=== PATIENT | female | born 1975 | race American Indian/Alaskan Native ===

== ENCOUNTER 2020-01-09 18:21 | Inpatient (IN) | payer OTHER ==
[2020-01-09] MEDS ORDERED: NITROGLYCERIN DRIP 50 MG/250 ML BOTTLE ONE (18:25)
[2020-01-09] MEDS ORDERED: FUROSEMIDE 40 MG/4 ML INJ ONE (18:30)
[2020-01-09] MEDS ORDERED: FUROSEMIDE 100 MG/10 ML INJ IV ONE (18:36)
[2020-01-09] MEDS ORDERED: SODIUM CHLORIDE 0.9% 500 ML 500 ML IV ONE (18:39)
[2020-01-09 18:47] LABS: ABG Base Excess 4.9 mmol/L (-2.0-3.0); ABG HCO3 34.3 mmol/L (20.0-26.0); ABG Methemoglobin 0.6 % (0.0-1.5); ABG Oxygen Saturation 98.9 % (95.0-99.0); ABG PCO2 79.6 mm Hg; ABG PH 7.252 pH Units (7.350-7.450); ABG PO2 172.4 mm Hg (80.0-90.0); VEN PH 7.252 (7.320-7.420)
[2020-01-09] MEDS ORDERED: cefTRIAXone/NS 2 GM/100 ML 2 GM/100 ML BAG IV ONE (18:52)
[2020-01-09] MEDS ORDERED: NITROGLYCERIN DRIP 50 MG/250 ML BOTTLE IV SCH (19:00)
--- NOTE | 2020-01-09 19:01 | XRay Report ---
CHEST 1 VIEW 01/09/2020 5:54 PM INDICATION / CLINICAL INFORMATION: shortness of breath. COMPARISON: None available. FINDINGS: SUPPORT DEVICES: None. HEART / MEDIASTINUM: Heart is moderately enlarged with prominence of the pulmonary arteries. LUNGS / PLEURA: No definite acute airspace or interstitial disease. No significant effusion. No pneum othorax. ADDITIONAL FINDINGS: No significant additional findings. IMPRESSION: 1. Cardiomegaly but no definite acute pulmonary or pleural findings. Signer Name: Vandana Moore MD Signed: 01/09/2020 6:56 PM Workstation Name: [id number]
[2020-01-09 19:25] LABS: Mean Corpuscular HGB Conc 29 % (30-34); Mean Corpuscular Volume 76 fl (79-97); Platelet Count 223 K/mm3 (140-440); Red Blood Count 5.18 M/mm3 (3.65-5.03)
[2020-01-09 19:27] LABS: Hematocrit 39.3 % (30.3-42.9); Hemoglobin 11.4 gm/dl (10.1-14.3)
[2020-01-09 19:34] LABS: INR 1.05 (0.87-1.13)
[2020-01-09 19:42] LABS: Alanine Aminotransferase 19 units/L (7-56); Albumin 4.3 g/dL (3.9-5); Blood Urea Nitrogen 10 mg/dL (7-17); Calcium 9.2 mg/dL (8.4-10.2); Hemolysis Index 8
[2020-01-09 19:53] LABS: BUN/Creatinine Ratio 17
[2020-01-09 20:15] LABS: Anisocytosis 1+; Basophils % (Manual) 0 % (0.0-1.8); Eosinophils % (Manual) 0 % (0.0-4.3); Hypochromasia 1+; Schistocytes Few; Total Cells Counted 100
[2020-01-09] MEDS ORDERED: ETOMIDATE 20 MG/10 ML INJ IV ONE (20:29)
[2020-01-09] MEDS ORDERED: SUCCINYLCHOLINE CHLORIDE 200 MG/10 ML INJ MDV ONE (20:29)
[2020-01-09] MEDS ORDERED: NORepinephrine/NS 4 MG-250 ML 4 MG/250 ML BAG IV ONE (20:52)
--- NOTE | 2020-01-09 21:48 | Emergency Department Report ---
ED General Adult HPI - General Chief complaint: Dyspnea/Respdistress Stated complaint: UNRESPONSIVE Time Seen by Provider: 01/09/20 18:50 Source: EMS Mode of arrival: Stretcher Limitations: Altered Mental Status - History of Present Illness Initial comments: The patient presents to the emergency department via EMS in respiratory distress. Per EMS they received a phone call for difficulty in breathing. Patient has a history of CHF. On exam the patient had rales throughout with 2+ pitting edema. Patient was immediately placed on BiPAP and nitro drip was initiated. Patient was given IV Lasix period. Due to the patient's medical condition they were not able to add to the history. -: Sudden Consistency: constant Improves with: none Worsens with: none Treatments Prior to Arrival: none - Related Data Allergies Allergy/AdvReac Type Severity Reaction Status Date / Time Unable to Assess Allergy Unverified 01/09/20 18:33 ED Review of Systems ROS: Stated complaint: UNRESPONSIVE Other details as noted in HPI Comment: Unobtainable due to pts medical conditions ED Past Medical Hx - Past Medical History Previous Medical History?: Yes Hx Hypertension: Yes Hx Congestive Heart Failure: Yes - Surgical History Additional Surgical History: unobtainable - Social History Smoking Status: Never Smoker Substance Use Type: None ED Physical Exam - General Limitations: Altered Mental Status General appearance: obtunded - Head Head exam: Present: atraumatic, normocephalic - Eye Eye exam: Present: normal appearance - ENT ENT exam: Present: mucous membranes moist - Neck Neck exam: Present: normal inspection - Respiratory Respiratory exam: Present: rales - Cardiovascular Cardiovascular Exam: Present: normal rhythm, tachycardia. Absent: systolic murmur, diastolic murmur, rubs, gallop - GI/Abdominal GI/Abdominal exam: Present: soft, normal bowel sounds. Absent: tenderness - Extremities Exam Extremities exam: Present: normal inspection, other (2+ pitting edema) - Back Exam Back exam: Present: normal inspection - Neurological Exam Neurological exam: Present: other (Not able to assess due to the patient's co ndition) - Psychiatric Psychiatric exam: Present: normal affect, normal mood - Skin Skin exam: Present: warm, dry, intact, normal color. Absent: rash ED Course Vital Signs 01/09/20 01/09/20 01/09/20 18:28 19:00 19:10 Temperature 97.6 F Pulse Rate 80 90 50 L Respiratory 21 18 22 Rate Blood Pressure 245/153 250/185 104/53 Blood Pressure 218/122 [Left] O2 Sat by Pulse 99 90 96 Oximetry 01/09/20 01/09/20 01/09/20 19:20 19:30 19:45 Temperature Pulse Rate 76 76 52 L Respiratory 17 15 4 L Rate Blood Pressure Blood Pressure 177/88 145/83 117/59 [Left] O2 Sat by Pulse 100 99 96 Oximetry 01/09/20 01/09/20 01/09/20 20:00 20:15 20:20 Temperature Pulse Rate 76 50 L 50 L Respiratory 15 1 L 0 L Rate Blood Pressure Blood Pressure 104/53 94/46 92/45 [Left] O2 Sat by Pulse 93 93 92 Oximetry 01/09/20 01/09/20 01/09/20 20:25 20:30 20:35 Temperature Pulse Rate 50 L 48 L 94 H Respiratory 11 L 4 L 15 Rate Blood Pressure Blood Pressure 92/42 87/42 76/57 [Left] O2 Sat by Pulse 95 97 86 Oximetry 01/09/20 01/09/20 01/09/20 20:40 20:45 20:50 Temperature Pulse Rate 100 H 84 81 Respiratory 19 71 H 18 Rate Blood Pressure Blood Pressure 83/58 78/40 [Left] O2 Sat by Pulse 85 99 100 Oximetry 01/09/20 01/09/20 01/09/20 21:00 21:05 21:10 Temperature Pulse Rate 81 80 84 Respiratory 14 19 18 Rate Blood Pressure Blood Pressure 82/42 101/55 100/60 [Left] O2 Sat by Pulse 100 98 98 Oximetry 01/09/20 01/09/20 01/09/20 21:15 21:20 21:21 Temperature Pulse Rate 86 93 H 94 H Respiratory 20 19 20 Rate Blood Pressure Blood Pressure 105/65 106/61 109/64 [Left] O2 Sat by Pulse 98 99 98 Oximetry 01/09/20 01/09/20 01/09/20 21:24 21:26 21:28 Temperature Pulse Rate 96 H 96 H 96 H Respiratory 20 20 19 Rate Blood Pressure Blood Pressure 107/63 107/64 108/63 [Left] O2 Sat by Pulse 98 99 98 Oximetry 01/09/20 01/09/20 01/09/20 21:30 21:32 21:38 Temperature Pulse Rate 95 H 93 H 87 Respiratory 20 18 Rate Blood Pressure 85/51 Blood Pressure 105/63 110/62 [Left] O2 Sat by Pulse 98 98 98 Oximetry 01/09/20 01/09/20 01/09/20 21:40 22:33 22:45 Temperature Pulse Rate 88 76 75 Respiratory 18 20 20 Rate Blood Pressure 114/70 112/65 Blood Pressure 113/79 [Left] O2 Sat by Pulse 97 94 94 Oximetry - Central Line Placement Right IJ Consent Obtained: emergent situation Time Out Performed: Yes Patient Placed on Monitor/Pulse Ox: Yes MD Prep: mask, gown, gloves Local Anesthesia Used: Lidocaine 1% Amount of Anesthesia Used (mls): 5 Ultrasound Used for Placement: Yes Central Line Lumen Inserted: triple Bloods Obtained for Lab: No Central Line Position: good blood return Dressing Applied: Tegaderm Post Procedure X-Ray: tip of catheter in good p Patient Tolerated Procedure: well Complications: none - Intubation Time Out Performed: Yes Sedative: Etomidate Paralytic: Rocuronium Laryngoscope: fiberoptic video scope Size: 3 ET Tube Size: 7 Tube Secured Depth (cm): 22 Tube Secured Location: teeth Tube Placement Confirmation: visualized tube passing t Patient Tolerated Procedure: well Intubation Complications: none ED Medical Decision Making - Lab Data Result diagrams: 01/09/20 19:03 01/09/20 19:03 Lab Results 01/09/20 01/09/20 01/09/20 Range/Units 18:37 18:47 19:03 WBC 14.0 H (4.5-11.0) K/mm3 RBC 5.18 H (3.65-5.03) M/mm3 Hgb 11.4 (10.1-14.3) gm/dl Hct 39.3 (30.3-42.9) % MCV 76 L (79-97) fl MCH 22 L (28-32) pg MCHC 29 L (30-34) % RDW 22.0 H (13.2-15.2) % Plt Count 223 (140-440) K/mm3 Add Manual Diff Complete Total Counted 100 Seg Neuts % (Manual) 76.0 H (40.0-70.0) % Band Neutrophils % 0 % Lymphocytes % (Manual) 21.0 (13.4-35.0) % Reactive Lymphs % (Man) 0 % Monocytes % (Manual) 3.0 (0.0-7.3) % Eosinophils % (Manual) 0 (0.0-4.3) % Basophils % (Manual) 0 (0.0-1.8) % Metamyelocytes % 0 % Myelocytes % 0 % Promyelocytes % 0 % Blast Cells % 0 % Nucleated RBC % Not Reportable Seg Neutrophils # Man 10.6 H (1.8-7.7) K/mm3 Band Neutrophils # 0.0 K/mm3 Lymphocytes # (Manual) 2.9 (1.2-5.4) K/mm3 Abs React Lymphs (Man) 0.0 K/mm3 Monocytes # (Manual) 0.4 (0.0-0.8) K/mm3 Eosinophils # (Manual) 0.0 (0.0-0.4) K/mm3 Basophils # (Manual) 0.0 (0.0-0.1) K/mm3 Metamyelocytes # 0.0 K/mm3 Myelocytes # 0.0 K/mm3 Promyelocytes # 0.0 K/mm3 Blast Cells # 0.0 K/mm3 WBC Morphology Not Reportable Hypersegmented Neuts Not Reportable Hyposegmented Neuts Not Reportable Hypogranular Neuts Not Reportable Smudge Cells Not Reportable Toxic Granulation Not Reportable Toxic Vacuolation Not Reportable Dohle Bodies Not Reportable Pelger-Huet Anomaly Not Reportable Dominique Rods Not Reportable Platelet Estimate Not Reportable Clumped Platelets Not Reportable Plt Clumps, EDTA Not Reportable Large Platelets Not Reportable Giant Platelets Not Reportable Platelet Satelliting Not Reportable Plt Morphology Comment Not Reportable RBC Morphology Not Reportable Dimorphic RBCs Not Reportable Polychromasia Not Reportable Hypochromasia 1+ Poikilocytosis Not Reportable Anisocytosis 1+ Microcytosis Not Reportable Macrocytosis Not Reportable Spherocytes Not Reportable Pappenheimer Bodies Not Reportable Sickle Cells Not Reportable Target Cells Not Reportable Tear Drop Cells Not Reportable Ovalocytes Not Reportable Helmet Cells Not Reportable Feliz-Flat[place] Bodies Not Reportable [place] Rings Not Reportable Sanford Cells Not Reportable Bite Cells Not Reportable Crenated Cell Not Reportable Elliptocytes Not Reportable Acanthocytes (Spur) Not Reportable Rouleaux Not Reportable Hemoglobin C Crystals Not Reportable Schistocytes Few Malaria parasites Not Reportable Beka Bodies Not Reportable Hem Pathologist Commnt No PT (12.2-14.9) Sec. INR (0.87-1.13) ABG pH 7.252 L (7.350-7.450) pH Units ABG pCO2 79.6 mm Hg ABG pO2 172.4 H (80.0-90.0) mm Hg ABG HCO3 34.3 H (20.0-26.0) mmol/L ABG O2 Saturation 98.9 (95.0-99.0) % ABG O2 Content 16.3 (0.0-44) ABG Base Excess 4.9 H (-2.0-3.0) mmol/L ABG Hemoglobin 11.8 L (12.0-16.0) gm/dl ABG Carboxyhemoglobin 2.2 (0.0-5.0) % ABG Methemoglobin 0.6 (0.0-1.5) % VBG pH 7.252 L (7.320-7.420) Oxyhemoglobin 96.1 (95.0-99.0) % FiO2 60 % Sodium (137-145) mmol/L Potassium (3.6-5.0) mmol/L Chloride (98-107) mmol/L Carbon Dioxide (22-30) mmol/L Anion Gap mmol/L BUN (7-17) mg/dL Creatinine (0.6-1.2) mg/dL Estimated GFR ml/min BUN/Creatinine Ratio % Glucose (65-100) mg/dL POC Glucose 177 H (70-105) Lactic Acid (0.7-2.0) mmol/L Calcium (8.4-10.2) mg/dL Total Bilirubin (0.1-1.2) mg/dL AST (5-40) units/L ALT (7-56) units/L Alkaline Phosphatase (35-129) units/L Troponin T (0.00-0.029) ng/mL NT-Pro-B Natriuret Pep (0-450) pg/mL Total Protein (6.3-8.2) g/dL Albumin (3.9-5) g/dL Albumin/Globulin Ratio % HCG, Qual (Negative) 01/09/20 01/09/20 01/09/20 Range/Units 19:03 19:03 19:03 WBC (4.5-11.0) K/mm3 RBC (3.65-5.03) M/mm3 Hgb (10.1-14.3) gm/dl Hct (30.3-42.9) % MCV (79-97) fl MCH (28-32) pg MCHC (30-34) % RDW (13.2-15.2) % Plt Count (140-440) K/mm3 Add Manual Diff Total Counted Seg Neuts % (Manual) (40.0-70.0) % Band Neutrophils % % Lymphocytes % (Manual) (13.4-35.0) % Reactive Lymphs % (Man) % Monocytes % (Manual) (0.0-7.3) % Eosinophils % (Manual) (0.0-4.3) % Basophils % (Manual) (0.0-1.8) % Metamyelocytes % % Myelocytes % % Promyelocytes % % Blast Cells % % Nucleated RBC % Seg Neutrophils # Man (1.8-7.7) K/mm3 Band Neutrophils # K/mm3 Lymphocytes # (Manual) (1.2-5.4) K/mm3 Abs React Lymphs (Man) K/mm3 Monocytes # (Manual) (0.0-0.8) K/mm3 Eosinophils # (Manual) (0.0-0.4) K/mm3 Basophils # (Manual) (0.0-0.1) K/mm3 Metamyelocytes # K/mm3 Myelocytes # K/mm3 Promyelocytes # K/mm3 Blast Cells # K/mm3 WBC Morphology Hypersegmented Neuts Hyposegmented Neuts Hypogranular Neuts Smudge Cells Toxic Granulation Toxic Vacuolation Dohle Bodies Pelger-Huet Anomaly Dominique Rods Platelet Estimate Clumped Platelets Plt Clumps, EDTA Large Platelets Giant Platelets Platelet Satelliting Plt Morphology Comment RBC Morphology Dimorphic RBCs Polychromasia Hypochromasia Poikilocytosis Anisocytosis Microcytosis Macrocytosis Spherocytes Pappenheimer Bodies Sickle Cells Target Cells Tear Drop Cells Ovalocytes Helmet Cells Feliz-Fl[place] Bodies [place] Rings Sanford Cells Bite Cells Crenated Cell Elliptocytes Acanthocytes (Spur) Rouleaux Hemoglobin C Crystals Schistocytes Malaria parasites Beka Bodies Hem Pathologist Commnt PT 13.9 (12.2-14.9) Sec. INR 1.05 (0.87-1.13) ABG pH (7.350-7.450) pH Units ABG pCO2 mm Hg ABG pO2 (80.0-90.0) mm Hg ABG HCO3 (20.0-26.0) mmol/L ABG O2 Saturation (95.0-99.0) % ABG O2 Content (0.0-44) ABG Base Excess (-2.0-3.0) mmol/L ABG Hemoglobin (12.0-16.0) gm/dl ABG Carboxyhemoglobin (0.0-5.0) % ABG Methemoglobin (0.0-1.5) % VBG pH (7.320-7.420) Oxyhemoglobin (95.0-99.0) % FiO2 % Sodium 141 (137-145) mmol/L Potassium 3.1 L (3.6-5.0) mmol/L Chloride 95.2 L (98-107) mmol/L Carbon Dioxide 28 (22-30) mmol/L Anion Gap 21 mmol/L BUN 10 (7-17) mg/dL Creatinine 0.6 (0.6-1.2) mg/dL Estimated GFR > 60 ml/min BUN/Creatinine Ratio 17 % Glucose 197 H (65-100) mg/dL POC Glucose (70-105) Lactic Acid 1.90 (0.7-2.0) mmol/L Calcium 9.2 (8.4-10.2) mg/dL Total Bilirubin 0.80 (0.1-1.2) mg/dL AST 24 (5-40) units/L ALT 19 (7-56) units/L Alkaline Phosphatase 105 (35-129) units/L Troponin T (0.00-0.029) ng/mL NT-Pro-B Natriuret Pep (0-450) pg/mL Total Protein 8.3 H (6.3-8.2) g/dL Albumin 4.3 (3.9-5) g/dL Albumin/Globulin Ratio 1.1 % HCG, Qual (Negative) 01/09/20 01/09/20 01/09/20 Range/Units 19:03 19:03 19:03 WBC (4.5-11.0) K/mm3 RBC (3.65-5.03) M/mm3 Hgb (10.1-14.3) gm/dl Hct (30.3-42.9) % MCV (79-97) fl MCH (28-32) pg MCHC (30-34) % RDW (13.2-15.2) % Plt Count (140-440) K/mm3 Add Manual Diff Total Counted Seg Neuts % (Manual) (40.0-70.0) % Band Neutrophils % % Lymphocytes % (Manual) (13.4-35.0) % Reactive Lymphs % (Man) % Monocytes % (Manual) (0.0-7.3) % Eosinophils % (Manual) (0.0-4.3) % Basophils % (Manual) (0.0-1.8) % Metamyelocytes % % Myelocytes % % Promyelocytes % % Blast Cells % % Nucleated RBC % Seg Neutrophils # Man (1.8-7.7) K/mm3 Band Neutrophils # K/mm3 Lymphocytes # (Manual) (1.2-5.4) K/mm3 Abs React Lymphs (Man) K/mm3 Monocytes # (Manual) (0.0-0.8) K/mm3 Eosinophils # (Manual) (0.0-0.4) K/mm3 Basophils # (Manual) (0.0-0.1) K/mm3 Metamyelocytes # K/mm3 Myelocytes # K/mm3 Promyelocytes # K/mm3 Blast Cells # K/mm3 WBC Morphology Hypersegmented Neuts Hyposegmented Neuts Hypogranular Neuts Smudge Cells Toxic Granulation Toxic Vacuolation Dohle Bodies Pelger-Huet Anomaly Dominique Rods Platelet Estimate Clumped Platelets Plt Clumps, EDTA Large Platelets Giant Platelets Platelet Satelliting Plt Morphology Comment RBC Morphology Dimorphic RBCs Polychromasia Hypochromasia Poikilocytosis Anisocytosis Microcytosis Macrocytosis Spherocytes Pappenheimer Bodies Sickle Cells Target Cells Tear Drop Cells Ovalocytes Helmet Cells Feliz-Fl[place] Bodies [place] Rings Gregory Cells Bite Cells Crenated Cell Elliptocytes Acanthocytes (Spur) Rouleaux Hemoglobin C Crystals Schistocytes Malaria parasites Beka Bodies Hem Pathologist Commnt PT (12.2-14.9) Sec. INR (0.87-1.13) ABG pH (7.350-7.450) pH Units ABG pCO2 mm Hg ABG pO2 (80.0-90.0) mm Hg ABG HCO3 (20.0-26.0) mmol/L ABG O2 Saturation (95.0-99.0) % ABG O2 Content (0.0-44) ABG Base Excess (-2.0-3.0) mmol/L ABG Hemoglobin (12.0-16.0) gm/dl ABG Carboxyhemoglobin (0.0-5.0) % ABG Methemoglobin (0.0-1.5) % VBG pH (7.320-7.420) Oxyhemoglobin (95.0-99.0) % FiO2 % Sodium (137-145) mmol/L Potassium (3.6-5.0) mmol/L Chloride (98-107) mmol/L Carbon Dioxide (22-30) mmol/L Anion Gap mmol/L BUN (7-17) mg/dL Creatinine (0.6-1.2) mg/dL Estimated GFR ml/min BUN/Creatinine Ratio % Glucose (65-100) mg/dL POC Glucose (70-105) Lactic Acid (0.7-2.0) mmol/L Calcium (8.4-10.2) mg/dL Total Bilirubin (0.1-1.2) mg/dL AST (5-40) units/L ALT (7-56) units/L Alkaline Phosphatase (35-129) units/L Troponin T < 0.010 (0.00-0.029) ng/mL NT-Pro-B Natriuret Pep 1345 H (0-450) pg/mL Total Protein (6.3-8.2) g/dL Albumin (3.9-5) g/dL Albumin/Globulin Ratio % HCG, Qual Negative (Negative) 01/09/20 Range/Units 21:55 WBC (4.5-11.0) K/mm3 RBC (3.65-5.03) M/mm3 Hgb (10.1-14.3) gm/dl Hct (30.3-42.9) % MCV (79-97) fl MCH (28-32) pg MCHC (30-34) % RDW (13.2-15.2) % Plt Count (140-440) K/mm3 Add Manual Diff Total Counted Seg Neuts % (Manual) (40.0-70.0) % Band Neutrophils % % Lymphocytes % (Manual) (13.4-35.0) % Reactive Lymphs % (Man) % Monocytes % (Manual) (0.0-7.3) % Eosinophils % (Manual) (0.0-4.3) % Basophils % (Manual) (0.0-1.8) % Metamyelocytes % % Myelocytes % % Promyelocytes % % Blast Cells % % Nucleated RBC % Seg Neutrophils # Man (1.8-7.7) K/mm3 Band Neutrophils # K/mm3 Lymphocytes # (Manual) (1.2-5.4) K/mm3 Abs React Lymphs (Man) K/mm3 Monocytes # (Manual) (0.0-0.8) K/mm3 Eosinophils # (Manual) (0.0-0.4) K/mm3 Basophils # (Manual) (0.0-0.1) K/mm3 Metamyelocytes # K/mm3 Myelocytes # K/mm3 Promyelocytes # K/mm3 Blast Cells # K/mm3 WBC Morphology Hypersegmented Neuts Hyposegmented Neuts Hypogranular Neuts Smudge Cells Toxic Granulation Toxic Vacuolation Dohle Bodies Pelger-Huet Anomaly Dominique Rods Platelet Estimate Clumped Platelets Plt Clumps, EDTA Large Platelets Giant Platelets Platelet Satelliting Plt Morphology Comment RBC Morphology Dimorphic RBCs Polychromasia Hypochromasia Poikilocytosis Anisocytosis Microcytosis Macrocytosis Spherocytes Pappenheimer Bodies Sickle Cells Target Cells Tear Drop Cells Ovalocytes Helmet Cells Feliz-Fl[place] Bodies [place] Rings Sanford Cells Bite Cells Crenated Cell Elliptocytes Acanthocytes (Spur) Rouleaux Hemoglobin C Crystals Schistocytes Malaria parasites Beka Bodies Hem Pathologist Commnt PT (12.2-14.9) Sec. INR (0.87-1.13) ABG pH 7.310 L (7.350-7.450) pH Units ABG pCO2 63.3 mm Hg ABG pO2 61.8 L (80.0-90.0) mm Hg ABG HCO3 31.2 H (20.0-26.0) mmol/L ABG O2 Saturation 90.3 L (95.0-99.0) % ABG O2 Content 12.4 (0.0-44) ABG Base Excess 3.8 H (-2.0-3.0) mmol/L ABG Hemoglobin 10.0 L (12.0-16.0) gm/dl ABG Carboxyhemoglobin 2.1 (0.0-5.0) % ABG Methemoglobin 0.6 (0.0-1.5) % VBG pH (7.320-7.420) Oxyhemoglobin 87.8 L (95.0-99.0) % FiO2 60 % Sodium (137-145) mmol/L Potassium (3.6-5.0) mmol/L Chloride (98-107) mmol/L Carbon Dioxide (22-30) mmol/L Anion Gap mmol/L BUN (7-17) mg/dL Creatinine (0.6-1.2) mg/dL Estimated GFR ml/min BUN/Creatinine Ratio % Glucose (65-100) mg/dL POC Glucose (70-105) Lactic Acid (0.7-2.0) mmol/L Calcium (8.4-10.2) mg/dL Total Bilirubin (0.1-1.2) mg/dL AST (5-40) units/L ALT (7-56) units/L Alkaline Phosphatase (35-129) units/L Troponin T (0.00-0.029) ng/mL NT-Pro-B Natriuret Pep (0-450) pg/mL Total Protein (6.3-8.2) g/dL Albumin (3.9-5) g/dL Albumin/Globulin Ratio % HCG, Qual (Negative) - EKG Data -: EKG Interpreted by Pa EKG shows normal: sinus rhythm Rate: normal - Radiology Data Radiology results: report reviewed - Medical Decision Making On initial arrival the patient was placed on BiPAP and nitro drip was initiated for her blood pressure was 250/170 as well as for the procedure and congestive heart failure exacerbation Patient was not tolerating BiPAP well and O2 sat stayed in the low 80s thus they were placed on a AVAP with good results for O2 sats being 97% or higher. Called to the room placement however after the patient was initially stabilized due to her O2 sats dropping to the 80s BP dropped to 90/40. At this time the patient was intubated and central line was placed. There is a central line was tried at the subclavian right thigh was difficult to obtain due to body habitus. Minutes CVO was attempted at the right femoral vein without success. With ultrasound. Eventually a right IJ was placed. Critical Care Time: Yes Critical care time in (mins) excluding proc time.: 90 Critical care attestation.: If time is entered above; I have spent that time in minutes in the direct care of this critically ill patient, excluding procedure time. ED Disposition Clinical Impression: Respiratory failure, Pulmonary edema Disposition: DC-01 TO HOME OR SELFCARE Is pt being admited?: Yes Does the pt Need Aspirin: No Condition: Critical Instructions: Pulmonary Edema (ED)
[2020-01-09 22:09] LABS: ABG Base Excess 3.8 mmol/L (-2.0-3.0); ABG HCO3 31.2 mmol/L (20.0-26.0); ABG Methemoglobin 0.6 % (0.0-1.5); ABG Oxygen Saturation 90.3 % (95.0-99.0); ABG PCO2 63.3 mm Hg; ABG PH 7.31 pH Units (7.350-7.450); ABG PO2 61.8 mm Hg (80.0-90.0)
--- NOTE | 2020-01-09 22:32 | XRay Report ---
CHEST 1 VIEW INDICATION / CLINICAL INFORMATION: MAIN. Status post intubation and central line. COMPARISON: 01/09/2020 FINDINGS: SUPPORT DEVICES: Interval placement of ET tube with its tip at the level of the clavicles. Interval p lacement of right sided central venous catheter with its tip at the superior atrial caval junction. HEART / MEDIASTINUM: Stable. LUNGS / PLEURA: Mild bibasilar atelectasis. No pneumothorax. ADDITIONAL FINDINGS: No significant additional findings. IMPRESSION: 1. Interval placement of ET tube with its tip in appropriate position. 2. Interval placement of right IJ catheter with its tip in appropriate position. Signer Name: Heraclio Elam MD Signed: 01/09/2020 10:27 PM Workstation Name: [id number]
[2020-01-10] MEDS ORDERED: cefTRIAXone/NS 2 GM/100 ML 2 GM/100 ML BAG IV ONE (00:16)
[2020-01-10 03:49] LABS: ABG HCO3 28.7 mmol/L (20.0-26.0); ABG Methemoglobin 0.4 % (0.0-1.5); ABG Oxygen Saturation 95.1 % (95.0-99.0); ABG PCO2 43.3 mm Hg; ABG PH 7.439 pH Units (7.350-7.450); ABG PO2 63.8 mm Hg (80.0-90.0)
[2020-01-10] MEDS: POTASSIUM CHLORIDE 20 MEQ 20 MEQ/100 ML BAG IV SCH ×2 (05:21→06:08)
[2020-01-10 05:32] LABS: Bacteria,Urine 2+ /HPF (Negative); Bilirubin,Urine NEG (Negative); Blood,Urine MOD (Negative); Color,Urine Yellow (Yellow); Mucus,Urine FEW /HPF; Urobilinogen,Urine < 2.0 mg/dL (<2.0)
[2020-01-10 05:34] LABS: Protein,Urine >500 mg/dL (Negative)
--- NOTE | 2020-01-10 07:29 | History and Physical Report ---
History of Present Illness Date of examination: 01/09/20 Date of admission: 01/09/20 23:08 Chief complaint: Severe shortness of breath for 1 day History of present illness: 44-year-old female with history of congestive heart failure and hypertension presents with severe difficulty in breathing. Patient was placed on BiPAP and nitro drip. Patient continues to be very short of breath and was intubated. No chest pain. No fever. No exposure to coronavirus. PND attacks present. Noncompliant with medications. Decreased responsiveness. - Past Medical History Previous Medical History?: Yes Hx Hypertension: Yes Hx Congestive Heart Failure: Yes - Surgical History Additional Surgical History: unobtainable - Social History Smoking Status: Never Smoker Substance Use Type: None Review of Systems ROS: Stated complaint: UNRESPONSIVE Other details as noted in HPI Severe shortness of breath. Comment: Unobtainable due to pts medical conditions E Medications and Allergies Allergies Allergy/AdvReac Type Severity Reaction Status Date / Time Unable to Assess Allergy Unverified 01/09/20 18:33 Home Medications Medication Instructions Recorded Confirmed Last Taken Type Unobtainable 01/10/20 01/10/20 Unknown History Active Meds: Active Medications Nitroglycerin/Dextrose (Tridil Drip 50mg/250ml) 50 mg in 250 mls @ 1.5 mls/hr IV TITR KANIKA; Protocol Last Titration: 01/09/20 20:15 Dose: 0 mcg/min, 0 mls/hr Documented by: Norepinephrine (Levophed Drip 4 Mg/Ns 250 Ml) 4 mg in 250 mls @ 7.5 mls/hr IV TITR KANIKA; Protocol Exam - Constitutional Vitals: Temp Pulse Resp BP Pulse Ox 97.6 F 63 20 101/56 92 01/09/20 19:00 01/10/20 05:10 01/10/20 03:45 01/10/20 03:45 01/10/20 03:45 General appearance: Present: severe distress, well-nourished - EENT Eyes: Present: PERRL ENT: hearing intact, clear oral mucosa - Neck Neck: Present: supple, normal ROM - Respiratory Respiratory effort: normal Respiratory: bilateral: CTA - Cardiovascular Heart rate: 110 Rhythm: regular Heart Sounds: Present: S1 & S2. Absent: rub, click - Extremities Extremities: no ischemia, pulses symmetrical, No edema Peripheral Pulses: within normal limits - Abdominal General gastrointestinal: Present: soft, non-tender, non-distended, normal bowel sounds Female genitourinary: Present: normal - Integumentary Integumentary: Present: clear, warm, dry - Musculoskeletal Musculoskeletal: generalized weakness - Psychiatric Psychiatric: other (Patient intubated.) - Neurologic Neurologic: other (Patient intubated.) HEART Score - HEART Score History: Moderately suspicious Age: < 45 Risk factors: 1-2 risk factors Troponin: Troponin T 0.013 ng/mL (0.00-0.029) 01/09/20 22:19 - Critical Actions Critical Actions: 4-6 pts:12-16.6% risk of adverse cardiac event. Should be admitted Results - Labs CBC & Chem 7: 01/09/20 19:03 01/09/20 19:03 Labs: Laboratory Last Values WBC 14.0 K/mm3 (4.5-11.0) H 01/09/20 19:03 RBC 5.18 M/mm3 (3.65-5.03) H 01/09/20 19:03 Hgb 11.4 gm/dl (10.1-14.3) 01/09/20 19: Hct 39.3 % (30.3-42.9) 01/09/20 19: MCV 76 fl (79-97) L 01/09/20 19:03 MCH 22 pg (28-32) L 01/09/20 19:03 MCHC 29 % (30-34) L 01/09/20 19:03 RDW 22.0 % (13.2-15.2) H 01/09/20 19:03 Plt Count 223 K/mm3 (140-440) 01/09/20 19:03 Add Manual Diff Complete 01/09/20 19: Total Counted 100 01/09/20 19:03 Seg Neuts % (Manual) 76.0 % (40.0-70.0) H 01/09/20 19:03 Band Neutrophils % 0 % 01/09/20 19:03 Lymphocytes % (Manual) 21.0 % (13.4-35.0) 01/09/20 19:03 Reactive Lymphs % (Man) 0 % 01/09/20 19:03 Monocytes % (Manual) 3.0 % (0.0-7.3) 01/09/20 19:03 Eosinophils % (Manual) 0 % (0.0-4.3) 01/09/20 19:03 Basophils % (Manual) 0 % (0.0-1.8) 01/09/20 19:03 Metamyelocytes % 0 % 01/09/20 19:03 Myelocytes % 0 % 01/09/20 19:03 Promyelocytes % 0 % 01/09/20 19:03 Blast Cells % 0 % 01/09/20 19:03 Nucleated RBC % Not Reportable 01/09/20 19:03 Seg Neutrophils # Man 10.6 K/mm3 (1.8-7.7) H 01/09/20 19:03 Band Neutrophils # 0.0 K/mm3 01/09/20 19:03 Lymphocytes # (Manual) 2.9 K/mm3 (1.2-5.4) 01/09/20 19:03 Abs React Lymphs (Man) 0.0 K/mm3 01/09/20 19:03 Monocytes # (Manual) 0.4 K/mm3 (0.0-0.8) 01/09/20 19:03 Eosinophils # (Manual) 0.0 K/mm3 (0.0-0.4) 01/09/20 19:03 Basophils # (Manual) 0.0 K/mm3 (0.0-0.1) 01/09/20 19:03 Metamyelocytes # 0.0 K/mm3 01/09/20 19:03 Myelocytes # 0.0 K/mm3 01/09/20 19:03 Promyelocytes # 0.0 K/mm3 01/09/20 19:03 Blast Cells # 0.0 K/mm3 01/09/20 19:03 WBC Morphology Not Reportable 01/09/20 19:03 Hypersegmented Neuts Not Reportable 01/09/20 19:03 Hyposegmented Neuts Not Reportable 01/09/20 19:03 Hypogranular Neuts Not Reportable 01/09/20 19:03 Smudge Cells Not Reportable 01/09/20 19:03 Toxic Granulation Not Reportable 01/09/20 19:03 Toxic Vacuolation Not Reportable 01/09/20 19:03 Dohle Bodies Not Reportable 01/09/20 19:03 Pelger-Huet Anomaly Not Reportable 01/09/20 19:03 Dominique Rods Not Reportable 01/09/20 19:03 Platelet Estimate Not Reportable 01/09/20 19:03 Clumped Platelets Not Reportable 01/09/20 19:03 Plt Clumps, EDTA Not Reportable 01/09/20 19:03 Large Platelets Not Reportable 01/09/20 19:03 Giant Platelets Not Reportable 01/09/20 19:03 Platelet Satelliting Not Reportable 01/09/20 19:03 Plt Morphology Comment Not Reportable 01/09/20 19:03 RBC Morphology Not Reportable 01/09/20 19:03 Dimorphic RBCs Not Reportable 01/09/20 19:03 Polychromasia Not Reportable 01/09/20 19:03 Hypochromasia 1+ 01/09/20 19:03 Poikilocytosis Not Reportable 01/09/20 19:03 Anisocytosis 1+ 01/09/20 19:03 Microcytosis Not Reportable 01/09/20 19:03 Macrocytosis Not Reportable 01/09/20 19:03 Spherocytes Not Reportable 01/09/20 19:03 Pappenheimer Bodies Not Reportable 01/09/20 19:03 Sickle Cells Not Reportable 01/09/20 19:03 Target Cells Not Reportable 01/09/20 19:03 Tear Drop Cells Not Reportable 01/09/20 19:03 Ovalocytes Not Reportable 01/09/20 19:03 Helmet Cells Not Reportable 01/09/20 19:03 [place] Bodies Not Reportable 01/09/20 19:03 [place] Rings Not Reportable 01/09/20 19:03 [place] Cells Not Reportable 01/09/20 19:03 Bite Cells Not Reportable 01/09/20 19:03 Crenated Cell Not Reportable 01/09/20 19:03 Elliptocytes Not Reportable 01/09/20 19:03 Acanthocytes (Spur) Not Reportable 01/09/20 19:03 Rouleaux Not Reportable 01/09/20 19:03 Hemoglobin C Crystals Not Reportable 01/09/20 19:03 Schistocytes Few 01/09/20 19:03 Malaria parasites Not Reportable 01/09/20 19:03 [place] Bodies Not Reportable 01/09/20 19:03 Hem Pathologist Commnt No 01/09/20 19:03 PT 13.9 Sec. (12.2-14.9) 01/09/20 19:03 INR 1.05 (0.87-1.13) 01/09/20 19:03 ABG pH 7.439 pH Units (7.350-7.450) 01/10/20 03:35 ABG pCO2 43.3 mm Hg 01/10/20 03:35 ABG pO2 63.8 mm Hg (80.0-90.0) L 01/10/20 03:35 ABG HCO3 28.7 mmol/L (20.0-26.0) H 01/10/20 03:35 ABG O2 Saturation 95.1 % (95.0-99.0) 01/10/20 03:35 ABG O2 Content 14.3 (0.0-44) 01/10/20 03:35 ABG Base Excess 4.0 mmol/L (-2.0-3.0) H 01/10/20 03:35 ABG Hemoglobin 10.9 gm/dl (12.0-16.0) L 01/10/20 03:35 ABG Carboxyhemoglobin 1.9 % (0.0-5.0) 01/10/20 03:35 ABG Methemoglobin 0.4 % (0.0-1.5) 01/10/20 03:35 VBG pH 7.252 (7.320-7.420) L 01/09/20 18:37 Oxyhemoglobin 92.8 % (95.0-99.0) L 01/10/20 03:35 FiO2 60 % 01/10/20 03:35 Sodium 141 mmol/L (137-145) 01/09/20 19:03 Potassium 3.1 mmol/L (3.6-5.0) L 01/09/20 19:03 Chloride 95.2 mmol/L (98-107) L 01/09/20 19:03 Carbon Dioxide 28 mmol/L (22-30) 01/09/20 19:03 Anion Gap 21 mmol/L 01/09/20 19:03 BUN 10 mg/dL (7-17) 01/09/20 19:03 Creatinine 0.6 mg/dL (0.6-1.2) 01/09/20 19:03 Estimated GFR > 60 ml/min 01/09/20 19:03 BUN/Creatinine Ratio 17 % 01/09/20 19:03 Glucose 197 mg/dL (65-100) H 01/09/20 19:03 POC Glucose 177 (70-105) H 01/09/20 18:47 Lactic Acid 1.20 mmol/L (0.7-2.0) 01/09/20 22:19 Calcium 9.2 mg/dL (8.4-10.2) 01/09/20 19:03 Total Bilirubin 0.80 mg/dL (0.1-1.2) 01/09/20 19:03 AST 24 units/L (5-40) 01/09/20 19:03 ALT 19 units/L (7-56) 01/09/20 19:03 Alkaline Phosphatase 105 units/L (35-129) 01/09/20 19:03 Troponin T 0.013 ng/mL (0.00-0.029) 01/09/20 22:19 NT-Pro-B Natriuret Pep 1345 pg/mL (0-450) H 01/09/20 19:03 Total Protein 8.3 g/dL (6.3-8.2) H 01/09/20 19:03 Albumin 4.3 g/dL (3.9-5) 01/09/20 19:03 Albumin/Globulin Ratio 1.1 % 01/09/20 19:03 HCG, Qual Negative (Negative) 01/09/20 19:03 Urine Color Yellow (Yellow) 01/10/20 04:12 Urine Turbidity Cloudy (Clear) 01/10/20 04:12 Urine pH 7.0 (5.0-7.0) 01/10/20 04:12 Ur Specific [place] 1.007 (1.003-1.030) 01/10/20 04:12 Urine Protein >500 mg/dL (Negative) 01/10/20 04:12 Urine Glucose (UA) 50 mg/dL (Negative) 01/10/20 04:12 Urine Ketones Neg mg/dL (Negative) 01/10/20 04:12 Urine Blood Mod (Negative) 01/10/20 04:12 Urine Nitrite Neg (Negative) 01/10/20 04:12 Urine Bilirubin Neg (Negative) 01/10/20 04:12 Urine Urobilinogen < 2.0 mg/dL (<2.0) 01/10/20 04:12 Ur Leukocyte Esterase Neg (Negative) 01/10/20 04:12 Urine WBC (Auto) 50.0 /HPF (0.0-6.0) H 01/10/20 04:12 Urine RBC (Auto) 17.0 /HPF (0.0-6.0) 01/10/20 04:12 U Epithel Cells (Auto) 1.0 /HPF (0-13.0) 01/10/20 04:12 Urine Bacteria (Auto) 2+ /HPF (Negative) 01/10/20 04:12 Urine Mucus Few /HPF 01/10/20 04:12 Urine Yeast (Budding) 3+ /HPF 01/10/20 04:12 Short CBC 01/09/20 Range/Units 19:03 WBC 14.0 H (4.5-11.0) K/mm3 Hgb 11.4 (10.1-14.3) gm/dl Hct 39.3 (30.3-42.9) % Plt Count 223 (140-440) K/mm3 BMP 01/09/20 19:03 Sodium 141 Potassium 3.1 L Chloride 95.2 L Carbon Dioxide 28 BUN 10 Creatinine 0.6 Glucose 197 H Calcium 9.2 Cardiac Enzymes 01/09/20 01/09/20 Range/Units 19:03 22:19 Troponin T < 0.010 0.013 (0.00-0.029) ng/mL Liver Function 01/09/20 Range/Units 19:03 Total Bilirubin 0.80 (0.1-1.2) mg/dL AST 24 (5-40) units/L ALT 19 (7-56) units/L Alkaline Phosphatase 105 (35-129) units/L Albumin 4.3 (3.9-5) g/dL Urine 01/10/20 Range/Units 04:12 Urine Color Yellow (Yellow) Urine pH 7.0 (5.0-7.0) Ur Specific [place] 1.007 (1.003-1.030) Urine Protein >500 (Negative) mg/dL Urine Glucose (UA) 50 (Negative) mg/dL Microbiology: Microbiology 01/09/20 19:03 Peripheral/Venous Blood Culture - Preliminary Culture in Progress 01/09/20 19:03 Peripheral/Venous Blood Culture - Preliminary Culture in Progress - Imaging and Cardiology EKG: report reviewed (Sinus tachycardia) Chest x-ray: report reviewed Imaging and Cardiology: With radial arteryOkay chest x-ray Cardiomegaly but no definite acute pulmonary or pleural findings Gomez/IV: Voiding Method Indwelling Catheter IV Catheter Type [Right Triple Lumen Cath Internal Jugular] IV Catheter Type [Right Hand] INT / Saline Lock Assessment and Plan Assessment and plan: Critical care statement The high probability OF a clinically significant sudden or life-threatening deterioration of the cardiorespiratory system and endocrine system required my full and direct attention, intervention and postoperative management. The aggregate critical care time was 40 minutes. The time is in addition to time spent performing reported procedures but includes the followin: Data review and interpretation 2: Patient assessment and monitoring of vital signs 3: Documentation 4:: Medication orders and management Advance Directives: Yes (Full code) VTE prophylaxis?: Chemical Plan of care discussed with patient/family: Yes - Patient Problems (1) Acute respiratory failure with hypoxia Current Visit: Yes Status: Acute Plan to address problem: Secondary to pulmonary edema IV Lasix for now Potassium supplements Echocardiogram for ejection fraction Intake and output strictly Daily weights strictly (2) Acute pulmonary edema Current Visit: Yes Status: Acute Plan to address problem: IV Lasix for now and nitro drip. Hence admission to ICU (3) Acute exacerbation of congestive heart failure Current Visit: Yes Status: Acute Qualifiers: Heart failure type: combined systolic and diastolic Qualified Code(s): I50.43 - Acute on chronic combined systolic (congestive) and diastolic (congestive) heart failure Plan to address problem: Echocardiogram for ejection fraction IV Lasix Daily weights Daily intake and output (4) Hypertension Current Visit: Yes Status: Chronic Qualifiers: Hypertension type: essential hypertension Qualified Code(s): I10 - Essential (primary) hypertension Plan to address problem: Continue antihypertensives (5) Hypokalemia Current Visit: Yes Status: Acute Plan to address problem: Supplemented (6) DVT prophylaxis Current Visit: Yes Status: Acute Plan to address problem: On heparin and GI prophylaxis
[2020-01-10] MEDS ORDERED: SODIUM BICARBONATE 325 MG TAB FEEDTUBE PRN (08:00)
[2020-01-10] MEDS ORDERED: MORPHINE 2 MG/1 ML INJ IV PRN (08:00)
[2020-01-10] MEDS ORDERED: LIPASE 10,500/PROTEASE 25,000/AMYLASE 43,750 (UNITS) DR CAP FEEDTUBE PRN (08:00)
[2020-01-10] MEDS ORDERED: SIMPLE SYRUP 15 ML FEEDTUBE PRN ×2 (08:00)
[2020-01-10] MEDS ORDERED: METOCLOPRAMIDE 10 MG/2 ML INJ IV PRN (08:00)
[2020-01-10] MEDS ORDERED: ONDANSETRON 4 MG/2 ML INJ IV PRN (08:00)
[2020-01-10] MEDS ORDERED: FUROSEMIDE 40 MG/4 ML INJ IV SCH (08:30)
--- NOTE | 2020-01-10 08:42 | Progress Note ---
Assessment and Plan Assessment and plan: --Acute hypoxic respiratory failure; requiring intubation and mechanical ventilation Supportive care, wean as tolerated and extubate Pulmonary critical consulted --Metabolic encephalopathy; present on admission Multifactorial, hypoxia, hypotension Possible sepsis, Treat the underlying cause --Hypotension/shock; DC Tridil drip Consider vasopressors levophed Supportive care --Acute kidney injury; secondary to vasomotor nephropathy Closely monitor renal function, avoid nephrotoxins Nephrology evaluation and renal ultrasound if no improvement --Acute versus acute on chronic congestive heart failure; Unknown ejection fraction, IV diuretics, input output monitoring Follow echocardiogram for LV function ejection fraction, cardiology consulted Fluid restriction and low-sodium diet --Moderate malnutrition/hypoalbuminemia Supportive care, nutrition consult if needed --P UI/high suspicion for COVID-19; Droplet and contact isolation, Follow clarke PCR test Inflammatory markers, ID consulted by admitter --Morbid obesity; BMI 55.1 Patient needs weight reduction when medically stable --Possible obstructive sleep apnea; Patient is intubated, may need outpatient sleep study --Possible obesity hypoventilation syndrome; Ventilatory support, CPAP and BiPAP at night once extubated --DVT prophylaxis;Lovenox --Full CODE STATUS We will closely monitor the patient and adjust management as needed. Plan of care reviewed with the patient's nurse. The high probability of a clinically significant, sudden or life threatening deterioration of the [Respiratory, ID, CVs] system(s) required my full and direct attention, intervention and personal management. The aggregate critical care time was [35] minutes. This time is in addition to time spent performing reported procedures but includes the following: [x] Data Review and interpretation [x] Patient assessment and monitoring of vital signs [x] Documentation [x] Medication orders and management History Interval history: I have seen and examined the patient at the bedside this morning in ICU Patient's chart and medications reviewed Patient is intubated on ventilatory support Vital signs noted Hospitalist Physical - Constitutional Vitals: Temp Pulse Resp BP Pulse Ox 97.6 F 65 20 94/59 98 01/09/20 19:00 01/10/20 07:35 01/10/20 03:45 01/10/20 07:35 01/10/20 07:35 General appearance: Present: severe distress, well-nourished, obese (Morbidly obese), other (Intubated on vent) - EENT Eyes: Present: PERRL. Absent: scleral icterus - Neck Neck: Present: supple, normal ROM - Respiratory Respiratory effort: normal Respiratory: bilateral: diminished, rhonchi, negative: rales, wheezing - Cardiovascular Rhythm: regular Heart Sounds: Present: S1 & S2 - Extremities Extremities: no ischemia Extremity abnormal: edema - Abdominal General gastrointestinal: soft, non-tender, non-distended, normal bowel sounds - Integumentary Integumentary: Present: clear, warm - Psychiatric Psychiatric: other (Patient intubated on ventilatory support) - Neurologic Neurologic: other (Intubated on vent) HEART Score - HEART Score Age: < 45 Risk factors: 1-2 risk factors Troponin: Troponin T 0.013 ng/mL (0.00-0.029) 01/09/20 22:19 - Critical Actions Critical Actions: 4-6 pts:12-16.6% risk of adverse cardiac event. Should be admitted Results - Labs CBC & Chem 7: 01/10/20 10:40 01/10/20 10:40 Labs: Laboratory Last Values WBC 14.0 K/mm3 (4.5-11.0) H 01/09/20 19:03 RBC 5.18 M/mm3 (3.65-5.03) H 01/09/20 19:03 Hgb 11.4 gm/dl (10.1-14.3) 01/09/20 19:03 Hct 39.3 % (30.3-42.9) 01/09/20 19:03 MCV 76 fl (79-97) L 01/09/20 19:03 MCH 22 pg (28-32) L 01/09/20 19:03 MCHC 29 % (30-34) L 01/09/20 19:03 RDW 22.0 % (13.2-15.2) H 01/09/20 19:03 Plt Count 223 K/mm3 (140-440) 01/09/20 19:03 Add Manual Diff Complete 01/09/20 19:03 Total Counted 100 01/09/20 19:03 Seg Neuts % (Manual) 76.0 % (40.0-70.0) H 01/09/20 19:03 Band Neutrophils % 0 % 01/09/20 19:03 Lymphocytes % (Manual) 21.0 % (13.4-35.0) 01/09/20 19:03 Reactive Lymphs % (Man) 0 % 01/09/20 19:03 Monocytes % (Manual) 3.0 % (0.0-7.3) 01/09/20 19:03 Eosinophils % (Manual) 0 % (0.0-4.3) 01/09/20 19:03 Basophils % (Manual) 0 % (0.0-1.8) 01/09/20 19:03 Metamyelocytes % 0 % 01/09/20 19:03 Myelocytes % 0 % 01/09/20 19:03 Promyelocytes % 0 % 01/09/20 19:03 Blast Cells % 0 % 01/09/20 19:03 Nucleated RBC % Not Reportable 01/09/20 19:03 Seg Neutrophils # Man 10.6 K/mm3 (1.8-7.7) H 01/09/20 19:03 Band Neutrophils # 0.0 K/mm3 01/09/20 19:03 Lymphocytes # (Manual) 2.9 K/mm3 (1.2-5.4) 01/09/20 19:03 Abs React Lymphs (Man) 0.0 K/mm3 01/09/20 19:03 Monocytes # (Manual) 0.4 K/mm3 (0.0-0.8) 01/09/20 19:03 Eosinophils # (Manual) 0.0 K/mm3 (0.0-0.4) 01/09/20 19:03 Basophils # (Manual) 0.0 K/mm3 (0.0-0.1) 01/09/20 19:03 Metamyelocytes # 0.0 K/mm3 01/09/20 19:03 Myelocytes # 0.0 K/mm3 01/09/20 19:03 Promyelocytes # 0.0 K/mm3 01/09/20 19:03 Blast Cells # 0.0 K/mm3 01/09/20 19:03 WBC Morphology Not Reportable 01/09/20 19:03 Hypersegmented Neuts Not Reportable 01/09/20 19:03 Hyposegmented Neuts Not Reportable 01/09/20 19:03 Hypogranular Neuts Not Reportable 01/09/20 19:03 Smudge Cells Not Reportable 01/09/20 19:03 Toxic Granulation Not Reportable 01/09/20 19:03 Toxic Vacuolation Not Reportable 01/09/20 19:03 Dohle Bodies Not Reportable 01/09/20 19:03 Pelger-Huet Anomaly Not Reportable 01/09/20 19:03 Dominique Rods Not Reportable 01/09/20 19:03 Platelet Estimate Not Reportable 01/09/20 19:03 Clumped Platelets Not Reportable 01/09/20 19:03 Plt Clumps, EDTA Not Reportable 01/09/20 19:03 Large Platelets Not Reportable 01/09/20 19:03 Giant Platelets Not Reportable 01/09/20 19:03 Platelet Satelliting Not Reportable 01/09/20 19:03 Plt Morphology Comment Not Reportable 01/09/20 19:03 RBC Morphology Not Reportable 01/09/20 19:03 Dimorphic RBCs Not Reportable 01/09/20 19:03 Polychromasia Not Reportable 01/09/20 19:03 Hypochromasia 1+ 01/09/20 19:03 Poikilocytosis Not Reportable 01/09/20 19:03 Anisocytosis 1+ 01/09/20 19:03 Microcytosis Not Reportable 01/09/20 19:03 Macrocytosis Not Reportable 01/09/20 19:03 Spherocytes Not Reportable 01/09/20 19:03 Pappenheimer Bodies Not Reportable 01/09/20 19:03 Sickle Cells Not Reportable 01/09/20 19:03 Target Cells Not Reportable 01/09/20 19:03 Tear Drop Cells Not Reportable 01/09/20 19:03 Ovalocytes Not Reportable 01/09/20 19:03 Helmet Cells Not Reportable 01/09/20 19:03 [place] Bodies Not Reportable 01/09/20 19:03 [place] Rings Not Reportable 01/09/20 19:03 [place] Cells Not Reportable 01/09/20 19:03 Bite Cells Not Reportable 01/09/20 19:03 Crenated Cell Not Reportable 01/09/20 19:03 Elliptocytes Not Reportable 01/09/20 19:03 Acanthocytes (Spur) Not Reportable 01/09/20 19:03 Rouleaux Not Reportable 01/09/20 19:03 Hemoglobin C Crystals Not Reportable 01/09/20 19:03 Schistocytes Few 01/09/20 19:03 Malaria parasites Not Reportable 01/09/20 19:03 [place] Bodies Not Reportable 01/09/20 19:03 Hem Pathologist Commnt No 01/09/20 19:03 PT 13.9 Sec. (12.2-14.9) 01/09/20 19:03 INR 1.05 (0.87-1.13) 01/09/20 19:03 ABG pH 7.439 pH Units (7.350-7.450) 01/10/20 03:35 ABG pCO2 43.3 mm Hg 01/10/20 03:35 ABG pO2 63.8 mm Hg (80.0-90.0) L 01/10/20 03:35 ABG HCO3 28.7 mmol/L (20.0-26.0) H 01/10/20 03:35 ABG O2 Saturation 95.1 % (95.0-99.0) 01/10/20 03:35 ABG O2 Content 14.3 (0.0-44) 01/10/20 03:35 ABG Base Excess 4.0 mmol/L (-2.0-3.0) H 01/10/20 03:35 ABG Hemoglobin 10.9 gm/dl (12.0-16.0) L 01/10/20 03:35 ABG Carboxyhemoglobin 1.9 % (0.0-5.0) 01/10/20 03:35 ABG Methemoglobin 0.4 % (0.0-1.5) 01/10/20 03:35 VBG pH 7.252 (7.320-7.420) L 01/09/20 18:37 Oxyhemoglobin 92.8 % (95.0-99.0) L 01/10/20 03:35 FiO2 60 % 01/10/20 03:35 Sodium 141 mmol/L (137-145) 01/09/20 19:03 Potassium 3.1 mmol/L (3.6-5.0) L 01/09/20 19:03 Chloride 95.2 mmol/L (98-107) L 01/09/20 19:03 Carbon Dioxide 28 mmol/L (22-30) 01/09/20 19:03 Anion Gap 21 mmol/L 01/09/20 19:03 BUN 10 mg/dL (7-17) 01/09/20 19:03 Creatinine 0.6 mg/dL (0.6-1.2) 01/09/20 19:03 Estimated GFR > 60 ml/min 01/09/20 19:03 BUN/Creatinine Ratio 17 % 01/09/20 19:03 Glucose 197 mg/dL (65-100) H 01/09/20 19:03 POC Glucose 177 (70-105) H 01/09/20 18:47 Hemoglobin A1c 5.9 % (4-6) 01/10/20 07:36 Lactic Acid 1.20 mmol/L (0.7-2.0) 01/09/20 22:19 Calcium 9.2 mg/dL (8.4-10.2) 01/09/20 19:03 Total Bilirubin 0.80 mg/dL (0.1-1.2) 01/09/20 19:03 AST 24 units/L (5-40) 01/09/20 19:03 ALT 19 units/L (7-56) 01/09/20 19:03 Alkaline Phosphatase 105 units/L (35-129) 01/09/20 19:03 Troponin T 0.013 ng/mL (0.00-0.029) 01/09/20 22:19 NT-Pro-B Natriuret Pep 1345 pg/mL (0-450) H 01/09/20 19:03 Total Protein 8.3 g/dL (6.3-8.2) H 01/09/20 19:03 Albumin 4.3 g/dL (3.9-5) 01/09/20 19:03 Albumin/Globulin Ratio 1.1 % 01/09/20 19:03 HCG, Qual Negative (Negative) 01/09/20 19:03 Urine Color Yellow (Yellow) 01/10/20 04:12 Urine Turbidity Cloudy (Clear) 01/10/20 04:12 Urine pH 7.0 (5.0-7.0) 01/10/20 04:12 Ur Specific [place] 1.007 (1.003-1.030) 01/10/20 04:12 Urine Protein >500 mg/dL (Negative) 01/10/20 04:12 Urine Glucose (UA) 50 mg/dL (Negative) 01/10/20 04:12 Urine Ketones Neg mg/dL (Negative) 01/10/20 04:12 Urine Blood Mod (Negative) 01/10/20 04:12 Urine Nitrite Neg (Negative) 01/10/20 04:12 Urine Bilirubin Neg (Negative) 01/10/20 04:12 Urine Urobilinogen < 2.0 mg/dL (<2.0) 01/10/20 04:12 Ur Leukocyte Esterase Neg (Negative) 01/10/20 04:12 Urine WBC (Auto) 50.0 /HPF (0.0-6.0) H 01/10/20 04:12 Urine RBC (Auto) 17.0 /HPF (0.0-6.0) 01/10/20 04:12 U Epithel Cells (Auto) 1.0 /HPF (0-13.0) 01/10/20 04:12 Urine Bacteria (Auto) 2+ /HPF (Negative) 01/10/20 04:12 Urine Mucus Few /HPF 01/10/20 04:12 Urine Yeast (Budding) 3+ /HPF 01/10/20 04:12 Microbiology: Microbiology 01/09/20 19:03 Peripheral/Venous Blood Culture - Preliminary Culture in Progress 01/09/20 19:03 Peripheral/Venous Blood Culture - Preliminary Culture in Progress Gomez/IV: Voiding Method Indwelling Catheter IV Catheter Type [Right Triple Lumen Cath Internal Jugular] IV Catheter Type [Right Hand] INT / Saline Lock Active Medications - Current Medications Current Medications: Generic Name Dose Route Start Last Admin Trade Name Freq PRN Reason Stop Dose Admin Acetaminophen 650 mg 01/10/20 08:00 Tylenol PO Q4H PRN Pain MILD(1-3)/Fever >100.5/CHRISTINA Lipase/Protease/Amylase 1 each 01/10/20 08:[address] 10,500 Unit FEEDTUBE PRN PRN For Clogged Feeding Tube Famotidine 20 mg 01/10/20 10:00 Pepcid IV BID KANIKA Furosemide 40 mg 01/10/20 08:30 01/10/20 08:11 Lasix IV 40 mg 0600,1800 KANIKA Administration Nitroglycerin/Dextrose 50 mg in 250 mls @ 1.5 mls/hr 01/09/20 19:00 01/09/20 20:15 Tridil Drip 50mg/250ml IV 0 mcg/min TITR KANIKA 0 mls/hr Titration Protocol 5 MCG/MIN Norepinephrine 4 mg in 250 mls @ 7.5 mls/hr 01/09/20 22:00 Levophed Drip 4 Mg/Ns 250 Ml IV TITR KANIKA Protocol 2 MCG/MIN Metoclopramide HCl 10 mg 01/10/20 08:00 Reglan IV Q6H PRN Nausea And Vomiting Morphine Sulfate 2 mg 01/10/20 08:00 Morphine IV Q4H PRN Pain, Moderate (4-6) Ondansetron HCl 4 mg 01/10/20 08:00 Zofran IV Q8H PRN Nausea And Vomiting Potassium Chloride 20 meq 01/10/20 10:00 K-Dur PO 01/10/20 10:01 BID ONE Simple Syrup 15 ml 01/10/20 08:00 Simple Syrup FEEDTUBE PRN PRN Hypoglycemia Simple Syrup 30 ml 01/10/20 08:00 Simple Syrup FEEDTUBE PRN PRN Hypoglycemia Sodium Bicarbonate 325 mg 01/10/20 08:00 Sodium Bicarbonate FEEDTUBE PRN PRN For Clogged Feeding Tube Sodium Chloride 10 ml 01/10/20 10:00 Sodium Chloride Flush Syringe 10 Ml IV BID KANIKA Sodium Chloride 10 ml 01/10/20 08:00 Sodium Chloride Flush Syringe 10 Ml IV PRN PRN LINE FLUSH
[2020-01-10] MEDS ORDERED: POTASSIUM CHLORIDE ER 20 MEQ TAB PO ONE (10:00)
[2020-01-10] MEDS: FAMOTIDINE 20 MG/2 ML INJ IV SCH ×2 (10:44→22:24)
[2020-01-10 11:17] LABS: Basophils % (Auto) 0.4 % (0.0-1.8); Eosinophils % (Auto) 0.4 % (0.0-4.3); Lymphocytes # (Auto) 0.5 K/mm3 (1.2-5.4); Mean Corpuscular HGB Conc 29 % (30-34); Mean Corpuscular Volume 76 fl (79-97); Monocytes # (Auto) 0.5 K/mm3 (0.0-0.8); Monocytes % (Auto) 5.9 % (0.0-7.3); Platelet Count 153 K/mm3 (140-440); Red Blood Count 4.59 M/mm3 (3.65-5.03)
[2020-01-10 11:18] LABS: Hematocrit 35.1 % (30.3-42.9); Hemoglobin 10.2 gm/dl (10.1-14.3); Red Cell Distribution Width 21.4 % (13.2-15.2)
[2020-01-10 11:42] LABS: Albumin 3.2 g/dL (3.9-5); Calcium 8.8 mg/dL (8.4-10.2)
--- NOTE | 2020-01-10 11:44 | Consultation ---
History of Present Illness Consult date: 01/10/20 Requesting physician: GUALBERTO ROCA Reason for consult: hypoxemia History of present illness: 44 y/o morbidly obese female, presented to the ED with difficulty in breathing. Was placed on bipap therapy and also was found to be hypertensive so started on nitro drip. Difficult to tell from documentation, but patient became hypoxic again and hypotensive for reasons I am not sure and was intubated. Central line was eventually placed in the IJ after failed attempts at subclavian and groin lines. Patient is currently unresponsive and hypothermic. She has acute lung injury and is currently not sedated. I am unable to obtain any history from the patient. Per nursing there is a mother and a cousin who called but we are unable to give information to the cousin. Remainder is negative. Past History Past Medical History: other (unable to obtain) Medications and Allergies Allergies Allergy/AdvReac Type Severity Reaction Status Date / Time Unable to Assess Allergy Unverified 01/09/20 18:33 Home Medications Medication Instructions Recorded Confirmed Last Taken Type Unobtainable 01/10/20 01/10/20 Unknown History Active Meds: Active Medications Acetaminophen (Tylenol) 650 mg PO Q4H PRN PRN Reason: Pain MILD(1-3)/Fever >100.5/CHRISTINA Lipase/Protease/Amylase (Pancreaze Dr 10,500 Unit) 1 each FEEDTUBE PRN PRN PRN Reason: For Clogged Feeding Tube Famotidine (Pepcid) 20 mg IV BID [facility] Last Admin: 01/10/20 10:44 Dose: 20 mg Documented by: Furosemide (Lasix) 40 mg IV 0600,1800 [facility] Last Admin: 01/10/20 08:11 Dose: 40 mg Documented by: Nitroglycerin/Dextrose (Tridil Drip 50mg/250ml) 50 mg in 250 mls @ 1.5 mls/hr IV TITR [facility]; Protocol Last Titration: 01/09/20 20:15 Dose: 0 mcg/min, 0 mls/hr Documented by: Norepinephrine (Levophed Drip 4 Mg/Ns 250 Ml) 4 mg in 250 mls @ 7.5 mls/hr IV TITR KANIKA; Protocol Ceftriaxone Sodium (Rocephin/Ns 2 Gm/100 Ml) 2 gm in 100 mls @ 200 mls/hr IV Q24HR [facility]; Protocol Metoclopramide HCl (Reglan) 10 mg IV Q6H PRN PRN Reason: Nausea And Vomiting Morphine Sulfate (Morphine) 2 mg IV Q4H PRN PRN Reason: Pain, Moderate (4-6) Ondansetron HCl (Zofran) 4 mg IV Q8H PRN PRN Reason: Nausea And Vomiting Simple Syrup (Simple Syrup) 15 ml FEEDTUBE PRN PRN PRN Reason: Hypoglycemia Simple Syrup (Simple Syrup) 30 ml FEEDTUBE PRN PRN PRN Reason: Hypoglycemia Sodium Bicarbonate (Sodium Bicarbonate) 325 mg FEEDTUBE PRN PRN PRN Reason: For Clogged Feeding Tube Sodium Chloride (Sodium Chloride Flush Syringe 10 Ml) 10 ml IV BID [facility] Last Admin: 01/10/20 10:45 Dose: 10 ml Documented by: Sodium Chloride (Sodium Chloride Flush Syringe 10 Ml) 10 ml IV PRN PRN PRN Reason: LINE FLUSH Review of Systems ROS unobtainable: due to endotracheal tube, due to mental status Physical Examination Vital signs: Vital Signs Pulse Resp BP Pulse Ox 80 21 245/153 99 01/09/20 18:28 01/09/20 18:28 01/09/20 18:28 01/09/20 18:28 Results - Laboratory Findings CBC and BMP: 01/10/20 10:40 01/11/20 09:53 ABG ABG pH 7.439 pH Units (7.350-7.450) 01/10/20 03:35 ABG pCO2 43.3 mm Hg 01/10/20 03:35 ABG pO2 63.8 mm Hg (80.0-90.0) L 01/10/20 03:35 ABG O2 Saturation 95.1 % (95.0-99.0) 01/10/20 03:35 PT/INR, D-dimer PT 13.9 Sec. (12.2-14.9) 01/09/20 19:03 INR 1.05 (0.87-1.13) 01/09/20 19:03 Abnormal lab findings: Abnormal Labs 01/09/20 01/09/20 01/09/20 18:37 18:47 19:03 WBC 14.0 H RBC 5.18 H MCV 76 L MCH 22 L MCHC 29 L RDW 22.0 H Lymph % (Auto) Lymph # (Auto) Seg Neutrophils % Seg Neuts % (Manual) 76.0 H Seg Neutrophils # Man 10.6 H ABG pH 7.252 L ABG pO2 172.4 H ABG HCO3 34.3 H ABG O2 Saturation ABG Base Excess 4.9 H ABG Hemoglobin 11.8 L VBG pH 7.252 L Oxyhemoglobin Potassium Chloride Glucose POC Glucose 177 H NT-Pro-B Natriuret Pep Total Protein Urine WBC (Auto) 01/09/20 01/09/20 01/09/20 19:03 19:03 21:55 WBC RBC MCV MCH MCHC RDW Lymph % (Auto) Lymph # (Auto) Seg Neutrophils % Seg Neuts % (Manual) Seg Neutrophils # Man ABG pH 7.310 L ABG pO2 61.8 L ABG HCO3 31.2 H ABG O2 Saturation 90.3 L ABG Base Excess 3.8 H ABG Hemoglobin 10.0 L VBG pH Oxyhemoglobin 87.8 L Potassium 3.1 L Chloride 95.2 L Glucose 197 H POC Glucose NT-Pro-B Natriuret Pep 1345 H Total Protein 8.3 H Urine WBC (Auto) 01/10/20 01/10/20 01/10/20 03:35 04:12 10:40 WBC RBC MCV 76 L MCH 22 L MCHC 29 L RDW 21.4 H Lymph % (Auto) 6.0 L Lymph # (Auto) 0.5 L Seg Neutrophils % 87.3 H Seg Neuts % (Manual) Seg Neutrophils # Man ABG pH ABG pO2 63.8 L ABG HCO3 28.7 H ABG O2 Saturation ABG Base Excess 4.0 H ABG Hemoglobin 10.9 L VBG pH Oxyhemoglobin 92.8 L Potassium Chloride Glucose POC Glucose NT-Pro-B Natriuret Pep Total Protein Urine WBC (Auto) 50.0 H - Diagnostic Findings Chest x-ray: image reviewed Assessment and Plan 44 y/o female with acute respiratory failure, hypothermia and encephalopathic. 1. Pulm-intubated, not sedated. PaO2 in the 60's on 60%. Peep of 8. GIven mental state, not ready to be extubated today. FiO2 requirements are too high as well. Continue supportive care. no evidence to explain degree of hypoxemia seen on CXR 2. CV-was hypertensive on arrival and then hypotensive. Documented as 245/153 then 3 hours later 80/50's. About that time was when intubation happened and central line was placed. Patient had been on nitro drip but then was started on levo when BP dropped. She has since been weaned of levo. ONce COVID test come back, hopefully negative, will obtain echocardiogram. Hold of bolus fluids for now. Will review EKG 3. Neuro-completely unresponsive. From what I can tell patient was alert on arrival. Could be secondary to acute drop in bp vs hypothermia. Once more stable and rewarmed, if mental state has not improved, will need CT 4. Guarded prognosis, very guarded. CCT 31
--- NOTE | 2020-01-10 11:55 | XRay Report ---
ABDOMEN 1 VIEW 01/10/2020 11:37 AM INDICATION / CLINICAL INFORMATION: NGT placement confirmation. COMPARISON: None available. FINDINGS: TUBES / LINES: Esophagogastric tube is present in the distal stomach. BOWEL GAS PATTERN: No significant abnormality. FREE AIR / EXTRALUMINAL GAS: None. ADDITIONAL FINDINGS: No significant additional findings. IMPRESSION: 1. Esophagogastric tube in expected position. Signer Name: Vandana Moore MD Signed: 01/10/2020 11:50 AM Workstation Name: [id number]
--- NOTE | 2020-01-10 12:01 | Consultation ---
History of Present Illness Consult date: 01/10/20 Requesting physician: RAEANN MENDENHALL Consult reason: congestive heart failure History of present illness: The pt is a 44-year-old female with a past medical history of HF, prior CMP with normalized EF in 2019, HTN, chronic respiratory failure requiring home O2 (per [facility]' discharge summary from 09/2018). She has been seen by [facility] in the past. She is COVID-19 positive and intubated and thus HPI is obta ined per the chart. Pt presented with c/o severe difficulty in breathing. Patient was initially placed on BiPAP and was subsequently intubated. Admission BP 245/153, pt was placed on nitro gtt although this has been discontinued and she is now hypotensive. tte done 2012 showed LVEF 20%, JONNA 6.2 cm, mild RVD, DD2. tte done 07/2018 at [facility] showed EF 55-60%, grade 1 diastolic dysfunction, no significant valvular abnormalities. Past History Past Medical History: other (as per [facility]) Medications and Allergies Allergies Allergy/AdvReac Type Severity Reaction Status Date / Time Unable to Assess Allergy Unverified 01/09/20 18:33 Home Medications Medication Instructions Recorded Confirmed Last Taken Type Unobtainable 01/10/20 01/10/20 Unknown History Active Meds: Active Medications Acetaminophen (Tylenol) 650 mg PO Q4H PRN PRN Reason: Pain MILD(1-3)/Fever >100.5/CHRISTINA Lipase/Protease/Amylase (Pancreaze Dr 10,500 Unit) 1 each FEEDTUBE PRN PRN PRN Reason: For Clogged Feeding Tube Famotidine (Pepcid) 20 mg IV BID [facility] Last Admin: 01/10/20 10:44 Dose: 20 mg Documented by: Furosemide (Lasix) 40 mg IV 0600,1800 [facility] Last Admin: 01/10/20 08:11 Dose: 40 mg Documented by: Nitroglycerin/Dextrose (Tridil Drip 50mg/250ml) 50 mg in 250 mls @ 1.5 mls/hr IV TITR [facility]; Protocol Last Titration: 01/09/20 20:15 Dose: 0 mcg/min, 0 mls/hr Documented by: Norepinephrine (Levophed Drip 4 Mg/Ns 250 Ml) 4 mg in 250 mls @ 7.5 mls/hr IV TITR [facility]A; Protocol Ceftriaxone Sodium (Rocephin/Ns 2 Gm/100 Ml) 2 gm in 100 mls @ 200 mls/hr IV Q24HR@2200 [facility]; Protocol Metoclopramide HCl (Reglan) 10 mg IV Q6H PRN PRN Reason: Nausea And Vomiting Morphine Sulfate (Morphine) 2 mg IV Q4H PRN PRN Reason: Pain, Moderate (4-6) Ondansetron HCl (Zofran) 4 mg IV Q8H PRN PRN Reason: Nausea And Vomiting Simple Syrup (Simple Syrup) 15 ml FEEDTUBE PRN PRN PRN Reason: Hypoglycemia Simple Syrup (Simple Syrup) 30 ml FEEDTUBE PRN PRN PRN Reason: Hypoglycemia Sodium Bicarbonate (Sodium Bicarbonate) 325 mg FEEDTUBE PRN PRN PRN Reason: For Clogged Feeding Tube Sodium Chloride (Sodium Chloride Flush Syringe 10 Ml) 10 ml IV BID [facility] Last Admin: 01/10/20 10:45 Dose: 10 ml Documented by: Sodium Chloride (Sodium Chloride Flush Syringe 10 Ml) 10 ml IV PRN PRN PRN Reason: LINE FLUSH Physical Examination Vital Signs Pulse Resp BP Pulse Ox 80 21 245/153 99 01/09/20 18:28 01/09/20 18:28 01/09/20 18:28 01/09/20 18:28 Narrative exam: agree with physical examination per critical care team Results 01/10/20 10:40 01/10/20 10:40 Cardiac Enzymes 01/09/20 01/10/20 Range/Units 19:03 10:40 AST 24 18 (5-40) units/L Coagulation 01/09/20 Range/Units 19:03 PT 13.9 (12.2-14.9) Sec. INR 1.05 (0.87-1.13) CBC 01/09/20 01/10/20 Range/Units 19:03 10:40 WBC 14.0 H 8.3 (4.5-11.0) K/mm3 RBC 5.18 H 4.59 (3.65-5.03) M/mm3 Hgb 11.4 10.2 (10.1-14.3) gm/dl Hct 39.3 35.1 (30.3-42.9) % Plt Count 223 153 (140-440) K/mm3 Lymph # (Auto) 0.5 L (1.2-5.4) K/mm3 [place] # (Auto) 0.5 (0.0-0.8) K/mm3 Eos # (Auto) 0.0 (0.0-0.4) K/mm3 Baso # (Auto) 0.0 (0.0-0.1) K/mm3 Comprehensive Metabolic Panel 01/09/20 01/10/20 Range/Units 19:03 10:40 Sodium 141 146 H (137-145) mmol/L Potassium 3.1 L 3.9 D (3.6-5.0) mmol/L Chloride 95.2 L 102.3 (98-107) mmol/L Carbon Dioxide 28 27 (22-30) mmol/L BUN 10 16 (7-17) mg/dL Creatinine 0.6 1.6 H D (0.6-1.2) mg/dL Glucose 197 H 83 (65-100) mg/dL Calcium 9.2 8.8 (8.4-10.2) mg/dL AST 24 18 (5-40) units/L ALT 19 13 (7-56) units/L Alkaline Phosphatase 105 66 (35-129) units/L Total Protein 8.3 H 5.9 L D (6.3-8.2) g/dL Albumin 4.3 3.2 L (3.9-5) g/dL - Imaging and Cardiology Echo: report reviewed ( 07/2018 at [facility] showed EF 55-60%, grade 1 diastolic dysfunction, no significant valvular abnormalities. tte done 2012 showed LVEF 20%, JONNA 6.2 cm, mild RVD, DD2. ) EKG: report reviewed, image reviewed EKG interpretations - Telemetry EKG Rhythm: Sinus Rhythm - EKG Sinus rhythms and dysrhythmias: sinus rhythm AV and intraventricular conduction: left bundle branch block (incomplete) Assessment and Plan Agree with present cardiac management, including IV diuretics. Per H&P - pt with COVID-19 positive test and Acute Pneumonia. COVID-19 testing appears to still be pending at this facility. Plan to obtain echo pending COVID testing. Cont supportive measures. Will follow. The patient has been seen in conjunction with Dr. Koganti who agrees with the assessment and plan of care. - Patient Problems (1) Acute and chronic respiratory failure Current Visit: Yes Status: Acute (2) COVID-19 virus infection Current Visit: Yes Status: Suspected (3) Pneumonia Current Visit: Yes Status: Acute (4) Acute heart failure Current Visit: Yes Status: Acute (5) Sepsis Current Visit: Yes Status: Suspected (6) Hypotension Current Visit: Yes Status: Acute (7) MELIDA (acute kidney injury) Current Visit: Yes Status: Acute (8) AMS (altered mental status) Current Visit: Yes Status: Acute
[2020-01-10] MEDS ORDERED: SODIUM CHLORIDE 0.9% 1000 ML 1,000 ML IV ONE ×2 (12:35→13:29)
[2020-01-10] MEDS: NORepinephrine/NS 4 MG-250 ML 4 MG/250 ML BAG IV SCH (13:12)
[2020-01-10] MEDS ORDERED: MAGNESIUM SULFATE 3 GM in SODIUM CHLORIDE 0.9% 100 ML IV ONE (18:34)
[2020-01-10] MEDS: cefTRIAXone/NS 2 GM/100 ML 2 GM/100 ML BAG IV SCH (22:24)
[2020-01-11 05:06] LABS: ABG Base Excess 2.3 mmol/L (-2.0-3.0); ABG Methemoglobin 0.6 % (0.0-1.5); ABG Oxygen Saturation 76.5 % (95.0-99.0); ABG PCO2 55.7 mm Hg; ABG PH 7.334 pH Units (7.350-7.450); ABG PO2 45.9 mm Hg (80.0-90.0)
[2020-01-11] MEDS: NORepinephrine/NS 4 MG-250 ML 4 MG/250 ML BAG IV SCH ×3 (07:00→22:56)
[2020-01-11] MEDS ORDERED: SODIUM CHLORIDE 0.9% 500 ML 500 ML IV ONE ×2 (07:40→13:25)
--- NOTE | 2020-01-11 07:48 | Progress Note ---
Assessment and Plan Assessment and plan: --Hypotension/shock; Patient remains hypotensive on levophed, gentle hydration --Oliguria; secondary to hypotension Gentle hydration input output monitoring Monitor renal function --Acute kidney injury; secondary to vasomotor nephropathy Closely monitor renal function, avoid nephrotoxins Nephrology evaluation and renal ultrasound if no improvement --Perry PCR negative, may DC isolation --Hypomagnesemia; magnesium 1.4, replenish Patient received IV mag sulfate , pending labs --Acute hypoxic respiratory failure; requiring intubation and mechanical ventilation Supportive care, wean as tolerated and extubate Pulmonary critical consulted --Metabolic encephalopathy; present on admission Multifactorial, hypoxia, hypotension Possible sepsis, Treat the underlying cause Check CT head without contrast when patient is more stable --Acute versus acute on chronic congestive heart failure; Unknown ejection fraction, IV diuretics, input output monitoring Follow echocardiogram for LV function ejection fraction, cardiology evaluation and recommendation noted and appreciated Fluid restriction and low-sodium diet Echo 2012 LVEF 20%, Echo 07/2018 at [facility] EF 55-60%, grade 1 diastolic dysfunction, Echo pending report --Moderate malnutrition/hypoalbuminemia Supportive care, nutrition consult if needed --PUI/high suspicion for COVID-19; Perry PCR negative DC droplet and contact isolation, --Morbid obesity; BMI 55.1 Patient needs weight reduction when medically stable --Possible obstructive sleep apnea; Patient is intubated, may need outpatient sleep study --Possible obesity hypoventilation syndrome; Ventilatory support, CPAP and BiPAP at night once extubated --DVT prophylaxis;Lovenox --Full CODE STATUS We will closely monitor the patient and adjust management as needed. Plan of care reviewed with the patient's nurse. The high probability of a clinically significant, sudden or life threatening deterioration of the [Respiratory, ID, CVs] system(s) required my full and direct attention, intervention and personal management. The aggregate critical care time was [32] minutes. This time is in addition to time spent performing reported procedures but includes the follow ing: [x] Data Review and interpretation [x] Patient assessment and monitoring of vital signs [x] Documentation [x] Medication orders and management 01/10; patient remains hypotensive on Levophed, added IV fluids, follow echocardiogram for LV function History Interval history: I have seen and examined the patient this morning at bedside in ICU Patient's chart and medications reviewed Patient remains intubated on ventilatory support Unresponsive Vital signs noted Hypotensive on Levophed Hospitalist Physical - Constitutional Vitals: Temp Pulse Resp BP Pulse Ox 99.2 F 96 H 20 97/55 91 01/11/20 03:26 01/11/20 07:39 01/11/20 06:41 01/11/20 07:39 01/11/20 07:39 General appearance: Present: mild distress, well-nourished, obese (Morbidly obese), other (Intubated on vent) - EENT Eyes: Present: PERRL, EOM intact - Neck Neck: Present: supple, other (ET tube and Dobbhoff in place) - Respiratory Respiratory effort: normal Respiratory: bilateral: diminished, negative: rales, rhonchi, wheezing - Cardiovascular Rhythm: regular Heart Sounds: Present: S1 & S2 - Extremities Extremities: no ischemia, No edema - Abdominal General gastrointestinal: soft, non-tender, non-distended, normal bowel sounds - Integumentary Integumentary: Present: clear, warm - Psychiatric Psychiatric: other (Intubated on vent) - Neurologic Neurologic: other (Intubated on vent) HEART Score - HEART Score Age: < 45 Risk factors: 1-2 risk factors Troponin: Troponin T 0.013 ng/mL (0.00-0.029) 01/09/20 22:19 - Critical Actions Critical Actions: 4-6 pts:12-16.6% risk of adverse cardiac event. Should be admitted Results - Labs CBC & Chem 7: 01/10/20 10:40 01/11/20 09:53 Labs: Laboratory Last Values WBC 8.3 K/mm3 (4.5-11.0) 01/10/20 10:40 RBC 4.59 M/mm3 (3.65-5.03) 01/10/20 10:40 Hgb 10.2 gm/dl (10.1-14.3) 01/10/20 10:40 Hct 35.1 % (30.3-42.9) 01/10/20 10:40 MCV 76 fl (79-97) L 01/10/20 10:40 MCH 22 pg (28-32) L 01/10/20 10:40 MCHC 29 % (30-34) L 01/10/20 10:40 RDW 21.4 % (13.2-15.2) H 01/10/20 10:40 Plt Count 153 K/mm3 (140-440) 01/10/20 10:40 Lymph % (Auto) 6.0 % (13.4-35.0) L 01/10/20 10:40 [place] % (Auto) 5.9 % (0.0-7.3) 01/10/20 10:40 Eos % (Auto) 0.4 % (0.0-4.3) 01/10/20 10:40 Baso % (Auto) 0.4 % (0.0-1.8) 01/10/20 10:40 Lymph # (Auto) 0.5 K/mm3 (1.2-5.4) L 01/10/20 10:40 [place] # (Auto) 0.5 K/mm3 (0.0-0.8) 01/10/20 10:40 Eos # (Auto) 0.0 K/mm3 (0.0-0.4) 01/10/20 10:40 Baso # (Auto) 0.0 K/mm3 (0.0-0.1) 01/10/20 10:40 Add Manual Diff Complete 01/09/20 19:03 Total Counted 100 01/09/20 19:03 Seg Neutrophils % 87.3 % (40.0-70.0) H 01/10/20 10:40 Seg Neuts % (Manual) 76.0 % (40.0-70.0) H 01/09/20 19:03 Band Neutrophils % 0 % 01/09/20 19:03 Lymphocytes % (Manual) 21.0 % (13.4-35.0) 01/09/20 19:03 Reactive Lymphs % (Man) 0 % 01/09/20 19:03 Monocytes % (Manual) 3.0 % (0.0-7.3) 01/09/20 19:03 Eosinophils % (Manual) 0 % (0.0-4.3) 01/09/20 19:03 Basophils % (Manual) 0 % (0.0-1.8) 01/09/20 19:03 Metamyelocytes % 0 % 01/09/20 19:03 Myelocytes % 0 % 01/09/20 19:03 Promyelocytes % 0 % 01/09/20 19:03 Blast Cells % 0 % 01/09/20 19:03 Nucleated RBC % Not Reportable 01/09/20 19:03 Seg Neutrophils # 7.3 K/mm3 (1.8-7.7) 01/10/20 10:40 Seg Neutrophils # Man 10.6 K/mm3 (1.8-7.7) H 01/09/20 19:03 Band Neutrophils # 0.0 K/mm3 01/09/20 19:03 Lymphocytes # (Manual) 2.9 K/mm3 (1.2-5.4) 01/09/20 19:03 Abs React Lymphs (Man) 0.0 K/mm3 01/09/20 19:03 Monocytes # (Manual) 0.4 K/mm3 (0.0-0.8) 01/09/20 19:03 Eosinophils # (Manual) 0.0 K/mm3 (0.0-0.4) 01/09/20 19:03 Basophils # (Manual) 0.0 K/mm3 (0.0-0.1) 01/09/20 19:03 Metamyelocytes # 0.0 K/mm3 01/09/20 19:03 Myelocytes # 0.0 K/mm3 01/09/20 19:03 Promyelocytes # 0.0 K/mm3 01/09/20 19:03 Blast Cells # 0.0 K/mm3 01/09/20 19:03 WBC Morphology Not Reportable 01/09/20 19:03 Hypersegmented Neuts Not Reportable 01/09/20 19:03 Hyposegmented Neuts Not Reportable 01/09/20 19:03 Hypogranular Neuts Not Reportable 01/09/20 19:03 Smudge Cells Not Reportable 01/09/20 19:03 Toxic Granulation Not Reportable 01/09/20 19:03 Toxic Vacuolation Not Reportable 01/09/20 19:03 Dohle Bodies Not Reportable 01/09/20 19:03 Pelger-Huet Anomaly Not Reportable 01/09/20 19:03 Dominique Rods Not Reportable 01/09/20 19:03 Platelet Estimate Not Reportable 01/09/20 19:03 Clumped Platelets Not Reportable 01/09/20 19:03 Plt Clumps, EDTA Not Reportable 01/09/20 19:03 Large Platelets Not Reportable 01/09/20 19:03 Giant Platelets Not Reportable 01/09/20 19:03 Platelet Satelliting Not Reportable 01/09/20 19:03 Plt Morphology Comment Not Reportable 01/09/20 19:03 RBC Morphology Not Reportable 01/09/20 19:03 Dimorphic RBCs Not Reportable 01/09/20 19:03 Polychromasia Not Reportable 01/09/20 19:03 Hypochromasia 1+ 01/09/20 19:03 Poikilocytosis Not Reportable 01/09/20 19:03 Anisocytosis 1+ 01/09/20 19:03 Microcytosis Not Reportable 01/09/20 19:03 Macrocytosis Not Reportable 01/09/20 19:03 Spherocytes Not Reportable 01/09/20 19:03 Pappenheimer Bodies Not Reportable 01/09/20 19:03 Sickle Cells Not Reportable 01/09/20 19:03 Target Cells Not Reportable 01/09/20 19:03 Tear Drop Cells Not Reportable 01/09/20 19:03 Ovalocytes Not Reportable 01/09/20 19:03 Helmet Cells Not Reportable 01/09/20 19:03 Feliz-[place] Bodies Not Reportable 01/09/20 19:03 Wever Rings Not Reportable 01/09/20 19:03 Circle Cells Not Reportable 01/09/20 19:03 Bite Cells Not Reportable 01/09/20 19:03 Crenated Cell Not Reportable 01/09/20 19:03 Elliptocytes Not Reportable 01/09/20 19:03 Acanthocytes (Spur) Not Reportable 01/09/20 19:03 Rouleaux Not Reportable 01/09/20 19:03 Hemoglobin C Crystals Not Reportable 01/09/20 19:03 Schistocytes Few 01/09/20 19:03 Malaria parasites Not Reportable 01/09/20 19:03 Beka Bodies Not Reportable 01/09/20 19:03 Hem Pathologist Commnt No 01/09/20 19:03 PT 13.9 Sec. (12.2-14.9) 01/09/20 19:03 INR 1.05 (0.87-1.13) 01/09/20 19:03 ABG pH 7.334 pH Units (7.350-7.450) L 01/11/20 03:34 ABG pCO2 55.7 mm Hg 01/11/20 03:34 ABG pO2 45.9 mm Hg (80.0-90.0) L 01/11/20 03:34 ABG HCO3 29.0 mmol/L (20.0-26.0) H 01/11/20 03:34 ABG O2 Saturation 76.5 % (95.0-99.0) L 01/11/20 03:34 ABG O2 Content 10.3 (0.0-44) 01/11/20 03:34 ABG Base Excess 2.3 mmol/L (-2.0-3.0) 01/11/20 03:34 ABG Hemoglobin 9.8 gm/dl (12.0-16.0) L 01/11/20 03:34 ABG Carboxyhemoglobin 1.7 % (0.0-5.0) 01/11/20 03:34 ABG Methemoglobin 0.6 % (0.0-1.5) 01/11/20 03:34 VBG pH 7.252 (7.320-7.420) L 01/09/20 18:37 Oxyhemoglobin 74.7 % (95.0-99.0) L 01/11/20 03:34 FiO2 80 % 01/11/20 03:34 Sodium 146 mmol/L (137-145) H 01/10/20 10:40 Potassium 3.9 mmol/L (3.6-5.0) D 01/10/20 10:40 Chloride 102.3 mmol/L (98-107) 01/10/20 10:40 Carbon Dioxide 27 mmol/L (22-30) 01/10/20 10:40 Anion Gap 21 mmol/L 01/10/20 10:40 BUN 16 mg/dL (7-17) 01/10/20 10:40 Creatinine 1.6 mg/dL (0.6-1.2) H D 01/10/20 10:40 Estimated GFR 43 ml/min 01/10/20 10:40 BUN/Creatinine Ratio 10 % 01/10/20 10:40 Glucose 83 mg/dL (65-100) 01/10/20 10:40 POC Glucose 80 (70-105) 01/10/20 17:22 Hemoglobin A1c 5.9 % (4-6) 01/10/20 07:36 Lactic Acid 1.20 mmol/L (0.7-2.0) 01/09/20 22:19 Calcium 8.8 mg/dL (8.4-10.2) 01/10/20 10:40 Phosphorus 2.40 mg/dL (2.5-4.5) L 01/10/20 10:40 Magnesium 1.50 mg/dL (1.7-2.3) L 01/10/20 10:40 Total Bilirubin 0.80 mg/dL (0.1-1.2) 01/10/20 10:40 AST 18 units/L (5-40) 01/10/20 10:40 ALT 13 units/L (7-56) 01/10/20 10:40 Alkaline Phosphatase 66 units/L (35-129) 01/10/20 10:40 Troponin T 0.013 ng/mL (0.00-0.029) 01/09/20 22:19 NT-Pro-B Natriuret Pep 1345 pg/mL (0-450) H 01/09/20 19:03 Total Protein 5.9 g/dL (6.3-8.2) L D 01/10/20 10:40 Albumin 3.2 g/dL (3.9-5) L 01/10/20 10:40 Albumin/Globulin Ratio 1.2 % 01/10/20 10:40 HCG, Qual Negative (Negative) 01/09/20 19:03 Urine Color Yellow (Yellow) 01/10/20 04:12 Urine Turbidity Cloudy (Clear) 01/10/20 04:12 Urine pH 7.0 (5.0-7.0) 01/10/20 04:12 Ur Specific [place] 1.007 (1.003-1.030) 01/10/20 04:12 Urine Protein >500 mg/dL (Negative) 01/10/20 04:12 Urine Glucose (UA) 50 mg/dL (Negative) 01/10/20 04:12 Urine Ketones Neg mg/dL (Negative) 01/10/20 04:12 Urine Blood Mod (Negative) 01/10/20 04:12 Urine Nitrite Neg (Negative) 01/10/20 04:12 Urine Bilirubin Neg (Negative) 01/10/20 04:12 Urine Urobilinogen < 2.0 mg/dL (<2.0) 01/10/20 04:12 Ur Leukocyte Esterase Neg (Negative) 01/10/20 04:12 Urine WBC (Auto) 50.0 /HPF (0.0-6.0) H 01/10/20 04:12 Urine RBC (Auto) 17.0 /HPF (0.0-6.0) 01/10/20 04:12 U Epithel Cells (Auto) 1.0 /HPF (0-13.0) 01/10/20 04:12 Urine Bacteria (Auto) 2+ /HPF (Negative) 01/10/20 04:12 Urine Mucus Few /HPF 01/10/20 04:12 Urine Yeast (Budding) 3+ /HPF 01/10/20 04:12 Coronavirus (PCR) Negative (Negative) 01/10/20 10:27 Microbiology: Microbiology 01/09/20 19:03 Peripheral/Venous Blood Culture - Preliminary NO GROWTH AFTER 24 HOURS 01/09/20 19:03 Peripheral/Venous Blood Culture - Preliminary NO GROWTH AFTER 24 HOURS 01/10/20 00:14 Tracheal Aspirate Sputum Culture - Preliminary Gomez/IV: Voiding Method Indwelling Catheter IV Catheter Type [Left Forearm Peripheral IV ] IV Catheter Type [Right Triple Lumen Cath Internal Jugular] IV Catheter Type [Right Hand] INT / Saline Lock Active Medications - Current Medications Current Medications: Generic Name Dose Route Start Last Admin Trade Name Freq PRN Reason Stop Dose Admin Acetaminophen 650 mg 01/10/20 08:00 Tylenol PO Q4H PRN Pain MILD(1-3)/Fever >100.5/CHRISTINA Lipase/Protease/Amylase 1 each 01/10/20 08:[address] 10,500 Unit FEEDTUBE PRN PRN For Clogged Feeding Tube Famotidine 20 mg 01/10/20 10:00 01/10/20 22:24 Pepcid IV 20 mg BID KANIKA Administration Nitroglycerin/Dextrose 50 mg in 250 mls @ 1.5 mls/hr 01/09/20 19:00 01/09/20 20:15 Tridil Drip 50mg/250ml IV 0 mcg/min TITR KANIKA 0 mls/hr Titration Protocol 5 MCG/MIN Norepinephrine 4 mg in 250 mls @ 7.5 mls/hr 01/09/20 22:00 01/11/20 05:09 Levophed Drip 4 Mg/Ns 250 Ml IV 6 mcg/min TITR KANIKA 22.5 mls/hr Titration Protocol 2 MCG/MIN Ceftriaxone Sodium 2 gm in 100 mls @ 200 mls/hr 01/10/20 22:00 01/10/20 22:24 Rocephin/Ns 2 Gm/100 Ml IV 200 mls/hr Q24HR@2200 KANIKA Administration Protocol Sodium Chloride 500 mls @ 999 mls/hr 01/11/20 07:40 Nacl 0.9% 500 Ml IV 01/11/20 08:10 ONCE ONE Sodium Chloride 1,000 mls @ 75 mls/hr 01/11/20 07:45 Nacl 0.9% 1000 Ml IV DIRECT KANIKA Metoclopramide HCl 10 mg 01/10/20 08:00 Reglan IV Q6H PRN Nausea And Vomiting Morphine Sulfate 2 mg 01/10/20 08:00 Morphine IV Q4H PRN Pain, Moderate (4-6) Ondansetron HCl 4 mg 01/10/20 08:00 Zofran IV Q8H PRN Nausea And Vomiting Simple Syrup 15 ml 01/10/20 08:00 Simple Syrup FEEDTUBE PRN PRN Hypoglycemia Simple Syrup 30 ml 01/10/20 08:00 Simple Syrup FEEDTUBE PRN PRN Hypoglycemia Sodium Bicarbonate 325 mg 01/10/20 08:00 Sodium Bicarbonate FEEDTUBE PRN PRN For Clogged Feeding Tube Sodium Chloride 10 ml 01/10/20 10:00 01/10/20 10:45 Sodium Chloride Flush Syringe 10 Ml IV 10 ml BID KANIKA Administration Sodium Chloride 10 ml 01/10/20 08:00 Sodium Chloride Flush Syringe 10 Ml IV PRN PRN LINE FLUSH Nutrition/Malnutrition Assess - Dietary Evaluation Nutrition/Malnutrition Findings: Nutrition Notes Start: 01/10/20 08:12 Freq: Status: Active Protocol: Document 01/10/20 11:08 LAURI (Rec: 01/10/20 11:14 LAURI [id number]) Co-Sign 01/10/20 11:08 LP Nutrition Notes Need for Assessment generated from: MD Order Initial or Follow up Assessment Current Diagnosis Hypertension,Heart Failure Other Pertinent Diagnosis Acute PE, hypokalemia, COVID- 19 (+) Current Diet No diet Labs/Tests K 3.1 BG 197 Pertinent Medications Lasix Height 5 ft 6 in Weight 154.856 kg [place] Body Weight (kg) 59.09 BMI 55.0 Weight Status Morbidly Obese Subjective/Other Information MD consult for TF. Pt on vent. Burn Absent Trauma Absent Current % PO Negligible Minimum of two criteria No Fluid Accumulation Moderate to Severe (severe) #1 Nutrition Diagnosis Inadequate oral intake Etiology ARF As Evidenced by Signs and Symptoms Pt on vent Is patient on ventilator? Yes Is Patient Ambulatory and/or Out of Bed No REE-([facility]-confined to bed) 2672.544 Kcal/Kg value to use for calculation 11 Approximate Energy Requirements Using 1703 kcal/Kg Calculation Used for Recommendations Kcal/kg Additional Notes Pro: 147 g (up to 2.5 g/kg IBW ) Fluid: 1.5-1.9 L Nutrition Intervention Change Diet Order: TF Nutrition Support: Vital AF 1.2 at 60 ml/hr Flush 60 ml q4h Kcal 1,728 Protein (gm) 108 Fluid (mL) 1,167 Goal #1 TF start/tolerance Goal #2 Meet at least 75% energy and protein needs via TF Follow-Up By: 01/11/20 Additional Comments F/U for TF start/tolerance
[2020-01-11] MEDS: FAMOTIDINE 20 MG/2 ML INJ IV SCH (09:20)
[2020-01-11 10:23] LABS: Calcium 8.6 mg/dL (8.4-10.2)
--- NOTE | 2020-01-11 10:44 | Progress Note ---
Assessment and Plan UOP reduced and serum Cr increased to 3.0 today. D/c diuretics. Recommend nephrology consultation per primary. COVID-19 testing is NEGATIVE. Obtain echo. Pt remains unresponsive, not on sedation. Consider head CT and/or neurology consultation per primary. Cont supportive measures. Will follow. The patient has been seen in conjunction with Dr. Meléndez who agrees with the assessment and plan of care. - Patient Problems (1) Acute and chronic respiratory failure Current Visit: Yes Status: Acute (2) COVID-19 virus infection Current Visit: Yes Status: Suspected (3) Pneumonia Current Visit: Yes Status: Acute (4) Acute heart failure Current Visit: Yes Status: Acute (5) Sepsis Current Visit: Yes Status: Suspected (6) Hypotension Current Visit: Yes Status: Acute (7) MELIDA (acute kidney injury) Current Visit: Yes Status: Acute (8) AMS (altered mental status) Current Visit: Yes Status: Acute Subjective Date of service: 01/11/20 Principal diagnosis: PNA; resp failure Interval history: pt remains unresponsive, not sedated, intubated, requiring vasopressor support. in SR. Objective Last Vital Signs Temp 97.9 F 01/11/20 08:00 Pulse 96 H 01/11/20 07:39 Resp 20 01/11/20 06:41 BP 97/55 01/11/20 07:39 Pulse Ox 91 01/11/20 07:39 - Physical Examination Narrative exam: agree with physical examination per critical care team - Labs and Meds Cardiac Enzymes 01/10/20 Range/Units 10:40 AST 18 (5-40) units/L CBC 01/10/20 Range/Units 10:40 WBC 8.3 (4.5-11.0) K/mm3 RBC 4.59 (3.65-5.03) M/mm3 Hgb 10.2 (10.1-14.3) gm/dl Hct 35.1 (30.3-42.9) % Plt Count 153 (140-440) K/mm3 Lymph # (Auto) 0.5 L (1.2-5.4) K/mm3 [place] # (Auto) 0.5 (0.0-0.8) K/mm3 Eos # (Auto) 0.0 (0.0-0.4) K/mm3 Baso # (Auto) 0.0 (0.0-0.1) K/mm3 Comprehensive Metabolic Panel 01/10/20 01/11/20 Range/Units 10:40 09:53 Sodium 146 H 147 H (137-145) mmol/L Potassium 3.9 D 3.7 (3.6-5.0) mmol/L Chloride 102.3 106.0 (98-107) mmol/L Carbon Dioxide 27 26 (22-30) mmol/L BUN 16 23 H (7-17) mg/dL Creatinine 1.6 H D 3.0 H D (0.6-1.2) mg/dL Glucose 83 95 (65-100) mg/dL Calcium 8.8 8.6 (8.4-10.2) mg/dL AST 18 (5-40) units/L ALT 13 (7-56) units/L Alkaline Phosphatase 66 (35-129) units/L Total Protein 5.9 L D (6.3-8.2) g/dL Albumin 3.2 L (3.9-5) g/dL - Imaging and Cardiology EKG: report reviewed, image reviewed Echo: report reviewed ( 07/2018 at [facility] showed EF 55-60%, grade 1 diastolic dysfunction, no significant valvular abnormalities. tte done 2012 showed LVEF 20%, JONNA 6.2 cm, mild RVD, DD2. ) - EKG Sinus rhythms and dysrhythmias: sinus rhythm AV and intraventricular conduction: left bundle branch block (incomplete)
--- NOTE | 2020-01-11 11:40 | Progress Note ---
Assessment and Plan 44 y/o female with acute respiratory failure, hypothermia and encephalopathic. 1. Pulm-intubated, not sedated. Remains unresponsive. Will increase PEEP to 10-12. Rpt ABG in 1 hour if tolerates. CXR just done and to myself, does not look much worse, maybe some more edema but tough to say. 2. CV-Need echo results hopefully soon. Increasing pressor requirement and with increased PEEP, likely will go up even more. BNP was elevated on admission. 3. Neuro-completely unresponsive. From what I can tell patient was alert on a rrival. Could be secondary to acute drop in bp vs hypothermia. She has normal temp now and mental state is still unchanged. When more stable, will take down for Head CT. Not opposed to Neurology consult, however, no one will see her over the weekend. Maybe better to wait until Tuesday. 4. Renal-worsening renal function. I did hold lasix yesterday. will check urine lytes including Na, Cr and URea given that she was on lasix therapy. Will also need renal ultrasound as well. Patient already has mark. 5. GI-Will start low rate tube feeds today to see how patient handles it. 6. Prophylaxis-pepcid and Sub Q heparin with SCD's. 7. Prognosis remains very very guarded to poor. Will attempt to call mother after 13:30 today as she works in the school system. 01/11/2020: Spoke with mother on speaker phone with patients' two boys who are 18 and 21. Explained to them the patient's mental state (comatose) and oxygen dependence and renal failure. Per the mother, patient was obtunded when EMS came to pick her up. She feel at home and had been complaining of nausea and had emesis. She denied any sick contacts. She does not know if the patient complained of headache or blurred vision. No head CT done in ED and currently patient is bit to unstable for transfer at this moment. Head CT is definitely needed and will order EEG to be done as well. Explained to the family how sick patient is. Unsure if they completely understand. Mother mentioned about transfer. I explained to her it would be up to the accepting physician if they would accept her. I feel it is unsafe to transport her right now and I am not sure what another hospital would provide. Once head CT obtained, this maybe different. CCT 31 Subjective Date of service: 01/11/20 Principal diagnosis: PNA; resp failure Interval history: Remains unresponsive on vent. Oxygen requirement has increased to now 100%. COVID test came back negative. Echo reading is pending. Patient's urine ou tput has worsened overnight as well. Ordered repeat CXR but this too is pending. Objective Vital Signs - 12hr 01/10/20 01/10/20 01/11/20 23:41 23:51 00:00 Temperature 98.7 F Pulse Rate 89 89 89 Respiratory 16 20 15 Rate Blood Pressure 108/60 108/63 114/65 O2 Sat by Pulse 95 95 95 Oximetry 01/11/20 01/11/20 01/11/20 00:11 00:21 00:30 Temperature Pulse Rate 89 89 89 Respiratory 20 11 L 14 Rate Blood Pressure 114/65 105/64 105/56 O2 Sat by Pulse 95 95 94 Oximetry 01/11/20 01/11/20 01/11/20 00:41 00:51 01:00 Temperature Pulse Rate 90 90 90 Respiratory 21 17 21 Rate Blood Pressure 105/56 103/60 108/63 O2 Sat by Pulse 94 95 95 Oximetry 01/11/20 01/11/20 01/11/20 01:11 01:21 01:30 Temperature Pulse Rate 90 90 90 Respiratory 20 20 18 Rate Blood Pressure 108/63 107/57 103/57 O2 Sat by Pulse 95 94 94 Oximetry 01/11/20 01/11/20 01/11/20 01:41 01:51 02:00 Temperature Pulse Rate 89 90 90 Respiratory 19 15 18 Rate Blood Pressure 103/57 100/51 96/53 O2 Sat by Pulse 93 93 93 Oximetry 01/11/20 01/11/20 01/11/20 02:11 02:21 02:30 Temperature Pulse Rate 90 90 86 Respiratory 11 L 17 15 Rate Blood Pressure 96/53 93/52 85/43 O2 Sat by Pulse 94 94 94 Oximetry 01/11/20 01/11/20 01/11/20 02:41 02:51 03:00 Temperature Pulse Rate 91 H 89 88 Respiratory 16 18 16 Rate Blood Pressure 85/43 89/53 101/53 O2 Sat by Pulse 95 94 95 Oximetry 01/11/20 01/11/20 01/11/20 03:11 03:21 03:26 Temperature 99.2 F Pulse Rate 90 90 Respiratory 17 17 Rate Blood Pressure 101/53 106/58 O2 Sat by Pulse 95 96 Oximetry 01/11/20 01/11/20 01/11/20 03:30 03:41 03:51 Temperature Pulse Rate 90 90 90 Respiratory 18 18 21 Rate Blood Pressure 109/58 109/58 97/58 O2 Sat by Pulse 96 94 94 Oximetry 01/11/20 01/11/20 01/11/20 04:00 04:11 04:21 Temperature Pulse Rate 91 H 90 90 Respiratory 6 L 9 L 18 Rate Blood Pressure 99/53 99/53 92/51 O2 Sat by Pulse 93 92 94 Oximetry 01/11/20 01/11/20 01/11/20 04:30 04:41 04:51 Temperature Pulse Rate 91 H 90 93 H Respiratory 17 11 L 16 Rate Blood Pressure 92/50 92/50 86/48 O2 Sat by Pulse 94 91 89 Oximetry 01/11/20 01/11/20 01/11/20 04:56 05:00 05:11 Temperature Pulse Rate 92 H 92 H 96 H Respiratory 17 20 Rate Blood Pressure 86/48 91/49 91/49 O2 Sat by Pulse 90 91 96 Oximetry 01/11/20 01/11/20 01/11/20 05:20 05:30 05:40 Temperature Pulse Rate 96 H 96 H 97 H Respiratory 20 20 20 Rate Blood Pressure 113/71 113/67 113/67 O2 Sat by Pulse 96 96 96 Oximetry 01/11/20 01/11/20 01/11/20 05:51 06:00 06:11 Temperature Pulse Rate 96 H 96 H 97 H Respiratory 20 19 12 Rate Blood Pressure 114/67 117/67 113/67 O2 Sat by Pulse 96 97 92 Oximetry 01/11/20 01/11/20 01/11/20 06:21 06:30 06:41 Temperature Pulse Rate 98 H 97 H 97 H Respiratory 20 20 20 Rate Blood Pressure 98/53 98/54 98/54 O2 Sat by Pulse 94 93 94 Oximetry 01/11/20 01/11/20 01/11/20 06:51 07:00 07:11 Temperature Pulse Rate 96 H 96 H 95 H Respiratory 20 21 18 Rate Blood Pressure 93/50 101/54 101/54 O2 Sat by Pulse 95 95 95 Oximetry 01/11/20 01/11/20 01/11/20 07:21 07:30 07:39 Temperature Pulse Rate 94 H 94 H 96 H Respiratory 19 18 Rate Blood Pressure 101/60 97/55 97/55 O2 Sat by Pulse 96 95 91 Oximetry 01/11/20 01/11/20 01/11/20 07:41 07:51 08:00 Temperature 97.9 F Pulse Rate 96 H 96 H 96 H Respiratory 26 H 20 16 Rate Blood Pressure 97/55 95/44 96/47 O2 Sat by Pulse 91 92 92 Oximetry 01/11/20 01/11/20 01/11/20 08:11 08:21 08:30 Temperature Pulse Rate 95 H 95 H 95 H Respiratory 18 19 20 Rate Blood Pressure 96/47 96/54 100/55 O2 Sat by Pulse 93 93 94 Oximetry 01/11/20 01/11/20 01/11/20 08:41 08:51 09:00 Temperature Pulse Rate 94 H 94 H 94 H Respiratory 19 20 20 Rate Blood Pressure 100/55 99/54 97/49 O2 Sat by Pulse 94 94 93 Oximetry 01/11/20 01/11/20 01/11/20 09:11 09:21 09:30 Temperature Pulse Rate 94 H 97 H 99 H Respiratory 17 17 14 Rate Blood Pressure 97/49 94/50 116/71 O2 Sat by Pulse 93 94 95 Oximetry 01/11/20 01/11/20 01/11/20 09:41 09:51 10:00 Temperature Pulse Rate 100 H 100 H 101 H Respiratory 17 21 14 Rate Blood Pressure 116/71 120/70 107/63 O2 Sat by Pulse 95 95 93 Oximetry 01/11/20 01/11/20 01/11/20 10:11 10:21 10:30 Temperature Pulse Rate 101 H 100 H 101 H Respiratory 20 14 20 Rate Blood Pressure 107/63 105/57 98/54 O2 Sat by Pulse 92 91 91 Oximetry 01/11/20 01/11/20 01/11/20 10:41 10:51 11:00 Temperature Pulse Rate 100 H 100 H 99 H Respiratory 13 15 15 Rate Blood Pressure 120/70 102/54 96/53 O2 Sat by Pulse 90 91 90 Oximetry 01/11/20 01/11/20 11:11 11:21 Temperature Pulse Rate 98 H 97 H Respiratory 20 19 Rate Blood Pressure 96/53 99/53 O2 Sat by Pulse 90 90 Oximetry Constitutional: no acute distress, comatose (Per nursing, no cough, no gag) Eyes: non-icteric ENT: other (orally intubated, not on sedation) Neck: supple, other (large in circumference) Cardiovascular: regular rate and rhythm Gastrointestinal: normoactive bowel sounds CBC and BMP: 01/10/20 10:40 01/11/20 09:53 ABG, PT/INR, D-dimer: ABG ABG pH 7.334 pH Units (7.350-7.450) L 01/11/20 03:34 ABG pCO2 55.7 mm Hg 01/11/20 03:34 ABG pO2 45.9 mm Hg (80.0-90.0) L 01/11/20 03:34 ABG O2 Saturation 76.5 % (95.0-99.0) L 01/11/20 03:34 PT/INR, D-dimer PT 13.9 Sec. (12.2-14.9) 01/09/20 19:03 INR 1.05 (0.87-1.13) 01/09/20 19:03 Abnormal lab findings: Abnormal Labs 01/09/20 01/09/20 01/09/20 18:37 18:47 19:03 WBC 14.0 H RBC 5.18 H MCV 76 L MCH 22 L MCHC 29 L RDW 22.0 H Lymph % (Auto) Lymph # (Auto) Seg Neutrophils % Seg Neuts % (Manual) 76.0 H Seg Neutrophils # Man 10.6 H ABG pH 7.252 L ABG pO2 172.4 H ABG HCO3 34.3 H ABG O2 Saturation ABG Base Excess 4.9 H ABG Hemoglobin 11.8 L VBG pH 7.252 L Oxyhemoglobin Sodium Potassium Chloride BUN Creatinine Glucose POC Glucose 177 H Phosphorus Magnesium NT-Pro-B Natriuret Pep Total Protein Albumin Urine WBC (Auto) 01/09/20 01/09/20 01/09/20 19:03 19:03 21:55 WBC RBC MCV MCH MCHC RDW Lymph % (Auto) Lymph # (Auto) Seg Neutrophils % Seg Neuts % (Manual) Seg Neutrophils # Man ABG pH 7.310 L ABG pO2 61.8 L ABG HCO3 31.2 H ABG O2 Saturation 90.3 L ABG Base Excess 3.8 H ABG Hemoglobin 10.0 L VBG pH Oxyhemoglobin 87.8 L Sodium Potassium 3.1 L Chloride 95.2 L BUN Creatinine Glucose 197 H POC Glucose Phosphorus Magnesium NT-Pro-B Natriuret Pep 1345 H Total Protein 8.3 H Albumin Urine WBC (Auto) 01/10/20 01/10/20 01/10/20 03:35 04:12 10:40 WBC RBC MCV 76 L MCH 22 L MCHC 29 L RDW 21.4 H Lymph % (Auto) 6.0 L Lymph # (Auto) 0.5 L Seg Neutrophils % 87.3 H Seg Neuts % (Manual) Seg Neutrophils # Man ABG pH ABG pO2 63.8 L ABG HCO3 28.7 H ABG O2 Saturation ABG Base Excess 4.0 H ABG Hemoglobin 10.9 L VBG pH Oxyhemoglobin 92.8 L Sodium Potassium Chloride BUN Creatinine Glucose POC Glucose Phosphorus Magnesium NT-Pro-B Natriuret Pep Total Protein Albumin Urine WBC (Auto) 50.0 H 01/10/20 01/11/20 01/11/20 10:40 03:34 09:53 WBC RBC MCV MCH MCHC RDW Lymph % (Auto) Lymph # (Auto) Seg Neutrophils % Seg Neuts % (Manual) Seg Neutrophils # Man ABG pH 7.334 L ABG pO2 45.9 L ABG HCO3 29.0 H ABG O2 Saturation 76.5 L ABG Base Excess ABG Hemoglobin 9.8 L VBG pH Oxyhemoglobin 74.7 L Sodium 146 H 147 H Potassium Chloride BUN 23 H Creatinine 1.6 H D 3.0 H D Glucose POC Glucose Phosphorus 2.40 L Magnesium 1.50 L NT-Pro-B Natriuret Pep Total Protein 5.9 L D Albumin 3.2 L Urine WBC (Auto) Chest x-ray: image reviewed
[2020-01-11] MEDS: SODIUM CHLORIDE 0.9% 1000 ML 1,000 ML IV SCH (11:41)
[2020-01-11] MEDS: LACTATED RINGERS 1,000 ML IV SCH ×2 (11:42→13:47)
--- NOTE | 2020-01-11 12:42 | XRay Report ---
CHEST 1 VIEW 01/11/2020 11:33 AM INDICATION / CLINICAL INFORMATION: Worsening hypoxemia. COMPARISON: Chest one view from 01/09/2020. FINDINGS: SUPPORT DEVICES: The ET tube terminates 1.5-2 cm above the ifeanyi. An esophagogastric tube tip termin ates over the gastric body. Stable right internal jugular CVL. HEART / MEDIASTINUM: Stable. LUNGS / PLEURA: Interval worsening of bilateral pleural-parenchymal opacities. No pneumothorax. ADDITIONAL FINDINGS: No significant additional findings. IMPRESSION: 1. Interval worsening of bilateral pleural-parenchymal opacities. 2. Stable cardiomegaly. 3. Support lines/tubes as above. Signer Name: Eagle Madera MD Signed: 01/11/2020 12:37 PM Workstation Name: [id number]
[2020-01-11] MEDS ORDERED: SODIUM CHLORIDE 0.9% 500 ML 500 ML ONE (12:56)
[2020-01-11] MEDS: HEPARIN 5,000 UNIT/1 ML VIAL SUB-Q SCH ×2 (13:48→21:59)
[2020-01-11 14:04] LABS: Creatinine,Urine 79.8 mg/dL (0.1-20.0)
[2020-01-11] MEDS: cefTRIAXone/NS 2 GM/100 ML 2 GM/100 ML BAG IV SCH (21:58)
[2020-01-12] MEDS: NORepinephrine/NS 4 MG-250 ML 4 MG/250 ML BAG IV SCH ×4 (03:25→21:50)
[2020-01-12] MEDS: SODIUM CHLORIDE 0.9% 1000 ML 1,000 ML IV SCH ×2 (04:19→17:30)
[2020-01-12] MEDS: HEPARIN 5,000 UNIT/1 ML VIAL SUB-Q SCH ×3 (05:18→21:48)
--- NOTE | 2020-01-12 08:43 | Progress Note ---
Assessment and Plan 44 y/o female with acute respiratory failure, hypothermia and encephalopathic. 1. Pulm-intubated, not sedated. Remains unresponsive. Continue high PEEP and wean FiO2 for sats >88%. . Rads read CXR as more edema. Unable to diurese at this time. Will recheck CXR Tomorrow or Tuesday. 2. CV-Need echo results hopefully soon. Continue support with levophed and wean for MAPs >65 3. Neuro-completely unresponsive. After speaking with mother over the phone on 01/10, patient was not alert on arrival. Ordered EEG but not done yet. Will get neruo consult on Tuesday. Will get CT head once more stable for transfer. 4. Renal-worsening renal function. I did hold lasix yesterday. will check urine lytes including Na, Cr and URea given that she was on lasix therapy. Renal ultrasound not done. Lytes done, but no renal consult. Checking labs today and will consult Dr. Elliott. 5. GI-Will start low rate tube feeds today to see how patient handles it. 6. Prophylaxis-pepcid and Sub Q heparin with SCD's. 7. Prognosis remains very very guarded to poor. Did not call mother this am. 01/11/2020: Spoke with mother on speaker phone with patients' two boys who are 18 and 21. Explained to them the patient's mental state (comatose) and oxygen dependence and renal failure. Per the mother, patient was obtunded when EMS came to pick her up. She feel at home and had been complaining of nausea and had emesis. She denied any sick contacts. She does not know if the patient complained of headache or blurred vision. No head CT done in ED and currently patient is bit to unstable for transfer at this moment. Head CT is definitely needed and will order EEG to be done as well. Explained to the family how sick patient is. Unsure if they completely understand. Mother mentioned about transfer. I exp lained to her it would be up to the accepting physician if they would accept her. I feel it is unsafe to transport her right now and I am not sure what another hospital would provide. Once head CT obtained, this maybe different. CCT 31 Subjective Date of service: 01/12/20 Principal diagnosis: PNA; resp failure Interval history: No acute events. REmains unresponisve. Still on levo at 14. Fio2 is down to 85% with sats in the mid 90's. Echo still not read, EEG not done. No labs checked this am. Objective Vital Signs - 12hr 01/11/20 01/11/20 01/11/20 20:41 20:51 21:01 Temperature Pulse Rate 92 H 90 114 H Respiratory 20 17 17 Rate Blood Pressure 91/49 77/37 166/100 O2 Sat by Pulse 90 90 91 Oximetry 01/11/20 01/11/20 01/11/20 21:11 21:21 21:30 Temperature Pulse Rate 99 H 99 H 98 H Respiratory 21 19 18 Rate Blood Pressure 166/100 87/51 80/45 O2 Sat by Pulse 88 88 90 Oximetry 01/11/20 01/11/20 01/11/20 21:41 21:51 22:00 Temperature Pulse Rate 105 H 105 H 104 H Respiratory 21 20 20 Rate Blood Pressure 80/45 103/58 99/52 O2 Sat by Pulse 90 90 89 Oximetry 01/11/20 01/11/20 01/11/20 22:11 22:21 22:30 Temperature Pulse Rate 105 H 104 H 103 H Respiratory 20 19 17 Rate Blood Pressure 99/52 108/55 98/52 O2 Sat by Pulse 90 89 89 Oximetry 01/11/20 01/11/20 01/11/20 22:41 22:51 23:01 Temperature Pulse Rate 102 H 101 H 114 H Respiratory 20 20 18 Rate Blood Pressure 98/52 83/40 145/89 O2 Sat by Pulse 88 87 92 Oximetry 01/11/20 01/11/20 01/11/20 23:11 23:13 23:20 Temperature Pulse Rate 113 H 110 H 111 H Respiratory 19 19 Rate Blood Pressure 145/89 83/40 123/71 O2 Sat by Pulse 91 91 90 Oximetry 01/11/20 01/11/20 01/11/20 23:30 23:32 23:37 Temperature 97.8 F Pulse Rate 109 H 108 H Respiratory 19 18 Rate Blood Pressure 108/60 123/71 O2 Sat by Pulse 90 91 Oximetry 01/11/20 01/11/20 01/12/20 23:41 23:51 00:00 Temperature Pulse Rate 108 H 108 H 109 H Respiratory 26 H 20 19 Rate Blood Pressure 123/71 127/72 120/70 O2 Sat by Pulse 90 92 91 Oximetry 01/12/20 01/12/20 01/12/20 00:11 00:21 00:30 Temperature Pulse Rate 108 H 106 H 106 H Respiratory 20 20 20 Rate Blood Pressure 120/70 121/65 118/66 O2 Sat by Pulse 93 91 92 Oximetry 01/12/20 01/12/20 01/12/20 00:41 00:51 01:00 Temperature Pulse Rate 107 H 107 H 104 H Respiratory 20 19 22 Rate Blood Pressure 121/65 129/80 113/68 O2 Sat by Pulse 92 93 93 Oximetry 01/12/20 01/12/20 01/12/20 01:11 01:21 01:30 Temperature Pulse Rate 102 H 102 H 102 H Respiratory 20 17 20 Rate Blood Pressure 113/68 111/68 129/75 O2 Sat by Pulse 93 93 95 Oximetry 01/12/20 01/12/20 01/12/20 01:41 01:51 02:00 Temperature Pulse Rate 102 H 101 H 101 H Respiratory 19 21 22 Rate Blood Pressure 113/68 110/72 116/72 O2 Sat by Pulse 93 95 95 Oximetry 01/12/20 01/12/20 01/12/20 02:11 02:21 02:30 Temperature Pulse Rate 100 H 98 H 97 H Respiratory 20 24 20 Rate Blood Pressure 116/72 118/76 102/59 O2 Sat by Pulse 95 96 96 Oximetry 01/12/20 01/12/20 01/12/20 02:41 02:51 03:00 Temperature Pulse Rate 97 H 99 H 101 H Respiratory 18 20 20 Rate Blood Pressure 102/59 95/51 112/67 O2 Sat by Pulse 93 93 94 Oximetry 01/12/20 01/12/20 01/12/20 03:11 03:21 03:29 Temperature 97.4 F L Pulse Rate 100 H 101 H Respiratory 20 20 Rate Blood Pressure 112/67 101/64 O2 Sat by Pulse 94 95 Oximetry 01/12/20 01/12/20 01/12/20 03:30 03:37 03:41 Temperature Pulse Rate 100 H 102 H 102 H Respiratory 20 20 Rate Blood Pressure 109/63 109/63 109/63 O2 Sat by Pulse 94 95 94 Oximetry 01/12/20 01/12/20 01/12/20 03:51 04:00 04:11 Temperature Pulse Rate 101 H 102 H 102 H Respiratory 20 20 21 Rate Blood Pressure 112/58 114/67 114/67 O2 Sat by Pulse 94 95 95 Oximetry 01/12/20 01/12/20 01/12/20 04:21 04:30 04:41 Temperature Pulse Rate 102 H 102 H 101 H Respiratory 20 18 19 Rate Blood Pressure 110/69 115/69 115/69 O2 Sat by Pulse 96 96 96 Oximetry 01/12/20 01/12/20 01/12/20 04:51 05:00 05:11 Temperature Pulse Rate 102 H 101 H 101 H Respiratory 22 20 19 Rate Blood Pressure 110/69 116/67 116/67 O2 Sat by Pulse 96 96 96 Oximetry 01/12/20 01/12/20 01/12/20 05:21 05:30 05:41 Temperature Pulse Rate 101 H 101 H 101 H Respiratory 19 22 20 Rate Blood Pressure 110/66 117/69 117/69 O2 Sat by Pulse 96 96 96 Oximetry 01/12/20 01/12/20 01/12/20 05:51 06:00 06:11 Temperature Pulse Rate 101 H 101 H 101 H Respiratory 19 18 20 Rate Blood Pressure 121/68 115/66 115/66 O2 Sat by Pulse 96 96 96 Oximetry 01/12/20 01/12/20 01/12/20 06:21 06:30 06:41 Temperature Pulse Rate 101 H 101 H 101 H Respiratory 19 20 14 Rate Blood Pressure 122/70 115/66 115/66 O2 Sat by Pulse 96 96 97 Oximetry 01/12/20 07:19 Temperature Pulse Rate 100 H Respiratory Rate Blood Pressure 106/65 O2 Sat by Pulse 94 Oximetry Constitutional: no acute distress, comatose (Per nursing, no cough, no gag) Eyes: non-icteric ENT: other (orally intubated, not on sedation) Neck: supple, other (large in circumference) Cardiovascular: regular rate and rhythm Gastrointestinal: normoactive bowel sounds CBC and BMP: 01/10/20 10:40 01/11/20 09:53 ABG, PT/INR, D-dimer: ABG ABG pH 7.311 (7.320-7.450) L 01/12/20 05:51 POC ABG pCO2 49.5 mmHg (32.0-48.0) H 01/12/20 05:51 ABG pCO2 55.7 mm Hg 01/11/20 03:34 POC ABG pO2 81.8 mmHg (83-108) L 01/12/20 05:51 ABG pO2 45.9 mm Hg (80.0-90.0) L 01/11/20 03:34 POC ABG HCO3 24.4 01/12/20 05:51 ABG O2 Saturation 76.5 % (95.0-99.0) L 01/11/20 03:34 PT/INR, D-dimer PT 13.9 Sec. (12.2-14.9) 01/09/20 19:03 INR 1.05 (0.87-1.13) 01/09/20 19:03 Abnormal lab findings: Abnormal Labs 01/09/20 01/09/20 01/09/20 18:37 18:47 19:03 WBC 14.0 H RBC 5.18 H MCV 76 L MCH 22 L MCHC 29 L RDW 22.0 H Lymph % (Auto) Lymph # (Auto) Seg Neutrophils % Seg Neuts % (Manual) 76.0 H Seg Neutrophils # Man 10.6 H ABG pH 7.252 L POC ABG pCO2 POC ABG pO2 ABG pO2 172.4 H ABG HCO3 34.3 H ABG O2 Saturation ABG Base Excess 4.9 H ABG Hemoglobin 11.8 L ABG Chloride ABG Glucose VBG pH 7.252 L Oxyhemoglobin Sodium Potassium Chloride BUN Creatinine Glucose POC Glucose 177 H Phosphorus Magnesium NT-Pro-B Natriuret Pep Total Protein Albumin Arterial Blood Glucose Urine WBC (Auto) Urine Creatinine 01/09/20 01/09/20 01/09/20 19:03 19:03 21:55 WBC RBC MCV MCH MCHC RDW Lymph % (Auto) Lymph # (Auto) Seg Neutrophils % Seg Neuts % (Manual) Seg Neutrophils # Man ABG pH 7.310 L POC ABG pCO2 POC ABG pO2 ABG pO2 61.8 L ABG HCO3 31.2 H ABG O2 Saturation 90.3 L ABG Base Excess 3.8 H ABG Hemoglobin 10.0 L ABG Chloride ABG Glucose VBG pH Oxyhemoglobin 87.8 L Sodium Potassium 3.1 L Chloride 95.2 L BUN Creatinine Glucose 197 H POC Glucose Phosphorus Magnesium NT-Pro-B Natriuret Pep 1345 H Total Protein 8.3 H Albumin Arterial Blood Glucose Urine WBC (Auto) Urine Creatinine 01/10/20 01/10/20 01/10/20 03:35 04:12 10:40 WBC RBC MCV 76 L MCH 22 L MCHC 29 L RDW 21.4 H Lymph % (Auto) 6.0 L Lymph # (Auto) 0.5 L Seg Neutrophils % 87.3 H Seg Neuts % (Manual) Seg Neutrophils # Man ABG pH POC ABG pCO2 POC ABG pO2 ABG pO2 63.8 L ABG HCO3 28.7 H ABG O2 Saturation ABG Base Excess 4.0 H ABG Hemoglobin 10.9 L ABG Chloride ABG Glucose VBG pH Oxyhemoglobin 92.8 L Sodium Potassium Chloride BUN Creatinine Glucose POC Glucose Phosphorus Magnesium NT-Pro-B Natriuret Pep Total Protein Albumin Arterial Blood Glucose Urine WBC (Auto) 50.0 H Urine Creatinine 01/10/20 01/11/20 01/11/20 10:40 03:34 09:53 WBC RBC MCV MCH MCHC RDW Lymph % (Auto) Lymph # (Auto) Seg Neutrophils % Seg Neuts % (Manual) Seg Neutrophils # Man ABG pH 7.334 L POC ABG pCO2 POC ABG pO2 ABG pO2 45.9 L ABG HCO3 29.0 H ABG O2 Saturation 76.5 L ABG Base Excess ABG Hemoglobin 9.8 L ABG Chloride ABG Glucose VBG pH Oxyhemoglobin 74.7 L Sodium 146 H 147 H Potassium Chloride BUN 23 H Creatinine 1.6 H D 3.0 H D Glucose POC Glucose Phosphorus 2.40 L Magnesium 1.50 L NT-Pro-B Natriuret Pep Total Protein 5.9 L D Albumin 3.2 L Arterial Blood Glucose Urine WBC (Auto) Urine Creatinine 01/11/20 01/11/20 01/12/20 12:25 15:30 00:27 WBC RBC MCV MCH MCHC RDW Lymph % (Auto) Lymph # (Auto) Seg Neutrophils % Seg Neuts % (Manual) Seg Neutrophils # Man ABG pH 7.273 L POC ABG pCO2 58.8 H POC ABG pO2 67.0 L ABG pO2 ABG HCO3 ABG O2 Saturation ABG Base Excess ABG Hemoglobin 10.4 L ABG Chloride 108.0 H ABG Glucose VBG pH Oxyhemoglobin Sodium Potassium Chloride BUN Creatinine Glucose POC Glucose 109 H Phosphorus Magnesium NT-Pro-B Natriuret Pep Total Protein Albumin Arterial Blood Glucose Urine WBC (Auto) Urine Creatinine 79.8 H 01/12/20 05:51 WBC RBC MCV MCH MCHC RDW Lymph % (Auto) Lymph # (Auto) Seg Neutrophils % Seg Neuts % (Manual) Seg Neutrophils # Man ABG pH 7.311 L POC ABG pCO2 49.5 H POC ABG pO2 81.8 L ABG pO2 ABG HCO3 ABG O2 Saturation ABG Base Excess ABG Hemoglobin 10.8 L ABG Chloride 112.0 H ABG Glucose 99 H VBG pH Oxyhemoglobin Sodium Potassium Chloride BUN Creatinine Glucose POC Glucose Phosphorus Magnesium NT-Pro-B Natriuret Pep Total Protein Albumin Arterial Blood Glucose 99 H Urine WBC (Auto) Urine Creatinine
[2020-01-12] MEDS: FAMOTIDINE 20 MG TAB PO SCH (09:02)
[2020-01-12 10:11] LABS: Mean Corpuscular HGB Conc 29 % (30-34); Mean Corpuscular Volume 76 fl (79-97); Platelet Count 175 K/mm3 (140-440); Red Blood Count 4.29 M/mm3 (3.65-5.03)
[2020-01-12 10:12] LABS: Hematocrit 32.7 % (30.3-42.9); Hemoglobin 9.5 gm/dl (10.1-14.3)
--- NOTE | 2020-01-12 10:50 | Progress Note ---
Assessment and Plan Assessment and plan: --Perry PCR negative, may DC isolation --Acute hypoxic respiratory failure; requiring intubation and mechanical ventilation Supportive care, wean as tolerated and extubate Pulmonary critical following --Acute versus acute on chronic congestive heart failure; Unknown ejection fraction, IV diuretics, input output monitoring Follow echocardiogram for LV function ejection fraction, cardiology evaluation and recommendation noted and appreciated Fluid restriction and low-sodium diet Echo 2012 LVEF 20%, Echo 07/2018 at [place] EF 55-60%, grade 1 diastolic dysfunction, 01/10/20 Echo EF 45 to 50% --Hypotension/shock; Patient remains hypotensive on levophed, gentle hydration --Oliguria; secondary to hypotension Gentle hydration input output monitoring Monitor renal function --Acute kidney injury; secondary to vasomotor nephropathy Closely monitor renal function, avoid nephrotoxins Nephrology evaluation and renal ultrasound if no improvement --Hypomagnesemia; magnesium 1.4, replenish Patient received IV mag sulfate , pending labs --Metabolic encephalopathy; present on admission Multifactorial, hypoxia, hypotension Possible sepsis, Treat the underlying cause Check CT head without contrast when patient is more stable --Moderate malnutrition/hypoalbuminemia Supportive care, nutrition consult if needed --PUI/high suspicion for COVID-19; Perry PCR negative DC droplet and contact isolation, --Morbid obesity; BMI 55.1 Patient needs weight reduction when medically stable --Possible obstructive sleep apnea; Patient is intubated, may need outpatient sleep study --Possible obesity hypoventilation syndrome; Ventilatory support, CPAP and BiPAP at night once extubated --DVT prophylaxis;Lovenox --Full CODE STATUS We will closely monitor the patient and adjust management as needed. Plan of care reviewed with the patient's nurse. The high probability of a clinically significant, sudden or life threatening deterioration of the [Respiratory, ID, CVs] system(s) required my full and direct attention, intervention and personal management. The aggregate critical care time was [33] minutes. This time is in addition to time spent performing reported procedures but includes the following: [x] Data Review and interpretation [x] Patient assessment and monitoring of vital signs [x] Documentation [x] Medication orders and management 01/10; patient remains hypotensive on Levophed, added IV fluids, follow echocardiogram for LV function History Interval history: I have seen and examined the patient at the bedside Patient remains intubated on ventilatory support Unresponsive. On Levophed and Rocephin Vital signs reviewed Hospitalist Physical - Constitutional Vitals: Temp Pulse Resp BP Pulse Ox 97.4 F L 100 H 14 106/65 94 01/12/20 03:29 01/12/20 07:19 01/12/20 06:41 01/12/20 07:19 01/12/20 07:19 General appearance: Present: well-nourished, obese (Morbidly obese), other (Intubated on vent) - EENT Eyes: Present: PERRL. Absent: scleral icterus ENT: other (ET tube and Dobbhoff in place) - Neck Neck: Present: supple - Respiratory Respiratory effort: normal Respiratory: bilateral: diminished, rhonchi, negative: rales, wheezing - Cardiovascular Rhythm: regular Heart Sounds: Present: S1 & S2 - Extremities Extremities: no ischemia, No edema - Abdominal General gastrointestinal: soft, non-tender, non-distended, normal bowel sounds - Integumentary Integumentary: Present: clear, warm - Psychiatric Psychiatric: other (Intubated on vent) - Neurologic Neurologic: other (Intubated on vent) HEART Score - HEART Score Age: < 45 Risk factors: 1-2 risk factors Troponin: Troponin T 0.013 ng/mL (0.00-0.029) 01/09/20 22:19 - Critical Actions Critical Actions: 4-6 pts:12-16.6% risk of adverse cardiac event. Should be admitted Results - Labs CBC & Chem 7: 01/12/20 09:50 01/12/20 09:50 Labs: Laboratory Last Values WBC 13.7 K/mm3 (4.5-11.0) H 01/12/20 09:50 RBC 4.29 M/mm3 (3.65-5.03) 01/12/20 09:50 Hgb 9.5 gm/dl (10.1-14.3) L 01/12/20 09:50 Hct 32.7 % (30.3-42.9) 01/12/20 09:50 MCV 76 fl (79-97) L 01/12/20 09:50 MCH 22 pg (28-32) L 01/12/20 09:50 MCHC 29 % (30-34) L 01/12/20 09:50 RDW 22.0 % (13.2-15.2) H 01/12/20 09:50 Plt Count 175 K/mm3 (140-440) 01/12/20 09:50 Lymph % (Auto) 6.0 % (13.4-35.0) L 01/10/20 10:40 [place] % (Auto) 5.9 % (0.0-7.3) 01/10/20 10:40 Eos % (Auto) 0.4 % (0.0-4.3) 01/10/20 10:40 Baso % (Auto) 0.4 % (0.0-1.8) 01/10/20 10:40 Lymph # (Auto) 0.5 K/mm3 (1.2-5.4) L 01/10/20 10:40 [place] # (Auto) 0.5 K/mm3 (0.0-0.8) 01/10/20 10:40 Eos # (Auto) 0.0 K/mm3 (0.0-0.4) 01/10/20 10:40 Baso # (Auto) 0.0 K/mm3 (0.0-0.1) 01/10/20 10:40 Add Manual Diff Complete 01/09/20 19:03 Total Counted 100 01/09/20 19:03 Seg Neutrophils % 87.3 % (40.0-70.0) H 01/10/20 10:40 Seg Neuts % (Manual) 76.0 % (40.0-70.0) H 01/09/20 19:03 Band Neutrophils % 0 % 01/09/20 19:03 Lymphocytes % (Manual) 21.0 % (13.4-35.0) 01/09/20 19:03 Reactive Lymphs % (Man) 0 % 01/09/20 19:03 Monocytes % (Manual) 3.0 % (0.0-7.3) 01/09/20 19:03 Eosinophils % (Manual) 0 % (0.0-4.3) 01/09/20 19:03 Basophils % (Manual) 0 % (0.0-1.8) 01/09/20 19:03 Metamyelocytes % 0 % 01/09/20 19:03 Myelocytes % 0 % 01/09/20 19:03 Promyelocytes % 0 % 01/09/20 19:03 Blast Cells % 0 % 01/09/20 19:03 Nucleated RBC % Not Reportable 01/09/20 19:03 Seg Neutrophils # 7.3 K/mm3 (1.8-7.7) 01/10/20 10:40 Seg Neutrophils # Man 10.6 K/mm3 (1.8-7.7) H 01/09/20 19:03 Band Neutrophils # 0.0 K/mm3 01/09/20 19:03 Lymphocytes # (Manual) 2.9 K/mm3 (1.2-5.4) 01/09/20 19:03 Abs React Lymphs (Man) 0.0 K/mm3 01/09/20 19:03 Monocytes # (Manual) 0.4 K/mm3 (0.0-0.8) 01/09/20 19:03 Eosinophils # (Manual) 0.0 K/mm3 (0.0-0.4) 01/09/20 19:03 Basophils # (Manual) 0.0 K/mm3 (0.0-0.1) 01/09/20 19:03 Metamyelocytes # 0.0 K/mm3 01/09/20 19:03 Myelocytes # 0.0 K/mm3 01/09/20 19:03 Promyelocytes # 0.0 K/mm3 01/09/20 19:03 Blast Cells # 0.0 K/mm3 01/09/20 19:03 WBC Morphology Not Reportable 01/09/20 19:03 Hypersegmented Neuts Not Reportable 01/09/20 19:03 Hyposegmented Neuts Not Reportable 01/09/20 19:03 Hypogranular Neuts Not Reportable 01/09/20 19:03 Smudge Cells Not Reportable 01/09/20 19:03 Toxic Granulation Not Reportable 01/09/20 19:03 Toxic Vacuolation Not Reportable 01/09/20 19:03 Dohle Bodies Not Reportable 01/09/20 19:03 Pelger-Huet Anomaly Not Reportable 01/09/20 19:03 Dominique Rods Not Reportable 01/09/20 19:03 Platelet Estimate Not Reportable 01/09/20 19:03 Clumped Platelets Not Reportable 01/09/20 19:03 Plt Clumps, EDTA Not Reportable 01/09/20 19:03 Large Platelets Not Reportable 01/09/20 19:03 Giant Platelets Not Reportable 01/09/20 19:03 Platelet Satelliting Not Reportable 01/09/20 19:03 Plt Morphology Comment Not Reportable 01/09/20 19:03 RBC Morphology Not Reportable 01/09/20 19:03 Dimorphic RBCs Not Reportable 01/09/20 19:03 Polychromasia Not Reportable 01/09/20 19:03 Hypochromasia 1+ 01/09/20 19:03 Poikilocytosis Not Reportable 01/09/20 19:03 Anisocytosis 1+ 01/09/20 19:03 Microcytosis Not Reportable 01/09/20 19:03 Macrocytosis Not Reportable 01/09/20 19:03 Spherocytes Not Reportable 01/09/20 19:03 Pappenheimer Bodies Not Reportable 01/09/20 19:03 Sickle Cells Not Reportable 01/09/20 19:03 Target Cells Not Reportable 01/09/20 19:03 Tear Drop Cells Not Reportable 01/09/20 19:03 Ovalocytes Not Reportable 01/09/20 19:03 Helmet Cells Not Reportable 01/09/20 19:03 Fel[place] Bodies Not Reportable 01/09/20 19:03 [place] Rings Not Reportable 01/09/20 19:03 [place] Cells Not Reportable 01/09/20 19:03 Bite Cells Not Reportable 01/09/20 19:03 Crenated Cell Not Reportable 01/09/20 19:03 Elliptocytes Not Reportable 01/09/20 19:03 Acanthocytes (Spur) Not Reportable 01/09/20 19:03 Rouleaux Not Reportable 01/09/20 19:03 Hemoglobin C Crystals Not Reportable 01/09/20 19:03 Schistocytes Few 01/09/20 19:03 Malaria parasites Not Reportable 01/09/20 19:03 Beka Bodies Not Reportable 01/09/20 19:03 Hem Pathologist Commnt No 01/09/20 19:03 PT 13.9 Sec. (12.2-14.9) 01/09/20 19:03 INR 1.05 (0.87-1.13) 01/09/20 19:03 ABG pH 7.311 (7.320-7.450) L 01/12/20 05:51 POC ABG pCO2 49.5 mmHg (32.0-48.0) H 01/12/20 05:51 ABG pCO2 55.7 mm Hg 01/11/20 03:34 POC ABG pO2 81.8 mmHg (83-108) L 01/12/20 05:51 ABG pO2 45.9 mm Hg (80.0-90.0) L 01/11/20 03:34 POC ABG HCO3 24.4 01/12/20 05:51 ABG HCO3 29.0 mmol/L (20.0-26.0) H 01/11/20 03:34 ABG O2 Saturation 76.5 % (95.0-99.0) L 01/11/20 03:34 ABG O2 Content 10.3 (0.0-44) 01/11/20 03:34 POC ABG Base Excess -2.1 01/12/20 05:51 ABG Base Excess 2.3 mmol/L (-2.0-3.0) 01/11/20 03:34 ABG Hemoglobin 10.8 (12.0-17.5) L 01/12/20 05:51 ABG Carboxyhemoglobin 1.7 % (0.0-5.0) 01/11/20 03:34 ABG Methemoglobin 0.6 % (0.0-1.5) 01/11/20 03:34 ABG Sodium 142.4 mmol/L (136.0-145.0) 01/12/20 05:51 ABG Potassium 4.2 mmol/L (3.40-4.50) 01/12/20 05:51 ABG Chloride 112.0 mmol/L (98-107) H 01/12/20 05:51 ABG Glucose 99 mg/dL (65-95) H 01/12/20 05:51 VBG pH 7.252 (7.320-7.420) L 01/09/20 18:37 Oxyhemoglobin 74.7 % (95.0-99.0) L 01/11/20 03:34 FiO2 100.0 01/12/20 05:51 Sodium 147 mmol/L (137-145) H 01/11/20 09:53 Potassium 3.7 mmol/L (3.6-5.0) 01/11/20 09:53 Chloride 106.0 mmol/L (98-107) 01/11/20 09:53 Carbon Dioxide 26 mmol/L (22-30) 01/11/20 09:53 Anion Gap 19 mmol/L 01/11/20 09:53 BUN 23 mg/dL (7-17) H 01/11/20 09:53 Creatinine 3.0 mg/dL (0.6-1.2) H D 01/11/20 09:53 Estimated GFR 21 ml/min 01/11/20 09:53 BUN/Creatinine Ratio 8 % 01/11/20 09:53 Glucose 95 mg/dL (65-100) 01/11/20 09:53 POC Glucose 109 (70-105) H 01/12/20 00:27 Hemoglobin A1c 5.9 % (4-6) 01/10/20 07:36 Lactic Acid 1.20 mmol/L (0.7-2.0) 01/09/20 22:19 Calcium 8.6 mg/dL (8.4-10.2) 01/11/20 09:53 Phosphorus 3.20 mg/dL (2.5-4.5) D 01/11/20 09:53 Magnesium 1.80 mg/dL (1.7-2.3) 01/11/20 09:53 Total Bilirubin 0.80 mg/dL (0.1-1.2) 01/10/20 10:40 AST 18 units/L (5-40) 01/10/20 10:40 ALT 13 units/L (7-56) 01/10/20 10:40 Alkaline Phosphatase 66 units/L (35-129) 01/10/20 10:40 Troponin T 0.013 ng/mL (0.00-0.029) 01/09/20 22:19 NT-Pro-B Natriuret Pep 1345 pg/mL (0-450) H 01/09/20 19:03 Total Protein 5.9 g/dL (6.3-8.2) L D 01/10/20 10:40 Albumin 3.2 g/dL (3.9-5) L 01/10/20 10:40 Albumin/Globulin Ratio 1.2 % 01/10/20 10:40 HCG, Qual Negative (Negative) 01/09/20 19:03 Arterial Blood Glucose 99 mg/dL (65-95) H 01/12/20 05:51 Arterial Blood Ionized Calcium 5.0 mg/dL (4.6-5.3) 01/12/20 05:51 Urine Color Yellow (Yellow) 01/10/20 04:12 Urine Turbidity Cloudy (Clear) 01/10/20 04:12 Urine pH 7.0 (5.0-7.0) 01/10/20 04:12 Ur Specific [place] 1.007 (1.003-1.030) 01/10/20 04:12 Urine Protein >500 mg/dL (Negative) 01/10/20 04:12 Urine Glucose (UA) 50 mg/dL (Negative) 01/10/20 04:12 Urine Ketones Neg mg/dL (Negative) 01/10/20 04:12 Urine Blood Mod (Negative) 01/10/20 04:12 Urine Nitrite Neg (Negative) 01/10/20 04:12 Urine Bilirubin Neg (Negative) 01/10/20 04:12 Urine Urobilinogen < 2.0 mg/dL (<2.0) 01/10/20 04:12 Ur Leukocyte Esterase Neg (Negative) 01/10/20 04:12 Urine WBC (Auto) 50.0 /HPF (0.0-6.0) H 01/10/20 04:12 Urine RBC (Auto) 17.0 /HPF (0.0-6.0) 01/10/20 04:12 U Epithel Cells (Auto) 1.0 /HPF (0-13.0) 01/10/20 04:12 Urine Bacteria (Auto) 2+ /HPF (Negative) 01/10/20 04:12 Urine Mucus Few /HPF 01/10/20 04:12 Urine Yeast (Budding) 3+ /HPF 01/10/20 04:12 Urine Creatinine 79.8 mg/dL (0.1-20.0) H 01/11/20 12:25 Urine Sodium 50 mmol/L 01/11/20 12:25 Urine Urea Nitrogen 83 01/11/20 12:25 Coronavirus (PCR) Negative (Negative) 01/10/20 10:27 Microbiology: Microbiology 01/10/20 04:12 Urine,Catheterized - Indwelling Catheter Urine Culture - Final NO GROWTH AFTER 48 HOURS 01/09/20 19:03 Peripheral/Venous Blood Culture - Preliminary NO GROWTH AFTER 48 HOURS 01/09/20 19:03 Peripheral/Venous Blood Culture - Preliminary NO GROWTH AFTER 48 HOURS 01/10/20 00:14 Tracheal Aspirate Sputum Culture - Final Gomez/IV: Voiding Method Indwelling Catheter IV Catheter Type [Left Forearm Peripheral IV ] IV Catheter Type [Right Triple Lumen Cath Internal Jugular] IV Catheter Type [Right Hand] INT / Saline Lock Active Medications - Current Medications Current Medications: Generic Name Dose Route Start Last Admin Trade Name Freq PRN Reason Stop Dose Admin Acetaminophen 650 mg 01/10/20 08:00 Tylenol PO Q4H PRN Pain MILD(1-3)/Fever >100.5/CHIRSTINA Lipase/Protease/Amylase 1 each 01/10/20 08:[address] 10,500 Unit FEEDTUBE PRN PRN For Clogged Feeding Tube Famotidine 20 mg 01/12/20 10:00 01/12/20 09:02 Pepcid PO 20 mg DAILY KANIKA Administration Heparin Sodium (Porcine) 5,000 unit 01/11/20 14:00 01/12/20 05:18 Heparin SUB-Q 5,000 unit Q8HR KANIKA Administration Nitroglycerin/Dextrose 50 mg in 250 mls @ 1.5 mls/hr 01/09/20 19:00 01/09/20 20:15 Tridil Drip 50mg/250ml IV 0 mcg/min TITR KANIKA 0 mls/hr Titration Protocol 5 MCG/MIN Norepinephrine 4 mg in 250 mls @ 7.5 mls/hr 01/09/20 22:00 01/12/20 08:45 Levophed Drip 4 Mg/Ns 250 Ml IV 12 mcg/min TITR KANIKA 45 mls/hr Administration Protocol 2 MCG/MIN Ceftriaxone Sodium 2 gm in 100 mls @ 200 mls/hr 01/10/20 22:00 01/11/20 21:58 Rocephin/Ns 2 Gm/100 Ml IV 01/14/20 22:29 200 mls/hr Q24HR@2200 KANIKA Administration Protocol Sodium Chloride 1,000 mls @ 75 mls/hr 01/11/20 07:45 01/12/20 04:19 Nacl 0.9% 1000 Ml IV 75 mls/hr DIRECT KANIKA Administration Metoclopramide HCl 10 mg 01/10/20 08:00 Reglan IV Q6H PRN Nausea And Vomiting Ondansetron HCl 4 mg 01/10/20 08:00 Zofran IV Q8H PRN Nausea And Vomiting Simple Syrup 15 ml 01/10/20 08:00 Simple Syrup FEEDTUBE PRN PRN Hypoglycemia Simple Syrup 30 ml 01/10/20 08:00 Simple Syrup FEEDTUBE PRN PRN Hypoglycemia Sodium Bicarbonate 325 mg 01/10/20 08:00 Sodium Bicarbonate FEEDTUBE PRN PRN For Clogged Feeding Tube Sodium Chloride 10 ml 01/10/20 10:00 01/12/20 09:03 Sodium Chloride Flush Syringe 10 Ml IV 10 ml BID KANIKA Administration Sodium Chloride 10 ml 01/10/20 08:00 Sodium Chloride Flush Syringe 10 Ml IV PRN PRN LINE FLUSH Nutrition/Malnutrition Assess - Dietary Evaluation Nutrition/Malnutrition Findings: Nutrition Notes Start: 01/10/20 08:12 Freq: Status: Active Protocol: Document 01/11/20 11:13 LAURI (Rec: 01/11/20 11:19 LAURI [id number]) Co-Sign 01/11/20 11:13 SUKHDEV Nutrition Notes Initial or Follow up Reassessment Current Diagnosis Acute Kidney Injury,COPD, Sepsis,Hypertension,Heart Failure Other Pertinent Diagnosis Acute PE, hypokalemia, COVID- 19 (-) Current Diet Vital AF 1.2 at 60 ml/hr Labs/Tests Na 147 BUN 23 Cr 3.0 Pertinent Medications Levophed Height 5 ft 6 in Weight 154.48 kg [place] Body Weight (kg) 59.09 BMI 54.9 Weight Status Morbidly Obese Subjective/Other Information F/U for TF start/tolerance. TF not running at time of visit. Per RN, will start TF today. Percent of energy/protein needs met: 0%/0% Burn Absent Trauma Absent Current % PO Negligible Minimum of two criteria No Fluid Accumulation Moderate to Severe (severe) #1 Nutrition Diagnosis Inadequate oral intake Diagnosis Progress(for reassessment Continues documentation) Is patient on ventilator? Yes Is Patient Ambulatory and/or Out of Bed No REE-([facility]-confined to bed) 2668.044 Kcal/Kg value to use for calculation 11 Approximate Energy Requirements Using 1699 kcal/Kg Calculation Used for Recommendations Kcal/kg Additional Notes Pro: 147 g (up to 2.5 g/kg IBW ) Fluid: 1.5-1.9 L Nutrition Intervention Change Diet Order: Continue TF Nutrition Support: Vital AF 1.2 at 60 ml/hr Flush 60 ml q4h Kcal 1,728 Protein (gm) 108 Fluid (mL) 1,167 Goal #1 TF start/tolerance Goal #2 Meet at least 75% energy and protein needs via TF Follow-Up By: 01/15/20 Additional Comments F/U for TF start/tolerance
[2020-01-12 11:14] LABS: Albumin 2.4 g/dL (3.9-5); Calcium 9.3 mg/dL (8.4-10.2)
--- NOTE | 2020-01-12 14:48 | Consultation ---
History of Present Illness - Reason for Consult acute renal failure - History of Present Illness History obtained from medical records as patient is intubated Mrs. Purcell is a 44yo with hypertension, chronic hypoxic respiratory failure on home oxygen, hx of cardiomyopathy w/ normalized EF in 2019 who presented to the ED w/ c/o severe difficulty in breathing. Patient was initially placed on BiPAP and was subsequently intubated. Admission BP 245/153, pt was initially placed on nitroglycerine gtt which has been discontinued. Presently, patient is intubated - FiO2 70%, PEEP 14. She is currently on Levophed 10mcg/min Past History Past Medical History: other (Per HPI) Past Surgical History: Other (unable to obtain) Social history: other (unable to obtain) Family history: other (unable to obtain) Medications and Allergies Allergies Allergy/AdvReac Type Severity Reaction Status Date / Time lisinopril Allergy Swelling Verified 01/11/20 11:30 Home Medications Medication Instructions Recorded Confirmed Last Taken Type Unobtainable 01/10/20 01/10/20 Unknown History Active Meds: Active Medications Acetaminophen (Tylenol) 650 mg PO Q4H PRN PRN Reason: Pain MILD(1-3)/Fever >100.5/CHRISTINA Lipase/Protease/Amylase (Pancreaze Dr 10,500 Unit) 1 each FEEDTUBE PRN PRN PRN Reason: For Clogged Feeding Tube Famotidine (Pepcid) 20 mg PO DAILY KANIKA Last Admin: 01/12/20 09:02 Dose: 20 mg Documented by: Heparin Sodium (Porcine) (Heparin) 5,000 unit SUB-Q Q8HR KANIKA Last Admin: 01/12/20 14:24 Dose: 5,000 unit Documented by: Nitroglycerin/Dextrose (Tridil Drip 50mg/250ml) 50 mg in 250 mls @ 1.5 mls/hr IV TITR KANIKA; Protocol Last Titration: 01/09/20 20:15 Dose: 0 mcg/min, 0 mls/hr Documented by: Norepinephrine (Levophed Drip 4 Mg/Ns 250 Ml) 4 mg in 250 mls @ 7.5 mls/hr IV TITR KANIKA; Protocol Last Titration: 01/12/20 14:30 Dose: 8 mcg/min, 30 mls/hr Documented by: Ceftriaxone Sodium (Rocephin/Ns 2 Gm/100 Ml) 2 gm in 100 mls @ 200 mls/hr IV Q24HR@2200 KANIKA; Protocol Stop: 01/14/20 22:29 Last Admin: 01/11/20 21:58 Dose: 200 mls/hr Documented by: Sodium Chloride (Nacl 0.9% 1000 Ml) 1,000 mls @ 75 mls/hr IV DIRECT KANIKA Last Admin: 01/12/20 04:19 Dose: 75 mls/hr Documented by: Metoclopramide HCl (Reglan) 10 mg IV Q6H PRN PRN Reason: Nausea And Vomiting Ondansetron HCl (Zofran) 4 mg IV Q8H PRN PRN Reason: Nausea And Vomiting Simple Syrup (Simple Syrup) 15 ml FEEDTUBE PRN PRN PRN Reason: Hypoglycemia Simple Syrup (Simple Syrup) 30 ml FEEDTUBE PRN PRN PRN Reason: Hypoglycemia Sodium Bicarbonate (Sodium Bicarbonate) 325 mg FEEDTUBE PRN PRN PRN Reason: For Clogged Feeding Tube Sodium Chloride (Sodium Chloride Flush Syringe 10 Ml) 10 ml IV BID [facility] Last Admin: 01/12/20 09:03 Dose: 10 ml Documented by: Sodium Chloride (Sodium Chloride Flush Syringe 10 Ml) 10 ml IV PRN PRN PRN Reason: LINE FLUSH Review of Systems ROS unobtainable: due to endotracheal tube Exam - Vital Signs Vital signs: Vital Signs Pulse Resp BP Pulse Ox 80 21 245/153 99 01/09/20 18:28 01/09/20 18:28 01/09/20 18:28 01/09/20 18:28 - General Appearance General appearance: well-developed, well-nourished, obese, intubated EENT: ATNC, other (ETT in place) Neck: Present: neck supple Respiratory: Decreased Breath Sounds Heart: regular, S1S2 Gastrointestinal: Present: obese. Absent: distended Integumentary: no rash, warm and dry Results - Lab Results 01/12/20 09:50 01/12/20 09:50 Most recent lab results ABG pH 7.311 (7.320-7.450) L 01/12/20 05:51 ABG pCO2 55.7 mm Hg 01/11/20 03:34 ABG pO2 45.9 mm Hg (80.0-90.0) L 01/11/20 03:34 ABG HCO3 29.0 mmol/L (20.0-26.0) H 01/11/20 03:34 ABG O2 Saturation 76.5 % (95.0-99.0) L 01/11/20 03:34 Calcium 9.3 mg/dL (8.4-10.2) 01/12/20 09:50 Phosphorus 3.20 mg/dL (2.5-4.5) D 01/11/20 09:53 Magnesium 1.80 mg/dL (1.7-2.3) 01/11/20 09:53 Urine Creatinine 79.8 mg/dL (0.1-20.0) H 01/11/20 12:25 Urine Sodium 50 mmol/L 01/11/20 12:25 Assessment and Plan Impression: * Acute kidney injury secondary to ATN * Acute on chronic hypoxic respiratory on mechanical ventilation secondary to ?pulmonary edema vs infectious etiology * Urinary tract infection * Accelerated hypertension - resolved * Anemia * Hypernatremia Plan: * No acute need for renal replacement therapy - prognosis is guarded * Will obtain renal ultrasound * Obtain serologic work up - anticipate low yield * Agree with gentle IVF; for now, hold diuresis * Await TTE - cardiology following * Abx per primary team * Vent management per pulmonary/critical care * Dose medications for renal function * Avoid potential nephrotoxins
[2020-01-13] MEDS: NORepinephrine/NS 4 MG-250 ML 4 MG/250 ML BAG IV SCH ×4 (03:10→22:00)
[2020-01-13] MEDS: ACETAMINOPHEN 325 MG TAB PO PRN ×2 (05:17→09:52)
[2020-01-13] MEDS: SODIUM CHLORIDE 0.9% 1000 ML 1,000 ML IV SCH ×2 (05:18→22:27)
[2020-01-13] MEDS: HEPARIN 5,000 UNIT/1 ML VIAL SUB-Q SCH ×3 (05:18→22:21)
[2020-01-13] MEDS: cefTRIAXone/NS 2 GM/100 ML 2 GM/100 ML BAG IV SCH ×2 (05:29→22:56)
[2020-01-13 06:53] LABS: Basophils % (Auto) 0.4 % (0.0-1.8); Eosinophils # (Auto) 0.2 K/mm3 (0.0-0.4); Eosinophils % (Auto) 1.6 % (0.0-4.3); Lymphocytes # (Auto) 1.3 K/mm3 (1.2-5.4); Lymphocytes % (Auto) 13.1 % (13.4-35.0); Mean Corpuscular HGB Conc 29 % (30-34); Mean Corpuscular Volume 77 fl (79-97); Monocytes # (Auto) 0.9 K/mm3 (0.0-0.8); Monocytes % (Auto) 9.3 % (0.0-7.3); Platelet Count 157 K/mm3 (140-440); Red Blood Count 4.19 M/mm3 (3.65-5.03)
[2020-01-13 06:59] LABS: Calcium 8.8 mg/dL (8.4-10.2)
[2020-01-13 07:00] LABS: Hematocrit 32.2 % (30.3-42.9); Hemoglobin 9.3 gm/dl (10.1-14.3); Red Cell Distribution Width 22.2 % (13.2-15.2)
--- NOTE | 2020-01-13 08:01 | Progress Note ---
Assessment and Plan Assessment and plan: --Perry PCR negative, 01/10/2020 --Metabolic encephalopathy; present on admission Multifactorial, hypoxia, hypotension,Possible sepsis, r/o neurologic causes, unable to get CT scan as patient is unstable and morbidly obese Treat the underlying cause, Check CT head without contrast when patient is more stable --Acute hypoxic respiratory failure; requiring intubation and mechanical ventilation Supportive care, wean as tolerated and extubate Pulmonary critical following --Morbid obesity; BMI 55.1 Patient needs weight reduction when medically stable --Possible obstructive sleep apnea; Patient is intubated, may need outpatient sleep study --Possible obesity hypoventilation syndrome; Ventilatory support, CPAP and BiPAP at night once extubated --Acute versus acute on chronic congestive heart failure; EF 45 to 50% IV diuretics, input output monitoring Fluid restriction and low-sodium diet Echo 2012 LVEF 20%, Echo 07/2018 at [facility] EF 55-60%, grade 1 diastolic dysfunction, 01/10/20 Echo EF 45 to 50% --Hypotension/shock; Patient remains on levophed, gentle hydration --Oliguria; secondary to hypotension Gentle hydration input output monitoring Monitor renal function --Acute kidney injury; secondary to vasomotor nephropathy Hypotension and shock ,closely monitor renal function, avoid nephrotoxins Nephrology evaluation recommendation noted and appreciated --Hypomagnesemia; resolved --Hypernatremia; free water flushes to 250 mL every 6 hours via [place] --Moderate-malnutrition/hypoalbuminemia Supportive care, nutrition consult --PUI/high suspicion for COVID-19; Perry PCR negative --DVT prophylaxis;Lovenox --Full CODE STATUS We will closely monitor the patient and adjust management as needed. Plan of care reviewed with the patient's nurse. I discussed with [place] physician patient's condition, treatment plan Poor prognosis, I also discussed with her patient's past medical history[patient has hypoxic hypercapnic respiratory failure On BiPAP and nasal cannula oxygen, diastolic congestive heart failure, hypertension morbid obesity] Noncompliant with her visits to the physician. The high probability of a clinically significant, sudden or life threatening deterioration of the [Respiratory, ID, CVs] system(s) required my full and direct attention, in tervention and personal management. The aggregate critical care time was [35] minutes. This time is in addition to time spent performing reported procedures but includes the following: [x] Data Review and interpretation [x] Patient assessment and monitoring of vital signs [x] Documentation [x] Medication orders and management 01/10; patient remains hypotensive on Levophed, added IV fluids, follow echocardiogram for LV function 01/11; patient remains intubated on vent, unable to get CT head as patient is unstable and morbidly obese 01/12; patient remains hypotensive on Levophed, on ventilatory support, worsening renal function nephrology evaluation appreciated Hypernatremia, free water flushes via [place], monitor electrolytes History Interval history: I have seen and examined the patient at the bedside in ICU this morning Patient's chart, current medications, tests and reports reviewed Patient remains intubated on ventilatory support Hypotensive on Levophed ,unresponsive Morbidly obese Vital signs noted Hospitalist Physical - Constitutional Vitals: Temp Pulse Resp BP Pulse Ox 102.9 F H 113 H 20 102/51 96 01/13/20 03:33 01/13/20 07:20 01/13/20 07:00 01/13/20 07:20 01/13/20 07:20 General appearance: Present: well-nourished, obese (Morbidly obese), other (Intubated on vent, unresponsive) - EENT Eyes: Present: PERRL. Absent: scleral icterus - Neck Neck: Present: supple - Respiratory Respiratory effort: normal Respiratory: bilateral: diminished, rhonchi, negative: rales, wheezing - Cardiovascular Rhythm: regular Heart Sounds: Present: S1 & S2 - Extremities Extremities: no ischemia Extremity abnormal: edema - Abdominal General gastrointestinal: soft, non-tender, non-distended, normal bowel sounds - Integumentary Integumentary: Present: clear, warm - Psychiatric Psychiatric: other (Unresponsive) - Neurologic Neurologic: other (Unresponsive on ventilatory support) HEART Score - HEART Score Age: < 45 Risk factors: 1-2 risk factors Troponin: Troponin T 0.013 ng/mL (0.00-0.029) 01/09/20 22:19 - Critical Actions Critical Actions: 4-6 pts:12-16.6% risk of adverse cardiac event. Should be admitted Results - Labs CBC & Chem 7: 01/13/20 06:28 01/13/20 06:28 Labs: Laboratory Last Values WBC 9.6 K/mm3 (4.5-11.0) 01/13/20 06: RBC 4.19 M/mm3 (3.65-5.03) 01/13/20 06: Hgb 9.3 gm/dl (10.1-14.3) L 01/13/20 06: Hct 32.2 % (30.3-42.9) 01/13/20 06: MCV 77 fl (79-97) L 01/13/20 06: MCH 22 pg (28-32) L 01/13/20 06: MCHC 29 % (30-34) L 01/13/20 06: RDW 22.2 % (13.2-15.2) H 01/13/20: Plt Count 157 K/mm3 (140-440) 01/13/20 06: Lymph % (Auto) 13.1 % (13.4-35.0) L 01/13/20 06:28 [place] % (Auto) 9.3 % (0.0-7.3) H 01/13/20:28 Eos % (Auto) 1.6 % (0.0-4.3) 01/13/20 06: Baso % (Auto) 0.4 % (0.0-1.8) 01/13/20: Lymph # (Auto) 1.3 K/mm3 (1.2-5.4) 01/13/20 06:28 [place] # (Auto) 0.9 K/mm3 (0.0-0.8) H 01/13/20: Eos # (Auto) 0.2 K/mm3 (0.0-0.4) 01/13/20 06:28 Baso # (Auto) 0.0 K/mm3 (0.0-0.1) 01/13/20 06:28 Add Manual Diff Complete 01/09/20 19:03 Total Counted 100 01/09/20 19:03 Seg Neutrophils % 75.6 % (40.0-70.0) H 01/13/20 06:28 Seg Neuts % (Manual) 76.0 % (40.0-70.0) H 01/09/20 19:03 Band Neutrophils % 0 % 01/09/20 19:03 Lymphocytes % (Manual) 21.0 % (13.4-35.0) 01/09/20 19:03 Reactive Lymphs % (Man) 0 % 01/09/20 19:03 Monocytes % (Manual) 3.0 % (0.0-7.3) 01/09/20 19:03 Eosinophils % (Manual) 0 % (0.0-4.3) 01/09/20 19:03 Basophils % (Manual) 0 % (0.0-1.8) 01/09/20 19:03 Metamyelocytes % 0 % 01/09/20 19:03 Myelocytes % 0 % 01/09/20 19:03 Promyelocytes % 0 % 01/09/20 19:03 Blast Cells % 0 % 01/09/20 19:03 Nucleated RBC % Not Reportable 01/09/20 19:03 Seg Neutrophils # 7.3 K/mm3 (1.8-7.7) 01/13/20 06:28 Seg Neutrophils # Man 10.6 K/mm3 (1.8-7.7) H 01/09/20 19:03 Band Neutrophils # 0.0 K/mm3 01/09/20 19:03 Lymphocytes # (Manual) 2.9 K/mm3 (1.2-5.4) 01/09/20 19:03 Abs React Lymphs (Man) 0.0 K/mm3 01/09/20 19:03 Monocytes # (Manual) 0.4 K/mm3 (0.0-0.8) 01/09/20 19:03 Eosinophils # (Manual) 0.0 K/mm3 (0.0-0.4) 01/09/20 19:03 Basophils # (Manual) 0.0 K/mm3 (0.0-0.1) 01/09/20 19:03 Metamyelocytes # 0.0 K/mm3 01/09/20 19:03 Myelocytes # 0.0 K/mm3 01/09/20 19:03 Promyelocytes # 0.0 K/mm3 01/09/20 19:03 Blast Cells # 0.0 K/mm3 01/09/20 19:03 WBC Morphology Not Reportable 01/09/20 19:03 Hypersegmented Neuts Not Reportable 01/09/20 19:03 Hyposegmented Neuts Not Reportable 01/09/20 19:03 Hypogranular Neuts Not Reportable 01/09/20 19:03 Smudge Cells Not Reportable 01/09/20 19:03 Toxic Granulation Not Reportable 01/09/20 19:03 Toxic Vacuolation Not Reportable 01/09/20 19:03 Dohle Bodies Not Reportable 01/09/20 19:03 Pelger-Huet Anomaly Not Reportable 01/09/20 19:03 Dominique Rods Not Reportable 01/09/20 19:03 Platelet Estimate Not Reportable 01/09/20 19:03 Clumped Platelets Not Reportable 01/09/20 19:03 Plt Clumps, EDTA Not Reportable 01/09/20 19:03 Large Platelets Not Reportable 01/09/20 19:03 Giant Platelets Not Reportable 01/09/20 19:03 Platelet Satelliting Not Reportable 01/09/20 19:03 Plt Morphology Comment Not Reportable 01/09/20 19:03 RBC Morphology Not Reportable 01/09/20 19:03 Dimorphic RBCs Not Reportable 01/09/20 19:03 Polychromasia Not Reportable 01/09/20 19:03 Hypochromasia 1+ 01/09/20 19:03 Poikilocytosis Not Reportable 01/09/20 19:03 Anisocytosis 1+ 01/09/20 19:03 Microcytosis Not Reportable 01/09/20 19:03 Macrocytosis Not Reportable 01/09/20 19:03 Spherocytes Not Reportable 01/09/20 19:03 Pappenheimer Bodies Not Reportable 01/09/20 19:03 Sickle Cells Not Reportable 01/09/20 19:03 Target Cells Not Reportable 01/09/20 19:03 Tear Drop Cells Not Reportable 01/09/20 19:03 Ovalocytes Not Reportable 01/09/20 19:03 Helmet Cells Not Reportable 01/09/20 19:03 Feliz-Stites Bodies Not Reportable 01/09/20 19:03 [place] Rings Not Reportable 01/09/20 19:03 [place] Cells Not Reportable 01/09/20 19:03 Bite Cells Not Reportable 01/09/20 19:03 Crenated Cell Not Reportable 01/09/20 19:03 Elliptocytes Not Reportable 01/09/20 19:03 Acanthocytes (Spur) Not Reportable 01/09/20 19:03 Rouleaux Not Reportable 01/09/20 19:03 Hemoglobin C Crystals Not Reportable 01/09/20 19:03 Schistocytes Few 01/09/20 19:03 Malaria parasites Not Reportable 01/09/20 19:03 Beka Bodies Not Reportable 01/09/20 19:03 Hem Pathologist Commnt No 01/09/20 19:03 PT 13.9 Sec. (12.2-14.9) 01/09/20 19:03 INR 1.05 (0.87-1.13) 01/09/20 19:03 ABG pH 7.289 (7.320-7.450) L 01/13/20 04:11 POC ABG pCO2 54.9 mmHg (32.0-48.0) H 01/13/20 04:11 ABG pCO2 55.7 mm Hg 01/11/20 03:34 POC ABG pO2 93.9 mmHg (83-108) 01/13/20 04:11 ABG pO2 45.9 mm Hg (80.0-90.0) L 01/11/20 03:34 POC ABG HCO3 25.7 01/13/20 04:11 ABG HCO3 29.0 mmol/L (20.0-26.0) H 01/11/20 03:34 ABG O2 Saturation 76.5 % (95.0-99.0) L 01/11/20 03:34 ABG O2 Content 10.3 (0.0-44) 01/11/20 03:34 POC ABG Base Excess -1.5 01/13/20 04:11 ABG Base Excess 2.3 mmol/L (-2.0-3.0) 01/11/20 03:34 ABG Hemoglobin 12.1 (12.0-17.5) 01/13/20 04:11 ABG Carboxyhemoglobin 1.7 % (0.0-5.0) 01/11/20 03:34 ABG Methemoglobin 0.6 % (0.0-1.5) 01/11/20 03:34 ABG Sodium 142.4 mmol/L (136.0-145.0) 01/12/20 05:51 ABG Potassium 4.2 mmol/L (3.40-4.50) 01/12/20 05:51 ABG Chloride 112.0 mmol/L (98-107) H 01/12/20 05:51 ABG Glucose 99 mg/dL (65-95) H 01/12/20 05:51 VBG pH 7.252 (7.320-7.420) L 01/09/20 18:37 Oxyhemoglobin 74.7 % (95.0-99.0) L 01/11/20 03:34 FiO2 70 01/13/20 04:11 Sodium 152 mmol/L (137-145) H 01/13/20 06:28 Potassium 4.5 mmol/L (3.6-5.0) 01/13/20 06:28 Chloride 115.5 mmol/L (98-107) H 01/13/20 06:28 Carbon Dioxide 22 mmol/L (22-30) 01/13/20 06:28 Anion Gap 19 mmol/L 01/13/20 06:28 BUN 25 mg/dL (7-17) H 01/13/20 06:28 Creatinine 3.9 mg/dL (0.6-1.2) H 01/13/20 06:28 Estimated GFR 15 ml/min 01/13/20 06:28 BUN/Creatinine Ratio 6 % 01/13/20 06:28 Glucose 132 mg/dL (65-100) H 01/13/20 06:28 POC Glucose 109 (70-105) H 01/12/20 00:27 Hemoglobin A1c 5.9 % (4-6) 01/10/20 07:36 Lactic Acid 1.20 mmol/L (0.7-2.0) 01/09/20 22:19 Calcium 8.8 mg/dL (8.4-10.2) 01/13/20 06:28 Phosphorus 3.20 mg/dL (2.5-4.5) D 01/11/20 09:53 Magnesium 1.80 mg/dL (1.7-2.3) 01/11/20 09:53 Total Bilirubin 0.70 mg/dL (0.1-1.2) 01/12/20 09:50 AST 17 units/L (5-40) 01/12/20 09:50 ALT 10 units/L (7-56) 01/12/20 09:50 Alkaline Phosphatase 100 units/L (35-129) 01/12/20 09:50 Troponin T 0.013 ng/mL (0.00-0.029) 01/09/20 22:19 NT-Pro-B Natriuret Pep 1345 pg/mL (0-450) H 01/09/20 19:03 Total Protein 5.8 g/dL (6.3-8.2) L 01/12/20 09:50 Albumin 2.4 g/dL (3.9-5) L 01/12/20 09:50 Albumin/Globulin Ratio 0.7 % 01/12/20 09:50 HCG, Qual Negative (Negative) 01/09/20 19:03 Arterial Blood Glucose 99 mg/dL (65-95) H 01/12/20 05:51 Arterial Blood Ionized Calcium 5.0 mg/dL (4.6-5.3) 01/12/20 05:51 Urine Color Yellow (Yellow) 01/10/20 04:12 Urine Turbidity Cloudy (Clear) 01/10/20 04:12 Urine pH 7.0 (5.0-7.0) 01/10/20 04:12 Ur Specific [place] 1.007 (1.003-1.030) 01/10/20 04:12 Urine Protein >500 mg/dL (Negative) 01/10/20 04:12 Urine Glucose (UA) 50 mg/dL (Negative) 01/10/20 04:12 Urine Ketones Neg mg/dL (Negative) 01/10/20 04:12 Urine Blood Mod (Negative) 01/10/20 04:12 Urine Nitrite Neg (Negative) 01/10/20 04:12 Urine Bilirubin Neg (Negative) 01/10/20 04:12 Urine Urobilinogen < 2.0 mg/dL (<2.0) 01/10/20 04:12 Ur Leukocyte Esterase Neg (Negative) 01/10/20 04:12 Urine WBC (Auto) 50.0 /HPF (0.0-6.0) H 01/10/20 04:12 Urine RBC (Auto) 17.0 /HPF (0.0-6.0) 01/10/20 04:12 U Epithel Cells (Auto) 1.0 /HPF (0-13.0) 01/10/20 04:12 Urine Bacteria (Auto) 2+ /HPF (Negative) 01/10/20 04:12 Urine Mucus Few /HPF 01/10/20 04:12 Urine Yeast (Budding) 3+ /HPF 01/10/20 04:12 Urine Creatinine 79.8 mg/dL (0.1-20.0) H 01/11/20 12:25 Urine Sodium 50 mmol/L 01/11/20 12:25 Urine Urea Nitrogen 83 01/11/20 12:25 Coronavirus (PCR) Negative (Negative) 01/10/20 10:27 Microbiology: Microbiology 01/09/20 19:03 Peripheral/Venous Blood Culture - Preliminary NO GROWTH AFTER 72 HOURS 01/09/20 19:03 Peripheral/Venous Blood Culture - Preliminary NO GROWTH AFTER 72 HOURS 01/10/20 04:12 Urine,Catheterized - Indwelling Catheter Urine Culture - Final NO GROWTH AFTER 48 HOURS - Diagnostic Impressions Diagnostic Impressions: Echocardiogram 01/10/20 07:42 Transthoracic Echocardiogram Indication: Dyspnea BP: 102/54 HR: 100 Conclusions *The study quality is technically difficult. *Severe concentric left ventricular hypertrophy is observed. *The estimated ejection fraction is 45-50%. *The right ventricular global systolic function is mildly reduced. Findings Procedure Info: The study quality is technically difficult. Left Ventricle: The left ventricular chamber size is normal. Severe concentric left ventricular hypertrophy is observed. Global left ventricular systolic function is at the lower limits of normal. The estimated ejection fraction is 45-50%. Abnormal left ventricular diastolic filling is observed, consistent with impaired relaxation. Left Atrium: The left atrial chamber size is normal. Right Ventricle: The right ventricular global systolic function is mildly reduced. Aortic Valve: Mild aortic leaflet calcification is visualized. There is no evidence of aortic regurgitation. Mitral Valve: The mitral valve leaflets are mildly thickened. There is no evidence of mitral regurgitation. Tricuspid Valve: The tricuspid valve leaflets are normal. There is no evidence of tricuspid valve regurgitation. Pulmonic Valve: The pulmonic valve is not well visualized. There is no evidence of pulmonic regurgitation. Pericardium: A trivial pericardial effusion is visualized. Aorta: The aorta appears normal. Measurements Chambers 2D Name Value Normal Range IVSd (2D) 1.86 cm (0.6 - 1.1) LVPWd (2D) 1.74 cm (0.6 - 1.1) IVS:LVPW ratio (2D) 1.07 ratio - LVIDd (2D) 4.47 cm (3.7 - 5.6) LVIDs (2D) 3.74 cm (2 - 3.8) LV FS (Teichholz) (2D) 16.3 % - LV FS (cube) (2D) 16.3 % - Ao root diameter (2D) 3.1 cm (2 - 3.7) LA dimension (AP) 2D 3.5 cm (1.9 - 4) LA:Ao ratio (2D) 1.13 ratio - Volumes/Mass Name Value Normal Range LA ESV SP 4CH (MOD) 41 ml - LA ESV SP 2CH (MOD) 61 ml - LA ESV BP (MOD) 51 ml - LA ESV BP (MOD) index 20.3 ml/m2 - LV EDV SP 4CH (MOD) 88 ml - LV ESV SP 4CH (MOD) 47 ml - EF SP 4CH (MOD) 47 % - LV EDV SP 2CH (MOD) 62 ml - LV ESV SP 2CH (MOD) 37 ml - EF SP 2CH (MOD) 40 % - LV EDV BP 79 ml - LV ESV BP 41 ml - BP EF (MOD) 48 % - Diastolic/Systolic Function Name Value Normal Range MV E-wave Vmax 0.58 m/sec - MV deceleration time 208 msec - MV A-wave Vmax 0.6 m/sec - MV E:A ratio 1 ratio - LV septal e' Vmax 0.04 m/sec - LV lateral e' Vmax 0.03 m/sec - LV E:e' septal ratio 13.3 ratio - LV E:e' lateral ratio 18.1 ratio - Aortic Valve Name Value Normal Range AV VTI 19.2 cm - AV mean gradient 5 mmHg - LVOT diameter 2.4 cm - LVOT VTI 18 cm - LVOT mean gradient 5 mmHg - SV LVOT 81 ml - CL (continuity VTI) 4.24 cm2 - Pulmonic Valve/Qp:Qs Name Value Normal Range PV Vmax 1.01 m/sec - PV peak gradient 4 mmHg - PV acceleration time 102 msec - Gomez/IV: Voiding Method Indwelling Catheter IV Catheter Type [Left Forearm Peripheral IV ] IV Catheter Type [Right Triple Lumen Cath Internal Jugular] IV Catheter Type [Right Hand] INT / Saline Lock Active Medications - Current Medications Current Medications: Generic Name Dose Route Start Last Admin Trade Name Freq PRN Reason Stop Dose Admin Acetaminophen 650 mg 01/10/20 08:00 01/13/20 05:17 Tylenol PO 650 mg Q4H PRN Administration Pain MILD(1-3)/Fever >100.5/CHRISTINA Lipase/Protease/Amylase 1 each 01/10/20 08:[address] 10,500 Unit FEEDTUBE PRN PRN For Clogged Feeding Tube Famotidine 20 mg 01/12/20 10:00 01/12/20 09:02 Pepcid PO 20 mg DAILY KANIKA Administration Heparin Sodium (Porcine) 5,000 unit 01/11/20 14:00 01/13/20 05:18 Heparin SUB-Q 5,000 unit Q8HR KANIKA Administration Nitroglycerin/Dextrose 50 mg in 250 mls @ 1.5 mls/hr 01/09/20 19:00 01/09/20 20:15 Tridil Drip 50mg/250ml IV 0 mcg/min TITR KANIKA 0 mls/hr Titration Protocol 5 MCG/MIN Norepinephrine 4 mg in 250 mls @ 7.5 mls/hr 01/09/20 22:00 01/13/20 03:10 Levophed Drip 4 Mg/Ns 250 Ml IV 12 mcg/min TITR KANIKA 45 mls/hr Administration Protocol 2 MCG/MIN Ceftriaxone Sodium 2 gm in 100 mls @ 200 mls/hr 01/10/20 22:00 01/13/20 05:29 Rocephin/Ns 2 Gm/100 Ml IV 01/14/20 22:29 200 mls/hr Q24HR@2200 KANIKA Administration Protocol Sodium Chloride 1,000 mls @ 75 mls/hr 01/11/20 07:45 01/13/20 05:18 Nacl 0.9% 1000 Ml IV 75 mls/hr DIRECT KANIKA Administration Metoclopramide HCl 10 mg 01/10/20 08:00 Reglan IV Q6H PRN Nausea And Vomiting Ondansetron HCl 4 mg 01/10/20 08:00 Zofran IV Q8H PRN Nausea And Vomiting Simple Syrup 15 ml 01/10/20 08:00 Simple Syrup FEEDTUBE PRN PRN Hypoglycemia Simple Syrup 30 ml 01/10/20 08:00 Simple Syrup FEEDTUBE PRN PRN Hypoglycemia Sodium Bicarbonate 325 mg 01/10/20 08:00 Sodium Bicarbonate FEEDTUBE PRN PRN For Clogged Feeding Tube Sodium Chloride 10 ml 01/10/20 10:00 01/12/20 21:49 Sodium Chloride Flush Syringe 10 Ml IV 10 ml BID KANIKA Administration Sodium Chloride 10 ml 01/10/20 08:00 Sodium Chloride Flush Syringe 10 Ml IV PRN PRN LINE FLUSH Nutrition/Malnutrition Assess - Dietary Evaluation Nutrition/Malnutrition Findings: Nutrition Notes Start: 01/10/20 08:12 Freq: Status: Active Protocol: Document 01/11/20 11:13 LAURI (Rec: 01/11/20 11:19 LAURI [id number]) Co-Sign 01/11/20 11:13 [email or web address] Nutrition Notes Initial or Follow up Reassessment Current Diagnosis Acute Kidney Injury,COPD, Sepsis,Hypertension,Heart Failure Other Pertinent Diagnosis Acute PE, hypokalemia, COVID- 19 (-) Current Diet Vital AF 1.2 at 60 ml/hr Labs/Tests Na 147 BUN 23 Cr 3.0 Pertinent Medications Levophed Height 5 ft 6 in Weight 154.48 kg [place] Body Weight (kg) 59.09 BMI 54.9 Weight Status Morbidly Obese Subjective/Other Information F/U for TF start/tolerance. TF not running at time of visit. Per RN, will start TF today. Percent of energy/protein needs met: 0%/0% Burn Absent Trauma Absent Current % PO Negligible Minimum of two criteria No Fluid Accumulation Moderate to Severe (severe) #1 Nutrition Diagnosis Inadequate oral intake Diagnosis Progress(for reassessment Continues documentation) Is patient on ventilator? Yes Is Patient Ambulatory and/or Out of Bed No REE-([facility]-confined to bed) 2668.044 Kcal/Kg value to use for calculation 11 Approximate Energy Requirements Using 1699 kcal/Kg Calculation Used for Recommendations Kcal/kg Additional Notes Pro: 147 g (up to 2.5 g/kg IBW ) Fluid: 1.5-1.9 L Nutrition Intervention Change Diet Order: Continue TF Nutrition Support: Vital AF 1.2 at 60 ml/hr Flush 60 ml q4h Kcal 1,728 Protein (gm) 108 Fluid (mL) 1,167 Goal #1 TF start/tolerance Goal #2 Meet at least 75% energy and protein needs via TF Follow-Up By: 01/15/20 Additional Comments F/U for TF start/tolerance
[2020-01-13] MEDS: FAMOTIDINE 20 MG TAB PO SCH (09:03)
[2020-01-13] MEDS ORDERED: LACTATED RINGERS 1,000 ML IV ONE ×2 (09:48→10:52)
--- NOTE | 2020-01-13 10:06 | XRay Report ---
CHEST 1 VIEW 01/13/2020 8:56 AM INDICATION / CLINICAL INFORMATION: Hypoxemia. COMPARISON: 01/11/2020. FINDINGS: SUPPORT DEVICES: Unchanged. HEART / MEDIASTINUM: Stable. LUNGS / PLEURA: Mild bilateral pulmonary opacities are relatively stable. No pneumothorax. ADDITIONAL FINDINGS: No significant additional findings. IMPRESSION: 1. No significant change. Signer Name: Keenan Bergeron MD Signed: 01/13/2020 10:01 AM Workstation Name: [id number]
--- NOTE | 2020-01-13 10:51 | Progress Note ---
Assessment and Plan 44 y/o female with acute respiratory failure, hypothermia and encephalopathic. 1. Pulm-intubated, not sedated. Remains unresponsive. Continue high PEEP and wean FiO2 for sats >88%. . patient is not breathing over the vent. Dropped rate down and watched at the bedside myself. 2. CV-echo read and shows systolic heart failure. EF of 45%. Remains on pressors. REnal function worsening. could be poor forward flow. Consider c ards consult and ask about intropic therapy if patient doesn't respond to repeat fluid boluses. 3. Neuro-completely unresponsive. After speaking with mother over the phone on 01/10, patient was not alert on arrival. Ordered EEG but not done yet. Will get neruo consult on Tuesday. Will get CT head once more stable for transfer. 4. Renal-worsening renal function. Renal following. Will give an additional bolus today. 5. GI-Will start low rate tube feeds today to see how patient handles it. Continue for now 6. Prophylaxis-pepcid and Sub Q heparin with SCD's. 7. Prognosis remains very very guarded to poor. D1: Spoke with mother this am. I have tried to explain that the patient's comatose state is not good given that she has not required any sedation since admission. Hemodynamically she remains unstable and requires too much PEEP for transfer to CT scanner. I explained the current plan and she expressed understanding but I am not sure that she gets it. Per her, the son's were on the phone but they had no questions. May need to offer her to come see her daughter, maybe this will help her to understand whats going on. 01/11/2020: Spoke with mother on speaker phone with patients' two boys who are 18 and 21. Explained to them the patient's mental state (comatose) and oxygen dependence and renal failure. Per the mother, patient was obtunded when EMS came to pick her up. She feel at home and had been complaining of nausea and had emesis. She denied any sick contacts. She does not know if the patient complained of headache or blurred vision. No head CT done in ED and currently patient is bit to unstable for transfer at this moment. Head CT is definitely needed and will order EEG to be done as well. Explained to the family how sick patient is. Unsure if they completely understand. Mother mentioned about transfer. I explained to her it would be up to the accepting physician if they would accept her. I feel it is unsafe to transport her right now and I am not sure what another hospital would provide. Once head CT obtained, this maybe different. CCT 31 Subjective Date of service: 01/13/20 Principal diagnosis: PNA; resp failure Interval history: Patient remains unresponsive. Spiked a temp last night and this am. Not cultured. Last cultures were from 3 days ago. Still not stable enough to go down for CT. Objective Vital Signs - 12hr 01/12/20 01/12/20 01/12/20 22:45 23:00 23:15 Temperature Pulse Rate 108 H 108 H 107 H Pulse Rate [ Apical] Respiratory 20 21 18 Rate Blood Pressure 96/47 91/48 93/49 O2 Sat by Pulse 96 96 96 Oximetry 01/12/20 01/12/20 01/12/20 23:30 23:45 23:53 Temperature 99.8 F H Pulse Rate 108 H 109 H Pulse Rate [ Apical] Respiratory 20 20 Rate Blood Pressure 100/48 98/48 O2 Sat by Pulse 97 97 Oximetry 01/13/20 01/13/20 01/13/20 00:00 00:03 00:15 Temperature Pulse Rate 109 H 109 H 109 H Pulse Rate [ 109 H Apical] Respiratory 19 20 Rate Blood Pressure 93/48 93/48 97/44 O2 Sat by Pulse 97 96 97 Oximetry 01/13/20 01/13/20 01/13/20 00:30 00:45 01:00 Temperature Pulse Rate 109 H 109 H 110 H Pulse Rate [ Apical] Respiratory 19 18 20 Rate Blood Pressure 96/51 93/43 93/44 O2 Sat by Pulse 97 97 97 Oximetry 01/13/20 01/13/20 01/13/20 01:15 01:30 01:45 Temperature Pulse Rate 110 H 110 H 110 H Pulse Rate [ Apical] Respiratory 20 19 20 Rate Blood Pressure 90/47 97/47 93/46 O2 Sat by Pulse 96 97 96 Oximetry 01/13/20 01/13/20 01/13/20 02:00 02:15 02:30 Temperature Pulse Rate 110 H 111 H 111 H Pulse Rate [ Apical] Respiratory 20 19 18 Rate Blood Pressure 94/46 97/48 96/50 O2 Sat by Pulse 97 97 97 Oximetry 10/02/2101/13/20 01/13/20 02:45 03:00 03:15 Temperature Pulse Rate 111 H 111 H 111 H Pulse Rate [ Apical] Respiratory 20 21 19 Rate Blood Pressure 96/49 91/46 95/43 O2 Sat by Pulse 96 97 97 Oximetry 01/13/20 01/13/20 01/13/20 03:30 03:33 03:40 Temperature 102.9 F H Pulse Rate 111 H 112 H Pulse Rate [ Apical] Respiratory 21 Rate Blood Pressure 100/48 100/48 O2 Sat by Pulse 98 97 Oximetry 01/13/20 01/13/20 01/13/20 03:45 04:00 04:15 Temperature Pulse Rate 111 H 113 H 113 H Pulse Rate [ 113 H Apical] Respiratory 17 19 20 Rate Blood Pressure 89/44 96/44 96/45 O2 Sat by Pulse 96 97 97 Oximetry 01/13/20 01/13/20 01/13/20 04:30 04:45 05:00 Temperature Pulse Rate 113 H 113 H 113 H Pulse Rate [ Apical] Respiratory 20 20 18 Rate Blood Pressure 93/45 94/43 94/44 O2 Sat by Pulse 97 97 97 Oximetry 01/13/20 01/13/20 01/13/20 05:15 05:30 05:45 Temperature Pulse Rate 113 H 112 H 112 H Pulse Rate [ Apical] Respiratory 21 22 20 Rate Blood Pressure 99/45 92/43 91/39 O2 Sat by Pulse 97 97 95 Oximetry 01/13/20 01/13/20 01/13/20 06:00 06:15 06:30 Temperature Pulse Rate 113 H 114 H 114 H Pulse Rate [ Apical] Respiratory 20 20 20 Rate Blood Pressure 94/43 94/43 98/46 O2 Sat by Pulse 96 96 96 Oximetry 01/13/20 01/13/20 01/13/20 06:45 07:00 07:15 Temperature Pulse Rate 113 H 113 H 113 H Pulse Rate [ Apical] Respiratory 16 20 19 Rate Blood Pressure 97/47 94/45 102/51 O2 Sat by Pulse 97 97 97 Oximetry 01/13/20 01/13/20 01/13/20 07:20 07:30 07:45 Temperature Pulse Rate 113 H 114 H 114 H Pulse Rate [ Apical] Respiratory 21 20 Rate Blood Pressure 102/51 93/43 97/46 O2 Sat by Pulse 96 96 96 Oximetry 01/13/20 01/13/20 01/13/20 08:00 08:15 08:31 Temperature 102.9 F H Pulse Rate 114 H 113 H 114 H Pulse Rate [ Apical] Respiratory 20 20 20 Rate Blood Pressure 95/45 97/47 100/52 O2 Sat by Pulse 95 96 97 Oximetry 01/13/20 01/13/20 01/13/20 08:45 09:00 09:15 Temperature Pulse Rate 113 H 112 H 112 H Pulse Rate [ Apical] Respiratory 18 20 20 Rate Blood Pressure 92/46 94/43 93/37 O2 Sat by Pulse 95 95 94 Oximetry 01/13/20 01/13/20 01/13/20 09:30 09:45 09:52 Temperature Pulse Rate 111 H 110 H Pulse Rate [ Apical] Respiratory 19 21 20 Rate Blood Pressure 91/42 93/41 O2 Sat by Pulse 95 96 Oximetry Constitutional: no acute distress, comatose (Per nursing, no cough, no gag) Eyes: non-icteric ENT: other (orally intubated, not on sedation) Neck: supple, other (large in circumference) Cardiovascular: regular rate and rhythm Gastrointestinal: normoactive bowel sounds CBC and BMP: 01/13/20 06:28 01/13/20 06:28 ABG, PT/INR, D-dimer: ABG ABG pH 7.289 (7.320-7.450) L 01/13/20 04:11 POC ABG pCO2 54.9 mmHg (32.0-48.0) H 01/13/20 04:11 ABG pCO2 55.7 mm Hg 01/11/20 03:34 POC ABG pO2 93.9 mmHg (83-108) 01/13/20 04:11 ABG pO2 45.9 mm Hg (80.0-90.0) L 01/11/20 03:34 POC ABG HCO3 25.7 01/13/20 04:11 ABG O2 Saturation 76.5 % (95.0-99.0) L 01/11/20 03:34 PT/INR, D-dimer PT 13.9 Sec. (12.2-14.9) 01/09/20 19:03 INR 1.05 (0.87-1.13) 01/09/20 19:03 Abnormal lab findings: Abnormal Labs 01/09/20 01/09/20 01/09/20 18:37 18:47 19:03 WBC 14.0 H RBC 5.18 H Hgb MCV 76 L MCH 22 L MCHC 29 L RDW 22.0 H Lymph % (Auto) [place] % (Auto) Lymph # (Auto) [place] # (Auto) Seg Neutrophils % Seg Neuts % (Manual) 76.0 H Seg Neutrophils # Man 10.6 H ABG pH 7.252 L POC ABG pCO2 POC ABG pO2 ABG pO2 172.4 H ABG HCO3 34.3 H ABG O2 Saturation ABG Base Excess 4.9 H ABG Hemoglobin 11.8 L ABG Chloride ABG Glucose VBG pH 7.252 L Oxyhemoglobin Sodium Potassium Chloride BUN Creatinine Glucose POC Glucose 177 H Phosphorus Magnesium NT-Pro-B Natriuret Pep Total Protein Albumin Arterial Blood Glucose Urine WBC (Auto) Urine Creatinine 01/09/20 01/09/20 01/09/20 19:03 19:03 21:55 WBC RBC Hgb MCV MCH MCHC RDW Lymph % (Auto) [place] % (Auto) Lymph # (Auto) [place] # (Auto) Seg Neutrophils % Seg Neuts % (Manual) Seg Neutrophils # Man ABG pH 7.310 L POC ABG pCO2 POC ABG pO2 ABG pO2 61.8 L ABG HCO3 31.2 H ABG O2 Saturation 90.3 L ABG Base Excess 3.8 H ABG Hemoglobin 10.0 L ABG Chloride ABG Glucose VBG pH Oxyhemoglobin 87.8 L Sodium Potassium 3.1 L Chloride 95.2 L BUN Creatinine Glucose 197 H POC Glucose Phosphorus Magnesium NT-Pro-B Natriuret Pep 1345 H Total Protein 8.3 H Albumin Arterial Blood Glucose Urine WBC (Auto) Urine Creatinine 01/10/20 01/10/20 01/10/20 03:35 04:12 10:40 WBC RBC Hgb MCV 76 L MCH 22 L MCHC 29 L RDW 21.4 H Lymph % (Auto) 6.0 L [place] % (Auto) Lymph # (Auto) 0.5 L [place] # (Auto) Seg Neutrophils % 87.3 H Seg Neuts % (Manual) Seg Neutrophils # Man ABG pH POC ABG pCO2 POC ABG pO2 ABG pO2 63.8 L ABG HCO3 28.7 H ABG O2 Saturation ABG Base Excess 4.0 H ABG Hemoglobin 10.9 L ABG Chloride ABG Glucose VBG pH Oxyhemoglobin 92.8 L Sodium Potassium Chloride BUN Creatinine Glucose POC Glucose Phosphorus Magnesium NT-Pro-B Natriuret Pep Total Protein Albumin Arterial Blood Glucose Urine WBC (Auto) 50.0 H Urine Creatinine 01/10/20 01/11/20 01/11/20 10:40 03:34 09:53 WBC RBC Hgb MCV MCH MCHC RDW Lymph % (Auto) [place] % (Auto) Lymph # (Auto) [place] # (Auto) Seg Neutrophils % Seg Neuts % (Manual) Seg Neutrophils # Man ABG pH 7.334 L POC ABG pCO2 POC ABG pO2 ABG pO2 45.9 L ABG HCO3 29.0 H ABG O2 Saturation 76.5 L ABG Base Excess ABG Hemoglobin 9.8 L ABG Chloride ABG Glucose VBG pH Oxyhemoglobin 74.7 L Sodium 146 H 147 H Potassium Chloride BUN 23 H Creatinine 1.6 H D 3.0 H D Glucose POC Glucose Phosphorus 2.40 L Magnesium 1.50 L NT-Pro-B Natriuret Pep Total Protein 5.9 L D Albumin 3.2 L Arterial Blood Glucose Urine WBC (Auto) Urine Creatinine 01/11/20 01/11/20 01/12/20 12:25 15:30 00:27 WBC RBC Hgb MCV MCH MCHC RDW Lymph % (Auto) [place] % (Auto) Lymph # (Auto) [place] # (Auto) Seg Neutrophils % Seg Neuts % (Manual) Seg Neutrophils # Man ABG pH 7.273 L POC ABG pCO2 58.8 H POC ABG pO2 67.0 L ABG pO2 ABG HCO3 ABG O2 Saturation ABG Base Excess ABG Hemoglobin 10.4 L ABG Chloride 108.0 H ABG Glucose VBG pH Oxyhemoglobin Sodium Potassium Chloride BUN Creatinine Glucose POC Glucose 109 H Phosphorus Magnesium NT-Pro-B Natriuret Pep Total Protein Albumin Arterial Blood Glucose Urine WBC (Auto) Urine Creatinine 79.8 H 01/12/20 01/12/20 01/12/20 05:51 09:50 09:50 WBC 13.7 H RBC Hgb 9.5 L MCV 76 L MCH 22 L MCHC 29 L RDW 22.0 H Lymph % (Auto) [place] % (Auto) Lymph # (Auto) [place] # (Auto) Seg Neutrophils % Seg Neuts % (Manual) Seg Neutrophils # Man ABG pH 7.311 L POC ABG pCO2 49.5 H POC ABG pO2 81.8 L ABG pO2 ABG HCO3 ABG O2 Saturation ABG Base Excess ABG Hemoglobin 10.8 L ABG Chloride 112.0 H ABG Glucose 99 H VBG pH Oxyhemoglobin Sodium 148 H Potassium Chloride 110.7 H BUN 26 H Creatinine 3.0 H Glucose 102 H POC Glucose Phosphorus Magnesium NT-Pro-B Natriuret Pep Total Protein 5.8 L Albumin 2.4 L Arterial Blood Glucose 99 H Urine WBC (Auto) Urine Creatinine 01/13/20 01/13/20 01/13/20 04:11 06:28 06:28 WBC RBC Hgb 9.3 L MCV 77 L MCH 22 L MCHC 29 L RDW 22.2 H Lymph % (Auto) 13.1 L [place] % (Auto) 9.3 H Lymph # (Auto) [place] # (Auto) 0.9 H Seg Neutrophils % 75.6 H Seg Neuts % (Manual) Seg Neutrophils # Man ABG pH 7.289 L POC ABG pCO2 54.9 H POC ABG pO2 ABG pO2 ABG HCO3 ABG O2 Saturation ABG Base Excess ABG Hemoglobin ABG Chloride ABG Glucose VBG pH Oxyhemoglobin Sodium 152 H Potassium Chloride 115.5 H BUN 25 H Creatinine 3.9 H Glucose 132 H POC Glucose Phosphorus Magnesium NT-Pro-B Natriuret Pep Total Protein Albumin Arterial Blood Glucose Urine WBC (Auto) Urine Creatinine
--- NOTE | 2020-01-13 18:13 | Progress Note ---
Assessment and Plan Impression: * Nonoliguric acute kidney injury secondary to ATN * Acute on chronic hypoxic respiratory on mechanical ventilation secondary to ?pulmonary edema vs infectious etiology * Urinary tract infection * Accelerated hypertension - resolved * Anemia * Hypernatremia Plan: * Note increase in SCr. However, patient w/ good UOP. FiO2 requirement has decreased c/w yesterday. Lytes are stable. Continue consevative management. No acute need for renal replacement therapy at this time * Renal u/s ordered - pending * Serologic work up pending - anticipate low yield * Continue gentle IVF; for now, hold diuresis * TTE pending- cardiology following * Abx per primary team * Pressors prn to maintain MAP>60 * Vent management per pulmonary/critical care * Dose medications for renal function * Avoid potential nephrotoxins Subjective Date of service: 01/13/20 Principal diagnosis: PNA; resp failure Interval history: No acute events - remains intubated. FiO2 improved from 70 to 65% from yesterday. PEEP remains at 14 Objective - Vital Signs Vital signs: Vital Signs - 12hr 01/13/20 01/13/20 01/13/20 06:15 06:30 06:45 Temperature Pulse Rate 114 H 114 H 113 H Respiratory 20 20 16 Rate Blood Pressure 94/43 98/46 97/47 O2 Sat by Pulse 96 96 97 Oximetry 01/13/20 01/13/20 01/13/20 07:00 07:15 07:20 Temperature Pulse Rate 113 H 113 H 113 H Respiratory 20 19 Rate Blood Pressure 94/45 102/51 102/51 O2 Sat by Pulse 97 97 96 Oximetry 01/13/20 01/13/20 01/13/20 07:30 07:45 08:00 Temperature 102.9 F H Pulse Rate 114 H 114 H 114 H Respiratory 21 20 20 Rate Blood Pressure 93/43 97/46 95/45 O2 Sat by Pulse 96 96 95 Oximetry 01/13/20 01/13/20 01/13/20 08:15 08:31 08:45 Temperature Pulse Rate 113 H 114 H 113 H Respiratory 20 20 18 Rate Blood Pressure 97/47 100/52 92/46 O2 Sat by Pulse 96 97 95 Oximetry 01/13/20 01/13/20 01/13/20 09:00 09:15 09:30 Temperature Pulse Rate 112 H 112 H 111 H Respiratory 20 20 19 Rate Blood Pressure 94/43 93/37 91/42 O2 Sat by Pulse 95 94 95 Oximetry 01/13/20 01/13/20 01/13/20 09:45 09:52 10:00 Temperature Pulse Rate 110 H 112 H Respiratory 21 20 20 Rate Blood Pressure 93/41 108/52 O2 Sat by Pulse 96 96 Oximetry 01/13/20 01/13/20 01/13/20 10:15 10:30 10:45 Temperature Pulse Rate 111 H 111 H 110 H Respiratory 19 21 18 Rate Blood Pressure 105/50 108/56 110/57 O2 Sat by Pulse 96 96 96 Oximetry 01/13/20 01/13/20 01/13/20 11:00 11:15 11:30 Temperature Pulse Rate 109 H 107 H 103 H Respiratory 18 20 20 Rate Blood Pressure 121/71 114/61 96/43 O2 Sat by Pulse 97 96 96 Oximetry 01/13/20 01/13/20 01/13/20 11:45 12:00 12:15 Temperature Pulse Rate 103 H 102 H 102 H Respiratory 20 20 20 Rate Blood Pressure 99/44 109/57 115/63 O2 Sat by Pulse 96 97 97 Oximetry 01/13/20 01/13/20 01/13/20 12:20 12:30 12:45 Temperature Pulse Rate 95 H 100 H 100 H Respiratory 20 21 Rate Blood Pressure 99/40 111/59 116/58 O2 Sat by Pulse 93 97 97 Oximetry 01/13/20 01/13/20 01/13/20 13:00 13:15 13:30 Temperature Pulse Rate 100 H 96 H 97 H Respiratory 18 18 19 Rate Blood Pressure 116/58 113/52 117/57 O2 Sat by Pulse 97 97 98 Oximetry 01/13/20 01/13/20 01/13/20 13:45 14:00 14:15 Temperature Pulse Rate 96 H 96 H 94 H Respiratory 20 19 21 Rate Blood Pressure 122/61 118/57 103/43 O2 Sat by Pulse 98 98 97 Oximetry 01/13/20 01/13/20 14:31 16:11 Temperature Pulse Rate 98 H 91 H Respiratory 19 Rate Blood Pressure 99/40 105/53 O2 Sat by Pulse 94 98 Oximetry - General Appearance General appearance: well-developed, well-nourished, obese, intubated EENT: ATNC, other (ETT in place) Respiratory: Present: Decreased Breath Sounds Cardiology: regular, S1S2 Gastrointestinal: no tenderness, no distended, obese Integumentary: no rash, warm and dry - Lab 01/13/20 06:28 01/13/20 06:28 Most recent lab results ABG pH 7.289 (7.320-7.450) L 01/13/20 04:11 ABG pCO2 55.7 mm Hg 01/11/20 03:34 ABG pO2 45.9 mm Hg (80.0-90.0) L 01/11/20 03:34 ABG HCO3 29.0 mmol/L (20.0-26.0) H 01/11/20 03:34 ABG O2 Saturation 76.5 % (95.0-99.0) L 01/11/20 03:34 Calcium 8.8 mg/dL (8.4-10.2) 01/13/20 06:28 Phosphorus 3.20 mg/dL (2.5-4.5) D 01/11/20 09:53 Magnesium 1.80 mg/dL (1.7-2.3) 01/11/20 09:53 Urine Creatinine 79.8 mg/dL (0.1-20.0) H 01/11/20 12:25 Urine Sodium 50 mmol/L 01/11/20 12:25 Medications & Allergies - Medications Allergies/Adverse Reactions: Allergies lisinopril Allergy (Verified 01/11/20 11:30) Swelling Home Medications: Home Medications Medication Instructions Recorded Confirmed Last Taken Type Unobtainable 01/10/20 01/10/20 Unknown History Active Medications: Generic Name Dose Route Start Last Admin Trade Name Paco PRN Reason Stop Dose Admin Acetaminophen 650 mg 01/10/20 08:00 01/13/20 09:52 Tylenol PO 650 mg Q4H PRN Administration Pain MILD(1-3)/Fever >100.5/CHRISTINA Lipase/Protease/Amylase 1 each 01/10/20 08:00 Pancrelety Gomez 10,500 Unit FEEDTUBE PRN PRN For Clogged Feeding Tube Famotidine 20 mg 01/12/20 10:00 01/13/20 09:03 Pepcid PO 20 mg DAILY KANIKA Administration Heparin Sodium (Porcine) 5,000 unit 01/11/20 14:00 01/13/20 14:13 Heparin SUB-Q 5,000 unit Q8HR KANIKA Administration Nitroglycerin/Dextrose 50 mg in 250 mls @ 1.5 mls/hr 01/09/20 19:00 01/09/20 20:15 Tridil Drip 50mg/250ml IV 0 mcg/min TITR KANIKA 0 mls/hr Titration Protocol 5 MCG/MIN Norepinephrine 4 mg in 250 mls @ 7.5 mls/hr 01/09/20 22:00 01/13/20 15:35 Levophed Drip 4 Mg/Ns 250 Ml IV 8 mcg/min TITR KANIKA 30 mls/hr Administration Protocol 2 MCG/MIN Ceftriaxone Sodium 2 gm in 100 mls @ 200 mls/hr 01/10/20 22:00 01/13/20 05:29 Rocephin/Ns 2 Gm/100 Ml IV 01/14/20 22:29 200 mls/hr Q24HR@2200 KANIKA Administration Protocol Sodium Chloride 1,000 mls @ 75 mls/hr 01/11/20 07:45 01/13/20 05:18 Nacl 0.9% 1000 Ml IV 75 mls/hr DIRECT KANIKA Administration Metoclopramide HCl 10 mg 01/10/20 08:00 Reglan IV Q6H PRN Nausea And Vomiting Ondansetron HCl 4 mg 01/10/20 08:00 Zofran IV Q8H PRN Nausea And Vomiting Simple Syrup 15 ml 01/10/20 08:00 Simple Syrup FEEDTUBE PRN PRN Hypoglycemia Simple Syrup 30 ml 01/10/20 08:00 Simple Syrup FEEDTUBE PRN PRN Hypoglycemia Sodium Bicarbonate 325 mg 01/10/20 08:00 Sodium Bicarbonate FEEDTUBE PRN PRN For Clogged Feeding Tube Sodium Chloride 10 ml 01/10/20 10:00 01/13/20 10:07 Sodium Chloride Flush Syringe 10 Ml IV 10 ml BID KANIKA Administration Sodium Chloride 10 ml 01/10/20 08:00 Sodium Chloride Flush Syringe 10 Ml IV PRN PRN LINE FLUSH
[2020-01-14] MEDS: HEPARIN 5,000 UNIT/1 ML VIAL SUB-Q SCH ×3 (05:54→21:19)
[2020-01-14] MEDS: NORepinephrine/NS 4 MG-250 ML 4 MG/250 ML BAG IV SCH (05:55)
[2020-01-14 06:08] LABS: Basophils % (Auto) 0.5 % (0.0-1.8); Eosinophils # (Auto) 0.2 K/mm3 (0.0-0.4); Eosinophils % (Auto) 2.6 % (0.0-4.3); Lymphocytes # (Auto) 0.7 K/mm3 (1.2-5.4); Lymphocytes % (Auto) 7.8 % (13.4-35.0); Mean Corpuscular HGB Conc 29 % (30-34); Mean Corpuscular Volume 77 fl (79-97); Monocytes # (Auto) 0.8 K/mm3 (0.0-0.8); Monocytes % (Auto) 9.9 % (0.0-7.3); Platelet Count 126 K/mm3 (140-440); Red Blood Count 4.19 M/mm3 (3.65-5.03)
[2020-01-14 06:10] LABS: Hematocrit 32.2 % (30.3-42.9); Hemoglobin 9.3 gm/dl (10.1-14.3); Red Cell Distribution Width 22.1 % (13.2-15.2)
[2020-01-14] MEDS: FAMOTIDINE 20 MG TAB PO SCH (09:18)
[2020-01-14 09:22] LABS: ABG Base Excess -0.7 mmol/L (-2.0-3.0); ABG Methemoglobin 0.6 % (0.0-1.5); ABG PH 7.309 pH Units (7.350-7.450); ABG PO2 94.6 mm Hg (80.0-90.0)
--- NOTE | 2020-01-14 09:34 | Event Note ---
Date: 01/13/20 I spoke with [place] physician Dr. Mcginnis, patient's condition, test reports, treatment plan Consultants recommendations, gave additional information DrKaren The patient has past medical history of -hypercapnic hypoxic respiratory failure on home BiPAP and nasal cannula oxygen[noncompliant] -Chronic diastolic congestive heart failure -Hypertension -Morbid obesity -Noncompliant with medications, follow-up visits. advised to continue the current management in our hospital Unable to transfer to [place] facility as patient is unstable
--- NOTE | 2020-01-14 09:42 | Progress Note ---
Assessment and Plan Assessment and plan: --Perry PCR negative, 01/10/2020 --Metabolic encephalopathy; present on admission Patient continues to be unresponsive On mechanical ventilation, unstable to get CT scan Neurology consulted , discussed with Dr. Shankar Sevilla . EEG requested , continue current supportive care --Acute hypoxic respiratory failure; intubated on mechanical ventilation Pulmonary critical following, continue supportive care Wean as tolerated and extubate --Possible obesity hypoventilation syndrome; Intubated on mechanical ventilation --Hypotension/shock; requiring Levophed, gentle hydration --Acute on chronic systolic congestive heart failure; EF 45 to 50% IV diuretics, input output monitoring Fluid restriction and low-sodium diet Echo 2012 LVEF 20%, Echo 07/2018 at [facility] EF 55-60%, grade 1 diastolic dysfunction, --Acute kidney injury-worsening renal function; secondary to vasomotor nephropathy, prerenal, hypotension Patient's creatinine is worsening , nephrology following Avoid nephrotoxins , nephrology following --Hypernatremia; Patient is receiving free water flushes, increase the dose --Hypokalemia;Replaced with KCl --Morbid obesity; BMI 55.1 Patient needs weight reduction when medically stable --Possible obstructive sleep apnea; Patient is intubated, may need outpatient sleep study --Moderate-malnutrition/hypoalbuminemia Supportive care, nutrition consult --PUI/high suspicion for COVID-19; Perry PCR negative --DVT prophylaxis;Lovenox --Full CODE STATUS We will closely monitor the patient and adjust management , . Patient is critically ill, with very 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. Plan of care reviewed with the patient's nurse. 01/13/2020 I discussed with [facility] physician patient's condition, treatment plan Poor prognosis, I also discussed with her patient's past medical history[patient has hypoxic hypercapnic respiratory failure On BiPAP and nasal cannula oxygen, diastolic congestive heart failure, hypertension morbid obesity] Noncompliant with her visits to the physician. 01/14/20; I will try to call we will try to call and discuss with patient's mother Ms. Juliet Purcell, patient's condition Poor prognosis, treatment plan and consultants recommendations The high probability of a clinically significant, sudden or life threatening deterioration of the [Respiratory, ID, CVs] system(s) required my full and direct attention, intervention and personal management. The aggregate critical care time was [45] minutes. This time is in addition to time spent performing reported procedures but includes the following: [x] Data Review and interpretation [x] Patient assessment and monitoring of vital signs [x] Documentation [x] Medication orders and management 01/10; patient remains hypotensive on Levophed, added IV fluids, follow echocardiogram for LV function 01/11; patient remains intubated on vent, unable to get CT head as patient is unstable and morbidly obese 01/12; patient remains hypotensive on Levophed, on ventilatory support, worsening renal function nephrology evaluation appreciated Hypernatremia, free water flushes via Dobbhoff, monitor electrolytes/discussed with [facility] physician 01/13; multiple electrolyte abnormalities,remains hypotensive, worsening renal function, I discussed with patient's mother over the phone. Neurology consulted, discussed with Dr. Shankar Sevilla History Interval history: I have seen and examined the patient at the bedside in ICU this morning Patient's chart ,current medications and consultants recommendations noted Patient remains intubated on ventilatory support, unresponsive Patient remains hypotensive, on Levophed Worsening renal function, very 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 Vital signs reviewed Hospitalist Physical - Constitutional Vitals: Temp Pulse Resp BP Pulse Ox 99 F 83 20 98/56 98 01/14/20 08:00 01/14/20 08:30 01/14/20 08:30 01/14/20 08:30 01/14/20 08:30 General appearance: Present: well-nourished, obese (Morbidly obese), other (Intubated on vent, unresponsive) - EENT Eyes: Present: PERRL, EOM intact - Neck Neck: Present: supple, normal ROM, other (ET tube and Dobbhoff in place) - Respiratory Respiratory effort: normal Respiratory: bilateral: diminished, rhonchi, negative: rales, wheezing - Cardiovascular Rhythm: regular Heart Sounds: Present: S1 & S2 - Extremities Extremities: no ischemia Extremity abnormal: edema - Abdominal General gastrointestinal: soft, non-tender, non-distended, normal bowel sounds - Integumentary Integumentary: Present: clear, warm - Psychiatric Psychiatric: other (Unresponsive intubated on vent) - Neurologic Neurologic: other (Unresponsive) HEART Score - HEART Score Age: < 45 Risk factors: 1-2 risk factors Troponin: Troponin T 0.013 ng/mL (0.00-0.029) 01/09/20 22:19 - Critical Actions Critical Actions: 4-6 pts:12-16.6% risk of adverse cardiac event. Should be admitted Results - Labs CBC & Chem 7: 01/14/20 05:11 01/14/20 05:11 Labs: Laboratory Last Values WBC 8.5 K/mm3 (4.5-11.0) 01/14/20 05:11 RBC 4.19 M/mm3 (3.65-5.03) 01/14/20 05:11 Hgb 9.3 gm/dl (10.1-14.3) L 01/14/20 05:11 Hct 32.2 % (30.3-42.9) 01/14/20 05:11 MCV 77 fl (79-97) L 01/14/20 05:11 MCH 22 pg (28-32) L 01/14/20 05:11 MCHC 29 % (30-34) L 01/14/20 05:11 RDW 22.1 % (13.2-15.2) H 01/14/20 05:11 Plt Count 126 K/mm3 (140-440) L 01/14/20 05:11 Lymph % (Auto) 7.8 % (13.4-35.0) L 01/14/20 05:11 [place] % (Auto) 9.9 % (0.0-7.3) H 01/14/20 05:11 Eos % (Auto) 2.6 % (0.0-4.3) 01/14/20 05:11 Baso % (Auto) 0.5 % (0.0-1.8) 01/14/20 05:11 Lymph # (Auto) 0.7 K/mm3 (1.2-5.4) L 01/14/20 05:11 [place] # (Auto) 0.8 K/mm3 (0.0-0.8) 01/14/20 05:11 Eos # (Auto) 0.2 K/mm3 (0.0-0.4) 01/14/20 05:11 Baso # (Auto) 0.0 K/mm3 (0.0-0.1) 01/14/20 05:11 Add Manual Diff Complete 01/09/20 19:03 Total Counted 100 01/09/20 19:03 Seg Neutrophils % 79.2 % (40.0-70.0) H 01/14/20 05:11 Seg Neuts % (Manual) 76.0 % (40.0-70.0) H 01/09/20 19:03 Band Neutrophils % 0 % 01/09/20 19:03 Lymphocytes % (Manual) 21.0 % (13.4-35.0) 01/09/20 19:03 Reactive Lymphs % (Man) 0 % 01/09/20 19:03 Monocytes % (Manual) 3.0 % (0.0-7.3) 01/09/20 19:03 Eosinophils % (Manual) 0 % (0.0-4.3) 01/09/20 19:03 Basophils % (Manual) 0 % (0.0-1.8) 01/09/20 19:03 Metamyelocytes % 0 % 01/09/20 19:03 Myelocytes % 0 % 01/09/20 19:03 Promyelocytes % 0 % 01/09/20 19:03 Blast Cells % 0 % 01/09/20 19:03 Nucleated RBC % Not Reportable 01/09/20 19:03 Seg Neutrophils # 6.7 K/mm3 (1.8-7.7) 01/14/20 05:11 Seg Neutrophils # Man 10.6 K/mm3 (1.8-7.7) H 01/09/20 19:03 Band Neutrophils # 0.0 K/mm3 01/09/20 19:03 Lymphocytes # (Manual) 2.9 K/mm3 (1.2-5.4) 01/09/20 19:03 Abs React Lymphs (Man) 0.0 K/mm3 01/09/20 19:03 Monocytes # (Manual) 0.4 K/mm3 (0.0-0.8) 01/09/20 19:03 Eosinophils # (Manual) 0.0 K/mm3 (0.0-0.4) 01/09/20 19:03 Basophils # (Manual) 0.0 K/mm3 (0.0-0.1) 01/09/20 19:03 Metamyelocytes # 0.0 K/mm3 01/09/20 19:03 Myelocytes # 0.0 K/mm3 01/09/20 19:03 Promyelocytes # 0.0 K/mm3 01/09/20 19:03 Blast Cells # 0.0 K/mm3 01/09/20 19:03 WBC Morphology Not Reportable 01/09/20 19:03 Hypersegmented Neuts Not Reportable 01/09/20 19:03 Hyposegmented Neuts Not Reportable 01/09/20 19:03 Hypogranular Neuts Not Reportable 01/09/20 19:03 Smudge Cells Not Reportable 01/09/20 19:03 Toxic Granulation Not Reportable 01/09/20 19:03 Toxic Vacuolation Not Reportable 01/09/20 19:03 Dohle Bodies Not Reportable 01/09/20 19:03 Pelger-Huet Anomaly Not Reportable 01/09/20 19:03 Dominique Rods Not Reportable 01/09/20 19:03 Platelet Estimate Not Reportable 01/09/20 19:03 Clumped Platelets Not Reportable 01/09/20 19:03 Plt Clumps, EDTA Not Reportable 01/09/20 19:03 Large Platelets Not Reportable 01/09/20 19:03 Giant Platelets Not Reportable 01/09/20 19:03 Platelet Satelliting Not Reportable 01/09/20 19:03 Plt Morphology Comment Not Reportable 01/09/20 19:03 RBC Morphology Not Reportable 01/09/20 19:03 Dimorphic RBCs Not Reportable 01/09/20 19:03 Polychromasia Not Reportable 01/09/20 19:03 Hypochromasia 1+ 01/09/20 19:03 Poikilocytosis Not Reportable 01/09/20 19:03 Anisocytosis 1+ 01/09/20 19:03 Microcytosis Not Reportable 01/09/20 19:03 Macrocytosis Not Reportable 01/09/20 19:03 Spherocytes Not Reportable 01/09/20 19:03 Pappenheimer Bodies Not Reportable 01/09/20 19:03 Sickle Cells Not Reportable 01/09/20 19:03 Target Cells Not Reportable 01/09/20 19:03 Tear Drop Cells Not Reportable 01/09/20 19:03 Ovalocytes Not Reportable 01/09/20 19:03 Helmet Cells Not Reportable 01/09/20 19:03 Feliz-[place] Bodies Not Reportable 01/09/20 19:03 Blanchard Rings Not Reportable 01/09/20 19:03 Lenox Cells Not Reportable 01/09/20 19:03 Bite Cells Not Reportable 01/09/20 19:03 Crenated Cell Not Reportable 01/09/20 19:03 Elliptocytes Not Reportable 01/09/20 19:03 Acanthocytes (Spur) Not Reportable 01/09/20 19:03 Rouleaux Not Reportable 01/09/20 19:03 Hemoglobin C Crystals Not Reportable 01/09/20 19:03 Schistocytes Few 01/09/20 19:03 Malaria parasites Not Reportable 01/09/20 19:03 Beka Bodies Not Reportable 01/09/20 19:03 Hem Pathologist Commnt No 01/09/20 19:03 PT 13.9 Sec. (12.2-14.9) 01/09/20 19:03 INR 1.05 (0.87-1.13) 01/09/20 19:03 ABG pH 7.309 pH Units (7.350-7.450) L 01/14/20 09:05 POC ABG pCO2 56.4 mmHg (32.0-48.0) H 01/14/20 04:00 ABG pCO2 53.0 mm Hg 01/14/20 09:05 POC ABG pO2 75.2 mmHg (83-108) L 01/14/20 04:00 ABG pO2 94.6 mm Hg (80.0-90.0) H 01/14/20 09:05 POC ABG HCO3 25.3 01/14/20 04:00 ABG HCO3 26.0 mmol/L (20.0-26.0) 01/14/20 09:05 ABG O2 Saturation 97.0 % (95.0-99.0) 01/14/20 09:05 ABG O2 Content 13.8 (0.0-44) 01/14/20 09:05 POC ABG Base Excess -2.2 01/14/20 04:00 ABG Base Excess -0.7 mmol/L (-2.0-3.0) 01/14/20 09:05 ABG Hemoglobin 10.3 gm/dl (12.0-16.0) L 01/14/20 09:05 ABG Carboxyhemoglobin 2.1 % (0.0-5.0) 01/14/20 09:05 ABG Methemoglobin 0.6 % (0.0-1.5) 01/14/20 09:05 ABG Sodium 152.1 mmol/L (136.0-145.0) H 01/14/20 04:00 ABG Potassium 3.5 mmol/L (3.40-4.50) 01/14/20 04:00 ABG Chloride 119.0 mmol/L (98-107) H 01/14/20 04:00 ABG Glucose 113 mg/dL (65-95) H 01/14/20 04:00 VBG pH 7.252 (7.320-7.420) L 01/09/20 18:37 Oxyhemoglobin 94.4 % (95.0-99.0) L 01/14/20 09:05 FiO2 60 % 01/14/20 09:05 Sodium 157 mmol/L (137-145) H 01/14/20 05:11 Potassium 3.5 mmol/L (3.6-5.0) L D 01/14/20 05:11 Chloride 118.5 mmol/L (98-107) H 01/14/20 05:11 Carbon Dioxide 25 mmol/L (22-30) 01/14/20 05:11 Anion Gap 17 mmol/L 01/14/20 05:11 BUN 25 mg/dL (7-17) H 01/14/20 05:11 Creatinine 4.0 mg/dL (0.6-1.2) H 01/14/20 05:11 Estimated GFR 15 ml/min 01/14/20 05:11 BUN/Creatinine Ratio 6 % 01/14/20 05:11 Glucose 111 mg/dL (65-100) H 01/14/20 05:11 POC Glucose 133 (70-105) H 01/13/20 17:44 Hemoglobin A1c 5.9 % (4-6) 01/10/20 07:36 Lactic Acid 1.20 mmol/L (0.7-2.0) 01/09/20 22:19 Calcium 9.0 mg/dL (8.4-10.2) 01/14/20 05:11 Phosphorus 3.20 mg/dL (2.5-4.5) D 01/11/20 09:53 Magnesium 1.80 mg/dL (1.7-2.3) 01/11/20 09:53 Total Bilirubin 0.70 mg/dL (0.1-1.2) 01/12/20 09:50 AST 17 units/L (5-40) 01/12/20 09:50 ALT 10 units/L (7-56) 01/12/20 09:50 Alkaline Phosphatase 100 units/L (35-129) 01/12/20 09:50 Troponin T 0.013 ng/mL (0.00-0.029) 01/09/20 22:19 NT-Pro-B Natriuret Pep 1345 pg/mL (0-450) H 01/09/20 19:03 Total Protein 5.8 g/dL (6.3-8.2) L 01/12/20 09:50 Albumin 2.4 g/dL (3.9-5) L 01/12/20 09:50 Albumin/Globulin Ratio 0.7 % 01/12/20 09:50 HCG, Qual Negative (Negative) 01/09/20 19:03 Arterial Blood Glucose 113 mg/dL (65-95) H 01/14/20 04:00 Arterial Blood Ionized Calcium 5.2 mg/dL (4.6-5.3) 01/14/20 04:00 Urine Color Yellow (Yellow) 01/10/20 04:12 Urine Turbidity Cloudy (Clear) 01/10/20 04:12 Urine pH 7.0 (5.0-7.0) 01/10/20 04:12 Ur Specific Fab[place] 1.007 (1.003-1.030) 01/10/20 04:12 Urine Protein >500 mg/dL (Negative) 01/10/20 04:12 Urine Glucose (UA) 50 mg/dL (Negative) 01/10/20 04:12 Urine Ketones Neg mg/dL (Negative) 01/10/20 04:12 Urine Blood Mod (Negative) 01/10/20 04:12 Urine Nitrite Neg (Negative) 01/10/20 04:12 Urine Bilirubin Neg (Negative) 01/10/20 04:12 Urine Urobilinogen < 2.0 mg/dL (<2.0) 01/10/20 04:12 Ur Leukocyte Esterase Neg (Negative) 01/10/20 04:12 Urine WBC (Auto) 50.0 /HPF (0.0-6.0) H 01/10/20 04:12 Urine RBC (Auto) 17.0 /HPF (0.0-6.0) 01/10/20 04:12 U Epithel Cells (Auto) 1.0 /HPF (0-13.0) 01/10/20 04:12 Urine Bacteria (Auto) 2+ /HPF (Negative) 01/10/20 04:12 Urine Mucus Few /HPF 01/10/20 04:12 Urine Yeast (Budding) 3+ /HPF 01/10/20 04:12 Urine Creatinine 79.8 mg/dL (0.1-20.0) H 01/11/20 12:25 Urine Sodium 50 mmol/L 01/11/20 12:25 Urine Urea Nitrogen 83 01/11/20 12:25 Coronavirus (PCR) Negative (Negative) 01/10/20 10:27 Microbiology: Microbiology 01/09/20 19:03 Peripheral/Venous Blood Culture - Preliminary NO GROWTH AFTER 4 DAYS 01/09/20 19:03 Peripheral/Venous Blood Culture - Preliminary NO GROWTH AFTER 4 DAYS - Diagnostic Impressions Diagnostic Impressions: Echocardiogram 01/10/20 07:42 Transthoracic Echocardiogram Indication: Dyspnea BP: 102/54 HR: 100 Conclusions *The study quality is technically difficult. *Severe concentric left ventricular hypertrophy is observed. *The estimated ejection fraction is 45-50%. *The right ventricular global systolic function is mildly reduced. Findings Procedure Info: The study quality is technically difficult. Left Ventricle: The left ventricular chamber size is normal. Severe concentric left ventricular hypertrophy is observed. Global left ventricular systolic function is at the lower limits of normal. The estimated ejection fraction is 45-50%. Abnormal left ventricular diastolic filling is observed, consistent with impaired relaxation. Left Atrium: The left atrial chamber size is normal. Right Ventricle: The right ventricular global systolic function is mildly reduced. Aortic Valve: Mild aortic leaflet calcification is visualized. There is no evidence of aortic regurgitation. Mitral Valve: The mitral valve leaflets are mildly thickened. There is no evidence of mitral regurgitation. Tricuspid Valve: The tricuspid valve leaflets are normal. There is no evidence of tricuspid valve regurgitation. Pulmonic Valve: The pulmonic valve is not well visualized. There is no evidence of pulmonic regurgitation. Pericardium: A trivial pericardial effusion is visualized. Aorta: The aorta appears normal. Measurements Chambers 2D Name Value Normal Range IVSd (2D) 1.86 cm (0.6 - 1.1) LVPWd (2D) 1.74 cm (0.6 - 1.1) IVS:LVPW ratio (2D) 1.07 ratio - LVIDd (2D) 4.47 cm (3.7 - 5.6) LVIDs (2D) 3.74 cm (2 - 3.8) LV FS (Teichholz) (2D) 16.3 % - LV FS (cube) (2D) 16.3 % - Ao root diameter (2D) 3.1 cm (2 - 3.7) LA dimension (AP) 2D 3.5 cm (1.9 - 4) LA:Ao ratio (2D) 1.13 ratio - Volumes/Mass Name Value Normal Range LA ESV SP 4CH (MOD) 41 ml - LA ESV SP 2CH (MOD) 61 ml - LA ESV BP (MOD) 51 ml - LA ESV BP (MOD) index 20.3 ml/m2 - LV EDV SP 4CH (MOD) 88 ml - LV ESV SP 4CH (MOD) 47 ml - EF SP 4CH (MOD) 47 % - LV EDV SP 2CH (MOD) 62 ml - LV ESV SP 2CH (MOD) 37 ml - EF SP 2CH (MOD) 40 % - LV EDV BP 79 ml - LV ESV BP 41 ml - BP EF (MOD) 48 % - Diastolic/Systolic Function Name Value Normal Range MV E-wave Vmax 0.58 m/sec - MV deceleration time 208 msec - MV A-wave Vmax 0.6 m/sec - MV E:A ratio 1 ratio - LV septal e' Vmax 0.04 m/sec - LV lateral e' Vmax 0.03 m/sec - LV E:e' septal ratio 13.3 ratio - LV E:e' lateral ratio 18.1 ratio - Aortic Valve Name Value Normal Range AV VTI 19.2 cm - AV mean gradient 5 mmHg - LVOT diameter 2.4 cm - LVOT VTI 18 cm - LVOT mean gradient 5 mmHg - SV LVOT 81 ml - CL (continuity VTI) 4.24 cm2 - Pulmonic Valve/Qp:Qs Name Value Normal Range PV Vmax 1.01 m/sec - PV peak gradient 4 mmHg - PV acceleration time 102 msec - Gomez/IV: Voiding Method Indwelling Catheter IV Catheter Type [Left Forearm Peripheral IV ] IV Catheter Type [Right Triple Lumen Cath Internal Jugular] IV Catheter Type [Right Hand] INT / Saline Lock Active Medications - Current Medications Current Medications: Generic Name Dose Route Start Last Admin Trade Name Freq PRN Reason Stop Dose Admin Acetaminophen 650 mg 01/10/20 08:00 01/13/20 09:52 Tylenol PO 650 mg Q4H PRN Administration Pain MILD(1-3)/Fever >100.5/CHRISTINA Lipase/Protease/Amylase 1 each 01/10/20 08:[address] 10,500 Unit FEEDTUBE PRN PRN For Clogged Feeding Tube Famotidine 20 mg 01/12/20 10:00 01/14/20 09:18 Pepcid PO 20 mg DAILY KANIKA Administration Heparin Sodium (Porcine) 5,000 unit 01/11/20 14:00 01/14/20 05:54 Heparin SUB-Q 5,000 unit Q8HR KANIKA Administration Nitroglycerin/Dextrose 50 mg in 250 mls @ 1.5 mls/hr 01/09/20 19:00 01/09/20 20:15 Tridil Drip 50mg/250ml IV 0 mcg/min TITR KANIKA 0 mls/hr Titration Protocol 5 MCG/MIN Norepinephrine 4 mg in 250 mls @ 7.5 mls/hr 01/09/20 22:00 01/14/20 05:55 Levophed Drip 4 Mg/Ns 250 Ml IV 10 mcg/min TITR KANIKA 37.5 mls/hr Administration Protocol 2 MCG/MIN Ceftriaxone Sodium 2 gm in 100 mls @ 200 mls/hr 01/10/20 22:00 01/13/20 23:30 Rocephin/Ns 2 Gm/100 Ml IV 01/14/20 22:29 Infused Q24HR@2200 KANIKA Infusion Protocol Sodium Chloride 1,000 mls @ 75 mls/hr 01/11/20 07:45 01/13/20 22:27 Nacl 0.9% 1000 Ml IV 75 mls/hr DIRECT KANIKA Administration Metoclopramide HCl 10 mg 01/10/20 08:00 Reglan IV Q6H PRN Nausea And Vomiting Ondansetron HCl 4 mg 01/10/20 08:00 Zofran IV Q8H PRN Nausea And Vomiting Simple Syrup 15 ml 01/10/20 08:00 Simple Syrup FEEDTUBE PRN PRN Hypoglycemia Simple Syrup 30 ml 01/10/20 08:00 Simple Syrup FEEDTUBE PRN PRN Hypoglycemia Sodium Bicarbonate 325 mg 01/10/20 08:00 Sodium Bicarbonate FEEDTUBE PRN PRN For Clogged Feeding Tube Sodium Chloride 10 ml 01/10/20 10:00 01/14/20 09:19 Sodium Chloride Flush Syringe 10 Ml IV 10 ml BID KANIKA Administration Sodium Chloride 10 ml 01/10/20 08:00 Sodium Chloride Flush Syringe 10 Ml IV PRN PRN LINE FLUSH Nutrition/Malnutrition Assess - Dietary Evaluation Nutrition/Malnutrition Findings: Nutrition Notes Start: 01/10/20 08:12 Freq: Status: Active Protocol: Document 01/11/20 11:13 LAURI (Rec: 01/11/20 11:19 LAURI [id number]) Co-Sign 01/11/20 11:13 [email or web address] Nutrition Notes Initial or Follow up Reassessment Current Diagnosis Acute Kidney Injury,COPD, Sepsis,Hypertension,Heart Failure Other Pertinent Diagnosis Acute PE, hypokalemia, COVID- 19 (-) Current Diet Vital AF 1.2 at 60 ml/hr Labs/Tests Na 147 BUN 23 Cr 3.0 Pertinent Medications Levophed Height 5 ft 6 in Weight 154.48 kg Jackson Body Weight (kg) 59.09 BMI 54.9 Weight Status Morbidly Obese Subjective/Other Information F/U for TF start/tolerance. TF not running at time of visit. Per RN, will start TF today. Percent of energy/protein needs met: 0%/0% Burn Absent Trauma Absent Current % PO Negligible Minimum of two criteria No Fluid Accumulation Moderate to Severe (severe) #1 Nutrition Diagnosis Inadequate oral intake Diagnosis Progress(for reassessment Continues documentation) Is patient on ventilator? Yes Is Patient Ambulatory and/or Out of Bed No REE-([facility]-confined to bed) 2668.044 Kcal/Kg value to use for calculation 11 Approximate Energy Requirements Using 1699 kcal/Kg Calculation Used for Recommendations Kcal/kg Additional Notes Pro: 147 g (up to 2.5 g/kg IBW ) Fluid: 1.5-1.9 L Nutrition Intervention Change Diet Order: Continue TF Nutrition Support: Vital AF 1.2 at 60 ml/hr Flush 60 ml q4h Kcal 1,728 Protein (gm) 108 Fluid (mL) 1,167 Goal #1 TF start/tolerance Goal #2 Meet at least 75% energy and protein needs via TF Follow-Up By: 01/15/20 Additional Comments F/U for TF start/tolerance
--- NOTE | 2020-01-14 09:51 | Progress Note ---
Assessment and Plan 44 y/o female with acute respiratory failure, hypothermia and encephalopathic. 1. Pulm-intubated, not sedated. Remains unresponsive. Continue high PEEP and wean FiO2 for sats >88%. . patient is not breathing over the vent. Dropped rate down and watched at the bedside myself. I decreased to 50% this am. Sats still in the mid 90's. 2. CV-echo read and shows systolic heart failure. EF of 45%. Remains on pressors. Renal function worse but appears to be holding steady. Still could be poor forward flow. Consider cards consult and ask about intropic therapy if patient doesn't respond to repeat fluid boluses which she hasn't. 3. Neuro-completely unresponsive. After speaking with mother over the phone on 01/10, patient was not alert on arrival. Ordered EEG but not done yet. Will get neruo consult on Tuesday. Will get CT head once more stable for transfer. Per Tech EEG is going to be done this am. Hopeful to get CT soon. 4. Renal-worsening renal function. Renal following. Hold on boluses today. 5. GI-Will start low rate tube feeds today to see how patient handles it. Continue for now. 6. Prophylaxis-pepcid and Sub Q heparin with SCD's. Must watch platelets as they have been slowly dropping. 7. Prognosis remains very very guarded to poor. 01/13/2020: Spoke with mother this am. I have tried to explain that the patient's comatose state is not good given that she has not required any sedation since admission. Hemodynamically she remains unstable and requires too much PEEP for transfer to CT scanner. I explained the current plan and she expressed understanding but I am not sure that she gets it. Per her, the son's were on the phone but they had no questions. May need to offer her to come see her daughter, maybe this will help her to understand whats going on. 01/11/2020: Spoke with mother on speaker phone with patients' two boys who are 18 and 21. Explained to them the patient's mental state (comatose) and oxygen dependence and renal failure. Per the mother, patient was obtunded when EMS came to pick her up. She feel at home and had been complaining of nausea and had emesis. She denied any sick contacts. She does not know if the patient complained of headache or blurred vision. No head CT done in ED and currently patient is bit to unstable for transfer at this moment. Head CT is definitely needed and will order EEG to be done as well. Explained to the family how sick patient is. Unsure if they completely understand. Mother mentioned about transfer. I explained to her it would be up to the accepting physician if they would accept her. I feel it is unsafe to transport her right now and I am not sure what another hospital would provide. Once head CT obtained, this maybe different. CCT 31 Subjective Date of service: 01/14/20 Principal diagnosis: PNA; resp failure Interval history: No acute events. Down to 50%, which I did this morning. PaO2 was 93 on 60%. Remains unresponsive. Objective Vital Signs - 12hr 01/13/20 01/13/20 01/13/20 21:45 22:00 22:15 Temperature Pulse Rate 89 88 92 H Pulse Rate [ From Monitor] Respiratory 20 20 21 Rate Blood Pressure 105/59 88/39 90/33 O2 Sat by Pulse 95 94 91 Oximetry 01/13/20 01/13/20 01/13/20 22:30 22:45 23:00 Temperature Pulse Rate 89 95 H 99 H Pulse Rate [ From Monitor] Respiratory 20 20 18 Rate Blood Pressure 106/54 110/53 106/49 O2 Sat by Pulse 95 95 96 Oximetry 01/13/20 01/13/20 01/13/20 23:15 23:30 23:34 Temperature Pulse Rate 100 H 97 H 99 H Pulse Rate [ From Monitor] Respiratory 18 20 17 Rate Blood Pressure 100/56 109/58 109/58 O2 Sat by Pulse 96 97 97 Oximetry 01/13/20 01/13/20 01/14/20 23:45 23:52 00:00 Temperature 97.4 F L Pulse Rate 95 H 96 H 94 H Pulse Rate [ 89 From Monitor] Respiratory 20 20 20 Rate Blood Pressure 106/60 106/60 107/62 O2 Sat by Pulse 97 97 97 Oximetry 01/14/20 01/14/20 01/14/20 00:04 00:15 00:30 Temperature Pulse Rate 96 H 95 H 98 H Pulse Rate [ From Monitor] Respiratory 20 20 20 Rate Blood Pressure 107/62 114/59 111/63 O2 Sat by Pulse 97 97 97 Oximetry 01/14/20 01/14/20 01/14/20 00:45 01:00 01:15 Temperature Pulse Rate 96 H 95 H 96 H Pulse Rate [ From Monitor] Respiratory 20 20 20 Rate Blood Pressure 107/68 98/65 110/65 O2 Sat by Pulse 97 97 97 Oximetry 01/14/20 01/14/20 01/14/20 01:30 01:45 02:00 Temperature Pulse Rate 95 H 93 H 90 Pulse Rate [ From Monitor] Respiratory 20 20 19 Rate Blood Pressure 101/49 100/56 116/64 O2 Sat by Pulse 97 97 97 Oximetry 01/14/20 01/14/20 01/14/20 02:15 02:30 02:45 Temperature Pulse Rate 86 98 H 95 H Pulse Rate [ From Monitor] Respiratory 20 20 20 Rate Blood Pressure 104/65 107/65 106/61 O2 Sat by Pulse 97 97 97 Oximetry 01/14/20 01/14/20 01/14/20 03:00 03:15 03:20 Temperature 97.4 F L Pulse Rate 94 H 98 H Pulse Rate [ From Monitor] Respiratory 20 20 Rate Blood Pressure 101/60 108/62 O2 Sat by Pulse 97 98 Oximetry 01/14/20 01/14/20 01/14/20 03:30 03:45 04:00 Temperature Pulse Rate 85 92 H 92 H Pulse Rate [ 85 From Monitor] Respiratory 20 20 20 Rate Blood Pressure 104/56 105/60 105/60 O2 Sat by Pulse 98 98 98 Oximetry 01/14/20 01/14/20 01/14/20 04:15 04:30 04:45 Temperature Pulse Rate 84 96 H 101 H Pulse Rate [ From Monitor] Respiratory 20 20 20 Rate Blood Pressure 100/58 113/62 92/59 O2 Sat by Pulse 98 98 98 Oximetry 01/14/20 01/14/20 01/14/20 04:53 05:00 05:15 Temperature Pulse Rate 82 98 H 85 Pulse Rate [ From Monitor] Respiratory 20 19 Rate Blood Pressure 92/52 108/62 78/35 O2 Sat by Pulse 98 95 100 Oximetry 01/14/20 01/14/20 01/14/20 05:31 05:45 06:00 Temperature Pulse Rate 102 H 92 H 98 H Pulse Rate [ From Monitor] Respiratory 21 20 19 Rate Blood Pressure 221/139 95/57 95/55 O2 Sat by Pulse 96 95 96 Oximetry 01/14/20 01/14/2020 06:15 06:30 06:45 Temperature Pulse Rate 99 H 95 H 94 H Pulse Rate [ From Monitor] Respiratory 20 20 20 Rate Blood Pressure 95/51 93/56 94/52 O2 Sat by Pulse 97 97 97 Oximetry 01/14/20 01/14/20 01/14/20 07:00 07:15 07:30 Temperature Pulse Rate 85 95 H 85 Pulse Rate [ From Monitor] Respiratory 20 20 20 Rate Blood Pressure 86/45 94/57 105/53 O2 Sat by Pulse 97 97 98 Oximetry 01/14/20 01/14/20 01/14/20 07:45 07:52 08:00 Temperature 99 F Pulse Rate 84 83 84 Pulse Rate [ From Monitor] Respiratory 20 20 Rate Blood Pressure 98/53 98/53 98/53 O2 Sat by Pulse 98 98 98 Oximetry 01/14/20 01/14/20 01/14/20 08:15 08:30 08:45 Temperature Pulse Rate 84 83 84 Pulse Rate [ From Monitor] Respiratory 20 20 20 Rate Blood Pressure 101/55 98/56 99/52 O2 Sat by Pulse 98 98 98 Oximetry 01/14/20 01/14/20 01/14/20 09:00 09:15 09:30 Temperature Pulse Rate 84 83 89 Pulse Rate [ From Monitor] Respiratory 20 20 20 Rate Blood Pressure 101/52 95/57 94/47 O2 Sat by Pulse 97 98 95 Oximetry Constitutional: no acute distress, comatose (Per nursing, no cough, no gag) Eyes: non-icteric ENT: other (orally intubated, not on sedation) Neck: supple, other (large in circumference) Cardiovascular: regular rate and rhythm Gastrointestinal: normoactive bowel sounds CBC and BMP: 01/14/20 05:11 01/14/20 05:11 ABG, PT/INR, D-dimer: ABG ABG pH 7.309 pH Units (7.350-7.450) L 01/14/20 09:05 POC ABG pCO2 56.4 mmHg (32.0-48.0) H 01/14/20 04:00 ABG pCO2 53.0 mm Hg 01/14/20 09:05 POC ABG pO2 75.2 mmHg (83-108) L 01/14/20 04:00 ABG pO2 94.6 mm Hg (80.0-90.0) H 01/14/20 09:05 POC ABG HCO3 25.3 01/14/20 04:00 ABG O2 Saturation 97.0 % (95.0-99.0) 01/14/20 09:05 PT/INR, D-dimer PT 13.9 Sec. (12.2-14.9) 01/09/20 19:03 INR 1.05 (0.87-1.13) 01/09/20 19:03 Abnormal lab findings: Abnormal Labs 01/09/20 01/09/20 01/09/20 18:37 18:47 19:03 WBC 14.0 H RBC 5.18 H Hgb MCV 76 L MCH 22 L MCHC 29 L RDW 22.0 H Plt Count Lymph % (Auto) [place] % (Auto) Lymph # (Auto) [place] # (Auto) Seg Neutrophils % Seg Neuts % (Manual) 76.0 H Seg Neutrophils # Man 10.6 H ABG pH 7.252 L POC ABG pCO2 POC ABG pO2 ABG pO2 172.4 H ABG HCO3 34.3 H ABG O2 Saturation ABG Base Excess 4.9 H ABG Hemoglobin 11.8 L ABG Sodium ABG Chloride ABG Glucose VBG pH 7.252 L Oxyhemoglobin Sodium Potassium Chloride BUN Creatinine Glucose POC Glucose 177 H Phosphorus Magnesium NT-Pro-B Natriuret Pep Total Protein Albumin Arterial Blood Glucose Urine WBC (Auto) Urine Creatinine 01/09/20 01/09/20 01/09/20 19:03 19:03 21:55 WBC RBC Hgb MCV MCH MCHC RDW Plt Count Lymph % (Auto) [place] % (Auto) Lymph # (Auto) [place] # (Auto) Seg Neutrophils % Seg Neuts % (Manual) Seg Neutrophils # Man ABG pH 7.310 L POC ABG pCO2 POC ABG pO2 ABG pO2 61.8 L ABG HCO3 31.2 H ABG O2 Saturation 90.3 L ABG Base Excess 3.8 H ABG Hemoglobin 10.0 L ABG Sodium ABG Chloride ABG Glucose VBG pH Oxyhemoglobin 87.8 L Sodium Potassium 3.1 L Chloride 95.2 L BUN Creatinine Glucose 197 H POC Glucose Phosphorus Magnesium NT-Pro-B Natriuret Pep 1345 H Total Protein 8.3 H Albumin Arterial Blood Glucose Urine WBC (Auto) Urine Creatinine 01/10/20 01/10/20 01/10/20 03:35 04:12 10:40 WBC RBC Hgb MCV 76 L MCH 22 L MCHC 29 L RDW 21.4 H Plt Count Lymph % (Auto) 6.0 L [place] % (Auto) Lymph # (Auto) 0.5 L [place] # (Auto) Seg Neutrophils % 87.3 H Seg Neuts % (Manual) Seg Neutrophils # Man ABG pH POC ABG pCO2 POC ABG pO2 ABG pO2 63.8 L ABG HCO3 28.7 H ABG O2 Saturation ABG Base Excess 4.0 H ABG Hemoglobin 10.9 L ABG Sodium ABG Chloride ABG Glucose VBG pH Oxyhemoglobin 92.8 L Sodium Potassium Chloride BUN Creatinine Glucose POC Glucose Phosphorus Magnesium NT-Pro-B Natriuret Pep Total Protein Albumin Arterial Blood Glucose Urine WBC (Auto) 50.0 H Urine Creatinine 01/10/20 01/11/20 01/11/20 10:40 03:34 09:53 WBC RBC Hgb MCV MCH MCHC RDW Plt Count Lymph % (Auto) [place] % (Auto) Lymph # (Auto) [place] # (Auto) Seg Neutrophils % Seg Neuts % (Manual) Seg Neutrophils # Man ABG pH 7.334 L POC ABG pCO2 POC ABG pO2 ABG pO2 45.9 L ABG HCO3 29.0 H ABG O2 Saturation 76.5 L ABG Base Excess ABG Hemoglobin 9.8 L ABG Sodium ABG Chloride ABG Glucose VBG pH Oxyhemoglobin 74.7 L Sodium 146 H 147 H Potassium Chloride BUN 23 H Creatinine 1.6 H D 3.0 H D Glucose POC Glucose Phosphorus 2.40 L Magnesium 1.50 L NT-Pro-B Natriuret Pep Total Protein 5.9 L D Albumin 3.2 L Arterial Blood Glucose Urine WBC (Auto) Urine Creatinine 01/11/20 01/11/20 01/12/20 12:25 15:30 00:27 WBC RBC Hgb MCV MCH MCHC RDW Plt Count Lymph % (Auto) [place] % (Auto) Lymph # (Auto) [place] # (Auto) Seg Neutrophils % Seg Neuts % (Manual) Seg Neutrophils # Man ABG pH 7.273 L POC ABG pCO2 58.8 H POC ABG pO2 67.0 L ABG pO2 ABG HCO3 ABG O2 Saturation ABG Base Excess ABG Hemoglobin 10.4 L ABG Sodium ABG Chloride 108.0 H ABG Glucose VBG pH Oxyhemoglobin Sodium Potassium Chloride BUN Creatinine Glucose POC Glucose 109 H Phosphorus Magnesium NT-Pro-B Natriuret Pep Total Protein Albumin Arterial Blood Glucose Urine WBC (Auto) Urine Creatinine 79.8 H 01/12/20 01/12/20 01/12/20 05:51 09:50 09:50 WBC 13.7 H RBC Hgb 9.5 L MCV 76 L MCH 22 L MCHC 29 L RDW 22.0 H Plt Count Lymph % (Auto) [place] % (Auto) Lymph # (Auto) [place] # (Auto) Seg Neutrophils % Seg Neuts % (Manual) Seg Neutrophils # Man ABG pH 7.311 L POC ABG pCO2 49.5 H POC ABG pO2 81.8 L ABG pO2 ABG HCO3 ABG O2 Saturation ABG Base Excess ABG Hemoglobin 10.8 L ABG Sodium ABG Chloride 112.0 H ABG Glucose 99 H VBG pH Oxyhemoglobin Sodium 148 H Potassium Chloride 110.7 H BUN 26 H Creatinine 3.0 H Glucose 102 H POC Glucose Phosphorus Magnesium NT-Pro-B Natriuret Pep Total Protein 5.8 L Albumin 2.4 L Arterial Blood Glucose 99 H Urine WBC (Auto) Urine Creatinine 01/13/20 01/13/20 01/13/20 04:11 06:28 06:28 WBC RBC Hgb 9.3 L MCV 77 L MCH 22 L MCHC 29 L RDW 22.2 H Plt Count Lymph % (Auto) 13.1 L [place] % (Auto) 9.3 H Lymph # (Auto) [place] # (Auto) 0.9 H Seg Neutrophils % 75.6 H Seg Neuts % (Manual) Seg Neutrophils # Man ABG pH 7.289 L POC ABG pCO2 54.9 H POC ABG pO2 ABG pO2 ABG HCO3 ABG O2 Saturation ABG Base Excess ABG Hemoglobin ABG Sodium ABG Chloride ABG Glucose VBG pH Oxyhemoglobin Sodium 152 H Potassium Chloride 115.5 H BUN 25 H Creatinine 3.9 H Glucose 132 H POC Glucose Phosphorus Magnesium NT-Pro-B Natriuret Pep Total Protein Albumin Arterial Blood Glucose Urine WBC (Auto) Urine Creatinine 01/13/20 01/13/20 01/14/20 12:07 17:44 04:00 WBC RBC Hgb MCV MCH MCHC RDW Plt Count Lymph % (Auto) [place] % (Auto) Lymph # (Auto) [place] # (Auto) Seg Neutrophils % Seg Neuts % (Manual) Seg Neutrophils # Man ABG pH 7.269 L POC ABG pCO2 56.4 H POC ABG pO2 75.2 L ABG pO2 ABG HCO3 ABG O2 Saturation ABG Base Excess ABG Hemoglobin 10.9 L ABG Sodium 152.1 H ABG Chloride 119.0 H ABG Glucose 113 H VBG pH Oxyhemoglobin Sodium Potassium Chloride BUN Creatinine Glucose POC Glucose 106 H 133 H Phosphorus Magnesium NT-Pro-B Natriuret Pep Total Protein Albumin Arterial Blood Glucose 113 H Urine WBC (Auto) Urine Creatinine 01/14/20 01/14/20 01/14/20 05:11 05:11 09:05 WBC RBC Hgb 9.3 L MCV 77 L MCH 22 L MCHC 29 L RDW 22.1 H Plt Count 126 L Lymph % (Auto) 7.8 L [place] % (Auto) 9.9 H Lymph # (Auto) 0.7 L [place] # (Auto) Seg Neutrophils % 79.2 H Seg Neuts % (Manual) Seg Neutrophils # Man ABG pH 7.309 L POC ABG pCO2 POC ABG pO2 ABG pO2 94.6 H ABG HCO3 ABG O2 Saturation ABG Base Excess ABG Hemoglobin 10.3 L ABG Sodium ABG Chloride ABG Glucose VBG pH Oxyhemoglobin 94.4 L Sodium 157 H Potassium 3.5 L D Chloride 118.5 H BUN 25 H Creatinine 4.0 H Glucose 111 H POC Glucose Phosphorus Magnesium NT-Pro-B Natriuret Pep Total Protein Albumin Arterial Blood Glucose Urine WBC (Auto) Urine Creatinine
--- NOTE | 2020-01-14 10:17 | Progress Note ---
Assessment and Plan Impression: * Nonoliguric acute kidney injury secondary to ATN * Acute on chronic hypoxic respiratory on mechanical ventilation secondary to ?pulmonary edema vs infectious etiology * Urinary tract infection * Accelerated hypertension - resolved * Anemia * Hypernatremia * Hypokalemia Plan: * Na noted, add free H20 and D5w and follow up lytes * follow up mag and k levels, replete prn * No acute need for renal replacement therapy at this time * Renal u/s ordered - pending * Serologic work up pending - anticipate low yield * Continue gentle IVF; for now, hold diuresis * Abx per primary team * Pressors prn to maintain MAP>60 * Vent management per pulmonary/critical care * Dose medications for renal function * Avoid potential nephrotoxins Subjective Date of service: 01/14/20 Principal diagnosis: PNA; resp failure Interval history: resting in bed today Objective - Exam Narrative Exam: General appearance: well-developed, well-nourished, obese, intubated EENT: ATNC, other (ETT in place) Respiratory: Present: Decreased Breath Sounds Cardiology: regular, S1S2 Gastrointestinal: no tenderness, no distended, obese Integumentary: no rash, warm and dry - Vital Signs Vital signs: Vital Signs - 12hr 01/13/20 01/13/20 01/13/20 22:30 22:45 23:00 Temperature Pulse Rate 89 95 H 99 H Pulse Rate [ From Monitor] Respiratory 20 20 18 Rate Blood Pressure 106/54 110/53 106/49 O2 Sat by Pulse 95 95 96 Oximetry 01/13/20 01/13/20 01/13/20 23:15 23:30 23:34 Temperature Pulse Rate 100 H 97 H 99 H Pulse Rate [ From Monitor] Respiratory 18 20 17 Rate Blood Pressure 100/56 109/58 109/58 O2 Sat by Pulse 96 97 97 Oximetry 01/13/20 01/13/20 01/14/20 23:45 23:52 00:00 Temperature 97.4 F L Pulse Rate 95 H 96 H 94 H Pulse Rate [ 89 From Monitor] Respiratory 20 20 20 Rate Blood Pressure 106/60 106/60 107/62 O2 Sat by Pulse 97 97 97 Oximetry 01/14/20 01/14/20 01/14/20 00:04 00:15 00:30 Temperature Pulse Rate 96 H 95 H 98 H Pulse Rate [ From Monitor] Respiratory 20 20 20 Rate Blood Pressure 107/62 114/59 111/63 O2 Sat by Pulse 97 97 97 Oximetry 01/14/20 01/14/20 01/14/20 00:45 01:00 01:15 Temperature Pulse Rate 96 H 95 H 96 H Pulse Rate [ From Monitor] Respiratory 20 20 20 Rate Blood Pressure 107/68 98/65 110/65 O2 Sat by Pulse 97 97 97 Oximetry 01/14/20 01/14/20 01/14/20 01:30 01:45 02:00 Temperature Pulse Rate 95 H 93 H 90 Pulse Rate [ From Monitor] Respiratory 20 20 19 Rate Blood Pressure 101/49 100/56 116/64 O2 Sat by Pulse 97 97 97 Oximetry 01/14/20 01/14/20 01/14/20 02:15 02:30 02:45 Temperature Pulse Rate 86 98 H 95 H Pulse Rate [ From Monitor] Respiratory 20 20 20 Rate Blood Pressure 104/65 107/65 106/61 O2 Sat by Pulse 97 97 97 Oximetry 01/14/20 01/14/20 01/14/20 03:00 03:15 03:20 Temperature 97.4 F L Pulse Rate 94 H 98 H Pulse Rate [ From Monitor] Respiratory 20 20 Rate Blood Pressure 101/60 108/62 O2 Sat by Pulse 97 98 Oximetry 01/14/20 01/14/20 01/14/20 03:30 03:45 04:00 Temperature Pulse Rate 85 92 H 92 H Pulse Rate [ 85 From Monitor] Respiratory 20 20 20 Rate Blood Pressure 104/56 105/60 105/60 O2 Sat by Pulse 98 98 98 Oximetry 01/14/20 01/14/20 01/14/20 04:15 04:30 04:45 Temperature Pulse Rate 84 96 H 101 H Pulse Rate [ From Monitor] Respiratory 20 20 20 Rate Blood Pressure 100/58 113/62 92/59 O2 Sat by Pulse 98 98 98 Oximetry 01/14/20 01/14/20 01/14/20 04:53 05:00 05:15 Temperature Pulse Rate 82 98 H 85 Pulse Rate [ From Monitor] Respiratory 20 19 Rate Blood Pressure 92/52 108/62 78/35 O2 Sat by Pulse 98 95 100 Oximetry 01/14/20 01/14/20 01/14/20 05:31 05:45 06:00 Temperature Pulse Rate 102 H 92 H 98 H Pulse Rate [ From Monitor] Respiratory 21 20 19 Rate Blood Pressure 221/139 95/57 95/55 O2 Sat by Pulse 96 95 96 Oximetry 01/14/20 01/14/20 01/14/20 06:15 06:30 06:45 Temperature Pulse Rate 99 H 95 H 94 H Pulse Rate [ From Monitor] Respiratory 20 20 20 Rate Blood Pressure 95/51 93/56 94/52 O2 Sat by Pulse 97 97 97 Oximetry 01/14/20 01/14/20 01/14/20 07:00 07:15 07:30 Temperature Pulse Rate 85 95 H 85 Pulse Rate [ From Monitor] Respiratory 20 20 20 Rate Blood Pressure 86/45 94/57 105/53 O2 Sat by Pulse 97 97 98 Oximetry 01/14/20 01/14/20 01/14/20 07:45 07:52 08:00 Temperature 99 F Pulse Rate 84 83 84 Pulse Rate [ From Monitor] Respiratory 20 20 Rate Blood Pressure 98/53 98/53 98/53 O2 Sat by Pulse 98 98 98 Oximetry 01/14/20 01/14/20 01/14/20 08:15 08:30 08:45 Temperature Pulse Rate 84 83 84 Pulse Rate [ From Monitor] Respiratory 20 20 20 Rate Blood Pressure 101/55 98/56 99/52 O2 Sat by Pulse 98 98 98 Oximetry 01/14/20 01/14/20 01/14/20 09:00 09:15 09:30 Temperature Pulse Rate 84 83 89 Pulse Rate [ From Monitor] Respiratory 20 20 20 Rate Blood Pressure 101/52 95/57 94/47 O2 Sat by Pulse 97 98 95 Oximetry - Lab 01/14/20 05:11 01/14/20 05:11 Most recent lab results ABG pH 7.309 pH Units (7.350-7.450) L 01/14/20 09:05 ABG pCO2 53.0 mm Hg 01/14/20 09:05 ABG pO2 94.6 mm Hg (80.0-90.0) H 01/14/20 09:05 ABG HCO3 26.0 mmol/L (20.0-26.0) 01/14/20 09:05 ABG O2 Saturation 97.0 % (95.0-99.0) 01/14/20 09:05 Calcium 9.0 mg/dL (8.4-10.2) 01/14/20 05:11 Phosphorus 3.20 mg/dL (2.5-4.5) D 01/11/20 09:53 Magnesium 1.80 mg/dL (1.7-2.3) 01/11/20 09:53 Urine Creatinine 79.8 mg/dL (0.1-20.0) H 01/11/20 12:25 Urine Sodium 50 mmol/L 01/11/20 12:25 Medications & Allergies - Medications Allergies/Adverse Reactions: Allergies lisinopril Allergy (Verified 01/11/20 11:30) Swelling Home Medications: Home Medications Medication Instructions Recorded Confirmed Last Taken Type Unobtainable 01/10/20 01/10/20 Unknown History Active Medications: Generic Name Dose Route Start Last Admin Trade Name Freq PRN Reason Stop Dose Admin Acetaminophen 650 mg 01/10/20 08:00 01/13/20 09:52 Tylenol PO 650 mg Q4H PRN Administration Pain MILD(1-3)/Fever >100.5/CHRISTINA Lipase/Protease/Amylase 1 each 01/10/20 08:00 Pancreaze 10,500 Unit FEEDTUBE PRN PRN For Clogged Feeding Tube Famotidine 20 mg 01/12/20 10:00 01/14/20 09:18 Pepcid PO 20 mg DAILY KANIKA Administration Heparin Sodium (Porcine) 5,000 unit 01/11/20 14:00 01/14/20 05:54 Heparin SUB-Q 5,000 unit Q8HR KANIKA Administration Nitroglycerin/Dextrose 50 mg in 250 mls @ 1.5 mls/hr 01/09/20 19:00 01/09/20 20:15 Tridil Drip 50mg/250ml IV 0 mcg/min TITR KANIKA 0 mls/hr Titration Protocol 5 MCG/MIN Ceftriaxone Sodium 2 gm in 100 mls @ 200 mls/hr 01/10/20 22:00 01/13/20 23:30 Rocephin/Ns 2 Gm/100 Ml IV 01/14/20 22:29 Infused Q24HR@2200 KANIKA Infusion Protocol Sodium Chloride 1,000 mls @ 75 mls/hr 01/11/20 07:45 01/13/20 22:27 Nacl 0.9% 1000 Ml IV 75 mls/hr DIRECT KANIKA Administration Norepinephrine 8 mg/ Sodium 250 mls @ 3.75 mls/hr 01/14/20 10:00 Chloride IV TITR KANIKA Protocol 2 MCG/MIN Potassium Chloride 20 meq/ 1,010 mls @ 75 mls/hr 01/14/20 10:15 Dextrose IV DIRECT KANIKA Metoclopramide HCl 10 mg 01/10/20 08:00 Reglan IV Q6H PRN Nausea And Vomiting Ondansetron HCl 4 mg 01/10/20 08:00 Zofran IV Q8H PRN Nausea And Vomiting Simple Syrup 15 ml 01/10/20 08:00 Simple Syrup FEEDTUBE PRN PRN Hypoglycemia Simple Syrup 30 ml 01/10/20 08:00 Simple Syrup FEEDTUBE PRN PRN Hypoglycemia Sodium Bicarbonate 325 mg 01/10/20 08:00 Sodium Bicarbonate FEEDTUBE PRN PRN For Clogged Feeding Tube Sodium Chloride 10 ml 01/10/20 10:00 01/14/20 09:19 Sodium Chloride Flush Syringe 10 Ml IV 10 ml BID KANIKA Administration Sodium Chloride 10 ml 01/10/20 08:00 Sodium Chloride Flush Syringe 10 Ml IV PRN PRN LINE FLUSH
[2020-01-14] MEDS: NORepinephrine 8 MG in SODIUM CHLORIDE 0.9% 250ML 242 ML IV SCH ×2 (10:32→21:36)
[2020-01-14] MEDS: POTASSIUM CHLORIDE 20 MEQ in DEXTROSE 5% IN WATER 1,000 ML IV SCH (11:19)
--- NOTE | 2020-01-14 13:15 | Progress Note ---
Assessment and Plan tte reviewed - EF 45-50%, severe LVH, impaired relaxation. COVID-19 testing is NEGATIVE. Pt remains unresponsive, not on sedation. EEG pending. Diuretics held - serum Cr trending upwards. Nephrology following. Overall 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. Cont supportive measures. The patient has been seen in conjunction with Dr. Ro Antonio who agrees with the assessment and plan of care. - Patient Problems (1) Acute and chronic respiratory failure Current Visit: Yes Status: Acute (2) Pneumonia Current Visit: Yes Status: Acute (3) Acute heart failure with preserved ejection fraction (HFpEF) Current Visit: Yes Status: Acute (4) Sepsis Current Visit: Yes Status: Suspected (5) Hypotension Current Visit: Yes Status: Acute (6) MELIDA (acute kidney injury) Current Visit: Yes Status: Acute (7) AMS (altered mental status) Current Visit: Yes Status: Acute (8) Thrombocytopenia Current Visit: Yes Status: Acute (9) Hypernatremia Current Visit: Yes Status: Acute Subjective Date of service: 01/14/20 Principal diagnosis: PNA; resp failure Interval history: pt remains unresponsive, not sedated, intubated, requiring vasopressor support. in SR. Objective Last Vital Signs Temp 99 F 01/14/20 08:00 Pulse 90 01/14/20 12:22 Resp 18 01/14/20 12:15 BP 108/68 01/14/20 12:22 Pulse Ox 95 01/14/20 12:22 - Physical Examination General: Other (intubated, unresponsive) Neck: Positive: neck supple Cardiac: Positive: Reg Rate and Rhythm, S1/S2 Lungs: Positive: Decreased Breath Sounds, Oxygen, Ventilated Respirations Neuro: Positive: Other (intubated, unresponsive) - Labs and Meds CBC 01/14/20 Range/Units 05:11 WBC 8.5 (4.5-11.0) K/mm3 RBC 4.19 (3.65-5.03) M/mm3 Hgb 9.3 L (10.1-14.3) gm/dl Hct 32.2 (30.3-42.9) % Plt Count 126 L (140-440) K/mm3 Lymph # (Auto) 0.7 L (1.2-5.4) K/mm3 [place] # (Auto) 0.8 (0.0-0.8) K/mm3 Eos # (Auto) 0.2 (0.0-0.4) K/mm3 Baso # (Auto) 0.0 (0.0-0.1) K/mm3 Comprehensive Metabolic Panel 01/14/20 Range/Units 05:11 Sodium 157 H (137-145) mmol/L Potassium 3.5 L D (3.6-5.0) mmol/L Chloride 118.5 H (98-107) mmol/L Carbon Dioxide 25 (22-30) mmol/L BUN 25 H (7-17) mg/dL Creatinine 4.0 H (0.6-1.2) mg/dL Glucose 111 H (65-100) mg/dL Calcium 9.0 (8.4-10.2) mg/dL - Imaging and Cardiology EKG: report reviewed, image reviewed Echo: report reviewed ( 07/2018 at [facility] showed EF 55-60%, grade 1 diastolic dysfunction, no significant valvular abnormalities. tte done 2012 showed LVEF 20%, JONNA 6.2 cm, mild RVD, DD2. ) - Telemetry EKG Rhythm: Sinus Rhythm - EKG Sinus rhythms and dysrhythmias: sinus rhythm AV and intraventricular conduction: left bundle branch block (incomplete)
--- NOTE | 2020-01-14 17:31 | Event Note ---
Date: 01/14/20 01/14/20; I called [phone] and discussed with patient's mother Ms. Juliet Purcell, extensively about patient's condition, multiorgan involvement, Unresponsiveness, patient's comatose status, intubation on vent , shock on Levophed ,tests and reports, consultants recommendations, reviewed 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. She had numerous questions Answered all of them, she wants to come and see the patient, advised her to talk to the case management rn Ms. Aguilar., Also encouraged her to call back with any new questions or concerns.
[2020-01-14] MEDS: cefTRIAXone/NS 2 GM/100 ML 2 GM/100 ML BAG IV SCH (21:21)
[2020-01-15] MEDS: POTASSIUM CHLORIDE 20 MEQ in DEXTROSE 5% IN WATER 1,000 ML IV SCH ×2 (01:22→17:27)
[2020-01-15] MEDS: HEPARIN 5,000 UNIT/1 ML VIAL SUB-Q SCH (05:10)
[2020-01-15 05:14] LABS: Basophils % (Auto) 0.7 % (0.0-1.8); Eosinophils # (Auto) 0.2 K/mm3 (0.0-0.4); Eosinophils % (Auto) 3.3 % (0.0-4.3); Lymphocytes # (Auto) 0.8 K/mm3 (1.2-5.4); Lymphocytes % (Auto) 13.4 % (13.4-35.0); Mean Corpuscular HGB Conc 29 % (30-34); Mean Corpuscular Volume 77 fl (79-97); Monocytes # (Auto) 0.6 K/mm3 (0.0-0.8); Monocytes % (Auto) 9.4 % (0.0-7.3); Red Blood Count 4.19 M/mm3 (3.65-5.03)
[2020-01-15 05:25] LABS: Calcium 9.1 mg/dL (8.4-10.2)
[2020-01-15 05:29] LABS: Hematocrit 32.2 % (30.3-42.9); Hemoglobin 9.2 gm/dl (10.1-14.3); Platelet Count 95 K/mm3 (140-440); Red Cell Distribution Width 22.4 % (13.2-15.2)
[2020-01-15] MEDS: NORepinephrine 8 MG in SODIUM CHLORIDE 0.9% 250ML 242 ML IV SCH ×3 (08:10→21:50)
--- NOTE | 2020-01-15 08:19 | Progress Note ---
Assessment and Plan Assessment and plan: --Perry PCR negative, 01/10/2020 --Hypokalemia/hypomagnesemia Replenished with oral KCl, IV mag sulfate Monitor electrolytes, especially check magnesium levels --Hypernatremia; On free water flushes and D5W Mild improvement, closely monitor electrolytes Nephrology following --Metabolic encephalopathy; present on admission Patient remains unresponsive Unable to get CT scan as patient is unstable Neurology consulted 01/14/2020, discussed with Dr. Shankar Sevilla . EEG requested , continue current supportive care --Acute hypoxic respiratory failure; intubated on mechanical ventilation Pulmonary critical following, continue supportive care Wean as tolerated and extubate --Possible obesity hypoventilation syndrome; Intubated on mechanical ventilation --Hypotension/shock; Continues to be on vasopressor Levophed Gentle hydration --Acute on chronic systolic congestive heart failure; Echo;EF 45 to 50% Management per cardiology --Acute kidney injury-very minimal improvement Cr 4.0-3.8 secondary to vasomotor nephropathy, prerenal, hypotension Gentle hydration, avoid nephrotoxins, nephrology following --Morbid obesity; BMI 55.1 Patient needs weight reduction when medically stable --Moderate-malnutrition/hypoalbuminemia Supportive care, nutrition consult --PUI/high suspicion for COVID-19; Perry PCR negative --DVT prophylaxis;Lovenox --Full CODE STATUS We will closely monitor the patient and adjust management , . Patient is critically ill, with very 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. Plan of care reviewed with the patient's nurse. 01/13/2020 I discussed with [place] physician patient's condition, treatment plan Poor prognosis, I also discussed with her patient's past medical history[patient has hypoxic hypercapnic respiratory failure On BiPAP and nasal cannula oxygen, diastolic congestive heart failure, hypertension morbid obesity] Noncompliant with her visits to the physician. 01/14/20; I will try to call we will try to call and discuss with patient's mother Ms. Juliet Purcell, patient's condition Poor prognosis, treatment plan and consultants recommendations 01/15/20; patient remains unresponsive, remains hypotensive 1 Levophed, remains intubated on vent Awaiting neuro recommendations, unable to get CT head , patient is unstable to go for CT I discussed again with [place] physician Dr. Bolanos today and updated patient's condition. Poor prognosis She wanted to know what the mother feels about the goals of treatment and CODE STATUS I informed her that the patient's mother wanted to see the patient first before making any decisions. The high probability of a clinically significant, sudden or life threatening deterioration of the [Respiratory, ID, CVs] system(s) required my full and direct attention, intervention and personal management. The aggregate critical care time was [35] minutes. This time is in addition to time spent performing reported procedures but includes the following: [x] Data Review and interpretation [x] Patient assessment and monitoring of vital signs [x] Documentation [x] Medication orders and management 01/10; patient remains hypotensive on Levophed, added IV fluids, follow echocardiogram for LV function 01/11; patient remains intubated on vent, unable to get CT head as patient is unstable and morbidly obese 01/12; patient remains hypotensive on Levophed, on ventilatory support, worsening renal function nephrology evaluation appreciated Hypernatremia, free water flushes via Dobbhoff, monitor electrolytes/discussed with [place] physician 01/13; multiple electrolyte abnormalities,remains hypotensive, worsening renal function, I discussed with patient's mother over the phone. Neurology consulted, discussed with Dr. Shankar Sevilla 01/14; neurology evaluated the patient today, absent reflexes, 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, pending CT head, EEG History Interval history: I have seen and examined the patient at the bedside this morning in ICU Patient's chart and medications reviewed Patient remains hypotensive on Levophed Remains unresponsive Remains intubated on ventilatory support Poor prognosis Vital signs reviewed Hospitalist Physical - Constitutional Vitals: Temp Pulse Resp BP Pulse Ox 98.9 F 102 H 24 99/55 96 01/15/20 03:32 01/15/20 08:00 01/15/20 07:30 01/15/20 07:30 01/15/20 07:30 General appearance: Present: well-nourished, obese (Morbidly obese), other (Intubated on vent, unresponsive) - EENT Eyes: Present: PERRL (Absent pupillary, corneal reflexes) ENT: other (ET tube and Dobbhoff in place) - Neck Neck: Present: supple - Respiratory Respiratory: bilateral: diminished, rhonchi, negative: rales, wheezing - Cardiovascular Rhythm: regular Heart Sounds: Present: S1 & S2 - Extremities Extremities: no ischemia Extremity abnormal: edema - Abdominal General gastrointestinal: soft, non-tender, non-distended, normal bowel sounds - Integumentary Integumentary: Present: clear, warm - Psychiatric Psychiatric: other (Intubated on vent unresponsive) - Neurologic Neurologic: other (Intubated on vent unresponsive,) HEART Score - HEART Score Age: < 45 Risk factors: 1-2 risk factors Troponin: Troponin T 0.013 ng/mL (0.00-0.029) 01/09/20 22:19 - Critical Actions Critical Actions: 4-6 pts:12-16.6% risk of adverse cardiac event. Should be admitted Results - Labs CBC & Chem 7: 01/15/20 04:25 01/15/20 04:00 Labs: Laboratory Last Values WBC 6.1 K/mm3 (4.5-11.0) 01/15/20 04:25 RBC 4.19 M/mm3 (3.65-5.03) 01/15/20 04:25 Hgb 9.2 gm/dl (10.1-14.3) L 01/15/20 04:25 Hct 32.2 % (30.3-42.9) 01/15/20 04:25 MCV 77 fl (79-97) L 01/15/20 04:25 MCH 22 pg (28-32) L 01/15/20 04:25 MCHC 29 % (30-34) L 01/15/20 04:25 RDW 22.4 % (13.2-15.2) H 01/15/20 04:25 Plt Count 95 K/mm3 (140-440) L 01/15/20 04:25 Lymph % (Auto) 13.4 % (13.4-35.0) 01/15/20 04:25 [place] % (Auto) 9.4 % (0.0-7.3) H 01/15/20 04:25 Eos % (Auto) 3.3 % (0.0-4.3) 01/15/20 04:25 Baso % (Auto) 0.7 % (0.0-1.8) 01/15/20 04:25 Lymph # (Auto) 0.8 K/mm3 (1.2-5.4) L 01/15/20 04:25 [place] # (Auto) 0.6 K/mm3 (0.0-0.8) 01/15/20 04:25 Eos # (Auto) 0.2 K/mm3 (0.0-0.4) 01/15/20 04:25 Baso # (Auto) 0.0 K/mm3 (0.0-0.1) 01/15/20 04:25 Add Manual Diff Complete 01/09/20 19:03 Total Counted 100 01/09/20 19:03 Seg Neutrophils % 73.2 % (40.0-70.0) H 01/15/20 04:25 Seg Neuts % (Manual) 76.0 % (40.0-70.0) H 01/09/20 19:03 Band Neutrophils % 0 % 01/09/20 19:03 Lymphocytes % (Manual) 21.0 % (13.4-35.0) 01/09/20 19:03 Reactive Lymphs % (Man) 0 % 01/09/20 19:03 Monocytes % (Manual) 3.0 % (0.0-7.3) 01/09/20 19:03 Eosinophils % (Manual) 0 % (0.0-4.3) 01/09/20 19:03 Basophils % (Manual) 0 % (0.0-1.8) 01/09/20 19:03 Metamyelocytes % 0 % 01/09/20 19:03 Myelocytes % 0 % 01/09/20 19:03 Promyelocytes % 0 % 01/09/20 19:03 Blast Cells % 0 % 01/09/20 19:03 Nucleated RBC % Not Reportable 01/09/20 19:03 Seg Neutrophils # 4.4 K/mm3 (1.8-7.7) 01/15/20 04:25 Seg Neutrophils # Man 10.6 K/mm3 (1.8-7.7) H 01/09/20 19:03 Band Neutrophils # 0.0 K/mm3 01/09/20 19:03 Lymphocytes # (Manual) 2.9 K/mm3 (1.2-5.4) 01/09/20 19:03 Abs React Lymphs (Man) 0.0 K/mm3 01/09/20 19:03 Monocytes # (Manual) 0.4 K/mm3 (0.0-0.8) 01/09/20 19:03 Eosinophils # (Manual) 0.0 K/mm3 (0.0-0.4) 01/09/20 19:03 Basophils # (Manual) 0.0 K/mm3 (0.0-0.1) 01/09/20 19:03 Metamyelocytes # 0.0 K/mm3 01/09/20 19:03 Myelocytes # 0.0 K/mm3 01/09/20 19:03 Promyelocytes # 0.0 K/mm3 01/09/20 19:03 Blast Cells # 0.0 K/mm3 01/09/20 19:03 WBC Morphology Not Reportable 01/09/20 19:03 Hypersegmented Neuts Not Reportable 01/09/20 19:03 Hyposegmented Neuts Not Reportable 01/09/20 19:03 Hypogranular Neuts Not Reportable 01/09/20 19:03 Smudge Cells Not Reportable 01/09/20 19:03 Toxic Granulation Not Reportable 01/09/20 19:03 Toxic Vacuolation Not Reportable 01/09/20 19:03 Dohle Bodies Not Reportable 01/09/20 19:03 Pelger-Huet Anomaly Not Reportable 01/09/20 19:03 Dominique Rods Not Reportable 01/09/20 19:03 Platelet Estimate Not Reportable 01/09/20 19:03 Clumped Platelets Not Reportable 01/09/20 19:03 Plt Clumps, EDTA Not Reportable 01/09/20 19:03 Large Platelets Not Reportable 01/09/20 19:03 Giant Platelets Not Reportable 01/09/20 19:03 Platelet Satelliting Not Reportable 01/09/20 19:03 Plt Morphology Comment Not Reportable 01/09/20 19:03 RBC Morphology Not Reportable 01/09/20 19:03 Dimorphic RBCs Not Reportable 01/09/20 19:03 Polychromasia Not Reportable 01/09/20 19:03 Hypochromasia 1+ 01/09/20 19:03 Poikilocytosis Not Reportable 01/09/20 19:03 Anisocytosis 1+ 01/09/20 19:03 Microcytosis Not Reportable 01/09/20 19:03 Macrocytosis Not Reportable 01/09/20 19:03 Spherocytes Not Reportable 01/09/20 19:03 Pappenheimer Bodies Not Reportable 01/09/20 19:03 Sickle Cells Not Reportable 01/09/20 19:03 Target Cells Not Reportable 01/09/20 19:03 Tear Drop Cells Not Reportable 01/09/20 19:03 Ovalocytes Not Reportable 01/09/20 19:03 Helmet Cells Not Reportable 01/09/20 19:03 [place] Bodies Not Reportable 01/09/20 19:[address] [place] Rings Not Reportable 01/09/20 19:03 Gregory Cells Not Reportable 01/09/20 19:03 Bite Cells Not Reportable 01/09/20 19:03 Crenated Cell Not Reportable 01/09/20 19:03 Elliptocytes Not Reportable 01/09/20 19:03 Acanthocytes (Spur) Not Reportable 01/09/20 19:03 Rouleaux Not Reportable 01/09/20 19:03 Hemoglobin C Crystals Not Reportable 01/09/20 19:03 Schistocytes Few 01/09/20 19:03 Malaria parasites Not Reportable 01/09/20 19:03 Beka Bodies Not Reportable 01/09/20 19:03 Hem Pathologist Commnt No 01/09/20 19:03 PT 13.9 Sec. (12.2-14.9) 01/09/20 19:03 INR 1.05 (0.87-1.13) 01/09/20 19:03 ABG pH 7.285 (7.320-7.450) L 01/15/20 04:20 POC ABG pCO2 59.1 mmHg (32.0-48.0) H 01/15/20 04:20 ABG pCO2 53.0 mm Hg 01/14/20 09:05 POC ABG pO2 49.3 mmHg (83-108) L 01/15/20 04:20 ABG pO2 94.6 mm Hg (80.0-90.0) H 01/14/20 09:05 POC ABG HCO3 27.5 01/15/20 04:20 ABG HCO3 26.0 mmol/L (20.0-26.0) 01/14/20 09:05 ABG O2 Saturation 97.0 % (95.0-99.0) 01/14/20 09:05 ABG O2 Content 13.8 (0.0-44) 01/14/20 09:05 POC ABG Base Excess 0 01/15/20 04:20 ABG Base Excess -0.7 mmol/L (-2.0-3.0) 01/14/20 09:05 ABG Hemoglobin 10.7 (12.0-17.5) L 01/15/20 04:20 ABG Carboxyhemoglobin 2.1 % (0.0-5.0) 01/14/20 09:05 ABG Methemoglobin 0.6 % (0.0-1.5) 01/14/20 09:05 ABG Sodium 152.8 mmol/L (136.0-145.0) H 01/15/20 04:20 ABG Potassium 3.1 mmol/L (3.40-4.50) L 01/15/20 04:20 ABG Chloride 121.0 mmol/L (98-107) H 01/15/20 04:20 ABG Glucose 138 mg/dL (65-95) H 01/15/20 04:20 VBG pH 7.252 (7.320-7.420) L 01/09/20 18:37 Oxyhemoglobin 94.4 % (95.0-99.0) L 01/14/20 09:05 FiO2 50.0 01/15/20 04:20 Sodium 154 mmol/L (137-145) H 01/15/20 04:00 Potassium 3.1 mmol/L (3.6-5.0) L 01/15/20 04:00 Chloride 116.5 mmol/L (98-107) H 01/15/20 04:00 Carbon Dioxide 27 mmol/L (22-30) 01/15/20 04:00 Anion Gap 14 mmol/L 01/15/20 04:00 BUN 27 mg/dL (7-17) H 01/15/20 04:00 Creatinine 3.8 mg/dL (0.6-1.2) H 01/15/20 04:00 Estimated GFR 16 ml/min 01/15/20 04:00 BUN/Creatinine Ratio 7 % 01/15/20 04:00 Glucose 138 mg/dL (65-100) H 01/15/20 04:00 POC Glucose 142 (70-105) H 01/14/20 16:32 Hemoglobin A1c 5.9 % (4-6) 01/10/20 07:36 Lactic Acid 1.20 mmol/L (0.7-2.0) 01/09/20 22:19 Calcium 9.1 mg/dL (8.4-10.2) 01/15/20 04:00 Phosphorus 3.20 mg/dL (2.5-4.5) D 01/11/20 09:53 Magnesium 1.80 mg/dL (1.7-2.3) 01/11/20 09:53 Total Bilirubin 0.70 mg/dL (0.1-1.2) 01/12/20 09:50 AST 17 units/L (5-40) 01/12/20 09:50 ALT 10 units/L (7-56) 01/12/20 09:50 Alkaline Phosphatase 100 units/L (35-129) 01/12/20 09:50 Troponin T 0.013 ng/mL (0.00-0.029) 01/09/20 22:19 NT-Pro-B Natriuret Pep 1345 pg/mL (0-450) H 01/09/20 19:03 Total Protein 5.8 g/dL (6.3-8.2) L 01/12/20 09:50 Albumin 2.4 g/dL (3.9-5) L 01/12/20 09:50 Albumin/Globulin Ratio 0.7 % 01/12/20 09:50 HCG, Qual Negative (Negative) 01/09/20 19:03 Arterial Blood Glucose 138 mg/dL (65-95) H 01/15/20 04:20 Arterial Blood Ionized Calcium 5.2 mg/dL (4.6-5.3) 01/15/20 04:20 Urine Color Yellow (Yellow) 01/10/20 04:12 Urine Turbidity Cloudy (Clear) 01/10/20 04:12 Urine pH 7.0 (5.0-7.0) 01/10/20 04:12 Ur Specific [place] 1.007 (1.003-1.030) 01/10/20 04:12 Urine Protein >500 mg/dL (Negative) 01/10/20 04:12 Urine Glucose (UA) 50 mg/dL (Negative) 01/10/20 04:12 Urine Ketones Neg mg/dL (Negative) 01/10/20 04:12 Urine Blood Mod (Negative) 01/10/20 04:12 Urine Nitrite Neg (Negative) 01/10/20 04:12 Urine Bilirubin Neg (Negative) 01/10/20 04:12 Urine Urobilinogen < 2.0 mg/dL (<2.0) 01/10/20 04:12 Ur Leukocyte Esterase Neg (Negative) 01/10/20 04:12 Urine WBC (Auto) 50.0 /HPF (0.0-6.0) H 01/10/20 04:12 Urine RBC (Auto) 17.0 /HPF (0.0-6.0) 01/10/20 04:12 U Epithel Cells (Auto) 1.0 /HPF (0-13.0) 01/10/20 04:12 Urine Bacteria (Auto) 2+ /HPF (Negative) 01/10/20 04:12 Urine Mucus Few /HPF 01/10/20 04:12 Urine Yeast (Budding) 3+ /HPF 01/10/20 04:12 Urine Creatinine 79.8 mg/dL (0.1-20.0) H 01/11/20 12:25 Urine Sodium 50 mmol/L 01/11/20 12:25 Urine Urea Nitrogen 83 01/11/20 12:25 Coronavirus (PCR) Negative (Negative) 01/10/20 10:27 Microbiology: Microbiology 01/09/20 19:03 Peripheral/Venous Blood Culture - Final NO GROWTH AFTER 5 DAYS 01/09/20 19:03 Peripheral/Venous Blood Culture - Final NO GROWTH AFTER 5 DAYS - Diagnostic Impressions Diagnostic Impressions: Echocardiogram 01/10/20 07:42 Transthoracic Echocardiogram Indication: Dyspnea BP: 102/54 HR: 100 Conclusions *The study quality is technically difficult. *Severe concentric left ventricular hypertrophy is observed. *The estimated ejection fraction is 45-50%. *The right ventricular global systolic function is mildly reduced. Findings Procedure Info: The study quality is technically difficult. Left Ventricle: The left ventricular chamber size is normal. Severe concentric left ventricular hypertrophy is observed. Global left ventricular systolic function is at the lower limits of normal. The estimated ejection fraction is 45-50%. Abnormal left ventricular diastolic filling is observed, consistent with impaired relaxation. Left Atrium: The left atrial chamber size is normal. Right Ventricle: The right ventricular global systolic function is mildly reduced. Aortic Valve: Mild aortic leaflet calcification is visualized. There is no evidence of aortic regurgitation. Mitral Valve: The mitral valve leaflets are mildly thickened. There is no evidence of mitral regurgitation. Tricuspid Valve: The tricuspid valve leaflets are normal. There is no evidence of tricuspid valve regurgitation. Pulmonic Valve: The pulmonic valve is not well visualized. There is no evidence of pulmonic regurgitation. Pericardium: A trivial pericardial effusion is visualized. Aorta: The aorta appears normal. Measurements Chambers 2D Name Value Normal Range IVSd (2D) 1.86 cm (0.6 - 1.1) LVPWd (2D) 1.74 cm (0.6 - 1.1) IVS:LVPW ratio (2D) 1.07 ratio - LVIDd (2D) 4.47 cm (3.7 - 5.6) LVIDs (2D) 3.74 cm (2 - 3.8) LV FS (Teichholz) (2D) 16.3 % - LV FS (cube) (2D) 16.3 % - Ao root diameter (2D) 3.1 cm (2 - 3.7) LA dimension (AP) 2D 3.5 cm (1.9 - 4) LA:Ao ratio (2D) 1.13 ratio - Volumes/Mass Name Value Normal Range LA ESV SP 4CH (MOD) 41 ml - LA ESV SP 2CH (MOD) 61 ml - LA ESV BP (MOD) 51 ml - LA ESV BP (MOD) index 20.3 ml/m2 - LV EDV SP 4CH (MOD) 88 ml - LV ESV SP 4CH (MOD) 47 ml - EF SP 4CH (MOD) 47 % - LV EDV SP 2CH (MOD) 62 ml - LV ESV SP 2CH (MOD) 37 ml - EF SP 2CH (MOD) 40 % - LV EDV BP 79 ml - LV ESV BP 41 ml - BP EF (MOD) 48 % - Diastolic/Systolic Function Name Value Normal Range MV E-wave Vmax 0.58 m/sec - MV deceleration time 208 msec - MV A-wave Vmax 0.6 m/sec - MV E:A ratio 1 ratio - LV septal e' Vmax 0.04 m/sec - LV lateral e' Vmax 0.03 m/sec - LV E:e' septal ratio 13.3 ratio - LV E:e' lateral ratio 18.1 ratio - Aortic Valve Name Value Normal Range AV VTI 19.2 cm - AV mean gradient 5 mmHg - LVOT diameter 2.4 cm - LVOT VTI 18 cm - LVOT mean gradient 5 mmHg - SV LVOT 81 ml - CL (continuity VTI) 4.24 cm2 - Pulmonic Valve/Qp:Qs Name Value Normal Range PV Vmax 1.01 m/sec - PV peak gradient 4 mmHg - PV acceleration time 102 msec - Gomez/IV: Voiding Method Indwelling Catheter IV Catheter Type [Left Forearm Peripheral IV ] IV Catheter Type [Right Triple Lumen Cath Internal Jugular] IV Catheter Type [Right Hand] INT / Saline Lock Active Medications - Current Medications Current Medications: Generic Name Dose Route Start Last Admin Trade Name Freq PRN Reason Stop Dose Admin Acetaminophen 650 mg 01/10/20 08:00 01/13/20 09:52 Tylenol PO 650 mg Q4H PRN Administration Pain MILD(1-3)/Fever >100.5/CHRISTINA Lipase/Protease/Amylase 1 each 01/10/20 08:[address] 10,500 Unit FEEDTUBE PRN PRN For Clogged Feeding Tube Famotidine 20 mg 01/12/20 10:00 01/14/20 09:18 Pepcid PO 20 mg DAILY KANIKA Administration Heparin Sodium (Porcine) 5,000 unit 01/11/20 14:00 01/15/20 05:10 Heparin SUB-Q 5,000 unit Q8HR KANIKA Administration Norepinephrine 8 mg/ Sodium 250 mls @ 3.75 mls/hr 01/14/20 10:00 01/15/20 08:10 Chloride IV 14 mcg/min TITR KANIKA 26.25 mls/hr Administration Protocol 2 MCG/MIN Potassium Chloride 20 meq/ 1,010 mls @ 75 mls/hr 01/14/20 10:30 01/15/20 01:22 Dextrose IV 75 mls/hr DIRECT KANIKA Administration Metoclopramide HCl 10 mg 01/10/20 08:00 Reglan IV Q6H PRN Nausea And Vomiting Ondansetron HCl 4 mg 01/10/20 08:00 Zofran IV Q8H PRN Nausea And Vomiting Potassium Chloride 40 meq 01/15/20 08:12 Potassium Chloride FEEDTUBE 01/15/20 08:13 ONCE ONE Simple Syrup 15 ml 01/10/20 08:00 Simple Syrup FEEDTUBE PRN PRN Hypoglycemia Simple Syrup 30 ml 01/10/20 08:00 Simple Syrup FEEDTUBE PRN PRN Hypoglycemia Sodium Bicarbonate 325 mg 01/10/20 08:00 Sodium Bicarbonate FEEDTUBE PRN PRN For Clogged Feeding Tube Sodium Chloride 10 ml 01/10/20 10:00 01/14/20 22:05 Sodium Chloride Flush Syringe 10 Ml IV 10 ml BID KANIKA Administration Sodium Chloride 10 ml 01/10/20 08:00 Sodium Chloride Flush Syringe 10 Ml IV PRN PRN LINE FLUSH Nutrition/Malnutrition Assess - Dietary Evaluation Nutrition/Malnutrition Findings: Nutrition Notes Start: 01/10/20 08:12 Freq: Status: Active Protocol: Document 01/11/20 11:13 LAURI (Rec: 01/11/20 11:19 LAURI [id number]) Co-Sign 01/11/20 11:13 [email or web address] Nutrition Notes Initial or Follow up Reassessment Current Diagnosis Acute Kidney Injury,COPD, Sepsis,Hypertension,Heart Failure Other Pertinent Diagnosis Acute PE, hypokalemia, COVID- 19 (-) Current Diet Vital AF 1.2 at 60 ml/hr Labs/Tests Na 147 BUN 23 Cr 3.0 Pertinent Medications Levophed Height 5 ft 6 in Weight 154.48 kg [place] Body Weight (kg) 59.09 BMI 54.9 Weight Status Morbidly Obese Subjective/Other Information F/U for TF start/tolerance. TF not running at time of visit. Per RN, will start TF today. Percent of energy/protein needs met: 0%/0% Burn Absent Trauma Absent Current % PO Negligible Minimum of two criteria No Fluid Accumulation Moderate to Severe (severe) #1 Nutrition Diagnosis Inadequate oral intake Diagnosis Progress(for reassessment Continues documentation) Is patient on ventilator? Yes Is Patient Ambulatory and/or Out of Bed No REE-([facility]-confined to bed) 2668.044 Kcal/Kg value to use for calculation 11 Approximate Energy Requirements Using 1699 kcal/Kg Calculation Used for Recommendations Kcal/kg Additional Notes Pro: 147 g (up to 2.5 g/kg IBW ) Fluid: 1.5-1.9 L Nutrition Intervention Change Diet Order: Continue TF Nutrition Support: Vital AF 1.2 at 60 ml/hr Flush 60 ml q4h Kcal 1,728 Protein (gm) 108 Fluid (mL) 1,167 Goal #1 TF start/tolerance Goal #2 Meet at least 75% energy and protein needs via TF Follow-Up By: 01/15/20 Additional Comments F/U for TF start/tolerance
[2020-01-15] MEDS ORDERED: POTASSIUM CHLORIDE 20 MEQ PACKET FEEDTUBE ONE (09:00)
[2020-01-15] MEDS: FAMOTIDINE 20 MG TAB PO SCH (09:27)
--- NOTE | 2020-01-15 10:33 | Progress Note ---
Assessment and Plan Impression: * Nonoliguric acute kidney injury secondary to ATN * Acute on chronic hypoxic respiratory on mechanical ventilation secondary to ?pulmonary edema vs infectious etiology * Urinary tract infection * Accelerated hypertension - resolved * Anemia * Hypernatremia * Hypokalemia Plan: * Na noted, added free H20 and D5w and follow up lytes * follow up mag and k levels, replete prn * No acute need for renal replacement therapy at this time * Renal u/s ordered - pending * Serologic work up pending - anticipate low yield * Continue gentle IVF; for now, hold diuresis * Abx per primary team * Pressors prn to maintain MAP>60 * Vent management per pulmonary/critical care * Dose medications for renal function * Avoid potential nephrotoxins * 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, 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 Subjective Date of service: 01/15/20 Principal diagnosis: PNA; resp failure Interval history: resting in bed today Objective - Exam Narrative Exam: General appearance: well-developed, well-nourished, obese, intubated EENT: ATNC, other (ETT in place) Respiratory: Present: Decreased Breath Sounds Cardiology: regular, S1S2 Gastrointestinal: no tenderness, no distended, obese Integumentary: no rash, warm and dry - Vital Signs Vital signs: Vital Signs - 12hr 01/14/20 01/14/20 01/14/20 22:45 22:57 23:00 Temperature Pulse Rate 102 H 99 H 98 H Pulse Rate [ From Monitor] Respiratory 21 21 20 Rate Blood Pressure 110/61 110/61 109/64 O2 Sat by Pulse 95 96 96 Oximetry 01/14/20 01/14/20 01/14/20 23:15 23:23 23:25 Temperature 98.8 F Pulse Rate 102 H 110 H Pulse Rate [ From Monitor] Respiratory 18 Rate Blood Pressure 101/50 101/50 O2 Sat by Pulse 96 96 Oximetry 01/14/20 01/14/20 01/15/20 23:30 23:45 00:00 Temperature Pulse Rate 106 H 104 H 108 H Pulse Rate [ 108 H From Monitor] Respiratory 20 21 22 Rate Blood Pressure 94/40 98/45 104/61 O2 Sat by Pulse 96 97 97 Oximetry 01/15/20 01/15/20 01/15/20 00:15 00:30 00:45 Temperature Pulse Rate 106 H 88 86 Pulse Rate [ From Monitor] Respiratory 21 19 24 Rate Blood Pressure 97/65 92/57 97/49 O2 Sat by Pulse 95 94 95 Oximetry 01/15/20 01/15/20 01/15/20 01:00 01:15 01:30 Temperature Pulse Rate 86 86 86 Pulse Rate [ From Monitor] Respiratory 23 25 H 23 Rate Blood Pressure 93/56 99/57 93/58 O2 Sat by Pulse 96 95 96 Oximetry 01/15/20 01/15/20 01/15/20 01:45 02:00 02:15 Temperature Pulse Rate 86 104 H 103 H Pulse Rate [ From Monitor] Respiratory 26 H 13 15 Rate Blood Pressure 100/55 98/56 97/49 O2 Sat by Pulse 96 96 96 Oximetry 01/15/20 01/15/20 01/15/20 02:30 02:45 03:00 Temperature Pulse Rate 105 H 108 H 108 H Pulse Rate [ From Monitor] Respiratory 20 20 16 Rate Blood Pressure 95/59 93/44 111/70 O2 Sat by Pulse 96 95 95 Oximetry 01/15/20 01/15/20 01/15/20 03:15 03:31 03:32 Temperature 98.9 F Pulse Rate 106 H 92 H Pulse Rate [ From Monitor] Respiratory 20 20 Rate Blood Pressure 108/65 71/27 O2 Sat by Pulse 95 90 Oximetry 01/15/20 01/15/20 01/15/20 03:45 04:00 04:09 Temperature Pulse Rate 93 H 96 H 93 H Pulse Rate [ 96 H From Monitor] Respiratory 20 16 Rate Blood Pressure 85/35 84/38 84/38 O2 Sat by Pulse 88 82 L 90 Oximetry 01/15/20 01/15/20 01/15/20 04:15 04:31 04:45 Temperature Pulse Rate 93 H 93 H 99 H Pulse Rate [ From Monitor] Respiratory 20 20 20 Rate Blood Pressure 90/40 67/34 102/52 O2 Sat by Pulse 89 88 87 Oximetry 01/15/20 01/15/20 01/15/20 05:00 05:15 05:30 Temperature Pulse Rate 98 H 97 H 95 H Pulse Rate [ From Monitor] Respiratory 20 24 24 Rate Blood Pressure 99/55 114/75 122/74 O2 Sat by Pulse 92 96 96 Oximetry 01/15/20 01/15/20 01/15/20 05:45 06:01 06:15 Temperature Pulse Rate 94 H 91 H 90 Pulse Rate [ From Monitor] Respiratory 24 24 24 Rate Blood Pressure 124/69 92/48 88/43 O2 Sat by Pulse 96 96 96 Oximetry 01/15/20 01/15/20 01/15/20 06:30 06:45 07:00 Temperature Pulse Rate 92 H 92 H 92 H Pulse Rate [ From Monitor] Respiratory 24 24 24 Rate Blood Pressure 127/75 113/70 121/63 O2 Sat by Pulse 97 97 97 Oximetry 01/15/20 01/15/20 01/15/20 07:15 07:30 07:45 Temperature Pulse Rate 92 H 92 H 95 H Pulse Rate [ From Monitor] Respiratory 24 24 24 Rate Blood Pressure 113/68 99/55 113/68 O2 Sat by Pulse 98 96 87 Oximetry 01/15/20 01/15/20 01/15/20 08:00 08:15 08:30 Temperature 97.3 F L Pulse Rate 100 H 99 H 100 H Pulse Rate [ 102 H From Monitor] Respiratory 25 H 24 24 Rate Blood Pressure 129/74 98/55 104/57 O2 Sat by Pulse 90 91 91 Oximetry 01/15/20 01/15/20 01/15/20 08:45 09:00 09:15 Temperature Pulse Rate 99 H 98 H 98 H Pulse Rate [ From Monitor] Respiratory 24 24 24 Rate Blood Pressure 108/58 97/46 87/41 O2 Sat by Pulse 92 92 92 Oximetry 01/15/20 01/15/20 09:30 09:45 Temperature Pulse Rate 99 H 101 H Pulse Rate [ From Monitor] Respiratory 24 24 Rate Blood Pressure 116/65 92/45 O2 Sat by Pulse 93 90 Oximetry - Lab 01/15/20 04:25 01/15/20 04:00 Most recent lab results ABG pH 7.285 (7.320-7.450) L 01/15/20 04:20 ABG pCO2 53.0 mm Hg 01/14/20 09:05 ABG pO2 94.6 mm Hg (80.0-90.0) H 01/14/20 09:05 ABG HCO3 26.0 mmol/L (20.0-26.0) 01/14/20 09:05 ABG O2 Saturation 97.0 % (95.0-99.0) 01/14/20 09:05 Calcium 9.1 mg/dL (8.4-10.2) 01/15/20 04:00 Phosphorus 3.20 mg/dL (2.5-4.5) D 01/11/20 09:53 Magnesium 1.60 mg/dL (1.7-2.3) L 01/15/20 04:00 Urine Creatinine 79.8 mg/dL (0.1-20.0) H 01/11/20 12:25 Urine Sodium 50 mmol/L 01/11/20 12:25 Medications & Allergies - Medications Allergies/Adverse Reactions: Allergies lisinopril Allergy (Verified 01/11/20 11:30) Swelling Home Medications: Home Medications Medication Instructions Recorded Confirmed Last Taken Type Unobtainable 01/10/20 01/10/20 Unknown History Active Medications: Generic Name Dose Route Start Last Admin Trade Name Freq PRN Reason Stop Dose Admin Acetaminophen 650 mg 01/10/20 08:00 01/13/20 09:52 Tylenol PO 650 mg Q4H PRN Administration Pain MILD(1-3)/Fever >100.5/CHRISTINA Lipase/Protease/Amylase 1 each 01/10/20 08:00 Pancreaze 10,500 Unit FEEDTUBE PRN PRN For Clogged Feeding Tube Famotidine 20 mg 01/12/20 10:00 01/15/20 09:27 Pepcid PO 20 mg DAILY KANIKA Administration Norepinephrine 8 mg/ Sodium 250 mls @ 3.75 mls/hr 01/14/20 10:00 01/15/20 10:10 Chloride IV 18 mcg/min TITR KANIKA 33.75 mls/hr Titration Protocol 2 MCG/MIN Potassium Chloride 20 meq/ 1,010 mls @ 75 mls/hr 01/14/20 10:30 01/15/20 01:22 Dextrose IV 75 mls/hr DIRECT KANIKA Administration Magnesium Sulfate 2 gm in 50 mls @ 25 mls/hr 01/15/20 10:32 Magnesium Sulfate 2gm/50ml IV 01/15/20 12:31 ONCE ONE Metoclopramide HCl 10 mg 01/10/20 08:00 Reglan IV Q6H PRN Nausea And Vomiting Ondansetron HCl 4 mg 01/10/20 08:00 Zofran IV Q8H PRN Nausea And Vomiting Senna/Docusate Sodium 2 tab 01/15/20 10:00 Senokot S PO BID KANIKA Simple Syrup 15 ml 01/10/20 08:00 Simple Syrup FEEDTUBE PRN PRN Hypoglycemia Simple Syrup 30 ml 01/10/20 08:00 Simple Syrup FEEDTUBE PRN PRN Hypoglycemia Sodium Bicarbonate 325 mg 01/10/20 08:00 Sodium Bicarbonate FEEDTUBE PRN PRN For Clogged Feeding Tube Sodium Chloride 10 ml 01/10/20 10:00 01/15/20 09:29 Sodium Chloride Flush Syringe 10 Ml IV 10 ml BID KANIAK Administration Sodium Chloride 10 ml 01/10/20 08:00 Sodium Chloride Flush Syringe 10 Ml IV PRN PRN LINE FLUSH
[2020-01-15] MEDS: SENNOSIDES/DOCUSATE SODIUM 8.6/50 MG TAB PO SCH ×2 (10:52→21:49)
[2020-01-15] MEDS ORDERED: MAGNESIUM SULFATE 2 GM/50 ML BAG IV ONE (11:00)
--- NOTE | 2020-01-15 11:25 | Progress Note ---
Assessment and Plan 44 y/o female with acute respiratory failure, hypothermia and encephalopathic. 1. Pulm-intubated, not sedated. Remains unresponsive. Continue high PEEP and wean FiO2 for sats >88%. . patient is not breathing over the vent. Dropped rate down and watched at the bedside myself. Back up to 80% now with sats in the mid 90's. Unable to diurese given pressor requirement. 2. CV-echo read and shows systolic heart failure. EF of 45%. Remains on pressors. Renal function worse but appears to be holding steady. Still could be poor forward flow. Consider cards consult and ask about intropic therapy if patient doesn't respond to repeat fluid boluses which she hasn't. 3. Neuro-completely unresponsive. After speaking with mother over the phone on 01/10, patient was not alert on arrival. Ordered EEG but not done yet. Will get neruo consult on Tuesday. Will get CT head once more stable for transfer. EEG done but not read yet. Neuro consult is waiting on this as well 4. Renal-worsening renal function. Renal following. Hold on boluses today. 5. GI-Will start low rate tube feeds today to see how patient handles it. Continue for now. 6. Prophylaxis-stopping heparin given drop in platelets 7. Prognosis remains very very guarded to poor. 01/13/2020: Spoke with mother this am. I have tried to explain that the patient's comatose state is not good given that she has not required any sedation since admission. Hemodynamically she remains unstable and requires too much PEEP for transfer to CT scanner. I explained the current plan and she expressed understanding but I am not sure that she gets it. Per her, the son's were on the phone but they had no questions. May need to offer her to come see her daughter, maybe this will help her to understand whats going on. 01/11/2020: Spoke with mother on speaker phone with patients' two boys who are 18 and 21. Explained to them the patient's mental state (comatose) and oxygen dependence and renal failure. Per the mother, patient was obtunded when EMS came to pick her up. She feel at home and had been complaining of nausea and had emesis. She denied any sick contacts. She does not know if the patient complained of headache or blurred vision. No head CT done in ED and currently patient is bit to unstable for transfer at this moment. Head CT is definitely needed and will order EEG to be done as well. Explained to the family how sick patient is. Uns ure if they completely understand. Mother mentioned about transfer. I explained to her it would be up to the accepting physician if they would accept her. I feel it is unsafe to transport her right now and I am not sure what another hospital would provide. Once head CT obtained, this maybe different. CCT 31 Subjective Date of service: 01/15/20 Principal diagnosis: PNA; resp failure Interval history: Pressor requirement and oxygen requirement both increased overnight. Mental status is still the same. Objective Vital Signs - 12hr 01/14/20 01/14/20 01/14/20 23:23 23:25 23:30 Temperature 98.8 F Pulse Rate 110 H 106 H Pulse Rate [ From Monitor] Respiratory 20 Rate Blood Pressure 101/50 94/40 O2 Sat by Pulse 96 96 Oximetry 01/14/20 01/15/20 01/15/20 23:45 00:00 00:15 Temperature Pulse Rate 104 H 108 H 106 H Pulse Rate [ 108 H From Monitor] Respiratory 21 22 21 Rate Blood Pressure 98/45 104/61 97/65 O2 Sat by Pulse 97 97 95 Oximetry 01/15/20 01/15/20 01/15/20 00:30 00:45 01:00 Temperature Pulse Rate 88 86 86 Pulse Rate [ From Monitor] Respiratory 19 24 23 Rate Blood Pressure 92/57 97/49 93/56 O2 Sat by Pulse 94 95 96 Oximetry 01/15/20 01/15/20 01/15/20 01:15 01:30 01:45 Temperature Pulse Rate 86 86 86 Pulse Rate [ From Monitor] Respiratory 25 H 23 26 H Rate Blood Pressure 99/57 93/58 100/55 O2 Sat by Pulse 95 96 96 Oximetry 01/15/20 01/15/20 01/15/20 02:00 02:15 02:30 Temperature Pulse Rate 104 H 103 H 105 H Pulse Rate [ From Monitor] Respiratory 13 15 20 Rate Blood Pressure 98/56 97/49 95/59 O2 Sat by Pulse 96 96 96 Oximetry 01/15/20 01/15/20 01/15/20 02:45 03:00 03:15 Temperature Pulse Rate 108 H 108 H 106 H Pulse Rate [ From Monitor] Respiratory 20 16 20 Rate Blood Pressure 93/44 111/70 108/65 O2 Sat by Pulse 95 95 95 Oximetry 01/15/20 01/15/20 01/15/20 03:31 03:32 03:45 Temperature 98.9 F Pulse Rate 92 H 93 H Pulse Rate [ From Monitor] Respiratory 20 20 Rate Blood Pressure 71/27 85/35 O2 Sat by Pulse 90 88 Oximetry 01/15/20 01/15/20 01/15/20 04:00 04:09 04:15 Temperature Pulse Rate 96 H 93 H 93 H Pulse Rate [ 96 H From Monitor] Respiratory 16 20 Rate Blood Pressure 84/38 84/38 90/40 O2 Sat by Pulse 82 L 90 89 Oximetry 01/15/20 01/15/20 01/15/20 04:31 04:45 05:00 Temperature Pulse Rate 93 H 99 H 98 H Pulse Rate [ From Monitor] Respiratory 20 20 20 Rate Blood Pressure 67/34 102/52 99/55 O2 Sat by Pulse 88 87 92 Oximetry 01/15/20 01/15/20 01/15/20 05:15 05:30 05:45 Temperature Pulse Rate 97 H 95 H 94 H Pulse Rate [ From Monitor] Respiratory 24 24 24 Rate Blood Pressure 114/75 122/74 124/69 O2 Sat by Pulse 96 96 96 Oximetry 01/15/20 01/15/20 01/15/20 06:01 06:15 06:30 Temperature Pulse Rate 91 H 90 92 H Pulse Rate [ From Monitor] Respiratory 24 24 24 Rate Blood Pressure 92/48 88/43 127/75 O2 Sat by Pulse 96 96 97 Oximetry 01/15/20 01/15/20 01/15/20 06:45 07:00 07:15 Temperature Pulse Rate 92 H 92 H 92 H Pulse Rate [ From Monitor] Respiratory 24 24 24 Rate Blood Pressure 113/70 121/63 113/68 O2 Sat by Pulse 97 97 98 Oximetry 01/15/20 01/15/20 01/15/20 07:30 07:45 08:00 Temperature 97.3 F L Pulse Rate 92 H 95 H 100 H Pulse Rate [ 102 H From Monitor] Respiratory 24 24 25 H Rate Blood Pressure 99/55 113/68 129/74 O2 Sat by Pulse 96 87 90 Oximetry 01/15/20 01/15/20 01/15/20 08:15 08:30 08:45 Temperature Pulse Rate 99 H 100 H 99 H Pulse Rate [ From Monitor] Respiratory 24 24 24 Rate Blood Pressure 98/55 104/57 108/58 O2 Sat by Pulse 91 91 92 Oximetry 01/15/20 01/15/20 01/15/20 09:00 09:15 09:30 Temperature Pulse Rate 98 H 98 H 99 H Pulse Rate [ From Monitor] Respiratory 24 24 24 Rate Blood Pressure 97/46 87/41 116/65 O2 Sat by Pulse 92 92 93 Oximetry 01/15/20 09:45 Temperature Pulse Rate 101 H Pulse Rate [ From Monitor] Respiratory 24 Rate Blood Pressure 92/45 O2 Sat by Pulse 90 Oximetry Constitutional: no acute distress, comatose (Per nursing, no cough, no gag) Eyes: non-icteric ENT: other (orally intubated, not on sedation) Neck: supple, other (large in circumference) Cardiovascular: regular rate and rhythm Gastrointestinal: normoactive bowel sounds CBC and BMP: 01/15/20 04:25 01/15/20 04:00 ABG, PT/INR, D-dimer: ABG ABG pH 7.285 (7.320-7.450) L 01/15/20 04:20 POC ABG pCO2 59.1 mmHg (32.0-48.0) H 01/15/20 04:20 ABG pCO2 53.0 mm Hg 01/14/20 09:05 POC ABG pO2 49.3 mmHg (83-108) L 01/15/20 04:20 ABG pO2 94.6 mm Hg (80.0-90.0) H 01/14/20 09:05 POC ABG HCO3 27.5 01/15/20 04:20 ABG O2 Saturation 97.0 % (95.0-99.0) 01/14/20 09:05 PT/INR, D-dimer PT 13.9 Sec. (12.2-14.9) 01/09/20 19:03 INR 1.05 (0.87-1.13) 01/09/20 19:03 Abnormal lab findings: Abnormal Labs 01/09/20 01/09/20 01/09/20 18:37 18:47 19:03 WBC 14.0 H RBC 5.18 H Hgb MCV 76 L MCH 22 L MCHC 29 L RDW 22.0 H Plt Count Lymph % (Auto) [place] % (Auto) Lymph # (Auto) [place] # (Auto) Seg Neutrophils % Seg Neuts % (Manual) 76.0 H Seg Neutrophils # Man 10.6 H ABG pH 7.252 L POC ABG pCO2 POC ABG pO2 ABG pO2 172.4 H ABG HCO3 34.3 H ABG O2 Saturation ABG Base Excess 4.9 H ABG Hemoglobin 11.8 L ABG Sodium ABG Potassium ABG Chloride ABG Glucose VBG pH 7.252 L Oxyhemoglobin Sodium Potassium Chloride BUN Creatinine Glucose POC Glucose 177 H Phosphorus Magnesium NT-Pro-B Natriuret Pep Total Protein Albumin Arterial Blood Glucose Urine WBC (Auto) Urine Creatinine 01/09/20 01/09/20 01/09/20 19:03 19:03 21:55 WBC RBC Hgb MCV MCH MCHC RDW Plt Count Lymph % (Auto) [place] % (Auto) Lymph # (Auto) [place] # (Auto) Seg Neutrophils % Seg Neuts % (Manual) Seg Neutrophils # Man ABG pH 7.310 L POC ABG pCO2 POC ABG pO2 ABG pO2 61.8 L ABG HCO3 31.2 H ABG O2 Saturation 90.3 L ABG Base Excess 3.8 H ABG Hemoglobin 10.0 L ABG Sodium ABG Potassium ABG Chloride ABG Glucose VBG pH Oxyhemoglobin 87.8 L Sodium Potassium 3.1 L Chloride 95.2 L BUN Creatinine Glucose 197 H POC Glucose Phosphorus Magnesium NT-Pro-B Natriuret Pep 1345 H Total Protein 8.3 H Albumin Arterial Blood Glucose Urine WBC (Auto) Urine Creatinine 01/10/20 01/10/20 01/10/20 03:35 04:12 10:40 WBC RBC Hgb MCV 76 L MCH 22 L MCHC 29 L RDW 21.4 H Plt Count Lymph % (Auto) 6.0 L [place] % (Auto) Lymph # (Auto) 0.5 L [place] # (Auto) Seg Neutrophils % 87.3 H Seg Neuts % (Manual) Seg Neutrophils # Man ABG pH POC ABG pCO2 POC ABG pO2 ABG pO2 63.8 L ABG HCO3 28.7 H ABG O2 Saturation ABG Base Excess 4.0 H ABG Hemoglobin 10.9 L ABG Sodium ABG Potassium ABG Chloride ABG Glucose VBG pH Oxyhemoglobin 92.8 L Sodium Potassium Chloride BUN Creatinine Glucose POC Glucose Phosphorus Magnesium NT-Pro-B Natriuret Pep Total Protein Albumin Arterial Blood Glucose Urine WBC (Auto) 50.0 H Urine Creatinine 01/10/20 01/11/20 01/11/20 10:40 03:34 09:53 WBC RBC Hgb MCV MCH MCHC RDW Plt Count Lymph % (Auto) [place] % (Auto) Lymph # (Auto) [place] # (Auto) Seg Neutrophils % Seg Neuts % (Manual) Seg Neutrophils # Man ABG pH 7.334 L POC ABG pCO2 POC ABG pO2 ABG pO2 45.9 L ABG HCO3 29.0 H ABG O2 Saturation 76.5 L ABG Base Excess ABG Hemoglobin 9.8 L ABG Sodium ABG Potassium ABG Chloride ABG Glucose VBG pH Oxyhemoglobin 74.7 L Sodium 146 H 147 H Potassium Chloride BUN 23 H Creatinine 1.6 H D 3.0 H D Glucose POC Glucose Phosphorus 2.40 L Magnesium 1.50 L NT-Pro-B Natriuret Pep Total Protein 5.9 L D Albumin 3.2 L Arterial Blood Glucose Urine WBC (Auto) Urine Creatinine 01/11/20 01/11/20 01/12/20 12:25 15:30 00:27 WBC RBC Hgb MCV MCH MCHC RDW Plt Count Lymph % (Auto) [place] % (Auto) Lymph # (Auto) [place] # (Auto) Seg Neutrophils % Seg Neuts % (Manual) Seg Neutrophils # Man ABG pH 7.273 L POC ABG pCO2 58.8 H POC ABG pO2 67.0 L ABG pO2 ABG HCO3 ABG O2 Saturation ABG Base Excess ABG Hemoglobin 10.4 L ABG Sodium ABG Potassium ABG Chloride 108.0 H ABG Glucose VBG pH Oxyhemoglobin Sodium Potassium Chloride BUN Creatinine Glucose POC Glucose 109 H Phosphorus Magnesium NT-Pro-B Natriuret Pep Total Protein Albumin Arterial Blood Glucose Urine WBC (Auto) Urine Creatinine 79.8 H 01/12/20 01/12/20 01/12/20 05:51 09:50 09:50 WBC 13.7 H RBC Hgb 9.5 L MCV 76 L MCH 22 L MCHC 29 L RDW 22.0 H Plt Count Lymph % (Auto) [place] % (Auto) Lymph # (Auto) [place] # (Auto) Seg Neutrophils % Seg Neuts % (Manual) Seg Neutrophils # Man ABG pH 7.311 L POC ABG pCO2 49.5 H POC ABG pO2 81.8 L ABG pO2 ABG HCO3 ABG O2 Saturation ABG Base Excess ABG Hemoglobin 10.8 L ABG Sodium ABG Potassium ABG Chloride 112.0 H ABG Glucose 99 H VBG pH Oxyhemoglobin Sodium 148 H Potassium Chloride 110.7 H BUN 26 H Creatinine 3.0 H Glucose 102 H POC Glucose Phosphorus Magnesium NT-Pro-B Natriuret Pep Total Protein 5.8 L Albumin 2.4 L Arterial Blood Glucose 99 H Urine WBC (Auto) Urine Creatinine 01/13/20 01/13/20 01/13/20 04:11 06:28 06:28 WBC RBC Hgb 9.3 L MCV 77 L MCH 22 L MCHC 29 L RDW 22.2 H Plt Count Lymph % (Auto) 13.1 L [place] % (Auto) 9.3 H Lymph # (Auto) [place] # (Auto) 0.9 H Seg Neutrophils % 75.6 H Seg Neuts % (Manual) Seg Neutrophils # Man ABG pH 7.289 L POC ABG pCO2 54.9 H POC ABG pO2 ABG pO2 ABG HCO3 ABG O2 Saturation ABG Base Excess ABG Hemoglobin ABG Sodium ABG Potassium ABG Chloride ABG Glucose VBG pH Oxyhemoglobin Sodium 152 H Potassium Chloride 115.5 H BUN 25 H Creatinine 3.9 H Glucose 132 H POC Glucose Phosphorus Magnesium NT-Pro-B Natriuret Pep Total Protein Albumin Arterial Blood Glucose Urine WBC (Auto) Urine Creatinine 01/13/20 01/13/20 01/14/20 12:07 17:44 04:00 WBC RBC Hgb MCV MCH MCHC RDW Plt Count Lymph % (Auto) [place] % (Auto) Lymph # (Auto) [place] # (Auto) Seg Neutrophils % Seg Neuts % (Manual) Seg Neutrophils # Man ABG pH 7.269 L POC ABG pCO2 56.4 H POC ABG pO2 75.2 L ABG pO2 ABG HCO3 ABG O2 Saturation ABG Base Excess ABG Hemoglobin 10.9 L ABG Sodium 152.1 H ABG Potassium ABG Chloride 119.0 H ABG Glucose 113 H VBG pH Oxyhemoglobin Sodium Potassium Chloride BUN Creatinine Glucose POC Glucose 106 H 133 H Phosphorus Magnesium NT-Pro-B Natriuret Pep Total Protein Albumin Arterial Blood Glucose 113 H Urine WBC (Auto) Urine Creatinine 01/14/20 01/14/20 01/14/20 05:11 05:11 09:05 WBC RBC Hgb 9.3 L MCV 77 L MCH 22 L MCHC 29 L RDW 22.1 H Plt Count 126 L Lymph % (Auto) 7.8 L [place] % (Auto) 9.9 H Lymph # (Auto) 0.7 L [place] # (Auto) Seg Neutrophils % 79.2 H Seg Neuts % (Manual) Seg Neutrophils # Man ABG pH 7.309 L POC ABG pCO2 POC ABG pO2 ABG pO2 94.6 H ABG HCO3 ABG O2 Saturation ABG Base Excess ABG Hemoglobin 10.3 L ABG Sodium ABG Potassium ABG Chloride ABG Glucose VBG pH Oxyhemoglobin 94.4 L Sodium 157 H Potassium 3.5 L D Chloride 118.5 H BUN 25 H Creatinine 4.0 H Glucose 111 H POC Glucose Phosphorus Magnesium NT-Pro-B Natriuret Pep Total Protein Albumin Arterial Blood Glucose Urine WBC (Auto) Urine Creatinine 01/14/20 01/14/20 01/15/20 12:20 16:32 04:00 WBC RBC Hgb MCV MCH MCHC RDW Plt Count Lymph % (Auto) [place] % (Auto) Lymph # (Auto) [place] # (Auto) Seg Neutrophils % Seg Neuts % (Manual) Seg Neutrophils # Man ABG pH POC ABG pCO2 POC ABG pO2 ABG pO2 ABG HCO3 ABG O2 Saturation ABG Base Excess ABG Hemoglobin ABG Sodium ABG Potassium ABG Chloride ABG Glucose VBG pH Oxyhemoglobin Sodium 154 H Potassium 3.1 L Chloride 116.5 H BUN 27 H Creatinine 3.8 H Glucose 138 H POC Glucose 123 H 142 H Phosphorus Magnesium NT-Pro-B Natriuret Pep Total Protein Albumin Arterial Blood Glucose Urine WBC (Auto) Urine Creatinine 01/15/20 01/15/20 01/15/20 04:00 04:20 04:25 WBC RBC Hgb 9.2 L MCV 77 L MCH 22 L MCHC 29 L RDW 22.4 H Plt Count 95 L Lymph % (Auto) [place] % (Auto) 9.4 H Lymph # (Auto) 0.8 L [place] # (Auto) Seg Neutrophils % 73.2 H Seg Neuts % (Manual) Seg Neutrophils # Man ABG pH 7.285 L POC ABG pCO2 59.1 H POC ABG pO2 49.3 L ABG pO2 ABG HCO3 ABG O2 Saturation ABG Base Excess ABG Hemoglobin 10.7 L ABG Sodium 152.8 H ABG Potassium 3.1 L ABG Chloride 121.0 H ABG Glucose 138 H VBG pH Oxyhemoglobin Sodium Potassium Chloride BUN Creatinine Glucose POC Glucose Phosphorus Magnesium 1.60 L NT-Pro-B Natriuret Pep Total Protein Albumin Arterial Blood Glucose 138 H Urine WBC (Auto) Urine Creatinine
--- NOTE | 2020-01-15 12:05 | XRay Report ---
CHEST 1 VIEW INDICATION / CLINICAL INFORMATION: Worsening hypoxemia. COMPARISON: 01/13/2020 FINDINGS: SUPPORT DEVICES: Endotracheal tube, nasogastric tube, right central venous line HEART / MEDIASTINUM: No significant abnormality. LUNGS / PLEURA: Worsening bilateral airspace and interstitial disease No pneumothorax. ADDITIONAL FINDINGS: No significant additional findings. IMPRESSION: Bilateral airspace and interstitial disease has worsened since 01/13/2020 Signer Name: Bandar Bergeron MD FACR Signed: 01/15/2020 12:00 PM Workstation Name: [id number]
--- NOTE | 2020-01-15 13:52 | Consultation ---
History of Present Illness Consult date: 01/15/20 Requesting physician: GUALBERTO ROCA Reason for Consult: Encephalopathy Chief complaint: Encephalopathy History of present illness: 44 yo female with htn, chf, sleep apnea, morbid obesity, presented with significant shortness of breath and was noted with acute respiratory failure on 01/09/2020. Hospital course is noteful for continued encephalopathy with hypotensive shock requiring pressors, acute renal failure, metabolic encephalopathy, and no clinical seizure activity. The patient is hem odynamically too unstable for a NCHCT. Per RN, at bedside, she is noted with no activity, is not breathing over the vent, and is noted with bilateral blown pupils. Past History Past Medical History: other (Per HPI) Past Surgical History: Other (unable to obtain) Social history: other (unable to obtain) Family history: other (unable to obtain) Medications and Allergies Allergies Allergy/AdvReac Type Severity Reaction Status Date / Time lisinopril Allergy Swelling Verified 01/11/20 11:30 Home Medications Medication Instructions Recorded Confirmed Last Taken Type Unobtainable 01/10/20 01/10/20 Unknown History Active Meds: Active Medications Acetaminophen (Tylenol) 650 mg PO Q4H PRN PRN Reason: Pain MILD(1-3)/Fever >100.5/CHRISTINA Last Admin: 01/13/20 09:52 Dose: 650 mg Documented by: Lipase/Protease/Amylase (Hiwot Dr 10,500 Unit) 1 each FEEDTUBE PRN PRN PRN Reason: For Clogged Feeding Tube Famotidine (Pepcid) 20 mg PO DAILY KANIKA Last Admin: 01/15/20 09:27 Dose: 20 mg Documented by: Norepinephrine 8 mg/ Sodium (Chloride) 250 mls @ 3.75 mls/hr IV TITR KANIKA; Protocol Last Titration: 01/15/20 11:50 Dose: 20 mcg/min, 37.5 mls/hr Documented by: Potassium Chloride 20 meq/ (Dextrose) 1,010 mls @ 75 mls/hr IV DIRECT KANIKA Last Admin: 01/15/20 01:22 Dose: 75 mls/hr Documented by: Metoclopramide HCl (Reglan) 10 mg IV Q6H PRN PRN Reason: Nausea And Vomiting Ondansetron HCl (Zofran) 4 mg IV Q8H PRN PRN Reason: Nausea And Vomiting Senna/Docusate Sodium (Senokot S) 2 tab PO BID [facility] Last Admin: 01/15/20 10:52 Dose: 2 tab Documented by: Simple Syrup (Simple Syrup) 15 ml FEEDTUBE PRN PRN PRN Reason: Hypoglycemia Simple Syrup (Simple Syrup) 30 ml FEEDTUBE PRN PRN PRN Reason: Hypoglycemia Sodium Bicarbonate (Sodium Bicarbonate) 325 mg FEEDTUBE PRN PRN PRN Reason: For Clogged Feeding Tube Sodium Chloride (Sodium Chloride Flush Syringe 10 Ml) 10 ml IV BID [facility] Last Admin: 01/15/20 09:29 Dose: 10 ml Documented by: Sodium Chloride (Sodium Chloride Flush Syringe 10 Ml) 10 ml IV PRN PRN PRN Reason: LINE FLUSH Physical Examination - Vital Signs Vital Signs: Vital Signs Pulse Resp BP Pulse Ox 80 21 245/153 99 01/09/20 18:28 01/09/20 18:28 01/09/20 18:28 01/09/20 18:28 - Additional Exam Additional Exam: Gen: nad, intubated; Head: normocephalic; Eyes: no gaze deviation; no ptosis appreciated; ENT: +ETT; CVS: warm and well-perfused w/ sinus tachycardia (103); Pulm: no respiratory distress; GI: non-distended, protuberant; Ext: no cyanosis w/ ?edema at distal lower extremities; Skin: no acute rash or hives appreciated at distal extremities; Heme: no bruising or ecchymosis at distal extremities; Neuro: comatose, intubated, CN 2 - non-reactive pupils, CN 3, 4, 6 - oculocephalic absent, CN 5/7 - corneal reflex absent, CN 9/10 - absent cough reflex via ETT, CN 11/12 - pt cannot cooperate secondary to LOC; Motor/Sensory - 0/5 in all exts to tactile stimuli; Cerebellar/Gait - pt cannot cooperate secondary to LOC; NIHSS >32; Results - Laboratory Findings CBC and BMP: 01/15/20 04:25 01/15/20 04:00 Abnormal Lab Findings: Abnormal Labs 01/09/20 01/09/20 01/09/20 18:37 18:47 19:03 WBC 14.0 H RBC 5.18 H Hgb MCV 76 L MCH 22 L MCHC 29 L RDW 22.0 H Plt Count Lymph % (Auto) [place] % (Auto) Lymph # (Auto) [place] # (Auto) Seg Neutrophils % Seg Neuts % (Manual) 76.0 H Seg Neutrophils # Man 10.6 H ABG pH 7.252 L POC ABG pCO2 POC ABG pO2 ABG pO2 172.4 H ABG HCO3 34.3 H ABG O2 Saturation ABG Base Excess 4.9 H ABG Hemoglobin 11.8 L ABG Sodium ABG Potassium ABG Chloride ABG Glucose VBG pH 7.252 L Oxyhemoglobin Sodium Potassium Chloride BUN Creatinine Glucose POC Glucose 177 H Phosphorus Magnesium NT-Pro-B Natriuret Pep Total Protein Albumin Arterial Blood Glucose Urine WBC (Auto) Urine Creatinine 01/09/20 01/09/20 01/09/20 19:03 19:03 21:55 WBC RBC Hgb MCV MCH MCHC RDW Plt Count Lymph % (Auto) [place] % (Auto) Lymph # (Auto) [place] # (Auto) Seg Neutrophils % Seg Neuts % (Manual) Seg Neutrophils # Man ABG pH 7.310 L POC ABG pCO2 POC ABG pO2 ABG pO2 61.8 L ABG HCO3 31.2 H ABG O2 Saturation 90.3 L ABG Base Excess 3.8 H ABG Hemoglobin 10.0 L ABG Sodium ABG Potassium ABG Chloride ABG Glucose VBG pH Oxyhemoglobin 87.8 L Sodium Potassium 3.1 L Chloride 95.2 L BUN Creatinine Glucose 197 H POC Glucose Phosphorus Magnesium NT-Pro-B Natriuret Pep 1345 H Total Protein 8.3 H Albumin Arterial Blood Glucose Urine WBC (Auto) Urine Creatinine 01/10/20 01/10/20 01/10/20 03:35 04:12 10:40 WBC RBC Hgb MCV 76 L MCH 22 L MCHC 29 L RDW 21.4 H Plt Count Lymph % (Auto) 6.0 L [place] % (Auto) Lymph # (Auto) 0.5 L [place] # (Auto) Seg Neutrophils % 87.3 H Seg Neuts % (Manual) Seg Neutrophils # Man ABG pH POC ABG pCO2 POC ABG pO2 ABG pO2 63.8 L ABG HCO3 28.7 H ABG O2 Saturation ABG Base Excess 4.0 H ABG Hemoglobin 10.9 L ABG Sodium ABG Potassium ABG Chloride ABG Glucose VBG pH Oxyhemoglobin 92.8 L Sodium Potassium Chloride BUN Creatinine Glucose POC Glucose Phosphorus Magnesium NT-Pro-B Natriuret Pep Total Protein Albumin Arterial Blood Glucose Urine WBC (Auto) 50.0 H Urine Creatinine 01/10/20 01/11/20 01/11/20 10:40 03:34 09:53 WBC RBC Hgb MCV MCH MCHC RDW Plt Count Lymph % (Auto) [place] % (Auto) Lymph # (Auto) [place] # (Auto) Seg Neutrophils % Seg Neuts % (Manual) Seg Neutrophils # Man ABG pH 7.334 L POC ABG pCO2 POC ABG pO2 ABG pO2 45.9 L ABG HCO3 29.0 H ABG O2 Saturation 76.5 L ABG Base Excess ABG Hemoglobin 9.8 L ABG Sodium ABG Potassium ABG Chloride ABG Glucose VBG pH Oxyhemoglobin 74.7 L Sodium 146 H 147 H Potassium Chloride BUN 23 H Creatinine 1.6 H D 3.0 H D Glucose POC Glucose Phosphorus 2.40 L Magnesium 1.50 L NT-Pro-B Natriuret Pep Total Protein 5.9 L D Albumin 3.2 L Arterial Blood Glucose Urine WBC (Auto) Urine Creatinine 01/11/20 01/11/20 01/12/20 12:25 15:30 00:27 WBC RBC Hgb MCV MCH MCHC RDW Plt Count Lymph % (Auto) [place] % (Auto) Lymph # (Auto) [place] # (Auto) Seg Neutrophils % Seg Neuts % (Manual) Seg Neutrophils # Man ABG pH 7.273 L POC ABG pCO2 58.8 H POC ABG pO2 67.0 L ABG pO2 ABG HCO3 ABG O2 Saturation ABG Base Excess ABG Hemoglobin 10.4 L ABG Sodium ABG Potassium ABG Chloride 108.0 H ABG Glucose VBG pH Oxyhemoglobin Sodium Potassium Chloride BUN Creatinine Glucose POC Glucose 109 H Phosphorus Magnesium NT-Pro-B Natriuret Pep Total Protein Albumin Arterial Blood Glucose Urine WBC (Auto) Urine Creatinine 79.8 H 01/12/20 01/12/20 01/12/20 05:51 09:50 09:50 WBC 13.7 H RBC Hgb 9.5 L MCV 76 L MCH 22 L MCHC 29 L RDW 22.0 H Plt Count Lymph % (Auto) [place] % (Auto) Lymph # (Auto) [place] # (Auto) Seg Neutrophils % Seg Neuts % (Manual) Seg Neutrophils # Man ABG pH 7.311 L POC ABG pCO2 49.5 H POC ABG pO2 81.8 L ABG pO2 ABG HCO3 ABG O2 Saturation ABG Base Excess ABG Hemoglobin 10.8 L ABG Sodium ABG Potassium ABG Chloride 112.0 H ABG Glucose 99 H VBG pH Oxyhemoglobin Sodium 148 H Potassium Chloride 110.7 H BUN 26 H Creatinine 3.0 H Glucose 102 H POC Glucose Phosphorus Magnesium NT-Pro-B Natriuret Pep Total Protein 5.8 L Albumin 2.4 L Arterial Blood Glucose 99 H Urine WBC (Auto) Urine Creatinine 01/13/20 01/13/20 01/13/20 04:11 06:28 06:28 WBC RBC Hgb 9.3 L MCV 77 L MCH 22 L MCHC 29 L RDW 22.2 H Plt Count Lymph % (Auto) 13.1 L [place] % (Auto) 9.3 H Lymph # (Auto) [place] # (Auto) 0.9 H Seg Neutrophils % 75.6 H Seg Neuts % (Manual) Seg Neutrophils # Man ABG pH 7.289 L POC ABG pCO2 54.9 H POC ABG pO2 ABG pO2 ABG HCO3 ABG O2 Saturation ABG Base Excess ABG Hemoglobin ABG Sodium ABG Potassium ABG Chloride ABG Glucose VBG pH Oxyhemoglobin Sodium 152 H Potassium Chloride 115.5 H BUN 25 H Creatinine 3.9 H Glucose 132 H POC Glucose Phosphorus Magnesium NT-Pro-B Natriuret Pep Total Protein Albumin Arterial Blood Glucose Urine WBC (Auto) Urine Creatinine 01/13/20 01/13/20 01/14/20 12:07 17:44 04:00 WBC RBC Hgb MCV MCH MCHC RDW Plt Count Lymph % (Auto) [place] % (Auto) Lymph # (Auto) [place] # (Auto) Seg Neutrophils % Seg Neuts % (Manual) Seg Neutrophils # Man ABG pH 7.269 L POC ABG pCO2 56.4 H POC ABG pO2 75.2 L ABG pO2 ABG HCO3 ABG O2 Saturation ABG Base Excess ABG Hemoglobin 10.9 L ABG Sodium 152.1 H ABG Potassium ABG Chloride 119.0 H ABG Glucose 113 H VBG pH Oxyhemoglobin Sodium Potassium Chloride BUN Creatinine Glucose POC Glucose 106 H 133 H Phosphorus Magnesium NT-Pro-B Natriuret Pep Total Protein Albumin Arterial Blood Glucose 113 H Urine WBC (Auto) Urine Creatinine 01/14/20 01/14/20 01/14/20 05:11 05:11 09:05 WBC RBC Hgb 9.3 L MCV 77 L MCH 22 L MCHC 29 L RDW 22.1 H Plt Count 126 L Lymph % (Auto) 7.8 L [place] % (Auto) 9.9 H Lymph # (Auto) 0.7 L [place] # (Auto) Seg Neutrophils % 79.2 H Seg Neuts % (Manual) Seg Neutrophils # Man ABG pH 7.309 L POC ABG pCO2 POC ABG pO2 ABG pO2 94.6 H ABG HCO3 ABG O2 Saturation ABG Base Excess ABG Hemoglobin 10.3 L ABG Sodium ABG Potassium ABG Chloride ABG Glucose VBG pH Oxyhemoglobin 94.4 L Sodium 157 H Potassium 3.5 L D Chloride 118.5 H BUN 25 H Creatinine 4.0 H Glucose 111 H POC Glucose Phosphorus Magnesium NT-Pro-B Natriuret Pep Total Protein Albumin Arterial Blood Glucose Urine WBC (Auto) Urine Creatinine 01/14/20 01/14/20 01/15/20 12:20 16:32 04:00 WBC RBC Hgb MCV MCH MCHC RDW Plt Count Lymph % (Auto) [place] % (Auto) Lymph # (Auto) [place] # (Auto) Seg Neutrophils % Seg Neuts % (Manual) Seg Neutrophils # Man ABG pH POC ABG pCO2 POC ABG pO2 ABG pO2 ABG HCO3 ABG O2 Saturation ABG Base Excess ABG Hemoglobin ABG Sodium ABG Potassium ABG Chloride ABG Glucose VBG pH Oxyhemoglobin Sodium 154 H Potassium 3.1 L Chloride 116.5 H BUN 27 H Creatinine 3.8 H Glucose 138 H POC Glucose 123 H 142 H Phosphorus Magnesium NT-Pro-B Natriuret Pep Total Protein Albumin Arterial Blood Glucose Urine WBC (Auto) Urine Creatinine 01/15/20 01/15/20 01/15/20 04:00 04:20 04:25 WBC RBC Hgb 9.2 L MCV 77 L MCH 22 L MCHC 29 L RDW 22.4 H Plt Count 95 L Lymph % (Auto) [place] % (Auto) 9.4 H Lymph # (Auto) 0.8 L [place] # (Auto) Seg Neutrophils % 73.2 H Seg Neuts % (Manual) Seg Neutrophils # Man ABG pH 7.285 L POC ABG pCO2 59.1 H POC ABG pO2 49.3 L ABG pO2 ABG HCO3 ABG O2 Saturation ABG Base Excess ABG Hemoglobin 10.7 L ABG Sodium 152.8 H ABG Potassium 3.1 L ABG Chloride 121.0 H ABG Glucose 138 H VBG pH Oxyhemoglobin Sodium Potassium Chloride BUN Creatinine Glucose POC Glucose Phosphorus Magnesium 1.60 L NT-Pro-B Natriuret Pep Total Protein Albumin Arterial Blood Glucose 138 H Urine WBC (Auto) Urine Creatinine Assessment and Plan 44 yo female with htn, chf, sleep apnea, morbid obesity, presented with significant shortness of breath and was noted with acute respiratory failure on 01/09/2020 with continued encephalopathy in the setting of metabolic derangements and significant hypoxemia. 1. Metabolic Encephalopathy - severe metabolic derangements can mimic brain ; recommend correction of underlying metabolic abnormalities per primary team. 2. Hypoxic Encephalopathy - concern is raised; ideally prefer neuroimaging as supportive evidence. 3. Seizure - no evidence of status epilepticus per preliminary EEG report; EEG is also noteful for no evidence of electrocerebral silence to support diffuse anoxic injury. 4. Encephalitis - alternate etiology but atypical presentation; however a LP would be contraindicated in a patient w/o neuroimaging to confirm safety of a LP. 5. I will call back at 18:30 today to talk to the whole family who will be meeting at the hospital, per RN. Shankar Sevilla MD Neurology
--- NOTE | 2020-01-15 14:10 | Event Note ---
Date: 01/15/20 I called [place] physician at [phone] and discussed and updated in detail patient's condition, test reports Consultants recommendations, prognosis, and my discussion with the family the mother, answered all her questions. The above conversation is conveyed to the patient's nurse.
--- NOTE | 2020-01-15 14:38 | Progress Note ---
Assessment and Plan tte reviewed - EF 45-50%, severe LVH, impaired relaxation. COVID-19 testing is NEGATIVE. Pt remains unresponsive, not on sedation. Neurology w/u in progress. Diuretics held. Nephrology following. Overall 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. Cont supportive measures. Will follow on as needed basis. The patient has been seen in conjunction with Dr. Ro Antonio who agrees with the assessment and plan of care. - Patient Problems (1) Acute and chronic respiratory failure Current Visit: Yes Status: Acute (2) Pneumonia Current Visit: Yes Status: Acute (3) Acute heart failure with preserved ejection fraction (HFpEF) Current Visit: Yes Status: Acute (4) Sepsis Current Visit: Yes Status: Suspected (5) Hypotension Current Visit: Yes Status: Acute (6) MELIDA (acute kidney injury) Current Visit: Yes Status: Acute (7) AMS (altered mental status) Current Visit: Yes Status: Acute (8) Thrombocytopenia Current Visit: Yes Status: Acute (9) Hypernatremia Current Visit: Yes Status: Acute Subjective Date of service: 01/15/20 Principal diagnosis: PNA; resp failure Interval history: pt remains unresponsive, not sedated, intubated, requiring vasopressor support. in SR. Objective Last Vital Signs Temp 97.3 F L 01/15/20 08:00 Pulse 100 H 01/15/20 13:15 Resp 24 01/15/20 13:15 BP 99/59 01/15/20 13:15 Pulse Ox 94 01/15/20 13:15 - Physical Examination General: Other (intubated, unresponsive) Neck: Positive: neck supple Cardiac: Positive: Reg Rate and Rhythm, S1/S2 Lungs: Positive: Decreased Breath Sounds, Oxygen, Ventilated Respirations Neuro: Positive: Other (intubated, unresponsive) - Labs and Meds CBC 01/15/20 Range/Units 04:25 WBC 6.1 (4.5-11.0) K/mm3 RBC 4.19 (3.65-5.03) M/mm3 Hgb 9.2 L (10.1-14.3) gm/dl Hct 32.2 (30.3-42.9) % Plt Count 95 L (140-440) K/mm3 Lymph # (Auto) 0.8 L (1.2-5.4) K/mm3 [place] # (Auto) 0.6 (0.0-0.8) K/mm3 Eos # (Auto) 0.2 (0.0-0.4) K/mm3 Baso # (Auto) 0.0 (0.0-0.1) K/mm3 Comprehensive Metabolic Panel 01/15/20 Range/Units 04:00 Sodium 154 H (137-145) mmol/L Potassium 3.1 L (3.6-5.0) mmol/L Chloride 116.5 H (98-107) mmol/L Carbon Dioxide 27 (22-30) mmol/L BUN 27 H (7-17) mg/dL Creatinine 3.8 H (0.6-1.2) mg/dL Glucose 138 H (65-100) mg/dL Calcium 9.1 (8.4-10.2) mg/dL - Imaging and Cardiology EKG: report reviewed, image reviewed Echo: report reviewed ( 07/2018 at [facility] showed EF 55-60%, grade 1 diastolic dysfunction, no significant valvular abnormalities. tte done 2012 showed LVEF 20%, JONNA 6.2 cm, mild RVD, DD2. ) - Telemetry EKG Rhythm: Sinus Rhythm - EKG Sinus rhythms and dysrhythmias: sinus rhythm AV and intraventricular conduction: left bundle branch block (incomplete)
[2020-01-15] MEDS ORDERED: HALOPERIDOL LACTATE 5 MG/1 ML INJ IM PRN (17:01)
[2020-01-15] MEDS: ACETAMINOPHEN 325 MG TAB PO PRN (21:00)
[2020-01-16] MEDS: ACETAMINOPHEN 325 MG TAB PO PRN ×4 (01:03→13:59)
[2020-01-16] MEDS: NORepinephrine 8 MG in SODIUM CHLORIDE 0.9% 250ML 242 ML IV SCH ×3 (04:38→16:14)
[2020-01-16 05:41] LABS: ABG Base Excess 0.5 mmol/L (-2.0-3.0); ABG HCO3 27.4 mmol/L (20.0-26.0); ABG PCO2 52.7 mm Hg; ABG PH 7.334 pH Units (7.350-7.450); ABG PO2 123.5 mm Hg (80.0-90.0)
[2020-01-16 06:10] LABS: Calcium 8.8 mg/dL (8.4-10.2); Mean Corpuscular HGB Conc 29 % (30-34); Mean Corpuscular Volume 77 fl (79-97); Red Blood Count 4.26 M/mm3 (3.65-5.03)
[2020-01-16 06:17] LABS: Hematocrit 32.8 % (30.3-42.9); Hemoglobin 9.4 gm/dl (10.1-14.3); Red Cell Distribution Width 22.8 % (13.2-15.2)
[2020-01-16] MEDS: POTASSIUM CHLORIDE 20 MEQ in DEXTROSE 5% IN WATER 1,000 ML IV SCH (06:39)
[2020-01-16 07:04] LABS: Basophils % (Manual) 0 % (0.0-1.8); Total Cells Counted 100
[2020-01-16 07:05] LABS: Anisocytosis 1+; Hypochromasia 1+; Large Platelets Few; Platelet Estimate Consistent w Auto
[2020-01-16 07:07] LABS: Platelet Count 99 K/mm3 (140-440)
[2020-01-16] MEDS ORDERED: VANCOMYCIN/NS 1 GM/250 ML 1 GM/250 ML BAG IV ONE (07:59)
--- NOTE | 2020-01-16 08:38 | Progress Note ---
Assessment and Plan Assessment and plan: --Perry PCR negative, 01/10/2020 --Metabolic encephalopathy versus hypoxic encephalopathy; present on admission Patient remains unresponsive Unable to get CT scan as patient is unstable Neurology evaluation and recommendations noted and appreciated. EEG requested ,continue current supportive care --Acute hypoxic respiratory failure; intubated on mechanical ventilation Pulmonary critical following, continue supportive care Wean as tolerated and extubate --History of obstructive sleep apnea /possible OHS Intubated on mechanical ventilation --Hypotension/shock; Continues to be on vasopressor Levophed Gentle hydration --Acute on chronic systolic congestive heart failure; Echo;EF 45 to 50% Management per cardiology --Acute kidney injury-very minimal improvement Cr 4.0-3.8 secondary to vasomotor nephropathy, prerenal, hypotension Gentle hydration, avoid nephrotoxins, nephrology following --Morbid obesity; BMI 55.1 Patient needs weight reduction when medically stable --Moderate-malnutrition/hypoalbuminemia Supportive care, nutrition consult --PUI/high suspicion for COVID-19; Perry PCR negative --DVT prophylaxis;Lovenox --Full CODE STATUS We will closely monitor the patient and adjust management , . Patient is critically ill, with very 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. Plan of care reviewed with the patient's nurse. 01/13/2020 I discussed with [facility] physician patient's condition, treatment plan Poor prognosis, I also discussed with her patient's past medical history[patient has hypoxic hypercapnic respiratory failure On BiPAP and nasal cannula oxygen, diastolic congestive heart failure, hypertension morbid obesity] Noncompliant with her visits to the physician. 01/14/20; I will try to call we will try to call and discuss with patient's mother Ms. Juliet Purcell, patient's condition Poor prognosis, treatment plan and consultants recommendations 01/15/20; patient remains unresponsive, remains hypotensive 1 Levophed, remains intubated on vent Awaiting neuro recommendations, unable to get CT head , patient is unstable to go for CT I discussed again with [facility] physician Dr. Bolanos today and updated patient's condition. Poor prognosis She wanted to know what the mother feels about the goals of treatment and CODE STATUS I informed her that the patient's mother wanted to see the patient first before making any decisions. The high probability of a clinically significant, sudden or life threatening deterioration of the [Respiratory, ID, CVs] system(s) required my full and direct attention, intervention and personal management. The aggregate critical care time was [35] minutes. This time is in addition to time spent performing reported procedures but includes the following: [x] Data Review and interpretation [x] Patient assessment and monitoring of vital signs [x] Documentation [x] Medication orders and management 01/10; patient remains hypotensive on Levophed, added IV fluids, follow echocardiogram for LV function 01/11; patient remains intubated on vent, unable to get CT head as patient is unstable and morbidly obese 01/12; patient remains hypotensive on Levophed, on ventilatory support, worsening renal function nephrology evaluation appreciated Hypernatremia, free water flushes via Dobbhoff, monitor electrolytes/discussed with [facility] physician 01/13; multiple electrolyte abnormalities,remains hypotensive, worsening renal function, I discussed with patient's mother over the phone. Neurology consulted, discussed with Dr. Shankar Sevilla 01/14; neurology evaluated the patient today, absent reflexes, 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, pending CT head, EEG History Interval history: I have seen and examined the patient at the bedside in ICU this morning Patient's chart, current medications, consultants reports Details of family's visit yesterday reviewed Patient remains unresponsive, intubated on ventilatory support Remains hypotensive on vasopressor Levophed Febrile T-max 24 hours 102.3 F Hospitalist Physical - Constitutional Vitals: Temp Pulse Resp BP Pulse Ox 102.1 F H 112 H 24 107/52 98 01/16/20 04:00 01/16/20 08:00 01/16/20 08:00 01/16/20 08:00 01/16/20 08:00 General appearance: Present: well-nourished, obese (Morbidly obese), other (Intubated on vent, unresponsive, febrile) - EENT Eyes: Present: PERRL (Absent reflexes) ENT: other ( ET tube and Dobbhoff in place) - Neck Neck: Present: other. Absent: enlarged thyroid - Respiratory Respiratory effort: normal Respiratory: bilateral: diminished, rhonchi, negative: rales, wheezing - Cardiovascular Rhythm: regular Heart Sounds: Present: S1 & S2 - Extremities Extremities: no ischemia Extremity abnormal: edema - Abdominal General gastrointestinal: soft, non-tender, non-distended, normal bowel sounds - Integumentary Integumentary: Present: clear, warm - Psychiatric Psychiatric: other (Unresponsive) - Neurologic Neurologic: other (Unresponsive) HEART Score - HEART Score Age: < 45 Risk factors: 1-2 risk factors Troponin: Troponin T 0.013 ng/mL (0.00-0.029) 01/09/20 22:19 - Critical Actions Critical Actions: 4-6 pts:12-16.6% risk of adverse cardiac event. Should be admitted Results - Labs CBC & Chem 7: 01/16/20 04:19 01/16/20 04:19 Labs: Laboratory Last Values WBC 7.5 K/mm3 (4.5-11.0) 01/16/20 04:19 RBC 4.26 M/mm3 (3.65-5.03) 01/16/20 04:19 Hgb 9.4 gm/dl (10.1-14.3) L 01/16/20 04:19 Hct 32.8 % (30.3-42.9) 01/16/20 04:19 MCV 77 fl (79-97) L 01/16/20 04:19 MCH 22 pg (28-32) L 01/16/20 04:19 MCHC 29 % (30-34) L 01/16/20 04:19 RDW 22.8 % (13.2-15.2) H 01/16/20 04:19 Plt Count 99 K/mm3 (140-440) L 01/16/20 04:19 Lymph % (Auto) 13.4 % (13.4-35.0) 01/15/20 04:25 [place] % (Auto) 9.4 % (0.0-7.3) H 01/15/20 04:25 Eos % (Auto) 3.3 % (0.0-4.3) 01/15/20 04:25 Baso % (Auto) 0.7 % (0.0-1.8) 01/15/20 04:25 Lymph # (Auto) 0.8 K/mm3 (1.2-5.4) L 01/15/20 04:25 [place] # (Auto) 0.6 K/mm3 (0.0-0.8) 01/15/20 04:25 Eos # (Auto) 0.2 K/mm3 (0.0-0.4) 01/15/20 04:25 Baso # (Auto) 0.0 K/mm3 (0.0-0.1) 01/15/20 04:25 Add Manual Diff Complete 01/16/20 04:19 Total Counted 100 01/16/20 04:19 Seg Neutrophils % 73.2 % (40.0-70.0) H 01/15/20 04:25 Seg Neuts % (Manual) 73.0 % (40.0-70.0) H 01/16/20 04:19 Band Neutrophils % 0 % 01/16/20 04:19 Lymphocytes % (Manual) 12.0 % (13.4-35.0) L 01/16/20 04:19 Reactive Lymphs % (Man) 1.0 % 01/16/20 04:19 Monocytes % (Manual) 12.0 % (0.0-7.3) H 01/16/20 04:19 Eosinophils % (Manual) 2.0 % (0.0-4.3) 01/16/20 04:19 Basophils % (Manual) 0 % (0.0-1.8) 01/16/20 04:19 Metamyelocytes % 0 % 01/16/20 04:19 Myelocytes % 0 % 01/16/20 04:19 Promyelocytes % 0 % 01/16/20 04:19 Blast Cells % 0 % 01/16/20 04:19 Nucleated RBC % 4.0 % (0.0-0.9) H 01/16/20 04:19 Seg Neutrophils # 4.4 K/mm3 (1.8-7.7) 01/15/20 04:25 Seg Neutrophils # Man 5.5 K/mm3 (1.8-7.7) 01/16/20 04:19 Band Neutrophils # 0.0 K/mm3 01/16/20 04:19 Lymphocytes # (Manual) 0.9 K/mm3 (1.2-5.4) L 01/16/20 04:19 Abs React Lymphs (Man) 0.1 K/mm3 01/16/20 04:19 Monocytes # (Manual) 0.9 K/mm3 (0.0-0.8) H 01/16/20 04:19 Eosinophils # (Manual) 0.2 K/mm3 (0.0-0.4) 01/16/20 04:19 Basophils # (Manual) 0.0 K/mm3 (0.0-0.1) 01/16/20 04:19 Metamyelocytes # 0.0 K/mm3 01/16/20 04:19 Myelocytes # 0.0 K/mm3 01/16/20 04:19 Promyelocytes # 0.0 K/mm3 01/16/20 04:19 Blast Cells # 0.0 K/mm3 01/16/20 04:19 WBC Morphology Not Reportable 01/16/20 04:19 Hypersegmented Neuts Not Reportable 01/16/20 04:19 Hyposegmented Neuts Not Reportable 01/16/20 04:19 Hypogranular Neuts Not Reportable 01/16/20 04:19 Smudge Cells Not Reportable 01/16/20 04:19 Toxic Granulation Not Reportable 01/16/20 04:19 Toxic Vacuolation Not Reportable 01/16/20 04:19 Dohle Bodies Not Reportable 01/16/20 04:19 Pelger-Huet Anomaly Not Reportable 01/16/20 04:19 Dominique Rods Not Reportable 01/16/20 04:19 Platelet Estimate Consistent w auto 01/16/20 04:19 Clumped Platelets Not Reportable 01/16/20 04:19 Plt Clumps, EDTA Not Reportable 01/16/20 04:19 Large Platelets Few 01/16/20 04:19 Giant Platelets Not Reportable 01/16/20 04:19 Platelet Satelliting Not Reportable 01/16/20 04:19 Plt Morphology Comment Not Reportable 01/16/20 04:19 RBC Morphology Not Reportable 01/16/20 04:19 Dimorphic RBCs Not Reportable 01/16/20 04:19 Polychromasia Not Reportable 01/16/20 04:19 Hypochromasia 1+ 01/16/20 04:19 Poikilocytosis Not Reportable 01/16/20 04:19 Anisocytosis 1+ 01/16/20 04:19 Microcytosis Not Reportable 01/16/20 04:19 Macrocytosis Not Reportable 01/16/20 04:19 Spherocytes Not Reportable 01/16/20 04:19 Pappenheimer Bodies Not Reportable 01/16/20 04:19 Sickle Cells Not Reportable 01/16/20 04:19 Target Cells Not Reportable 01/16/20 04:19 Tear Drop Cells Not Reportable 01/16/20 04:19 Ovalocytes Not Reportable 01/16/20 04:19 Helmet Cells Not Reportable 01/16/20 04:19 Feliz-Fertile Bodies Not Reportable 01/16/20 04:19 [place] Rings Not Reportable 01/16/20 04:19 B[place]more Cells Not Reportable 01/16/20 04:19 Bite Cells Not Reportable 01/16/20 04:19 Crenated Cell Not Reportable 01/16/20 04:19 Elliptocytes Not Reportable 01/16/20 04:19 Acanthocytes (Spur) Not Reportable 01/16/20 04:19 Rouleaux Not Reportable 01/16/20 04:19 Hemoglobin C Crystals Not Reportable 01/16/20 04:19 Schistocytes Not Reportable 01/16/20 04:19 Malaria parasites Not Reportable 01/16/20 04:19 Beka Bodies Not Reportable 01/16/20 04:19 Hem Pathologist Commnt No 01/16/20 04:19 PT 13.9 Sec. (12.2-14.9) 01/09/20 19:03 INR 1.05 (0.87-1.13) 01/09/20 19:03 ABG pH 7.334 pH Units (7.350-7.450) L 01/16/20 Unknown POC ABG pCO2 59.1 mmHg (32.0-48.0) H 01/15/20 04:20 ABG pCO2 52.7 mm Hg 01/16/20 Unknown POC ABG pO2 49.3 mmHg (83-108) L 01/15/20 04:20 ABG pO2 123.5 mm Hg (80.0-90.0) H 01/16/20 Unknown POC ABG HCO3 27.5 01/15/20 04:20 ABG HCO3 27.4 mmol/L (20.0-26.0) H 01/16/20 Unknown ABG O2 Saturation Not Reportable 01/16/20 Unknown ABG O2 Content 20.9 (0.0-44) 01/16/20 Unknown POC ABG Base Excess 0 01/15/20 04:20 ABG Base Excess 0.5 mmol/L (-2.0-3.0) 01/16/20 Unknown ABG Hemoglobin Not Reportable 01/16/20 Unknown ABG Carboxyhemoglobin Not Reportable 01/16/20 Unknown ABG Methemoglobin Not Reportable 01/16/20 Unknown ABG Sodium 152.8 mmol/L (136.0-145.0) H 01/15/20 04:20 ABG Potassium 3.1 mmol/L (3.40-4.50) L 01/15/20 04:20 ABG Chloride 121.0 mmol/L (98-107) H 01/15/20 04:20 ABG Glucose 138 mg/dL (65-95) H 01/15/20 04:20 VBG pH 7.252 (7.320-7.420) L 01/09/20 18:37 Oxyhemoglobin Not Reportable 01/16/20 Unknown FiO2 80 % 01/16/20 Unknown Sodium 154 mmol/L (137-145) H 01/16/20 04:19 Potassium 5.0 mmol/L (3.6-5.0) D 01/16/20 04:19 Chloride 115.8 mmol/L (98-107) H 01/16/20 04:19 Carbon Dioxide 25 mmol/L (22-30) 01/16/20 04:19 Anion Gap 18 mmol/L 01/16/20 04:19 BUN 28 mg/dL (7-17) H 01/16/20 04:19 Creatinine 4.0 mg/dL (0.6-1.2) H 01/16/20 04:19 Estimated GFR 15 ml/min 01/16/20 04:19 BUN/Creatinine Ratio 7 % 01/16/20 04:19 Glucose 130 mg/dL (65-100) H 01/16/20 04:19 POC Glucose 138 (70-105) H 01/16/20 05:31 Hemoglobin A1c 5.9 % (4-6) 01/10/20 07:36 Lactic Acid 1.20 mmol/L (0.7-2.0) 01/09/20 22:19 Calcium 8.8 mg/dL (8.4-10.2) 01/16/20 04:19 Phosphorus 3.20 mg/dL (2.5-4.5) D 01/11/20 09:53 Magnesium 1.60 mg/dL (1.7-2.3) L 01/15/20 04:00 Total Bilirubin 0.70 mg/dL (0.1-1.2) 01/12/20 09:50 AST 17 units/L (5-40) 01/12/20 09:50 ALT 10 units/L (7-56) 01/12/20 09:50 Alkaline Phosphatase 100 units/L (35-129) 01/12/20 09:50 Troponin T 0.013 ng/mL (0.00-0.029) 01/09/20 22:19 NT-Pro-B Natriuret Pep 1345 pg/mL (0-450) H 01/09/20 19:03 Total Protein 5.8 g/dL (6.3-8.2) L 01/12/20 09:50 Albumin 2.4 g/dL (3.9-5) L 01/12/20 09:50 Albumin/Globulin Ratio 0.7 % 01/12/20 09:50 HCG, Qual Negative (Negative) 01/09/20 19:03 Arterial Blood Glucose 138 mg/dL (65-95) H 01/15/20 04:20 Arterial Blood Ionized Calcium 5.2 mg/dL (4.6-5.3) 01/15/20 04:20 Urine Color Yellow (Yellow) 01/10/20 04:12 Urine Turbidity Cloudy (Clear) 01/10/20 04:12 Urine pH 7.0 (5.0-7.0) 01/10/20 04:12 Ur Specific [place] 1.007 (1.003-1.030) 01/10/20 04:12 Urine Protein >500 mg/dL (Negative) 01/10/20 04:12 Urine Glucose (UA) 50 mg/dL (Negative) 01/10/20 04:12 Urine Ketones Neg mg/dL (Negative) 01/10/20 04:12 Urine Blood Mod (Negative) 01/10/20 04:12 Urine Nitrite Neg (Negative) 01/10/20 04:12 Urine Bilirubin Neg (Negative) 01/10/20 04:12 Urine Urobilinogen < 2.0 mg/dL (<2.0) 01/10/20 04:12 Ur Leukocyte Esterase Neg (Negative) 01/10/20 04:12 Urine WBC (Auto) 50.0 /HPF (0.0-6.0) H 01/10/20 04:12 Urine RBC (Auto) 17.0 /HPF (0.0-6.0) 01/10/20 04:12 U Epithel Cells (Auto) 1.0 /HPF (0-13.0) 01/10/20 04:12 Urine Bacteria (Auto) 2+ /HPF (Negative) 01/10/20 04:12 Urine Mucus Few /HPF 01/10/20 04:12 Urine Yeast (Budding) 3+ /HPF 01/10/20 04:12 Urine Creatinine 79.8 mg/dL (0.1-20.0) H 01/11/20 12:25 Urine Sodium 50 mmol/L 01/11/20 12:25 Urine Urea Nitrogen 83 01/11/20 12:25 Coronavirus (PCR) Negative (Negative) 01/10/20 10:27 Microbiology: Microbiology 01/16/20 00:50 Peripheral/Venous Blood Culture - Preliminary Culture in Progress 01/16/20 00:55 Peripheral/Venous Blood Culture - Preliminary Culture in Progress - Diagnostic Impressions Diagnostic Impressions: Echocardiogram 01/10/20 07:42 Transthoracic Echocardiogram Indication: Dyspnea BP: 102/54 HR: 100 Conclusions *The study quality is technically difficult. *Severe concentric left ventricular hypertrophy is observed. *The estimated ejection fraction is 45-50%. *The right ventricular global systolic function is mildly reduced. Findings Procedure Info: The study quality is technically difficult. Left Ventricle: The left ventricular chamber size is normal. Severe concentric left ventricular hypertrophy is observed. Global left ventricular systolic function is at the lower limits of normal. The estimated ejection fraction is 45-50%. Abnormal left ventricular diastolic filling is observed, consistent with impaired relaxation. Left Atrium: The left atrial chamber size is normal. Right Ventricle: The right ventricular global systolic function is mildly reduced. Aortic Valve: Mild aortic leaflet calcification is visualized. There is no evidence of aortic regurgitation. Mitral Valve: The mitral valve leaflets are mildly thickened. There is no evidence of mitral regurgitation. Tricuspid Valve: The tricuspid valve leaflets are normal. There is no evidence of tricuspid valve regurgitation. Pulmonic Valve: The pulmonic valve is not well visualized. There is no evidence of pulmonic regurgitation. Pericardium: A trivial pericardial effusion is visualized. Aorta: The aorta appears normal. Measurements Chambers 2D Name Value Normal Range IVSd (2D) 1.86 cm (0.6 - 1.1) LVPWd (2D) 1.74 cm (0.6 - 1.1) IVS:LVPW ratio (2D) 1.07 ratio - LVIDd (2D) 4.47 cm (3.7 - 5.6) LVIDs (2D) 3.74 cm (2 - 3.8) LV FS (Teichholz) (2D) 16.3 % - LV FS (cube) (2D) 16.3 % - Ao root diameter (2D) 3.1 cm (2 - 3.7) LA dimension (AP) 2D 3.5 cm (1.9 - 4) LA:Ao ratio (2D) 1.13 ratio - Volumes/Mass Name Value Normal Range LA ESV SP 4CH (MOD) 41 ml - LA ESV SP 2CH (MOD) 61 ml - LA ESV BP (MOD) 51 ml - LA ESV BP (MOD) index 20.3 ml/m2 - LV EDV SP 4CH (MOD) 88 ml - LV ESV SP 4CH (MOD) 47 ml - EF SP 4CH (MOD) 47 % - LV EDV SP 2CH (MOD) 62 ml - LV ESV SP 2CH (MOD) 37 ml - EF SP 2CH (MOD) 40 % - LV EDV BP 79 ml - LV ESV BP 41 ml - BP EF (MOD) 48 % - Diastolic/Systolic Function Name Value Normal Range MV E-wave Vmax 0.58 m/sec - MV deceleration time 208 msec - MV A-wave Vmax 0.6 m/sec - MV E:A ratio 1 ratio - LV septal e' Vmax 0.04 m/sec - LV lateral e' Vmax 0.03 m/sec - LV E:e' septal ratio 13.3 ratio - LV E:e' lateral ratio 18.1 ratio - Aortic Valve Name Value Normal Range AV VTI 19.2 cm - AV mean gradient 5 mmHg - LVOT diameter 2.4 cm - LVOT VTI 18 cm - LVOT mean gradient 5 mmHg - SV LVOT 81 ml - CL (continuity VTI) 4.24 cm2 - Pulmonic Valve/Qp:Qs Name Value Normal Range PV Vmax 1.01 m/sec - PV peak gradient 4 mmHg - PV acceleration time 102 msec - Gomez/IV: Voiding Method Indwelling Catheter IV Catheter Type [Left Forearm Peripheral IV ] IV Catheter Type [Right Triple Lumen Cath Internal Jugular] IV Catheter Type [Right Hand] INT / Saline Lock Active Medications - Current Medications Current Medications: Generic Name Dose Route Start Last Admin Trade Name Freq PRN Reason Stop Dose Admin Acetaminophen 650 mg 01/10/20 08:00 01/16/20 04:37 Tylenol PO 650 mg Q4H PRN Administration Pain MILD(1-3)/Fever >100.5/CHRISTINA Lipase/Protease/Amylase 1 each 01/10/20 08:00 Pancreazhayley Gomez 10,500 Unit FEEDTUBE PRN PRN For Clogged Feeding Tube Famotidine 20 mg 01/12/20 10:00 01/15/20 09:27 Pepcid PO 20 mg DAILY KANIKA Administration Norepinephrine 8 mg/ Sodium 250 mls @ 3.75 mls/hr 01/14/20 10:00 01/16/20 04:38 Chloride IV 20 mcg/min TITR KANIKA 37.5 mls/hr Administration Protocol 2 MCG/MIN Potassium Chloride 20 meq/ 1,010 mls @ 75 mls/hr 01/14/20 10:30 01/16/20 06:39 Dextrose IV 75 mls/hr DIRECT KANIKA Administration Cefepime HCl 2 gm in 100 mls @ 200 mls/hr 01/16/20 10:00 Cefepime/Ns 2 Gm/100 Ml IV Q12HR KANIKA Protocol Vancomycin HCl 2,000 mg/ 540 mls @ 250 mls/hr 01/16/20 09:00 Sodium Chloride IV 01/16/20 11:09 ONCE ONE Metoclopramide HCl 10 mg 01/10/20 08:00 Reglan IV Q6H PRN Nausea And Vomiting Ondansetron HCl 4 mg 01/10/20 08:00 Zofran IV Q8H PRN Nausea And Vomiting Senna/Docusate Sodium 2 tab 01/15/20 10:00 01/15/20 21:49 Senokot S PO 2 tab BID KANIKA Administration Simple Syrup 15 ml 01/10/20 08:00 Simple Syrup FEEDTUBE PRN PRN Hypoglycemia Simple Syrup 30 ml 01/10/20 08:00 Simple Syrup FEEDTUBE PRN PRN Hypoglycemia Sodium Bicarbonate 325 mg 01/10/20 08:00 Sodium Bicarbonate FEEDTUBE PRN PRN For Clogged Feeding Tube Sodium Chloride 10 ml 01/10/20 10:00 01/15/20 21:50 Sodium Chloride Flush Syringe 10 Ml IV 10 ml BID KANIKA Administration Sodium Chloride 10 ml 01/10/20 08:00 Sodium Chloride Flush Syringe 10 Ml IV PRN PRN LINE FLUSH Nutrition/Malnutrition Assess - Dietary Evaluation Nutrition/Malnutrition Findings: Nutrition Notes Start: 01/10/20 08:12 Freq: Status: Active Protocol: Document 01/15/20 12:32 LAURI (Rec: 01/15/20 12:49 BK [id number]) Co-Sign 01/15/20 12:32 SUKHDEV Nutrition Notes Initial or Follow up Reassessment Current Diagnosis Acute Kidney Injury,COPD, Sepsis,Hypertension,Heart Failure Other Pertinent Diagnosis Acute PE, hypokalemia Current Diet Vital AF 1.2 at 60 ml/hr Labs/Tests Na 154 K 3.1 BUN 27 Cr 3.8 Pertinent Medications KCl 20 meq Norepinephrine Height 5 ft 6 in Weight 159.8 kg [place] Body Weight (kg) 59.09 BMI 56.8 Weight change and time frame Wt change noted. Pt has edema. Weight Status Morbidly Obese Subjective/Other Information F/U for TF start/tolerance. Per chart, pt TF was paused for residuals of 220 and increased pressors. TF running at 30 ml/hr at time of visit. Per RN, pt has not had any BM . Percent of energy/protein needs met: 49%/37% Burn Absent Trauma Absent Current % PO Negligible Minimum of two criteria No Fluid Accumulation Moderate to Severe (severe) #1 Nutrition Diagnosis Inadequate oral intake Diagnosis Progress(for reassessment Continues documentation) Is patient on ventilator? Yes Is Patient Ambulatory and/or Out of Bed No REE-([facility]-confined to bed) 2731.812 Kcal/Kg value to use for calculation 11 Approximate Energy Requirements Using 1758 kcal/Kg Calculation Used for Recommendations Kcal/kg Additional Notes Pro: 147 g (up to 2.5 g/kg IBW ) Fluid: 1.5-1.9 L Nutrition Intervention Change Diet Order: Continue TF Nutrition Support: Vital AF 1.2 at 60 ml/hr Flush 60 ml q4h Kcal 1,728 Protein (gm) 108 Fluid (mL) 1,167 Goal #1 TF tolerance Goal #2 Meet at least 75% energy and protein needs via TF Follow-Up By: 01/17/20 Additional Comments F/U for TF tolerance
[2020-01-16] MEDS ORDERED: VANCOMYCIN 2,000 MG in SODIUM CHLORIDE 0.9% 500 ML 500 ML IV ONE (09:00)
[2020-01-16] MEDS: SENNOSIDES/DOCUSATE SODIUM 8.6/50 MG TAB PO SCH ×2 (09:50→21:48)
[2020-01-16] MEDS: CEFEPIME/NS 2 GM/100 ML 2 GM/100 ML BAG IV SCH ×2 (09:50→21:47)
[2020-01-16] MEDS: FAMOTIDINE 20 MG TAB PO SCH (09:50)
--- NOTE | 2020-01-16 10:26 | Progress Note ---
Assessment and Plan Impression: * Nonoliguric acute kidney injury secondary to ATN * Acute on chronic hypoxic respiratory on mechanical ventilation secondary to ?pulmonary edema vs infectious etiology * Urinary tract infection * Accelerated hypertension - resolved * Anemia * Hypernatremia * Hypokalemia Plan: * Na noted, added free H20 and D5w and follow up lytes * follow up mag and k levels, replete prn * No acute need for renal replacement therapy at this time * Renal u/s ordered - pending * Serologic work up pending - anticipate low yield * Continue gentle IVF; for now, hold diuresis * Abx per primary team * Pressors prn to maintain MAP>60 * Vent management per pulmonary/critical care * Dose medications for renal function * Avoid potential nephrotoxins * 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, not a candidate for communications agent Subjective Date of service: 01/16/20 Principal diagnosis: PNA; resp failure Interval history: resting in bed today Objective - Exam Narrative Exam: General appearance: well-developed, well-nourished, obese, intubated EENT: ATNC, other (ETT in place) Respiratory: Present: Decreased Breath Sounds Cardiology: regular, S1S2 Gastrointestinal: no tenderness, no distended, obese Integumentary: no rash, warm and dry - Vital Signs Vital signs: Vital Signs - 12hr 01/15/20 01/15/20 01/15/20 22:30 22:45 23:00 Temperature Pulse Rate 113 H 115 H 112 H Pulse Rate [ From Monitor] Respiratory 24 24 24 Rate Blood Pressure 95/43 106/55 94/45 O2 Sat by Pulse 97 97 97 Oximetry 01/15/20 01/15/20 01/15/20 23:07 23:15 23:30 Temperature Pulse Rate 114 H 115 H 115 H Pulse Rate [ From Monitor] Respiratory 24 24 24 Rate Blood Pressure 94/45 97/46 100/44 O2 Sat by Pulse 97 97 97 Oximetry 01/15/20 01/15/20 01/16/20 23:40 23:45 00:00 Temperature 102.3 F H Pulse Rate 113 H 115 H 116 H Pulse Rate [ 116 H From Monitor] Respiratory 24 24 Rate Blood Pressure 100/46 100/46 103/48 O2 Sat by Pulse 97 97 97 Oximetry 01/16/20 01/16/20 01/16/20 00:15 00:30 00:45 Temperature Pulse Rate 117 H 116 H 115 H Pulse Rate [ From Monitor] Respiratory 24 24 24 Rate Blood Pressure 94/45 96/45 102/47 O2 Sat by Pulse 96 97 97 Oximetry 01/16/20 01/16/20 01/16/20 01:00 01:15 01:30 Temperature Pulse Rate 116 H 113 H 116 H Pulse Rate [ From Monitor] Respiratory 24 24 24 Rate Blood Pressure 88/42 92/41 100/49 O2 Sat by Pulse 95 96 97 Oximetry 01/16/20 01/16/20 01/16/20 01:45 02:00 02:15 Temperature Pulse Rate 117 H 114 H 114 H Pulse Rate [ From Monitor] Respiratory 24 24 24 Rate Blood Pressure 104/53 105/57 101/51 O2 Sat by Pulse 97 98 98 Oximetry 01/16/20 01/16/20 01/16/20 02:30 02:45 03:00 Temperature Pulse Rate 113 H 113 H 112 H Pulse Rate [ From Monitor] Respiratory 24 24 24 Rate Blood Pressure 102/49 100/50 103/55 O2 Sat by Pulse 98 98 99 Oximetry 01/16/20 01/16/20 01/16/20 03:15 03:30 03:45 Temperature Pulse Rate 111 H 111 H 112 H Pulse Rate [ From Monitor] Respiratory 24 24 24 Rate Blood Pressure 104/53 102/52 107/52 O2 Sat by Pulse 98 98 98 Oximetry 01/16/20 01/16/20 01/16/20 04:00 04:15 04:23 Temperature 102.1 F H Pulse Rate 111 H 111 H 111 H Pulse Rate [ 111 H From Monitor] Respiratory 24 24 Rate Blood Pressure 104/54 102/51 102/51 O2 Sat by Pulse 97 97 96 Oximetry 01/16/20 01/16/20 01/16/20 04:30 04:45 05:00 Temperature Pulse Rate 110 H 112 H 113 H Pulse Rate [ From Monitor] Respiratory 24 24 14 Rate Blood Pressure 104/52 109/54 107/53 O2 Sat by Pulse 97 98 98 Oximetry 01/16/20 01/16/20 01/16/20 05:15 05:30 05:45 Temperature Pulse Rate 112 H 111 H 111 H Pulse Rate [ From Monitor] Respiratory 24 24 24 Rate Blood Pressure 101/55 102/53 102/51 O2 Sat by Pulse 98 98 99 Oximetry 01/16/20 01/16/20 01/16/20 06:00 06:15 06:30 Temperature Pulse Rate 112 H 112 H 113 H Pulse Rate [ From Monitor] Respiratory 24 24 24 Rate Blood Pressure 106/53 106/54 108/53 O2 Sat by Pulse 98 98 98 Oximetry 01/16/20 01/16/20 01/16/20 06:45 07:00 07:15 Temperature Pulse Rate 113 H 110 H 112 H Pulse Rate [ From Monitor] Respiratory 24 24 24 Rate Blood Pressure 104/54 104/54 107/47 O2 Sat by Pulse 98 98 98 Oximetry 01/16/20 01/16/20 01/16/20 07:30 07:45 08:00 Temperature Pulse Rate 113 H 112 H 111 H Pulse Rate [ 112 H From Monitor] Respiratory 24 24 24 Rate Blood Pressure 103/48 107/49 107/52 O2 Sat by Pulse 97 97 97 Oximetry - Lab 01/16/20 04:19 01/16/20 04:19 Most recent lab results ABG pH 7.334 pH Units (7.350-7.450) L 01/16/20 Unknown ABG pCO2 52.7 mm Hg 01/16/20 Unknown ABG pO2 123.5 mm Hg (80.0-90.0) H 01/16/20 Unknown ABG HCO3 27.4 mmol/L (20.0-26.0) H 01/16/20 Unknown ABG O2 Saturation Not Reportable 01/16/20 Unknown Calcium 8.8 mg/dL (8.4-10.2) 01/16/20 04:19 Phosphorus 3.20 mg/dL (2.5-4.5) D 01/11/20 09:53 Magnesium 1.60 mg/dL (1.7-2.3) L 01/15/20 04:00 Urine Creatinine 79.8 mg/dL (0.1-20.0) H 01/11/20 12:25 Urine Sodium 50 mmol/L 01/11/20 12:25 Medications & Allergies - Medications Allergies/Adverse Reactions: Allergies lisinopril Allergy (Verified 01/11/20 11:30) Swelling Home Medications: Home Medications Medication Instructions Recorded Confirmed Last Taken Type Unobtainable 01/10/20 01/10/20 Unknown History Active Medications: Generic Name Dose Route Start Last Admin Trade Name Freq PRN Reason Stop Dose Admin Acetaminophen 650 mg 01/10/20 08:00 01/16/20 09:58 Tylenol PO 650 mg Q4H PRN Administration Pain MILD(1-3)/Fever >100.5/CHRISTINA Lipase/Protease/Amylase 1 each 01/10/20 08:00 Hiwot Gomez 10,500 Unit FEEDTUBE PRN PRN For Clogged Feeding Tube Famotidine 20 mg 01/12/20 10:00 01/16/20 09:50 Pepcid PO 20 mg DAILY KANIKA Administration Norepinephrine 8 mg/ Sodium 250 mls @ 3.75 mls/hr 01/14/20 10:00 01/16/20 09:50 Chloride IV 20 mcg/min TITR KANIKA 37.5 mls/hr Administration Protocol 2 MCG/MIN Potassium Chloride 20 meq/ 1,010 mls @ 75 mls/hr 01/14/20 10:30 01/16/20 06:39 Dextrose IV 75 mls/hr DIRECT KANIKA Administration Cefepime HCl 2 gm in 100 mls @ 200 mls/hr 01/16/20 10:00 01/16/20 09:50 Cefepime/Ns 2 Gm/100 Ml IV 200 mls/hr Q12HR KANIKA Administration Protocol Vancomycin HCl 2,000 mg/ 540 mls @ 250 mls/hr 01/16/20 09:00 01/16/20 09:50 Sodium Chloride IV 01/16/20 11:09 250 mls/hr ONCE ONE Administration Metoclopramide HCl 10 mg 01/10/20 08:00 Reglan IV Q6H PRN Nausea And Vomiting Ondansetron HCl 4 mg 01/10/20 08:00 Zofran IV Q8H PRN Nausea And Vomiting Senna/Docusate Sodium 2 tab 01/15/20 10:00 01/16/20 09:50 Senokot S PO 2 tab BID KANIKA Administration Simple Syrup 15 ml 01/10/20 08:00 Simple Syrup FEEDTUBE PRN PRN Hypoglycemia Simple Syrup 30 ml 01/10/20 08:00 Simple Syrup FEEDTUBE PRN PRN Hypoglycemia Sodium Bicarbonate 325 mg 01/10/20 08:00 Sodium Bicarbonate FEEDTUBE PRN PRN For Clogged Feeding Tube Sodium Chloride 10 ml 01/10/20 10:00 01/16/20 10:00 Sodium Chloride Flush Syringe 10 Ml IV 10 ml BID KANIKA Administration Sodium Chloride 10 ml 01/10/20 08:00 Sodium Chloride Flush Syringe 10 Ml IV PRN PRN LINE FLUSH
--- NOTE | 2020-01-16 12:23 | Progress Note ---
Assessment and Plan 44 y/o female with acute respiratory failure, hypothermia and encephalopathic. 1. Pulm-intubated, not sedated. Remains unresponsive. Continue high PEEP and wean FiO2 for sats >88%. . patient is not breathing over the vent. Dropped rate down and watched at the bedside myself. On 75% now with sats in the mid 90's. Unable to diurese given pressor requirement. 2. CV-echo read and shows systolic heart failure. EF of 45%. Remains on pressors. Renal function worse but appears to be holding steady. Still could be poor forward flow. Consider cards consult and ask about intropic therapy if patient doesn't respond to repeat fluid boluses which she hasn't. 3. Neuro-completely unresponsive. Neurology note reviewed. Per them, clinical picture is too clouded and not enough definitive information to diagnosis, brain vs severe hypoxic injury. They are performing tele exams. 4. Renal-worsening renal function. Renal following. Hold on boluses today. 5. GI-Stopping tube feeds given increase in pressor requirement. 6. Prophylaxis-stopping heparin given drop in platelets 7. Prognosis remains very very guarded to poor. Per nursing family came up and visited last night. No changes made. 01/13/2020: Spoke with mother this am. I have tried to explain that the patient's comatose state is not good given that she has not required any sedation since admission. Hemodynamically she remains unstable and requires too much PEEP for transfer to CT scanner. I explained the current plan and she expressed understanding but I am not sure that she gets it. Per her, the son's were on the phone but they had no questions. May need to offer her to come see her daughter, maybe this will help her to understand whats going on. 01/11/2020: Spoke with mother on speaker phone with patients' two boys who are 18 and 21. Explained to them the patient's mental state (comatose) and oxygen dependence and renal failure. Per the mother, patient was obtunded when EMS came to pick her up. She feel at home and had been complaining of nausea and had emesis. She denied any sick contacts. She does not know if the patient complained of headache or blurred vision. No head CT done in ED and currently patient is bit to unstable for transfer at this moment. Head CT is definitely needed and will order EEG to be done as well. Explained to the family how sick patient is. Unsure if they completely understand. Mother mentioned about transfer. I explained to her it would be up to the accepting physician if they would accept her. I feel it is unsafe to transport her right now and I am not sure what another hospital would provide. Once head CT obtained, this maybe different. CCT 31 Subjective Date of service: 01/16/20 Principal diagnosis: PNA; resp failure Interval history: No acute events. Remains unresponsive. Pressor requirement is increasing. Renal function is worsening. EEG done and read. Reviewed neurology note. Objective Vital Signs - 12hr 01/16/20 01/16/20 01/16/20 00:30 00:45 01:00 Temperature Pulse Rate 116 H 115 H 116 H Pulse Rate [ From Monitor] Respiratory 24 24 24 Rate Blood Pressure 96/45 102/47 88/42 O2 Sat by Pulse 97 97 95 Oximetry 01/16/20 01/16/20 01/16/20 01:15 01:30 01:45 Temperature Pulse Rate 113 H 116 H 117 H Pulse Rate [ From Monitor] Respiratory 24 24 24 Rate Blood Pressure 92/41 100/49 104/53 O2 Sat by Pulse 96 97 97 Oximetry 01/16/20 01/16/20 01/16/20 02:00 02:15 02:30 Temperature Pulse Rate 114 H 114 H 113 H Pulse Rate [ From Monitor] Respiratory 24 24 24 Rate Blood Pressure 105/57 101/51 102/49 O2 Sat by Pulse 98 98 98 Oximetry 01/16/20 01/16/20 01/16/20 02:45 03:00 03:15 Temperature Pulse Rate 113 H 112 H 111 H Pulse Rate [ From Monitor] Respiratory 24 24 24 Rate Blood Pressure 100/50 103/55 104/53 O2 Sat by Pulse 98 99 98 Oximetry 01/16/20 01/16/20 01/16/20 03:30 03:45 04:00 Temperature 102.1 F H Pulse Rate 111 H 112 H 111 H Pulse Rate [ 111 H From Monitor] Respiratory 24 24 24 Rate Blood Pressure 102/52 107/52 104/54 O2 Sat by Pulse 98 98 97 Oximetry 01/16/20 01/16/20 01/16/20 04:15 04:23 04:30 Temperature Pulse Rate 111 H 111 H 110 H Pulse Rate [ From Monitor] Respiratory 24 24 Rate Blood Pressure 102/51 102/51 104/52 O2 Sat by Pulse 97 96 97 Oximetry 01/16/20 01/16/20 01/16/20 04:45 05:00 05:15 Temperature Pulse Rate 112 H 113 H 112 H Pulse Rate [ From Monitor] Respiratory 24 14 24 Rate Blood Pressure 109/54 107/53 101/55 O2 Sat by Pulse 98 98 98 Oximetry 01/16/20 01/16/20 01/16/20 05:30 05:45 06:00 Temperature Pulse Rate 111 H 111 H 112 H Pulse Rate [ From Monitor] Respiratory 24 24 24 Rate Blood Pressure 102/53 102/51 106/53 O2 Sat by Pulse 98 99 98 Oximetry 01/16/20 01/16/20 01/16/20 06:15 06:30 06:45 Temperature Pulse Rate 112 H 113 H 113 H Pulse Rate [ From Monitor] Respiratory 24 24 24 Rate Blood Pressure 106/54 108/53 104/54 O2 Sat by Pulse 98 98 98 Oximetry 01/16/20 01/16/20 01/16/20 07:00 07:15 07:30 Temperature Pulse Rate 110 H 112 H 113 H Pulse Rate [ From Monitor] Respiratory 24 24 24 Rate Blood Pressure 104/54 107/47 103/48 O2 Sat by Pulse 98 98 97 Oximetry 01/16/20 01/16/20 01/16/20 07:45 08:00 08:15 Temperature 102.6 F H Pulse Rate 112 H 111 H 112 H Pulse Rate [ 112 H From Monitor] Respiratory 24 24 24 Rate Blood Pressure 107/49 107/52 108/53 O2 Sat by Pulse 97 97 98 Oximetry 01/16/20 01/16/20 01/16/20 08:30 08:45 09:00 Temperature Pulse Rate 112 H 111 H 111 H Pulse Rate [ From Monitor] Respiratory 24 24 23 Rate Blood Pressure 104/55 108/53 110/53 O2 Sat by Pulse 97 98 98 Oximetry 01/16/20 01/16/20 01/16/20 09:15 09:30 09:45 Temperature Pulse Rate 112 H 112 H 113 H Pulse Rate [ From Monitor] Respiratory 24 24 24 Rate Blood Pressure 111/54 107/55 110/55 O2 Sat by Pulse 97 97 98 Oximetry 01/16/20 01/16/20 01/16/20 10:00 10:15 10:30 Temperature Pulse Rate 113 H 113 H 113 H Pulse Rate [ From Monitor] Respiratory 24 24 24 Rate Blood Pressure 107/51 105/47 106/48 O2 Sat by Pulse 96 96 96 Oximetry 01/16/20 01/16/20 01/16/20 10:45 11:00 11:15 Temperature Pulse Rate 113 H 113 H 114 H Pulse Rate [ From Monitor] Respiratory 24 24 24 Rate Blood Pressure 107/48 109/51 111/54 O2 Sat by Pulse 96 96 95 Oximetry 01/16/20 01/16/20 01/16/20 11:30 11:45 12:00 Temperature 102.7 F H Pulse Rate 114 H 115 H 113 H Pulse Rate [ 115 H From Monitor] Respiratory 24 24 24 Rate Blood Pressure 110/54 109/55 112/54 O2 Sat by Pulse 96 96 96 Oximetry Constitutional: no acute distress, comatose (Per nursing, no cough, no gag) Eyes: non-icteric ENT: other (orally intubated, not on sedation) Neck: supple, other (large in circumference) Cardiovascular: regular rate and rhythm Gastrointestinal: normoactive bowel sounds CBC and BMP: 01/16/20 04:19 01/16/20 04:19 ABG, PT/INR, D-dimer: ABG ABG pH 7.334 pH Units (7.350-7.450) L 01/16/20 Unknown POC ABG pCO2 59.1 mmHg (32.0-48.0) H 01/15/20 04:20 ABG pCO2 52.7 mm Hg 01/16/20 Unknown POC ABG pO2 49.3 mmHg (83-108) L 01/15/20 04:20 ABG pO2 123.5 mm Hg (80.0-90.0) H 01/16/20 Unknown POC ABG HCO3 27.5 01/15/20 04:20 ABG O2 Saturation Not Reportable 01/16/20 Unknown PT/INR, D-dimer PT 13.9 Sec. (12.2-14.9) 01/09/20 19:03 INR 1.05 (0.87-1.13) 01/09/20 19:03 Abnormal lab findings: Abnormal Labs 01/09/20 01/09/20 01/09/20 18:37 18:47 19:03 WBC 14.0 H RBC 5.18 H Hgb MCV 76 L MCH 22 L MCHC 29 L RDW 22.0 H Plt Count Lymph % (Auto) [place] % (Auto) Lymph # (Auto) [place] # (Auto) Seg Neutrophils % Seg Neuts % (Manual) 76.0 H Lymphocytes % (Manual) Monocytes % (Manual) Nucleated RBC % Seg Neutrophils # Man 10.6 H Lymphocytes # (Manual) Monocytes # (Manual) ABG pH 7.252 L POC ABG pCO2 POC ABG pO2 ABG pO2 172.4 H ABG HCO3 34.3 H ABG O2 Saturation ABG Base Excess 4.9 H ABG Hemoglobin 11.8 L ABG Sodium ABG Potassium ABG Chloride ABG Glucose VBG pH 7.252 L Oxyhemoglobin Sodium Potassium Chloride BUN Creatinine Glucose POC Glucose 177 H Phosphorus Magnesium NT-Pro-B Natriuret Pep Total Protein Albumin Arterial Blood Glucose Urine WBC (Auto) Urine Creatinine 01/09/20 01/09/20 01/09/20 19:03 19:03 21:55 WBC RBC Hgb MCV MCH MCHC RDW Plt Count Lymph % (Auto) [place] % (Auto) Lymph # (Auto) [place] # (Auto) Seg Neutrophils % Seg Neuts % (Manual) Lymphocytes % (Manual) Monocytes % (Manual) Nucleated RBC % Seg Neutrophils # Man Lymphocytes # (Manual) Monocytes # (Manual) ABG pH 7.310 L POC ABG pCO2 POC ABG pO2 ABG pO2 61.8 L ABG HCO3 31.2 H ABG O2 Saturation 90.3 L ABG Base Excess 3.8 H ABG Hemoglobin 10.0 L ABG Sodium ABG Potassium ABG Chloride ABG Glucose VBG pH Oxyhemoglobin 87.8 L Sodium Potassium 3.1 L Chloride 95.2 L BUN Creatinine Glucose 197 H POC Glucose Phosphorus Magnesium NT-Pro-B Natriuret Pep 1345 H Total Protein 8.3 H Albumin Arterial Blood Glucose Urine WBC (Auto) Urine Creatinine 01/10/20 01/10/20 01/10/20 03:35 04:12 10:40 WBC RBC Hgb MCV 76 L MCH 22 L MCHC 29 L RDW 21.4 H Plt Count Lymph % (Auto) 6.0 L [place] % (Auto) Lymph # (Auto) 0.5 L [place] # (Auto) Seg Neutrophils % 87.3 H Seg Neuts % (Manual) Lymphocytes % (Manual) Monocytes % (Manual) Nucleated RBC % Seg Neutrophils # Man Lymphocytes # (Manual) Monocytes # (Manual) ABG pH POC ABG pCO2 POC ABG pO2 ABG pO2 63.8 L ABG HCO3 28.7 H ABG O2 Saturation ABG Base Excess 4.0 H ABG Hemoglobin 10.9 L ABG Sodium ABG Potassium ABG Chloride ABG Glucose VBG pH Oxyhemoglobin 92.8 L Sodium Potassium Chloride BUN Creatinine Glucose POC Glucose Phosphorus Magnesium NT-Pro-B Natriuret Pep Total Protein Albumin Arterial Blood Glucose Urine WBC (Auto) 50.0 H Urine Creatinine 01/10/20 01/11/20 01/11/20 10:40 03:34 09:53 WBC RBC Hgb MCV MCH MCHC RDW Plt Count Lymph % (Auto) [place] % (Auto) Lymph # (Auto) [place] # (Auto) Seg Neutrophils % Seg Neuts % (Manual) Lymphocytes % (Manual) Monocytes % (Manual) Nucleated RBC % Seg Neutrophils # Man Lymphocytes # (Manual) Monocytes # (Manual) ABG pH 7.334 L POC ABG pCO2 POC ABG pO2 ABG pO2 45.9 L ABG HCO3 29.0 H ABG O2 Saturation 76.5 L ABG Base Excess ABG Hemoglobin 9.8 L ABG Sodium ABG Potassium ABG Chloride ABG Glucose VBG pH Oxyhemoglobin 74.7 L Sodium 146 H 147 H Potassium Chloride BUN 23 H Creatinine 1.6 H D 3.0 H D Glucose POC Glucose Phosphorus 2.40 L Magnesium 1.50 L NT-Pro-B Natriuret Pep Total Protein 5.9 L D Albumin 3.2 L Arterial Blood Glucose Urine WBC (Auto) Urine Creatinine 01/11/20 01/11/20 01/12/20 12:25 15:30 00:27 WBC RBC Hgb MCV MCH MCHC RDW Plt Count Lymph % (Auto) [place] % (Auto) Lymph # (Auto) [place] # (Auto) Seg Neutrophils % Seg Neuts % (Manual) Lymphocytes % (Manual) Monocytes % (Manual) Nucleated RBC % Seg Neutrophils # Man Lymphocytes # (Manual) Monocytes # (Manual) ABG pH 7.273 L POC ABG pCO2 58.8 H POC ABG pO2 67.0 L ABG pO2 ABG HCO3 ABG O2 Saturation ABG Base Excess ABG Hemoglobin 10.4 L ABG Sodium ABG Potassium ABG Chloride 108.0 H ABG Glucose VBG pH Oxyhemoglobin Sodium Potassium Chloride BUN Creatinine Glucose POC Glucose 109 H Phosphorus Magnesium NT-Pro-B Natriuret Pep Total Protein Albumin Arterial Blood Glucose Urine WBC (Auto) Urine Creatinine 79.8 H 01/12/20 01/12/20 01/12/20 05:51 09:50 09:50 WBC 13.7 H RBC Hgb 9.5 L MCV 76 L MCH 22 L MCHC 29 L RDW 22.0 H Plt Count Lymph % (Auto) [place] % (Auto) Lymph # (Auto) [place] # (Auto) Seg Neutrophils % Seg Neuts % (Manual) Lymphocytes % (Manual) Monocytes % (Manual) Nucleated RBC % Seg Neutrophils # Man Lymphocytes # (Manual) Monocytes # (Manual) ABG pH 7.311 L POC ABG pCO2 49.5 H POC ABG pO2 81.8 L ABG pO2 ABG HCO3 ABG O2 Saturation ABG Base Excess ABG Hemoglobin 10.8 L ABG Sodium ABG Potassium ABG Chloride 112.0 H ABG Glucose 99 H VBG pH Oxyhemoglobin Sodium 148 H Potassium Chloride 110.7 H BUN 26 H Creatinine 3.0 H Glucose 102 H POC Glucose Phosphorus Magnesium NT-Pro-B Natriuret Pep Total Protein 5.8 L Albumin 2.4 L Arterial Blood Glucose 99 H Urine WBC (Auto) Urine Creatinine 01/13/20 01/13/20 01/13/20 04:11 06:28 06:28 WBC RBC Hgb 9.3 L MCV 77 L MCH 22 L MCHC 29 L RDW 22.2 H Plt Count Lymph % (Auto) 13.1 L [place] % (Auto) 9.3 H Lymph # (Auto) [place] # (Auto) 0.9 H Seg Neutrophils % 75.6 H Seg Neuts % (Manual) Lymphocytes % (Manual) Monocytes % (Manual) Nucleated RBC % Seg Neutrophils # Man Lymphocytes # (Manual) Monocytes # (Manual) ABG pH 7.289 L POC ABG pCO2 54.9 H POC ABG pO2 ABG pO2 ABG HCO3 ABG O2 Saturation ABG Base Excess ABG Hemoglobin ABG Sodium ABG Potassium ABG Chloride ABG Glucose VBG pH Oxyhemoglobin Sodium 152 H Potassium Chloride 115.5 H BUN 25 H Creatinine 3.9 H Glucose 132 H POC Glucose Phosphorus Magnesium NT-Pro-B Natriuret Pep Total Protein Albumin Arterial Blood Glucose Urine WBC (Auto) Urine Creatinine 10/11/20 10/11/20 10/12/20 12:07 17:44 04:00 WBC RBC Hgb MCV MCH MCHC RDW Plt Count Lymph % (Auto) [place] % (Auto) Lymph # (Auto) [place] # (Auto) Seg Neutrophils % Seg Neuts % (Manual) Lymphocytes % (Manual) Monocytes % (Manual) Nucleated RBC % Seg Neutrophils # Man Lymphocytes # (Manual) Monocytes # (Manual) ABG pH 7.269 L POC ABG pCO2 56.4 H POC ABG pO2 75.2 L ABG pO2 ABG HCO3 ABG O2 Saturation ABG Base Excess ABG Hemoglobin 10.9 L ABG Sodium 152.1 H ABG Potassium ABG Chloride 119.0 H ABG Glucose 113 H VBG pH Oxyhemoglobin Sodium Potassium Chloride BUN Creatinine Glucose POC Glucose 106 H 133 H Phosphorus Magnesium NT-Pro-B Natriuret Pep Total Protein Albumin Arterial Blood Glucose 113 H Urine WBC (Auto) Urine Creatinine 01/14/20 01/14/20 01/14/20 05:11 05:11 09:05 WBC RBC Hgb 9.3 L MCV 77 L MCH 22 L MCHC 29 L RDW 22.1 H Plt Count 126 L Lymph % (Auto) 7.8 L [place] % (Auto) 9.9 H Lymph # (Auto) 0.7 L [place] # (Auto) Seg Neutrophils % 79.2 H Seg Neuts % (Manual) Lymphocytes % (Manual) Monocytes % (Manual) Nucleated RBC % Seg Neutrophils # Man Lymphocytes # (Manual) Monocytes # (Manual) ABG pH 7.309 L POC ABG pCO2 POC ABG pO2 ABG pO2 94.6 H ABG HCO3 ABG O2 Saturation ABG Base Excess ABG Hemoglobin 10.3 L ABG Sodium ABG Potassium ABG Chloride ABG Glucose VBG pH Oxyhemoglobin 94.4 L Sodium 157 H Potassium 3.5 L D Chloride 118.5 H BUN 25 H Creatinine 4.0 H Glucose 111 H POC Glucose Phosphorus Magnesium NT-Pro-B Natriuret Pep Total Protein Albumin Arterial Blood Glucose Urine WBC (Auto) Urine Creatinine 01/14/20 01/14/20 01/15/20 12:20 16:32 04:00 WBC RBC Hgb MCV MCH MCHC RDW Plt Count Lymph % (Auto) [place] % (Auto) Lymph # (Auto) [place] # (Auto) Seg Neutrophils % Seg Neuts % (Manual) Lymphocytes % (Manual) Monocytes % (Manual) Nucleated RBC % Seg Neutrophils # Man Lymphocytes # (Manual) Monocytes # (Manual) ABG pH POC ABG pCO2 POC ABG pO2 ABG pO2 ABG HCO3 ABG O2 Saturation ABG Base Excess ABG Hemoglobin ABG Sodium ABG Potassium ABG Chloride ABG Glucose VBG pH Oxyhemoglobin Sodium 154 H Potassium 3.1 L Chloride 116.5 H BUN 27 H Creatinine 3.8 H Glucose 138 H POC Glucose 123 H 142 H Phosphorus Magnesium NT-Pro-B Natriuret Pep Total Protein Albumin Arterial Blood Glucose Urine WBC (Auto) Urine Creatinine 01/15/20 01/15/20 01/15/20 04:00 04:20 04:25 WBC RBC Hgb 9.2 L MCV 77 L MCH 22 L MCHC 29 L RDW 22.4 H Plt Count 95 L Lymph % (Auto) [place] % (Auto) 9.4 H Lymph # (Auto) 0.8 L [place] # (Auto) Seg Neutrophils % 73.2 H Seg Neuts % (Manual) Lymphocytes % (Manual) Monocytes % (Manual) Nucleated RBC % Seg Neutrophils # Man Lymphocytes # (Manual) Monocytes # (Manual) ABG pH 7.285 L POC ABG pCO2 59.1 H POC ABG pO2 49.3 L ABG pO2 ABG HCO3 ABG O2 Saturation ABG Base Excess ABG Hemoglobin 10.7 L ABG Sodium 152.8 H ABG Potassium 3.1 L ABG Chloride 121.0 H ABG Glucose 138 H VBG pH Oxyhemoglobin Sodium Potassium Chloride BUN Creatinine Glucose POC Glucose Phosphorus Magnesium 1.60 L NT-Pro-B Natriuret Pep Total Protein Albumin Arterial Blood Glucose 138 H Urine WBC (Auto) Urine Creatinine 01/16/20 01/16/20 01/16/20 00:20 04:19 04:19 WBC RBC Hgb 9.4 L MCV 77 L MCH 22 L MCHC 29 L RDW 22.8 H Plt Count 99 L Lymph % (Auto) [place] % (Auto) Lymph # (Auto) [place] # (Auto) Seg Neutrophils % Seg Neuts % (Manual) 73.0 H Lymphocytes % (Manual) 12.0 L Monocytes % (Manual) 12.0 H Nucleated RBC % 4.0 H Seg Neutrophils # Man Lymphocytes # (Manual) 0.9 L Monocytes # (Manual) 0.9 H ABG pH POC ABG pCO2 POC ABG pO2 ABG pO2 ABG HCO3 ABG O2 Saturation ABG Base Excess ABG Hemoglobin ABG Sodium ABG Potassium ABG Chloride ABG Glucose VBG pH Oxyhemoglobin Sodium 154 H Potassium Chloride 115.8 H BUN 28 H Creatinine 4.0 H Glucose 130 H POC Glucose 149 H Phosphorus Magnesium NT-Pro-B Natriuret Pep Total Protein Albumin Arterial Blood Glucose Urine WBC (Auto) Urine Creatinine 01/16/20 01/16/20 01/16/20 05:31 11:59 Unknown WBC RBC Hgb MCV MCH MCHC RDW Plt Count Lymph % (Auto) [place] % (Auto) Lymph # (Auto) [place] # (Auto) Seg Neutrophils % Seg Neuts % (Manual) Lymphocytes % (Manual) Monocytes % (Manual) Nucleated RBC % Seg Neutrophils # Man Lymphocytes # (Manual) Monocytes # (Manual) ABG pH 7.334 L POC ABG pCO2 POC ABG pO2 ABG pO2 123.5 H ABG HCO3 27.4 H ABG O2 Saturation ABG Base Excess ABG Hemoglobin ABG Sodium ABG Potassium ABG Chloride ABG Glucose VBG pH Oxyhemoglobin Sodium Potassium Chloride BUN Creatinine Glucose POC Glucose 138 H 135 H Phosphorus Magnesium NT-Pro-B Natriuret Pep Total Protein Albumin Arterial Blood Glucose Urine WBC (Auto) Urine Creatinine
[2020-01-16] MEDS ORDERED: MAGNESIUM SULFATE 2 GM/50 ML BAG IV ONE (13:00)
[2020-01-17] MEDS: NORepinephrine 8 MG in SODIUM CHLORIDE 0.9% 250ML 242 ML IV SCH ×2 (01:40→13:05)
[2020-01-17 04:26] LABS: ABG Base Excess -1.6 mmol/L (-2.0-3.0); ABG HCO3 24.2 mmol/L (20.0-26.0); ABG Methemoglobin 0.5 % (0.0-1.5); ABG Oxygen Saturation 96.5 % (95.0-99.0); ABG PCO2 45.4 mm Hg; ABG PH 7.344 pH Units (7.350-7.450); ABG PO2 76.8 mm Hg (80.0-90.0)
[2020-01-17 05:16] LABS: Mean Corpuscular HGB Conc 29 % (30-34); Mean Corpuscular Volume 76 fl (79-97); Red Blood Count 4.12 M/mm3 (3.65-5.03)
[2020-01-17 05:23] LABS: Hematocrit 31.1 % (30.3-42.9); Hemoglobin 9.1 gm/dl (10.1-14.3)
[2020-01-17 05:24] LABS: Platelet Count 72 K/mm3 (140-440); Red Cell Distribution Width 22.8 % (13.2-15.2)
[2020-01-17 05:25] LABS: Basophils % (Auto) 1.9 % (0.0-1.8); Eosinophils % (Auto) 2.3 % (0.0-4.3); Lymphocytes # (Auto) 1.4 K/mm3 (1.2-5.4); Lymphocytes % (Auto) 12.7 % (13.4-35.0); Monocytes % (Auto) 6.7 % (0.0-7.3)
[2020-01-17 05:26] LABS: Basophils # (Auto) 0.2 K/mm3 (0.0-0.1); Eosinophils # (Auto) 0.3 K/mm3 (0.0-0.4); Monocytes # (Auto) 0.7 K/mm3 (0.0-0.8)
[2020-01-17 05:27] LABS: Calcium 9.1 mg/dL (8.4-10.2)
--- NOTE | 2020-01-17 08:26 | Progress Note ---
Assessment and Plan Assessment and plan: --Perry PCR negative, 01/10/2020 --Metabolic encephalopathy versus hypoxic encephalopathy; present on admission Patient remains unresponsive since admission Intubated on vent, hypotensive on Levophed Unable to get CT scan as patient is unstable and morbidly obese Neurology evaluation and recommendations noted and appreciated. EEG requested ,continue current supportive care --Acute hypoxic respiratory failure; intubated on mechanical ventilation We will continue supportive care and Wean as tolerated and extubate Pulmonary critical following --History of obstructive sleep apnea /possible OHS Intubated on mechanical ventilation --Hypotension/shock; Continues to be on vasopressor Levophed Gentle hydration --Acute on chronic systolic congestive heart failure; Echo;EF 45 to 50%, Management per cardiology --Acute kidney injury-worsening renal function cr today 4.7 secondary to vasomotor nephropathy, prerenal, hypotension Gentle hydration, avoid nephrotoxins, nephrology following --Morbid obesity; BMI 55.1 Patient needs weight reduction when medically stable --Moderate-malnutrition/hypoalbuminemia Supportive care, nutrition consult --PUI/high suspicion for COVID-19; Perry PCR negative --DVT prophylaxis;Lovenox --Full CODE STATUS We will closely monitor the patient and adjust management , . Patient is critically ill, with very 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. Family aware Plan of care reviewed with the patient's nurse. Health caregivers discussed periodically with the mother and updated patient's condition Poor prognosis, goals of treatment, CODE STATUS, she wants everything to be done at this point 01/14/20; I called and discussed with patient's mother Ms. Juliet Purcell, patient's condition Poor prognosis, treatment plan and consultants recommendations 01/16/20; family visited last night[01/14], patient's mother is in denial and has unrealistic expectations She wants full CODE STATUS and complete treatment and believes that her daughter will come out of this. Communication with [place] physicians; 01/13/[address] [place] physician [address] Mcginnis and updated patient's condition with 01/15/2020; discussed with [place] physician , updated patient's condition 01/16/2020: Discussed with [place] physician , answered all her questions 01/17/2020; discussed with [place] physician and discussed about patient's condition 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 and treatment plan The high probability of a clinically significant, sudden or life threatening deterioration of the [Respiratory, ID, CVs] system(s) required my full and direct attention, intervention and personal management. The aggregate critical care time was [33] minutes. This time is in addition to time spent performing reported procedures but includes the following: [x] Data Review and interpretation [x] Patient assessment and monitoring of vital signs [x] Documentation [x] Medication orders and management 01/10; patient remains hypotensive on Levophed, added IV fluids, follow echocardiogram for LV function 01/11; patient remains intubated on vent, unable to get CT head as patient is unstable and morbidly obese 01/12; patient remains hypotensive on Levophed, on ventilatory support, worsening renal function nephrology evaluation appreciated Hypernatremia, free water flushes via Dobbhoff, monitor electrolytes/discussed with [place] physician 01/13; multiple electrolyte abnormalities,remains hypotensive, worsening renal function, I discussed with patient's mother over the phone. Neurology consulted, discussed with Dr. Shaknar Sevilla 01/14; neurology evaluated the patient today, absent reflexes, 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, pending CT head, EEG 01/15; discussed with [place] physician and updated patient's condition, 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 01/16; patient remains unresponsive, remains hypotensive on Levophed, remains intubated on vent, worsening renal function, Disposition; follow clinically, follow neurology recommendations Brief history; 44-year-old morbidly obese -[place]anish female patient with history of chronic hypercapnic hypoxic respiratory failure, sleep apnea, morbid obesity, on home oxygen, home BiPAP follows with [facility] was admitted th [facility] emergency room with altered level of consciousness, unresponsiveness, acute hypoxic respiratory failure requiring intubation, admitted to ICU noted to have shock, pressor dependent, acute renal failure, fever, severe metabolic versus hypoxic encephalopathy. Patient continued to deteriorate. Critically ill very unstable, unable to get neuro work-up like CT head, MRI/MRA. Pulmonary critical, cardiology, nephrology and neurology are following the patient. All the healthcare providers including me have periodically discussed extensively with patient's mother Ms. Juliet Purcell of patient's critical condition Poor prognosis . Patient's mother continued to be in denial with unrealistic expectations wants everything to be done. History Interval history: I have seen and examined the patient at the bedside this morning Patient's chart, tests and reports and current medications reviewed Patient remains intubated on ventilatory support Afebrile, unresponsive Pressor dependent on Levophed Vital signs noted Hospitalist Physical - Constitutional Vitals: Temp Pulse Resp BP Pulse Ox 98.0 F 68 16 115/77 100 01/17/20 04:00 01/17/20 08:15 01/17/20 06:45 01/17/20 08:15 01/17/20 08:15 General appearance: Present: well-nourished, obese (Morbidly obese), other (Intubated on vent, unresponsive) - EENT Eyes: Present: PERRL (Absent reflexes) ENT: other (ET tube and Dobbhoff in place) - Neck Neck: Present: supple, normal ROM - Respiratory Respiratory effort: normal Respiratory: bilateral: diminished, negative: rales, rhonchi, wheezing - Cardiovascular Rhythm: regular Heart Sounds: Present: S1 & S2 - Extremities Extremities: no ischemia Extremity abnormal: edema - Abdominal General gastrointestinal: soft, non-tender, non-distended, normal bowel sounds - Integumentary Integumentary: Present: clear, warm - Psychiatric Psychiatric: other (Unresponsive, intubated on vent) - Neurologic Neurologic: other (Unresponsive intubated and on vent) HEART Score - HEART Score Age: < 45 Risk factors: 1-2 risk factors Troponin: Troponin T 0.013 ng/mL (0.00-0.029) 01/09/20 22:19 - Critical Actions Critical Actions: 4-6 pts:12-16.6% risk of adverse cardiac event. Should be admitted Results - Labs CBC & Chem 7: 01/17/20 04:00 01/17/20 04:00 Labs: Laboratory Last Values WBC 11.0 K/mm3 (4.5-11.0) 01/17/20 04:00 RBC 4.12 M/mm3 (3.65-5.03) 01/17/20 04:00 Hgb 9.1 gm/dl (10.1-14.3) L 01/17/20 04:00 Hct 31.1 % (30.3-42.9) 01/17/20 04:00 MCV 76 fl (79-97) L 01/17/20 04:00 MCH 22 pg (28-32) L 01/17/20 04:00 MCHC 29 % (30-34) L 01/17/20 04:00 RDW 22.8 % (13.2-15.2) H 01/17/20 04:00 Plt Count 72 K/mm3 (140-440) L 01/17/20 04:00 Lymph % (Auto) 12.7 % (13.4-35.0) L 01/17/20 04:00 [place] % (Auto) 6.7 % (0.0-7.3) 01/17/20 04:00 Eos % (Auto) 2.3 % (0.0-4.3) 01/17/20 04:00 Baso % (Auto) 1.9 % (0.0-1.8) H 01/17/20 04:00 Lymph # (Auto) 1.4 K/mm3 (1.2-5.4) 01/17/20 04:00 [place] # (Auto) 0.7 K/mm3 (0.0-0.8) 01/17/20 04:00 Eos # (Auto) 0.3 K/mm3 (0.0-0.4) 01/17/20 04:00 Baso # (Auto) 0.2 K/mm3 (0.0-0.1) H 01/17/20 04:00 Add Manual Diff Complete 01/16/20 04:19 Total Counted 100 01/16/20 04:19 Seg Neutrophils % 76.4 % (40.0-70.0) H 01/17/20 04:00 Seg Neuts % (Manual) 73.0 % (40.0-70.0) H 01/16/20 04:19 Band Neutrophils % 0 % 01/16/20 04:19 Lymphocytes % (Manual) 12.0 % (13.4-35.0) L 01/16/20 04:19 Reactive Lymphs % (Man) 1.0 % 01/16/20 04:19 Monocytes % (Manual) 12.0 % (0.0-7.3) H 01/16/20 04:19 Eosinophils % (Manual) 2.0 % (0.0-4.3) 01/16/20 04:19 Basophils % (Manual) 0 % (0.0-1.8) 01/16/20 04:19 Metamyelocytes % 0 % 01/16/20 04:19 Myelocytes % 0 % 01/16/20 04:19 Promyelocytes % 0 % 01/16/20 04:19 Blast Cells % 0 % 01/16/20 04:19 Nucleated RBC % 4.0 % (0.0-0.9) H 01/16/20 04:19 Seg Neutrophils # 8.4 K/mm3 (1.8-7.7) H 01/17/20 04:00 Seg Neutrophils # Man 5.5 K/mm3 (1.8-7.7) 01/16/20 04:19 Band Neutrophils # 0.0 K/mm3 01/16/20 04:19 Lymphocytes # (Manual) 0.9 K/mm3 (1.2-5.4) L 01/16/20 04:19 Abs React Lymphs (Man) 0.1 K/mm3 01/16/20 04:19 Monocytes # (Manual) 0.9 K/mm3 (0.0-0.8) H 01/16/20 04:19 Eosinophils # (Manual) 0.2 K/mm3 (0.0-0.4) 01/16/20 04:19 Basophils # (Manual) 0.0 K/mm3 (0.0-0.1) 01/16/20 04:19 Metamyelocytes # 0.0 K/mm3 01/16/20 04:19 Myelocytes # 0.0 K/mm3 01/16/20 04:19 Promyelocytes # 0.0 K/mm3 01/16/20 04:19 Blast Cells # 0.0 K/mm3 01/16/20 04:19 WBC Morphology Not Reportable 01/16/20 04:19 Hypersegmented Neuts Not Reportable 01/16/20 04:19 Hyposegmented Neuts Not Reportable 01/16/20 04:19 Hypogranular Neuts Not Reportable 01/16/20 04:19 Smudge Cells Not Reportable 01/16/20 04:19 Toxic Granulation Not Reportable 01/16/20 04:19 Toxic Vacuolation Not Reportable 01/16/20 04:19 Dohle Bodies Not Reportable 01/16/20 04:19 Pelger-Huet Anomaly Not Reportable 01/16/20 04:19 Dominique Rods Not Reportable 01/16/20 04:19 Platelet Estimate Consistent w auto 01/16/20 04:19 Clumped Platelets Not Reportable 01/16/20 04:19 Plt Clumps, EDTA Not Reportable 01/16/20 04:19 Large Platelets Few 01/16/20 04:19 Giant Platelets Not Reportable 01/16/20 04:19 Platelet Satelliting Not Reportable 01/16/20 04:19 Plt Morphology Comment Not Reportable 01/16/20 04:19 RBC Morphology Not Reportable 01/16/20 04:19 Dimorphic RBCs Not Reportable 01/16/20 04:19 Polychromasia Not Reportable 01/16/20 04:19 Hypochromasia 1+ 01/16/20 04:19 Poikilocytosis Not Reportable 01/16/20 04:19 Anisocytosis 1+ 01/16/20 04:19 Microcytosis Not Reportable 01/16/20 04:19 Macrocytosis Not Reportable 01/16/20 04:19 Spherocytes Not Reportable 01/16/20 04:19 Pappenheimer Bodies Not Reportable 01/16/20 04:19 Sickle Cells Not Reportable 01/16/20 04:19 Target Cells Not Reportable 01/16/20 04:19 Tear Drop Cells Not Reportable 01/16/20 04:19 Ovalocytes Not Reportable 01/16/20 04:19 Helmet Cells Not Reportable 01/16/20 04:19 Feliz-Rule Bodies Not Reportable 01/16/20 04:19 [place] Rings Not Reportable 01/16/20 04:19 [place] Cells Not Reportable 01/16/20 04:19 Bite Cells Not Reportable 01/16/20 04:19 Crenated Cell Not Reportable 01/16/20 04:19 Elliptocytes Not Reportable 01/16/20 04:19 Acanthocytes (Spur) Not Reportable 01/16/20 04:19 Rouleaux Not Reportable 01/16/20 04:19 Hemoglobin C Crystals Not Reportable 01/16/20 04:19 Schistocytes Not Reportable 01/16/20 04:19 Malaria parasites Not Reportable 01/16/20 04:19 Beka Bodies Not Reportable 01/16/20 04:19 Hem Pathologist Commnt No 01/16/20 04:19 PT 13.9 Sec. (12.2-14.9) 01/09/20 19:03 INR 1.05 (0.87-1.13) 01/09/20 19:03 ABG pH 7.344 pH Units (7.350-7.450) L 01/17/20 03:50 POC ABG pCO2 59.1 mmHg (32.0-48.0) H 01/15/20 04:20 ABG pCO2 45.4 mm Hg 01/17/20 03:50 POC ABG pO2 49.3 mmHg (83-108) L 01/15/20 04:20 ABG pO2 76.8 mm Hg (80.0-90.0) L 01/17/20 03:50 POC ABG HCO3 27.5 01/15/20 04:20 ABG HCO3 24.2 mmol/L (20.0-26.0) 01/17/20 03:50 ABG O2 Saturation 96.5 % (95.0-99.0) 01/17/20 03:50 ABG O2 Content 12.4 (0.0-44) 01/17/20 03:50 POC ABG Base Excess 0 01/15/20 04:20 ABG Base Excess -1.6 mmol/L (-2.0-3.0) 01/17/20 03:50 ABG Hemoglobin 9.4 gm/dl (12.0-16.0) L 01/17/20 03:50 ABG Carboxyhemoglobin 2.3 % (0.0-5.0) 01/17/20 03:50 ABG Methemoglobin 0.5 % (0.0-1.5) 01/17/20 03:50 ABG Sodium 152.8 mmol/L (136.0-145.0) H 01/15/20 04:20 ABG Potassium 3.1 mmol/L (3.40-4.50) L 01/15/20 04:20 ABG Chloride 121.0 mmol/L (98-107) H 01/15/20 04:20 ABG Glucose 138 mg/dL (65-95) H 01/15/20 04:20 VBG pH 7.252 (7.320-7.420) L 01/09/20 18:37 Oxyhemoglobin 93.8 % (95.0-99.0) L 01/17/20 03:50 FiO2 60 % 01/17/20 03:50 Sodium 151 mmol/L (137-145) H 01/17/20 04:00 Potassium 4.0 mmol/L (3.6-5.0) 01/17/20 04:00 Chloride 113.3 mmol/L (98-107) H 01/17/20 04:00 Carbon Dioxide 24 mmol/L (22-30) 01/17/20 04:00 Anion Gap 18 mmol/L 01/17/20 04:00 BUN 39 mg/dL (7-17) H 01/17/20 04:00 Creatinine 4.7 mg/dL (0.6-1.2) H 01/17/20 04:00 Estimated GFR 12 ml/min 01/17/20 04:00 BUN/Creatinine Ratio 8 % 01/17/20 04:00 Glucose 110 mg/dL (65-100) H 01/17/20 04:00 POC Glucose 107 (70-105) H 01/17/20 05:57 Hemoglobin A1c 5.9 % (4-6) 01/10/20 07:36 Lactic Acid 1.20 mmol/L (0.7-2.0) 01/09/20 22:19 Calcium 9.1 mg/dL (8.4-10.2) 01/17/20 04:00 Phosphorus 3.20 mg/dL (2.5-4.5) D 01/11/20 09:53 Magnesium 1.60 mg/dL (1.7-2.3) L 01/15/20 04:00 Total Bilirubin 0.70 mg/dL (0.1-1.2) 01/12/20 09:50 AST 17 units/L (5-40) 01/12/20 09:50 ALT 10 units/L (7-56) 01/12/20 09:50 Alkaline Phosphatase 100 units/L (35-129) 01/12/20 09:50 Troponin T 0.013 ng/mL (0.00-0.029) 01/09/20 22:19 NT-Pro-B Natriuret Pep 1345 pg/mL (0-450) H 01/09/20 19:03 Total Protein 5.8 g/dL (6.3-8.2) L 01/12/20 09:50 Albumin 2.4 g/dL (3.9-5) L 01/12/20 09:50 Albumin/Globulin Ratio 0.7 % 01/12/20 09:50 HCG, Qual Negative (Negative) 01/09/20 19:03 Arterial Blood Glucose 138 mg/dL (65-95) H 01/15/20 04:20 Arterial Blood Ionized Calcium 5.2 mg/dL (4.6-5.3) 01/15/20 04:20 Urine Color Yellow (Yellow) 01/10/20 04:12 Urine Turbidity Cloudy (Clear) 01/10/20 04:12 Urine pH 7.0 (5.0-7.0) 01/10/20 04:12 Ur Specific [place] 1.007 (1.003-1.030) 01/10/20 04:12 Urine Protein >500 mg/dL (Negative) 01/10/20 04:12 Urine Glucose (UA) 50 mg/dL (Negative) 01/10/20 04:12 Urine Ketones Neg mg/dL (Negative) 01/10/20 04:12 Urine Blood Mod (Negative) 01/10/20 04:12 Urine Nitrite Neg (Negative) 01/10/20 04:12 Urine Bilirubin Neg (Negative) 01/10/20 04:12 Urine Urobilinogen < 2.0 mg/dL (<2.0) 01/10/20 04:12 Ur Leukocyte Esterase Neg (Negative) 01/10/20 04:12 Urine WBC (Auto) 50.0 /HPF (0.0-6.0) H 01/10/20 04:12 Urine RBC (Auto) 17.0 /HPF (0.0-6.0) 01/10/20 04:12 U Epithel Cells (Auto) 1.0 /HPF (0-13.0) 01/10/20 04:12 Urine Bacteria (Auto) 2+ /HPF (Negative) 01/10/20 04:12 Urine Mucus Few /HPF 01/10/20 04:12 Urine Yeast (Budding) 3+ /HPF 01/10/20 04:12 Urine Creatinine 79.8 mg/dL (0.1-20.0) H 01/11/20 12:25 Urine Sodium 50 mmol/L 01/11/20 12:25 Urine Urea Nitrogen 83 01/11/20 12:25 Immunofix Electrophor see below 01/12/20 17:23 Complement C3 150 mg/dL (83-193) 01/12/20 17:23 Complement C4 45 mg/dL (15-57) 01/12/20 17:23 Coronavirus (PCR) Negative (Negative) 01/10/20 10:27 Microbiology: Microbiology 01/16/20 00:50 Peripheral/Venous Blood Culture - Preliminary NO GROWTH AFTER 24 HOURS 01/16/20 00:55 Peripheral/Venous Blood Culture - Preliminary - Diagnostic Impressions Diagnostic Impressions: Echocardiogram 01/10/20 07:42 Transthoracic Echocardiogram Indication: Dyspnea BP: 102/54 HR: 100 Conclusions *The study quality is technically difficult. *Severe concentric left ventricular hypertrophy is observed. *The estimated ejection fraction is 45-50%. *The right ventricular global systolic function is mildly reduced. Findings Procedure Info: The study quality is technically difficult. Left Ventricle: The left ventricular chamber size is normal. Severe concentric left ventricular hypertrophy is observed. Global left ventricular systolic function is at the lower limits of normal. The estimated ejection fraction is 45-50%. Abnormal left ventricular diastolic filling is observed, consistent with impaired relaxation. Left Atrium: The left atrial chamber size is normal. Right Ventricle: The right ventricular global systolic function is mildly reduced. Aortic Valve: Mild aortic leaflet calcification is visualized. There is no evidence of aortic regurgitation. Mitral Valve: The mitral valve leaflets are mildly thickened. There is no evidence of mitral regurgitation. Tricuspid Valve: The tricuspid valve leaflets are normal. There is no evidence of tricuspid valve regurgitation. Pulmonic Valve: The pulmonic valve is not well visualized. There is no evidence of pulmonic regurgitation. Pericardium: A trivial pericardial effusion is visualized. Aorta: The aorta appears normal. Measurements Chambers 2D Name Value Normal Range IVSd (2D) 1.86 cm (0.6 - 1.1) LVPWd (2D) 1.74 cm (0.6 - 1.1) IVS:LVPW ratio (2D) 1.07 ratio - LVIDd (2D) 4.47 cm (3.7 - 5.6) LVIDs (2D) 3.74 cm (2 - 3.8) LV FS (Teichholz) (2D) 16.3 % - LV FS (cube) (2D) 16.3 % - Ao root diameter (2D) 3.1 cm (2 - 3.7) LA dimension (AP) 2D 3.5 cm (1.9 - 4) LA:Ao ratio (2D) 1.13 ratio - Volumes/Mass Name Value Normal Range LA ESV SP 4CH (MOD) 41 ml - LA ESV SP 2CH (MOD) 61 ml - LA ESV BP (MOD) 51 ml - LA ESV BP (MOD) index 20.3 ml/m2 - LV EDV SP 4CH (MOD) 88 ml - LV ESV SP 4CH (MOD) 47 ml - EF SP 4CH (MOD) 47 % - LV EDV SP 2CH (MOD) 62 ml - LV ESV SP 2CH (MOD) 37 ml - EF SP 2CH (MOD) 40 % - LV EDV BP 79 ml - LV ESV BP 41 ml - BP EF (MOD) 48 % - Diastolic/Systolic Function Name Value Normal Range MV E-wave Vmax 0.58 m/sec - MV deceleration time 208 msec - MV A-wave Vmax 0.6 m/sec - MV E:A ratio 1 ratio - LV septal e' Vmax 0.04 m/sec - LV lateral e' Vmax 0.03 m/sec - LV E:e' septal ratio 13.3 ratio - LV E:e' lateral ratio 18.1 ratio - Aortic Valve Name Value Normal Range AV VTI 19.2 cm - AV mean gradient 5 mmHg - LVOT diameter 2.4 cm - LVOT VTI 18 cm - LVOT mean gradient 5 mmHg - SV LVOT 81 ml - CL (continuity VTI) 4.24 cm2 - Pulmonic Valve/Qp:Qs Name Value Normal Range PV Vmax 1.01 m/sec - PV peak gradient 4 mmHg - PV acceleration time 102 msec - Gomez/IV: Voiding Method Indwelling Catheter IV Catheter Type [Left Forearm Peripheral IV ] IV Catheter Type [Right Triple Lumen Cath Internal Jugular] IV Catheter Type [Right Hand] INT / Saline Lock Active Medications - Current Medications Current Medications: Generic Name Dose Route Start Last Admin Trade Name Freq PRN Reason Stop Dose Admin Acetaminophen 650 mg 01/10/20 08:00 01/16/20 13:59 Tylenol PO 650 mg Q4H PRN Administration Pain MILD(1-3)/Fever >100.5/CHRISTINA Lipase/Protease/Amylase 1 each 01/10/20 08:00 Pancrelety Gomez 10,500 Unit FEEDTUBE PRN PRN For Clogged Feeding Tube Famotidine 20 mg 01/12/20 10:00 01/16/20 09:50 Pepcid PO 20 mg DAILY KANIKA Administration Norepinephrine 8 mg/ Sodium 250 mls @ 3.75 mls/hr 01/14/20 10:00 01/17/20 02:50 Chloride IV 8 mcg/min TITR KANIKA 15 mls/hr Titration Protocol 2 MCG/MIN Cefepime HCl 2 gm in 100 mls @ 200 mls/hr 01/17/20 22:00 Cefepime/Ns 2 Gm/100 Ml IV Q24H KANIKA Protocol Metoclopramide HCl 10 mg 01/10/20 08:00 Reglan IV Q6H PRN Nausea And Vomiting Ondansetron HCl 4 mg 01/10/20 08:00 Zofran IV Q8H PRN Nausea And Vomiting Senna/Docusate Sodium 2 tab 01/15/20 10:00 01/16/20 21:48 Senokot S PO 2 tab BID KANIKA Administration Simple Syrup 15 ml 01/10/20 08:00 Simple Syrup FEEDTUBE PRN PRN Hypoglycemia Simple Syrup 30 ml 01/10/20 08:00 Simple Syrup FEEDTUBE PRN PRN Hypoglycemia Sodium Bicarbonate 325 mg 01/10/20 08:00 Sodium Bicarbonate FEEDTUBE PRN PRN For Clogged Feeding Tube Sodium Chloride 10 ml 01/10/20 10:00 01/16/20 21:48 Sodium Chloride Flush Syringe 10 Ml IV 10 ml BID KANIKA Administration Sodium Chloride 10 ml 01/10/20 08:00 Sodium Chloride Flush Syringe 10 Ml IV PRN PRN LINE FLUSH Nutrition/Malnutrition Assess - Dietary Evaluation Nutrition/Malnutrition Findings: Nutrition Notes Start: 01/10/20 08:12 Freq: Status: Active Protocol: Document 01/15/20 12:32 LAURI (Rec: 01/15/20 12:49 LAURI [id number]) Co-Sign 01/15/20 12:32 SUKHDEV Nutrition Notes Initial or Follow up Reassessment Current Diagnosis Acute Kidney Injury,COPD, Sepsis,Hypertension,Heart Failure Other Pertinent Diagnosis Acute PE, hypokalemia Current Diet Vital AF 1.2 at 60 ml/hr Labs/Tests Na 154 K 3.1 BUN 27 Cr 3.8 Pertinent Medications KCl 20 meq Norepinephrine Height 5 ft 6 in Weight 159.8 kg Yulan Body Weight (kg) 59.09 BMI 56.8 Weight change and time frame Wt change noted. Pt has edema. Weight Status Morbidly Obese Subjective/Other Information F/U for TF start/tolerance. Per chart, pt TF was paused for residuals of 220 and increased pressors. TF running at 30 ml/hr at time of visit. Per RN, pt has not had any BM . Percent of energy/protein needs met: 49%/37% Burn Absent Trauma Absent Current % PO Negligible Minimum of two criteria No Fluid Accumulation Moderate to Severe (severe) #1 Nutrition Diagnosis Inadequate oral intake Diagnosis Progress(for reassessment Continues documentation) Is patient on ventilator? Yes Is Patient Ambulatory and/or Out of Bed No REE-([facility]-confined to bed) 2731.812 Kcal/Kg value to use for calculation 11 Approximate Energy Requirements Using 1758 kcal/Kg Calculation Used for Recommendations Kcal/kg Additional Notes Pro: 147 g (up to 2.5 g/kg IBW ) Fluid: 1.5-1.9 L Nutrition Intervention Change Diet Order: Continue TF Nutrition Support: Vital AF 1.2 at 60 ml/hr Flush 60 ml q4h Kcal 1,728 Protein (gm) 108 Fluid (mL) 1,167 Goal #1 TF tolerance Goal #2 Meet at least 75% energy and protein needs via TF Follow-Up By: 01/17/20 Additional Comments F/U for TF tolerance
--- NOTE | 2020-01-17 09:37 | Progress Note ---
Assessment and Plan 44 y/o female with acute respiratory failure, hypothermia and encephalopathic. 1. Pulm-intubated, not sedated. Remains unresponsive. Continue high PEEP and wean FiO2 for sats >88%. . patient is not breathing over the vent. Dropped rate down and watched at the bedside myself. On 55% now with sats in the mid 90's. Unable to diurese given pressor requirement. 2. CV-echo read and shows systolic heart failure. EF of 45%. Remains on pressors. Renal function worsening. Still could be poor forward flow. Consider cards consult and ask about intropic therapy if patient doesn't respond to repeat fluid boluses which she hasn't. Cards evaluated, no mention of inotropic support. 3. Neuro-completely unresponsive. Neurology note reviewed. Per them, clinical picture is too clouded and not enough definitive information to diagnosis, brain vs severe hypoxic injury. They are performing tele exams. 4. Renal-worsening renal function. Renal following. Hold on boluses today. 5. GI-WIll restart feeds today 6. Prophylaxis-stopping heparin given drop in platelets 7. Prognosis remains very very guarded to poor. Per nursing family came up and visited last night. No changes made. 01/13/2020: Spoke with mother this am. I have tried to explain that the patient's comatose state is not good given that she has not required any sedation since admission. Hemodynamically she remains unstable and requires too much PEEP for transfer to CT scanner. I explained the current plan and she expressed understanding but I am not sure that she gets it. Per her, the son's were on the phone but they had no questions. May need to offer her to come see her daughter, maybe this will help her to understand whats going on. 01/11/2020: Spoke with mother on speaker phone with patients' two boys who are 18 and 21. Explained to them the patient's mental state (comatose) and oxygen dependence and renal failure. Per the mother, patient was obtunded when EMS came to pick her up. She feel at home and had been complaining of nausea and had emesis. She denied any sick contacts. She does not know if the patient complained of headache or blurred vision. No head CT done in ED and currently patient is bit to unstable for transfer at this moment. Head CT is definitely needed and will order EEG to be done as well. Explained to the family how sick patient is. Unsure if they completely understand. Mother mentioned about transfer. I explained to her it would be up to the accepting physician if they would accept her. I feel it is unsafe to transport her right now and I am not sure what another hospital would provide. Once head CT obtained, this maybe different. CCT 31 Subjective Date of service: 01/17/20 Principal diagnosis: PNA; resp failure Interval history: NO acute events. Remains unresponsive. Down to 8 of levo and 55% on vent. PEEP dropped to 10. Renal function continues to get worse. Making urine based on I/O if accurate. Objective Vital Signs - 12hr 01/16/20 01/16/20 01/16/20 21:45 22:00 22:05 Temperature Pulse Rate 86 85 85 Pulse Rate [ From Monitor] Respiratory 23 24 24 Rate Blood Pressure 160/97 163/99 163/99 O2 Sat by Pulse 97 97 97 Oximetry 01/16/20 01/16/20 01/16/20 22:15 22:30 22:45 Temperature Pulse Rate 85 82 81 Pulse Rate [ From Monitor] Respiratory 24 24 24 Rate Blood Pressure 152/100 115/76 126/77 O2 Sat by Pulse 97 97 98 Oximetry 01/16/20 01/16/20 01/16/20 23:00 23:15 23:30 Temperature Pulse Rate 79 79 77 Pulse Rate [ From Monitor] Respiratory 24 24 24 Rate Blood Pressure 127/85 133/88 137/93 O2 Sat by Pulse 99 99 99 Oximetry 01/16/20 01/17/20 01/17/20 23:45 00:00 00:15 Temperature 98.1 F Pulse Rate 76 75 73 Pulse Rate [ 73 From Monitor] Respiratory 24 24 24 Rate Blood Pressure 139/90 144/91 144/91 O2 Sat by Pulse 99 98 98 Oximetry 01/17/20 01/17/20 01/17/20 00:25 00:30 00:45 Temperature Pulse Rate 73 73 71 Pulse Rate [ From Monitor] Respiratory 24 24 Rate Blood Pressure 144/91 126/83 130/82 O2 Sat by Pulse 98 98 99 Oximetry 01/17/20 01/17/20 01/17/20 01:00 01:15 01:31 Temperature Pulse Rate 71 71 67 Pulse Rate [ From Monitor] Respiratory 24 24 24 Rate Blood Pressure 129/82 127/85 95/58 O2 Sat by Pulse 99 99 98 Oximetry 01/17/20 01/17/20 01/17/20 01:45 02:00 02:15 Temperature Pulse Rate 74 70 70 Pulse Rate [ From Monitor] Respiratory 24 24 24 Rate Blood Pressure 131/90 116/84 128/89 O2 Sat by Pulse 98 99 100 Oximetry 01/17/20 01/17/20 01/17/20 02:30 02:45 03:01 Temperature Pulse Rate 69 69 68 Pulse Rate [ From Monitor] Respiratory 24 24 24 Rate Blood Pressure 132/88 133/94 117/70 O2 Sat by Pulse 99 100 98 Oximetry 01/17/20 01/17/20 01/17/20 03:15 03:30 03:45 Temperature Pulse Rate 72 72 73 Pulse Rate [ From Monitor] Respiratory 11 L 18 24 Rate Blood Pressure 117/70 85/41 94/61 O2 Sat by Pulse 99 95 97 Oximetry 01/17/20 01/17/20 01/17/20 03:48 04:00 04:15 Temperature 98.0 F Pulse Rate 73 69 69 Pulse Rate [ 70 From Monitor] Respiratory 21 23 Rate Blood Pressure 94/61 107/71 109/67 O2 Sat by Pulse 97 98 99 Oximetry 01/17/20 01/17/20 01/17/20 04:30 04:45 05:00 Temperature Pulse Rate 68 68 69 Pulse Rate [ From Monitor] Respiratory 18 23 22 Rate Blood Pressure 111/72 111/72 110/71 O2 Sat by Pulse 99 98 98 Oximetry 01/17/20 01/17/20 01/17/20 05:15 05:30 05:45 Temperature Pulse Rate 71 68 67 Pulse Rate [ From Monitor] Respiratory 20 21 20 Rate Blood Pressure 110/71 112/70 110/71 O2 Sat by Pulse 99 99 99 Oximetry 01/17/20 01/17/20 01/17/20 06:00 06:15 06:30 Temperature Pulse Rate 67 68 68 Pulse Rate [ From Monitor] Respiratory 10 L 8 L 17 Rate Blood Pressure 108/71 114/73 114/76 O2 Sat by Pulse 100 100 99 Oximetry 01/17/20 01/17/20 06:45 08:15 Temperature Pulse Rate 68 68 Pulse Rate [ From Monitor] Respiratory 16 Rate Blood Pressure 120/75 115/77 O2 Sat by Pulse 100 100 Oximetry Constitutional: no acute distress, comatose (Per nursing, no cough, no gag) Eyes: non-icteric ENT: other (orally intubated, not on sedation) Neck: supple, other (large in circumference) Cardiovascular: regular rate and rhythm Gastrointestinal: normoactive bowel sounds CBC and BMP: 01/17/20 04:00 01/17/20 04:00 ABG, PT/INR, D-dimer: ABG ABG pH 7.344 pH Units (7.350-7.450) L 01/17/20 03:50 POC ABG pCO2 59.1 mmHg (32.0-48.0) H 01/15/20 04:20 ABG pCO2 45.4 mm Hg 01/17/20 03:50 POC ABG pO2 49.3 mmHg (83-108) L 01/15/20 04:20 ABG pO2 76.8 mm Hg (80.0-90.0) L 01/17/20 03:50 POC ABG HCO3 27.5 01/15/20 04:20 ABG O2 Saturation 96.5 % (95.0-99.0) 01/17/20 03:50 PT/INR, D-dimer PT 13.9 Sec. (12.2-14.9) 01/09/20 19:03 INR 1.05 (0.87-1.13) 01/09/20 19:03 Abnormal lab findings: Abnormal Labs 01/09/20 01/09/20 01/09/20 18:37 18:47 19:03 WBC 14.0 H RBC 5.18 H Hgb MCV 76 L MCH 22 L MCHC 29 L RDW 22.0 H Plt Count Lymph % (Auto) [place] % (Auto) Baso % (Auto) Lymph # (Auto) [place] # (Auto) Baso # (Auto) Seg Neutrophils % Seg Neuts % (Manual) 76.0 H Lymphocytes % (Manual) Monocytes % (Manual) Nucleated RBC % Seg Neutrophils # Seg Neutrophils # Man 10.6 H Lymphocytes # (Manual) Monocytes # (Manual) ABG pH 7.252 L POC ABG pCO2 POC ABG pO2 ABG pO2 172.4 H ABG HCO3 34.3 H ABG O2 Saturation ABG Base Excess 4.9 H ABG Hemoglobin 11.8 L ABG Sodium ABG Potassium ABG Chloride ABG Glucose VBG pH 7.252 L Oxyhemoglobin Sodium Potassium Chloride BUN Creatinine Glucose POC Glucose 177 H Phosphorus Magnesium NT-Pro-B Natriuret Pep Total Protein Albumin Arterial Blood Glucose Urine WBC (Auto) Urine Creatinine 01/09/20 01/09/20 01/09/20 19:03 19:03 21:55 WBC RBC Hgb MCV MCH MCHC RDW Plt Count Lymph % (Auto) [place] % (Auto) Baso % (Auto) Lymph # (Auto) [place] # (Auto) Baso # (Auto) Seg Neutrophils % Seg Neuts % (Manual) Lymphocytes % (Manual) Monocytes % (Manual) Nucleated RBC % Seg Neutrophils # Seg Neutrophils # Man Lymphocytes # (Manual) Monocytes # (Manual) ABG pH 7.310 L POC ABG pCO2 POC ABG pO2 ABG pO2 61.8 L ABG HCO3 31.2 H ABG O2 Saturation 90.3 L ABG Base Excess 3.8 H ABG Hemoglobin 10.0 L ABG Sodium ABG Potassium ABG Chloride ABG Glucose VBG pH Oxyhemoglobin 87.8 L Sodium Potassium 3.1 L Chloride 95.2 L BUN Creatinine Glucose 197 H POC Glucose Phosphorus Magnesium NT-Pro-B Natriuret Pep 1345 H Total Protein 8.3 H Albumin Arterial Blood Glucose Urine WBC (Auto) Urine Creatinine 01/10/20 01/10/20 01/10/20 03:35 04:12 10:40 WBC RBC Hgb MCV 76 L MCH 22 L MCHC 29 L RDW 21.4 H Plt Count Lymph % (Auto) 6.0 L [place] % (Auto) Baso % (Auto) Lymph # (Auto) 0.5 L [place] # (Auto) Baso # (Auto) Seg Neutrophils % 87.3 H Seg Neuts % (Manual) Lymphocytes % (Manual) Monocytes % (Manual) Nucleated RBC % Seg Neutrophils # Seg Neutrophils # Man Lymphocytes # (Manual) Monocytes # (Manual) ABG pH POC ABG pCO2 POC ABG pO2 ABG pO2 63.8 L ABG HCO3 28.7 H ABG O2 Saturation ABG Base Excess 4.0 H ABG Hemoglobin 10.9 L ABG Sodium ABG Potassium ABG Chloride ABG Glucose VBG pH Oxyhemoglobin 92.8 L Sodium Potassium Chloride BUN Creatinine Glucose POC Glucose Phosphorus Magnesium NT-Pro-B Natriuret Pep Total Protein Albumin Arterial Blood Glucose Urine WBC (Auto) 50.0 H Urine Creatinine 01/10/20 01/11/20 01/11/20 10:40 03:34 09:53 WBC RBC Hgb MCV MCH MCHC RDW Plt Count Lymph % (Auto) [place] % (Auto) Baso % (Auto) Lymph # (Auto) [place] # (Auto) Baso # (Auto) Seg Neutrophils % Seg Neuts % (Manual) Lymphocytes % (Manual) Monocytes % (Manual) Nucleated RBC % Seg Neutrophils # Seg Neutrophils # Man Lymphocytes # (Manual) Monocytes # (Manual) ABG pH 7.334 L POC ABG pCO2 POC ABG pO2 ABG pO2 45.9 L ABG HCO3 29.0 H ABG O2 Saturation 76.5 L ABG Base Excess ABG Hemoglobin 9.8 L ABG Sodium ABG Potassium ABG Chloride ABG Glucose VBG pH Oxyhemoglobin 74.7 L Sodium 146 H 147 H Potassium Chloride BUN 23 H Creatinine 1.6 H D 3.0 H D Glucose POC Glucose Phosphorus 2.40 L Magnesium 1.50 L NT-Pro-B Natriuret Pep Total Protein 5.9 L D Albumin 3.2 L Arterial Blood Glucose Urine WBC (Auto) Urine Creatinine 01/11/20 01/11/20 01/12/20 12:25 15:30 00:27 WBC RBC Hgb MCV MCH MCHC RDW Plt Count Lymph % (Auto) [place] % (Auto) Baso % (Auto) Lymph # (Auto) [place] # (Auto) Baso # (Auto) Seg Neutrophils % Seg Neuts % (Manual) Lymphocytes % (Manual) Monocytes % (Manual) Nucleated RBC % Seg Neutrophils # Seg Neutrophils # Man Lymphocytes # (Manual) Monocytes # (Manual) ABG pH 7.273 L POC ABG pCO2 58.8 H POC ABG pO2 67.0 L ABG pO2 ABG HCO3 ABG O2 Saturation ABG Base Excess ABG Hemoglobin 10.4 L ABG Sodium ABG Potassium ABG Chloride 108.0 H ABG Glucose VBG pH Oxyhemoglobin Sodium Potassium Chloride BUN Creatinine Glucose POC Glucose 109 H Phosphorus Magnesium NT-Pro-B Natriuret Pep Total Protein Albumin Arterial Blood Glucose Urine WBC (Auto) Urine Creatinine 79.8 H 01/12/20 01/12/20 01/12/20 05:51 09:50 09:50 WBC 13.7 H RBC Hgb 9.5 L MCV 76 L MCH 22 L MCHC 29 L RDW 22.0 H Plt Count Lymph % (Auto) [place] % (Auto) Baso % (Auto) Lymph # (Auto) [place] # (Auto) Baso # (Auto) Seg Neutrophils % Seg Neuts % (Manual) Lymphocytes % (Manual) Monocytes % (Manual) Nucleated RBC % Seg Neutrophils # Seg Neutrophils # Man Lymphocytes # (Manual) Monocytes # (Manual) ABG pH 7.311 L POC ABG pCO2 49.5 H POC ABG pO2 81.8 L ABG pO2 ABG HCO3 ABG O2 Saturation ABG Base Excess ABG Hemoglobin 10.8 L ABG Sodium ABG Potassium ABG Chloride 112.0 H ABG Glucose 99 H VBG pH Oxyhemoglobin Sodium 148 H Potassium Chloride 110.7 H BUN 26 H Creatinine 3.0 H Glucose 102 H POC Glucose Phosphorus Magnesium NT-Pro-B Natriuret Pep Total Protein 5.8 L Albumin 2.4 L Arterial Blood Glucose 99 H Urine WBC (Auto) Urine Creatinine 01/13/20 01/13/20 01/13/20 04:11 06:28 06:28 WBC RBC Hgb 9.3 L MCV 77 L MCH 22 L MCHC 29 L RDW 22.2 H Plt Count Lymph % (Auto) 13.1 L [place] % (Auto) 9.3 H Baso % (Auto) Lymph # (Auto) [place] # (Auto) 0.9 H Baso # (Auto) Seg Neutrophils % 75.6 H Seg Neuts % (Manual) Lymphocytes % (Manual) Monocytes % (Manual) Nucleated RBC % Seg Neutrophils # Seg Neutrophils # Man Lymphocytes # (Manual) Monocytes # (Manual) ABG pH 7.289 L POC ABG pCO2 54.9 H POC ABG pO2 ABG pO2 ABG HCO3 ABG O2 Saturation ABG Base Excess ABG Hemoglobin ABG Sodium ABG Potassium ABG Chloride ABG Glucose VBG pH Oxyhemoglobin Sodium 152 H Potassium Chloride 115.5 H BUN 25 H Creatinine 3.9 H Glucose 132 H POC Glucose Phosphorus Magnesium NT-Pro-B Natriuret Pep Total Protein Albumin Arterial Blood Glucose Urine WBC (Auto) Urine Creatinine 01/13/20 01/13/20 01/14/20 12:07 17:44 04:00 WBC RBC Hgb MCV MCH MCHC RDW Plt Count Lymph % (Auto) [place] % (Auto) Baso % (Auto) Lymph # (Auto) [place] # (Auto) Baso # (Auto) Seg Neutrophils % Seg Neuts % (Manual) Lymphocytes % (Manual) Monocytes % (Manual) Nucleated RBC % Seg Neutrophils # Seg Neutrophils # Man Lymphocytes # (Manual) Monocytes # (Manual) ABG pH 7.269 L POC ABG pCO2 56.4 H POC ABG pO2 75.2 L ABG pO2 ABG HCO3 ABG O2 Saturation ABG Base Excess ABG Hemoglobin 10.9 L ABG Sodium 152.1 H ABG Potassium ABG Chloride 119.0 H ABG Glucose 113 H VBG pH Oxyhemoglobin Sodium Potassium Chloride BUN Creatinine Glucose POC Glucose 106 H 133 H Phosphorus Magnesium NT-Pro-B Natriuret Pep Total Protein Albumin Arterial Blood Glucose 113 H Urine WBC (Auto) Urine Creatinine 01/14/20 01/14/20 01/14/20 05:11 05:11 09:05 WBC RBC Hgb 9.3 L MCV 77 L MCH 22 L MCHC 29 L RDW 22.1 H Plt Count 126 L Lymph % (Auto) 7.8 L [place] % (Auto) 9.9 H Baso % (Auto) Lymph # (Auto) 0.7 L [place] # (Auto) Baso # (Auto) Seg Neutrophils % 79.2 H Seg Neuts % (Manual) Lymphocytes % (Manual) Monocytes % (Manual) Nucleated RBC % Seg Neutrophils # Seg Neutrophils # Man Lymphocytes # (Manual) Monocytes # (Manual) ABG pH 7.309 L POC ABG pCO2 POC ABG pO2 ABG pO2 94.6 H ABG HCO3 ABG O2 Saturation ABG Base Excess ABG Hemoglobin 10.3 L ABG Sodium ABG Potassium ABG Chloride ABG Glucose VBG pH Oxyhemoglobin 94.4 L Sodium 157 H Potassium 3.5 L D Chloride 118.5 H BUN 25 H Creatinine 4.0 H Glucose 111 H POC Glucose Phosphorus Magnesium NT-Pro-B Natriuret Pep Total Protein Albumin Arterial Blood Glucose Urine WBC (Auto) Urine Creatinine 01/14/20 01/14/20 01/15/20 12:20 16:32 04:00 WBC RBC Hgb MCV MCH MCHC RDW Plt Count Lymph % (Auto) [place] % (Auto) Baso % (Auto) Lymph # (Auto) [place] # (Auto) Baso # (Auto) Seg Neutrophils % Seg Neuts % (Manual) Lymphocytes % (Manual) Monocytes % (Manual) Nucleated RBC % Seg Neutrophils # Seg Neutrophils # Man Lymphocytes # (Manual) Monocytes # (Manual) ABG pH POC ABG pCO2 POC ABG pO2 ABG pO2 ABG HCO3 ABG O2 Saturation ABG Base Excess ABG Hemoglobin ABG Sodium ABG Potassium ABG Chloride ABG Glucose VBG pH Oxyhemoglobin Sodium 154 H Potassium 3.1 L Chloride 116.5 H BUN 27 H Creatinine 3.8 H Glucose 138 H POC Glucose 123 H 142 H Phosphorus Magnesium NT-Pro-B Natriuret Pep Total Protein Albumin Arterial Blood Glucose Urine WBC (Auto) Urine Creatinine 01/15/20 01/15/20 01/15/20 04:00 04:20 04:25 WBC RBC Hgb 9.2 L MCV 77 L MCH 22 L MCHC 29 L RDW 22.4 H Plt Count 95 L Lymph % (Auto) [place] % (Auto) 9.4 H Baso % (Auto) Lymph # (Auto) 0.8 L [place] # (Auto) Baso # (Auto) Seg Neutrophils % 73.2 H Seg Neuts % (Manual) Lymphocytes % (Manual) Monocytes % (Manual) Nucleated RBC % Seg Neutrophils # Seg Neutrophils # Man Lymphocytes # (Manual) Monocytes # (Manual) ABG pH 7.285 L POC ABG pCO2 59.1 H POC ABG pO2 49.3 L ABG pO2 ABG HCO3 ABG O2 Saturation ABG Base Excess ABG Hemoglobin 10.7 L ABG Sodium 152.8 H ABG Potassium 3.1 L ABG Chloride 121.0 H ABG Glucose 138 H VBG pH Oxyhemoglobin Sodium Potassium Chloride BUN Creatinine Glucose POC Glucose Phosphorus Magnesium 1.60 L NT-Pro-B Natriuret Pep Total Protein Albumin Arterial Blood Glucose 138 H Urine WBC (Auto) Urine Creatinine 01/16/20 01/16/20 01/16/20 00:20 04:19 04:19 WBC RBC Hgb 9.4 L MCV 77 L MCH 22 L MCHC 29 L RDW 22.8 H Plt Count 99 L Lymph % (Auto) [place] % (Auto) Baso % (Auto) Lymph # (Auto) [place] # (Auto) Baso # (Auto) Seg Neutrophils % Seg Neuts % (Manual) 73.0 H Lymphocytes % (Manual) 12.0 L Monocytes % (Manual) 12.0 H Nucleated RBC % 4.0 H Seg Neutrophils # Seg Neutrophils # Man Lymphocytes # (Manual) 0.9 L Monocytes # (Manual) 0.9 H ABG pH POC ABG pCO2 POC ABG pO2 ABG pO2 ABG HCO3 ABG O2 Saturation ABG Base Excess ABG Hemoglobin ABG Sodium ABG Potassium ABG Chloride ABG Glucose VBG pH Oxyhemoglobin Sodium 154 H Potassium Chloride 115.8 H BUN 28 H Creatinine 4.0 H Glucose 130 H POC Glucose 149 H Phosphorus Magnesium NT-Pro-B Natriuret Pep Total Protein Albumin Arterial Blood Glucose Urine WBC (Auto) Urine Creatinine 01/16/20 01/16/20 01/16/20 05:31 11:59 18:09 WBC RBC Hgb MCV MCH MCHC RDW Plt Count Lymph % (Auto) [place] % (Auto) Baso % (Auto) Lymph # (Auto) [place] # (Auto) Baso # (Auto) Seg Neutrophils % Seg Neuts % (Manual) Lymphocytes % (Manual) Monocytes % (Manual) Nucleated RBC % Seg Neutrophils # Seg Neutrophils # Man Lymphocytes # (Manual) Monocytes # (Manual) ABG pH POC ABG pCO2 POC ABG pO2 ABG pO2 ABG HCO3 ABG O2 Saturation ABG Base Excess ABG Hemoglobin ABG Sodium ABG Potassium ABG Chloride ABG Glucose VBG pH Oxyhemoglobin Sodium Potassium Chloride BUN Creatinine Glucose POC Glucose 138 H 135 H 135 H Phosphorus Magnesium NT-Pro-B Natriuret Pep Total Protein Albumin Arterial Blood Glucose Urine WBC (Auto) Urine Creatinine 01/16/20 01/17/20 01/17/20 Unknown 00:03 03:50 WBC RBC Hgb MCV MCH MCHC RDW Plt Count Lymph % (Auto) [place] % (Auto) Baso % (Auto) Lymph # (Auto) [place] # (Auto) Baso # (Auto) Seg Neutrophils % Seg Neuts % (Manual) Lymphocytes % (Manual) Monocytes % (Manual) Nucleated RBC % Seg Neutrophils # Seg Neutrophils # Man Lymphocytes # (Manual) Monocytes # (Manual) ABG pH 7.334 L 7.344 L POC ABG pCO2 POC ABG pO2 ABG pO2 123.5 H 76.8 L ABG HCO3 27.4 H ABG O2 Saturation ABG Base Excess ABG Hemoglobin 9.4 L ABG Sodium ABG Potassium ABG Chloride ABG Glucose VBG pH Oxyhemoglobin 93.8 L Sodium Potassium Chloride BUN Creatinine Glucose POC Glucose 128 H Phosphorus Magnesium NT-Pro-B Natriuret Pep Total Protein Albumin Arterial Blood Glucose Urine WBC (Auto) Urine Creatinine 01/17/20 01/17/20 01/17/20 04:00 04:00 05:57 WBC RBC Hgb 9.1 L MCV 76 L MCH 22 L MCHC 29 L RDW 22.8 H Plt Count 72 L Lymph % (Auto) 12.7 L [place] % (Auto) Baso % (Auto) 1.9 H Lymph # (Auto) [place] # (Auto) Baso # (Auto) 0.2 H Seg Neutrophils % 76.4 H Seg Neuts % (Manual) Lymphocytes % (Manual) Monocytes % (Manual) Nucleated RBC % Seg Neutrophils # 8.4 H Seg Neutrophils # Man Lymphocytes # (Manual) Monocytes # (Manual) ABG pH POC ABG pCO2 POC ABG pO2 ABG pO2 ABG HCO3 ABG O2 Saturation ABG Base Excess ABG Hemoglobin ABG Sodium ABG Potassium ABG Chloride ABG Glucose VBG pH Oxyhemoglobin Sodium 151 H Potassium Chloride 113.3 H BUN 39 H Creatinine 4.7 H Glucose 110 H POC Glucose 107 H Phosphorus Magnesium NT-Pro-B Natriuret Pep Total Protein Albumin Arterial Blood Glucose Urine WBC (Auto) Urine Creatinine
--- NOTE | 2020-01-17 09:59 | Progress Note ---
Assessment and Plan Impression: * Nonoliguric acute kidney injury secondary to ATN * Acute on chronic hypoxic respiratory on mechanical ventilation secondary to ?pulmonary edema vs infectious etiology * Urinary tract infection * Anoxia vs brain * Accelerated hypertension - resolved * Anemia * Hypernatremia * Hypokalemia Plan: * Na noted, added free H20 and D5w and follow up lytes * follow up mag and k levels, replete prn * Renal u/s ordered - pending * Serologic work up pending - anticipate low yield * Continue gentle IVF; for now, prn diuresis * Na is better today, Neuro better * Abx per primary team * Pressors prn to maintain MAP>60 * Vent management per pulmonary/critical care * Dose medications for renal function * Avoid potential nephrotoxins * 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, 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 Subjective Date of service: 01/17/20 Principal diagnosis: PNA; resp failure Interval history: resting in bed today Objective - Exam Narrative Exam: General appearance: well-developed, well-nourished, obese, intubated EENT: ATNC, other (ETT in place) Respiratory: Present: Decreased Breath Sounds Cardiology: regular, S1S2 Gastrointestinal: no tenderness, no distended, obese Integumentary: no rash, warm and dry - Vital Signs Vital signs: Vital Signs - 12hr 01/16/20 01/16/20 01/16/20 22:00 22:05 22:15 Temperature Pulse Rate 85 85 85 Pulse Rate [ From Monitor] Respiratory 24 24 24 Rate Blood Pressure 163/99 163/99 152/100 O2 Sat by Pulse 97 97 97 Oximetry 01/16/20 01/16/20 01/16/20 22:30 22:45 23:00 Temperature Pulse Rate 82 81 79 Pulse Rate [ From Monitor] Respiratory 24 24 24 Rate Blood Pressure 115/76 126/77 127/85 O2 Sat by Pulse 97 98 99 Oximetry 01/16/20 01/16/20 01/16/20 23:15 23:30 23:45 Temperature Pulse Rate 79 77 76 Pulse Rate [ From Monitor] Respiratory 24 24 24 Rate Blood Pressure 133/88 137/93 139/90 O2 Sat by Pulse 99 99 99 Oximetry 01/17/20 01/17/20 01/17/20 00:00 00:15 00:25 Temperature 98.1 F Pulse Rate 75 73 73 Pulse Rate [ 73 From Monitor] Respiratory 24 24 Rate Blood Pressure 144/91 144/91 144/91 O2 Sat by Pulse 98 98 98 Oximetry 01/17/20 01/17/20 01/17/20 00:30 00:45 01:00 Temperature Pulse Rate 73 71 71 Pulse Rate [ From Monitor] Respiratory 24 24 24 Rate Blood Pressure 126/83 130/82 129/82 O2 Sat by Pulse 98 99 99 Oximetry 01/17/20 01/17/20 01/17/20 01:15 01:31 01:45 Temperature Pulse Rate 71 67 74 Pulse Rate [ From Monitor] Respiratory 24 24 24 Rate Blood Pressure 127/85 95/58 131/90 O2 Sat by Pulse 99 98 98 Oximetry 01/17/20 01/17/20 01/17/20 02:00 02:15 02:30 Temperature Pulse Rate 70 70 69 Pulse Rate [ From Monitor] Respiratory 24 24 24 Rate Blood Pressure 116/84 128/89 132/88 O2 Sat by Pulse 99 100 99 Oximetry 01/17/20 01/17/20 01/17/20 02:45 03:01 03:15 Temperature Pulse Rate 69 68 72 Pulse Rate [ From Monitor] Respiratory 24 24 11 L Rate Blood Pressure 133/94 117/70 117/70 O2 Sat by Pulse 100 98 99 Oximetry 01/17/20 01/17/20 01/17/20 03:30 03:45 03:48 Temperature Pulse Rate 72 73 73 Pulse Rate [ From Monitor] Respiratory 18 24 Rate Blood Pressure 85/41 94/61 94/61 O2 Sat by Pulse 95 97 97 Oximetry 01/17/20 01/17/20 01/17/20 04:00 04:15 04:30 Temperature 98.0 F Pulse Rate 69 69 68 Pulse Rate [ 70 From Monitor] Respiratory 21 23 18 Rate Blood Pressure 107/71 109/67 111/72 O2 Sat by Pulse 98 99 99 Oximetry 01/17/20 01/17/20 01/17/20 04:45 05:00 05:15 Temperature Pulse Rate 68 69 71 Pulse Rate [ From Monitor] Respiratory 23 22 20 Rate Blood Pressure 111/72 110/71 110/71 O2 Sat by Pulse 98 98 99 Oximetry 01/17/20 01/17/20 01/17/20 05:30 05:45 06:00 Temperature Pulse Rate 68 67 67 Pulse Rate [ From Monitor] Respiratory 21 20 10 L Rate Blood Pressure 112/70 110/71 108/71 O2 Sat by Pulse 99 99 100 Oximetry 01/17/20 01/17/20 01/17/20 06:15 06:30 06:45 Temperature Pulse Rate 68 68 68 Pulse Rate [ From Monitor] Respiratory 8 L 17 16 Rate Blood Pressure 114/73 114/76 120/75 O2 Sat by Pulse 100 99 100 Oximetry 01/17/20 08:15 Temperature Pulse Rate 68 Pulse Rate [ From Monitor] Respiratory Rate Blood Pressure 115/77 O2 Sat by Pulse 100 Oximetry - Lab 01/17/20 04:00 01/17/20 04:00 Most recent lab results ABG pH 7.344 pH Units (7.350-7.450) L 01/17/20 03:50 ABG pCO2 45.4 mm Hg 01/17/20 03:50 ABG pO2 76.8 mm Hg (80.0-90.0) L 01/17/20 03:50 ABG HCO3 24.2 mmol/L (20.0-26.0) 01/17/20 03:50 ABG O2 Saturation 96.5 % (95.0-99.0) 01/17/20 03:50 Calcium 9.1 mg/dL (8.4-10.2) 01/17/20 04:00 Phosphorus 3.20 mg/dL (2.5-4.5) D 01/11/20 09:53 Magnesium 1.60 mg/dL (1.7-2.3) L 01/15/20 04:00 Urine Creatinine 79.8 mg/dL (0.1-20.0) H 01/11/20 12:25 Urine Sodium 50 mmol/L 01/11/20 12:25 Medications & Allergies - Medications Allergies/Adverse Reactions: Allergies lisinopril Allergy (Verified 01/11/20 11:30) Swelling Home Medications: Home Medications Medication Instructions Recorded Confirmed Last Taken Type Unobtainable 01/10/20 01/10/20 Unknown History Active Medications: Generic Name Dose Route Start Last Admin Trade Name Freq PRN Reason Stop Dose Admin Acetaminophen 650 mg 01/10/20 08:00 01/16/20 13:59 Tylenol PO 650 mg Q4H PRN Administration Pain MILD(1-3)/Fever >100.5/CHRISTINA Lipase/Protease/Amylase 1 each 01/10/20 08:00 Pancrelety Gomez 10,500 Unit FEEDTUBE PRN PRN For Clogged Feeding Tube Famotidine 20 mg 01/12/20 10:00 01/16/20 09:50 Pepcid PO 20 mg DAILY KANIKA Administration Norepinephrine 8 mg/ Sodium 250 mls @ 3.75 mls/hr 01/14/20 10:00 01/17/20 02:50 Chloride IV 8 mcg/min TITR KANIKA 15 mls/hr Titration Protocol 2 MCG/MIN Cefepime HCl 2 gm in 100 mls @ 200 mls/hr 01/17/20 22:00 Cefepime/Ns 2 Gm/100 Ml IV Q24H KANIKA Protocol Metoclopramide HCl 10 mg 01/10/20 08:00 Reglan IV Q6H PRN Nausea And Vomiting Ondansetron HCl 4 mg 01/10/20 08:00 Zofran IV Q8H PRN Nausea And Vomiting Senna/Docusate Sodium 2 tab 01/15/20 10:00 01/16/20 21:48 Senokot S PO 2 tab BID KANIKA Administration Simple Syrup 15 ml 01/10/20 08:00 Simple Syrup FEEDTUBE PRN PRN Hypoglycemia Simple Syrup 30 ml 01/10/20 08:00 Simple Syrup FEEDTUBE PRN PRN Hypoglycemia Sodium Bicarbonate 325 mg 01/10/20 08:00 Sodium Bicarbonate FEEDTUBE PRN PRN For Clogged Feeding Tube Sodium Chloride 10 ml 01/10/20 10:00 01/16/20 21:48 Sodium Chloride Flush Syringe 10 Ml IV 10 ml BID KANIKA Administration Sodium Chloride 10 ml 01/10/20 08:00 Sodium Chloride Flush Syringe 10 Ml IV PRN PRN LINE FLUSH
[2020-01-17] MEDS: FAMOTIDINE 20 MG TAB PO SCH (10:38)
[2020-01-17] MEDS: SENNOSIDES/DOCUSATE SODIUM 8.6/50 MG TAB PO SCH ×2 (10:38→22:12)
[2020-01-17 11:01] LABS: Myeloperoxidase Antibody <1.0 AI (<1.0)
--- NOTE | 2020-01-17 17:33 | Event Note ---
Date: 01/17/20 Communication with [facility]; 01/13/[address] [facility] physician [address] Mcginnis and updated patient's condition 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 01/15/2020; discussed with [facility] physician , updated patient's condition 01/16/2020: Discussed with [facility] physician , answered all her questions 01/17/2020; discussed with [facility] physician and discussed about patient's condition 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 and treatment plan Advised us to continue patient care here as patient is unstable to transfer to their facility
[2020-01-17 22:03] LABS: ANA Screen, IFA Negative (Negative)
[2020-01-17] MEDS: CEFEPIME/NS 2 GM/100 ML 2 GM/100 ML BAG IV SCH (22:13)
[2020-01-18] MEDS: NORepinephrine 8 MG in SODIUM CHLORIDE 0.9% 250ML 242 ML IV SCH ×6 (00:30→23:29)
[2020-01-18 05:02] LABS: ABG Base Excess -0.9 mmol/L (-2.0-3.0); ABG HCO3 24.8 mmol/L (20.0-26.0); ABG Methemoglobin 0.6 % (0.0-1.5); ABG Oxygen Saturation 91.6 % (95.0-99.0); ABG PCO2 46.2 mm Hg; ABG PH 7.348 pH Units (7.350-7.450); ABG PO2 63.1 mm Hg (80.0-90.0)
[2020-01-18 05:24] LABS: Basophils # (Auto) 0.1 K/mm3 (0.0-0.1); Basophils % (Auto) 0.8 % (0.0-1.8); Eosinophils # (Auto) 0.4 K/mm3 (0.0-0.4); Eosinophils % (Auto) 3.1 % (0.0-4.3); Lymphocytes # (Auto) 1.8 K/mm3 (1.2-5.4); Lymphocytes % (Auto) 15.4 % (13.4-35.0); Mean Corpuscular HGB Conc 29 % (30-34); Mean Corpuscular Volume 75 fl (79-97); Monocytes # (Auto) 0.8 K/mm3 (0.0-0.8); Monocytes % (Auto) 7.1 % (0.0-7.3); Red Blood Count 4.39 M/mm3 (3.65-5.03)
[2020-01-18 05:27] LABS: Hematocrit 32.7 % (30.3-42.9); Hemoglobin 9.5 gm/dl (10.1-14.3); Platelet Count 60 K/mm3 (140-440); Red Cell Distribution Width 23.4 % (13.2-15.2)
[2020-01-18 05:42] LABS: Calcium 9.5 mg/dL (8.4-10.2)
--- NOTE | 2020-01-18 07:58 | Progress Note ---
Assessment and Plan Assessment and plan: 44-year-old morbidly obese -German female patient with history of chronic hypercapnic hypoxic respiratory failure, sleep apnea, morbid obesity, on home oxygen, home BiPAP follows with [facility] was admitted through emergency room with altered level of consciousness, unresponsiveness, acute hypoxic respiratory failure requiring intubation, admitted to ICU noted to have shock, pressor dependent, acute renal failure, fever, severe metabolic versus hypoxic encephalopathy. Patient continued to deteriorate. Critically ill very unstable, unable to get neuro work-up like CT head, MRI/MRA. Pulmonary critical, cardiology, nephrology and neurology are following the patient. All the healthcare providers including me have periodically discussed extensively with patient's mother Ms. Juliet Purcell of patient's critical condition Poor prognosis . Patient's mother continued to be in denial with unrealistic expectations wants everything to be done. --Perry PCR negative, 01/10/2020 --Metabolic encephalopathy versus hypoxic encephalopathy; present on admission Patient remains unresponsive since admission Intubated on vent, hypotensive on Levophed Unable to get CT scan as patient is unstable and morbidly obese Neurology evaluation and recommendations noted and appreciated. EEG requested ,continue current supportive care --Acute hypoxic respiratory failure; intubated on mechanical ventilation We will continue supportive care and Wean as tolerated and extubate Pulmonary critical following --History of obstructive sleep apnea /possible OHS Intubated on mechanical ventilation --Hypotension/shock; Continues to be on vasopressor Levophed Gentle hydration --Acute on chronic systolic congestive heart failure; Echo;EF 45 to 50%, Management per cardiology --Acute kidney injury-worsening renal function cr today 4.7 secondary to vasomotor nephropathy, prerenal, hypotension Gentle hydration, avoid nephrotoxins, nephrology following --Morbid obesity; BMI 55.1 Patient needs weight reduction when medically stable --Moderate-malnutrition/hypoalbuminemia Supportive care, nutrition consult --PUI/high suspicion for COVID-19; Perry PCR negative --DVT prophylaxis;Lovenox --Full CODE STATUS We will closely monitor the patient and adjust management , . Patient is critically ill, with very 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. Family aware Plan of care reviewed with the patient's nurse. Health caregivers discussed periodically with the mother and updated patient's condition Poor prognosis, goals of treatment, CODE STATUS, she wants everything to be done at this point 01/14/20; I called and discussed with patient's mother Ms. Juliet Purcell, patient's condition Poor prognosis, treatment plan and consultants recommendations 01/16/20; family visited last night[01/14], patient's mother is in denial and has unrealistic expectations She wants full CODE STATUS and complete treatment and believes that her daughter will come out of this. Communication with [place] physicians; 01/13/2020 [address] [place] physician Dr. Mcginnis and updated patient's condition with 01/15/2020; discussed with [place] physician , updated patient's condition 01/16/2020: Discussed with [place] physician , answered all her questions 01/17/2020; discussed with [place] physician and discussed about patient's condition 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 and treatment plan The high probability of a clinically significant, sudden or life threatening deterioration of the [Respiratory, ID, CVs] system(s) required my full and direct attention, intervention and personal management. The aggregate critical care time was [33] minutes. This time is in addition to time spent performing reported procedures but includes the following: [x] Data Review and interpretation [x] Patient assessment and monitoring of vital signs [x] Documentation [x] Medication orders and management 01/10; patient remains hypotensive on Levophed, added IV fluids, follow echocardiogram for LV function 01/11; patient remains intubated on vent, unable to get CT head as patient is unstable and morbidly obese 01/12; patient remains hypotensive on Levophed, on ventilatory support, worsening renal function nephrology evaluation appreciated Hypernatremia, free water flushes via Dobbhoff, monitor electrolytes/discussed with [place] physician 01/13; multiple electrolyte abnormalities,remains hypotensive, worsening renal function, I discussed with patient's mother over the phone. Neurology consulted, discussed with Dr. Shankar Sevilla 01/14; neurology evaluated the patient today, absent reflexes, 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, pending CT head, EEG 01/15; discussed with [place] physician and updated patient's condition, 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 01/16; patient remains unresponsive, remains hypotensive on Levophed, remains intubated on vent, worsening renal function, 01/17: Pending CT Head, remains unstable, EEG - Diffused encephalopathy compatible with hypoxemic/ischemic encephalopathy, there is epileptiform abnormality emanating from the left posterior temporal region. The prognosisunless the patient has received some IV barbiturates or long-acting benzos would be very poor. 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 She remains unstable for transfer remains on norepinephrine for blood pressure maintenance. We will also discussed with neurologist and a further option and management. Multi-organ failure- Discussed with family Disposition; follow clinically, follow neurology recommendations Extensive discussion with family later this evening that actually came by the 2 sons the grandmother and the cousin they decided to make the patient a DNR. History Interval history: Patient remains [facility] Hospitalist Physical - Physical exam Narrative exam: General appearance: Present: well-nourished, obese (Morbidly obese), other (Intubated on vent, unresponsive) - EENT Eyes: Present: PERRL (Absent reflexes) ENT: other (ET tube and Dobbhoff in place) - Neck Neck: Present: supple, normal ROM - Respiratory Respiratory effort: normal Respiratory: bilateral: diminished, negative: rales, rhonchi, wheezing - Cardiovascular Rhythm: regular Heart Sounds: Present: S1 & S2 - Extremities Extremities: no ischemia Extremity abnormal: edema - Abdominal General gastrointestinal: soft, non-tender, non-distended, normal bowel sounds - Integumentary Integumentary: Present: clear, warm - Psychiatric Psychiatric: other (Unresponsive, intubated on vent) - Neurologic Neurologic: other (Unresponsive intubated and on vent) - Constitutional Vitals: Temp Pulse Resp BP Pulse Ox 97.6 F 103 H 22 89/48 91 01/18/20 03:22 01/18/20 06:00 01/18/20 06:00 01/18/20 06:00 01/18/20 06:00 General appearance: Present: well-nourished, obese (Morbidly obese), other (Intubated on vent, unresponsive) HEART Score - HEART Score Age: < 45 Risk factors: 1-2 risk factors Troponin: Troponin T 0.013 ng/mL (0.00-0.029) 01/09/20 22:19 - Critical Actions Critical Actions: 4-6 pts:12-16.6% risk of adverse cardiac event. Should be admitted Results - Labs CBC & Chem 7: 01/18/20 04:00 01/18/20 04:00 Labs: Laboratory Last Values WBC 11.4 K/mm3 (4.5-11.0) H 01/18/20 04:00 RBC 4.39 M/mm3 (3.65-5.03) 01/18/20 04:00 Hgb 9.5 gm/dl (10.1-14.3) L 01/18/20 04:00 Hct 32.7 % (30.3-42.9) 01/18/20 04:00 MCV 75 fl (79-97) L 01/18/20 04:00 MCH 22 pg (28-32) L 01/18/20 04:00 MCHC 29 % (30-34) L 01/18/20 04:00 RDW 23.4 % (13.2-15.2) H 01/18/20 04:00 Plt Count 60 K/mm3 (140-440) L 01/18/20 04:00 Lymph % (Auto) 15.4 % (13.4-35.0) 01/18/20 04:00 [place] % (Auto) 7.1 % (0.0-7.3) 01/18/20 04:00 Eos % (Auto) 3.1 % (0.0-4.3) 01/18/20 04:00 Baso % (Auto) 0.8 % (0.0-1.8) 01/18/20 04:00 Lymph # (Auto) 1.8 K/mm3 (1.2-5.4) 01/18/20 04:00 [place] # (Auto) 0.8 K/mm3 (0.0-0.8) 01/18/20 04:00 Eos # (Auto) 0.4 K/mm3 (0.0-0.4) 01/18/20 04:00 Baso # (Auto) 0.1 K/mm3 (0.0-0.1) 01/18/20 04:00 Add Manual Diff Complete 01/16/20 04:19 Total Counted 100 01/16/20 04:19 Seg Neutrophils % 73.6 % (40.0-70.0) H 01/18/20 04:00 Seg Neuts % (Manual) 73.0 % (40.0-70.0) H 01/16/20 04:19 Band Neutrophils % 0 % 01/16/20 04:19 Lymphocytes % (Manual) 12.0 % (13.4-35.0) L 01/16/20 04:19 Reactive Lymphs % (Man) 1.0 % 01/16/20 04:19 Monocytes % (Manual) 12.0 % (0.0-7.3) H 01/16/20 04:19 Eosinophils % (Manual) 2.0 % (0.0-4.3) 01/16/20 04:19 Basophils % (Manual) 0 % (0.0-1.8) 01/16/20 04:19 Metamyelocytes % 0 % 01/16/20 04:19 Myelocytes % 0 % 01/16/20 04:19 Promyelocytes % 0 % 01/16/20 04:19 Blast Cells % 0 % 01/16/20 04:19 Nucleated RBC % 4.0 % (0.0-0.9) H 01/16/20 04:19 Seg Neutrophils # 8.4 K/mm3 (1.8-7.7) H 01/18/20 04:00 Seg Neutrophils # Man 5.5 K/mm3 (1.8-7.7) 01/16/20 04:19 Band Neutrophils # 0.0 K/mm3 01/16/20 04:19 Lymphocytes # (Manual) 0.9 K/mm3 (1.2-5.4) L 01/16/20 04:19 Abs React Lymphs (Man) 0.1 K/mm3 01/16/20 04:19 Monocytes # (Manual) 0.9 K/mm3 (0.0-0.8) H 01/16/20 04:19 Eosinophils # (Manual) 0.2 K/mm3 (0.0-0.4) 01/16/20 04:19 Basophils # (Manual) 0.0 K/mm3 (0.0-0.1) 01/16/20 04:19 Metamyelocytes # 0.0 K/mm3 01/16/20 04:19 Myelocytes # 0.0 K/mm3 01/16/20 04:19 Promyelocytes # 0.0 K/mm3 01/16/20 04:19 Blast Cells # 0.0 K/mm3 01/16/20 04:19 WBC Morphology Not Reportable 01/16/20 04:19 Hypersegmented Neuts Not Reportable 01/16/20 04:19 Hyposegmented Neuts Not Reportable 01/16/20 04:19 Hypogranular Neuts Not Reportable 01/16/20 04:19 Smudge Cells Not Reportable 01/16/20 04:19 Toxic Granulation Not Reportable 01/16/20 04:19 Toxic Vacuolation Not Reportable 01/16/20 04:19 Dohle Bodies Not Reportable 01/16/20 04:19 Pelger-Huet Anomaly Not Reportable 01/16/20 04:19 Dominique Rods Not Reportable 01/16/20 04:19 Platelet Estimate Consistent w auto 01/16/20 04:19 Clumped Platelets Not Reportable 01/16/20 04:19 Plt Clumps, EDTA Not Reportable 01/16/20 04:19 Large Platelets Few 01/16/20 04:19 Giant Platelets Not Reportable 01/16/20 04:19 Platelet Satelliting Not Reportable 01/16/20 04:19 Plt Morphology Comment Not Reportable 01/16/20 04:19 RBC Morphology Not Reportable 01/16/20 04:19 Dimorphic RBCs Not Reportable 01/16/20 04:19 Polychromasia Not Reportable 01/16/20 04:19 Hypochromasia 1+ 01/16/20 04:19 Poikilocytosis Not Reportable 01/16/20 04:19 Anisocytosis 1+ 01/16/20 04:19 Microcytosis Not Reportable 01/16/20 04:19 Macrocytosis Not Reportable 01/16/20 04:19 Spherocytes Not Reportable 01/16/20 04:19 Pappenheimer Bodies Not Reportable 01/16/20 04:19 Sickle Cells Not Reportable 01/16/20 04:19 Target Cells Not Reportable 01/16/20 04:19 Tear Drop Cells Not Reportable 01/16/20 04:19 Ovalocytes Not Reportable 01/16/20 04:19 Helmet Cells Not Reportable 01/16/20 04:19 [place] Bodies Not Reportable 01/16/20 04:19 [place] Rings Not Reportable 01/16/20 04:19 Gregory Cells Not Reportable 01/16/20 04:19 Bite Cells Not Reportable 01/16/20 04:19 Crenated Cell Not Reportable 01/16/20 04:19 Elliptocytes Not Reportable 01/16/20 04:19 Acanthocytes (Spur) Not Reportable 01/16/20 04:19 Rouleaux Not Reportable 01/16/20 04:19 Hemoglobin C Crystals Not Reportable 01/16/20 04:19 Schistocytes Not Reportable 01/16/20 04:19 Malaria parasites Not Reportable 01/16/20 04:19 Beka Bodies Not Reportable 01/16/20 04:19 Hem Pathologist Commnt No 01/16/20 04:19 PT 13.9 Sec. (12.2-14.9) 01/09/20 19:03 INR 1.05 (0.87-1.13) 01/09/20 19:03 ABG pH 7.348 pH Units (7.350-7.450) L 01/18/20 04:48 POC ABG pCO2 59.1 mmHg (32.0-48.0) H 01/15/20 04:20 ABG pCO2 46.2 mm Hg 01/18/20 04:48 POC ABG pO2 49.3 mmHg (83-108) L 01/15/20 04:20 ABG pO2 63.1 mm Hg (80.0-90.0) L 01/18/20 04:48 POC ABG HCO3 27.5 01/15/20 04:20 ABG HCO3 24.8 mmol/L (20.0-26.0) 01/18/20 04:48 ABG O2 Saturation 91.6 % (95.0-99.0) L 01/18/20 04:48 ABG O2 Content 12.5 (0.0-44) 01/18/20 04:48 POC ABG Base Excess 0 01/15/20 04:20 ABG Base Excess -0.9 mmol/L (-2.0-3.0) 01/18/20 04:48 ABG Hemoglobin 9.9 gm/dl (12.0-16.0) L 01/18/20 04:48 ABG Carboxyhemoglobin 2.2 % (0.0-5.0) 01/18/20 04:48 ABG Methemoglobin 0.6 % (0.0-1.5) 01/18/20 04:48 ABG Sodium 152.8 mmol/L (136.0-145.0) H 01/15/20 04:20 ABG Potassium 3.1 mmol/L (3.40-4.50) L 01/15/20 04:20 ABG Chloride 121.0 mmol/L (98-107) H 01/15/20 04:20 ABG Glucose 138 mg/dL (65-95) H 01/15/20 04:20 VBG pH 7.252 (7.320-7.420) L 01/09/20 18:37 Oxyhemoglobin 89.1 % (95.0-99.0) L 01/18/20 04:48 FiO2 80 % 01/18/20 04:48 Sodium 153 mmol/L (137-145) H 01/18/20 04:00 Potassium 4.6 mmol/L (3.6-5.0) 01/18/20 04:00 Chloride 115.2 mmol/L (98-107) H 01/18/20 04:00 Carbon Dioxide 25 mmol/L (22-30) 01/18/20 04:00 Anion Gap 17 mmol/L 01/18/20 04:00 BUN 47 mg/dL (7-17) H 01/18/20 04:00 Creatinine 5.0 mg/dL (0.6-1.2) H 01/18/20 04:00 Estimated GFR 11 ml/min 01/18/20 04:00 BUN/Creatinine Ratio 9 % 01/18/20 04:00 Glucose 87 mg/dL (65-100) 01/18/20 04:00 POC Glucose 98 (70-105) 01/18/20 05:38 Hemoglobin A1c 5.9 % (4-6) 01/10/20 07:36 Lactic Acid 1.20 mmol/L (0.7-2.0) 01/09/20 22:19 Calcium 9.5 mg/dL (8.4-10.2) 01/18/20 04:00 Phosphorus 3.20 mg/dL (2.5-4.5) D 01/11/20 09:53 Magnesium 1.60 mg/dL (1.7-2.3) L 01/15/20 04:00 Total Bilirubin 0.70 mg/dL (0.1-1.2) 01/12/20 09:50 AST 17 units/L (5-40) 01/12/20 09:50 ALT 10 units/L (7-56) 01/12/20 09:50 Alkaline Phosphatase 100 units/L (35-129) 01/12/20 09:50 Troponin T 0.013 ng/mL (0.00-0.029) 01/09/20 22:19 NT-Pro-B Natriuret Pep 1345 pg/mL (0-450) H 01/09/20 19:03 Total Protein 5.8 g/dL (6.3-8.2) L 01/12/20 09:50 Albumin 2.4 g/dL (3.9-5) L 01/12/20 09:50 Albumin/Globulin Ratio 0.7 % 01/12/20 09:50 HCG, Qual Negative (Negative) 01/09/20 19:03 Arterial Blood Glucose 138 mg/dL (65-95) H 01/15/20 04:20 Arterial Blood Ionized Calcium 5.2 mg/dL (4.6-5.3) 01/15/20 04:20 Urine Color Yellow (Yellow) 01/10/20 04:12 Urine Turbidity Cloudy (Clear) 01/10/20 04:12 Urine pH 7.0 (5.0-7.0) 01/10/20 04:12 Ur Specific [place] 1.007 (1.003-1.030) 01/10/20 04:12 Urine Protein >500 mg/dL (Negative) 01/10/20 04:12 Urine Glucose (UA) 50 mg/dL (Negative) 01/10/20 04:12 Urine Ketones Neg mg/dL (Negative) 01/10/20 04:12 Urine Blood Mod (Negative) 01/10/20 04:12 Urine Nitrite Neg (Negative) 01/10/20 04:12 Urine Bilirubin Neg (Negative) 01/10/20 04:12 Urine Urobilinogen < 2.0 mg/dL (<2.0) 01/10/20 04:12 Ur Leukocyte Esterase Neg (Negative) 01/10/20 04:12 Urine WBC (Auto) 50.0 /HPF (0.0-6.0) H 01/10/20 04:12 Urine RBC (Auto) 17.0 /HPF (0.0-6.0) 01/10/20 04:12 U Epithel Cells (Auto) 1.0 /HPF (0-13.0) 01/10/20 04:12 Urine Bacteria (Auto) 2+ /HPF (Negative) 01/10/20 04:12 Urine Mucus Few /HPF 01/10/20 04:12 Urine Yeast (Budding) 3+ /HPF 01/10/20 04:12 Urine Creatinine 79.8 mg/dL (0.1-20.0) H 01/11/20 12:25 Urine Sodium 50 mmol/L 01/11/20 12:25 Urine Urea Nitrogen 83 01/11/20 12:25 Immunofix Electrophor see below 01/12/20 17:23 SERAFIN Screen Negative (Negative) 01/12/20 17: Proteinase 3 (PR3) Ab <1.0 AI (<1.0) 01/12/20 17: Myeloperoxidase Ab <1.0 AI (<1.0) 01/12/20 17:23 Complement C3 150 mg/dL (83-193) 01/12/20 17:23 Complement C4 45 mg/dL (15-57) 01/12/20 17:23 Coronavirus (PCR) Negative (Negative) 01/10/20 10:27 Microbiology: Microbiology 01/16/20 00:50 Peripheral/Venous Blood Culture - Preliminary NO GROWTH AFTER 48 HOURS - Diagnostic Impressions Diagnostic Impressions: Echocardiogram 01/10/20 07:42 Transthoracic Echocardiogram Indication: Dyspnea BP: 102/54 HR: 100 Conclusions *The study quality is technically difficult. *Severe concentric left ventricular hypertrophy is observed. *The estimated ejection fraction is 45-50%. *The right ventricular global systolic function is mildly reduced. Findings Procedure Info: The study quality is technically difficult. Left Ventricle: The left ventricular chamber size is normal. Severe concentric left ventricular hypertrophy is observed. Global left ventricular systolic function is at the lower limits of normal. The estimated ejection fraction is 45-50%. Abnormal left ventricular diastolic filling is observed, consistent with impaired relaxation. Left Atrium: The left atrial chamber size is normal. Right Ventricle: The right ventricular global systolic function is mildly reduced. Aortic Valve: Mild aortic leaflet calcification is visualized. There is no evidence of aortic regurgitation. Mitral Valve: The mitral valve leaflets are mildly thickened. There is no evidence of mitral regurgitation. Tricuspid Valve: The tricuspid valve leaflets are normal. There is no evidence of tricuspid valve regurgitation. Pulmonic Valve: The pulmonic valve is not well visualized. There is no evidence of pulmonic regurgitation. Pericardium: A trivial pericardial effusion is visualized. Aorta: The aorta appears normal. Measurements Chambers 2D Name Value Normal Range IVSd (2D) 1.86 cm (0.6 - 1.1) LVPWd (2D) 1.74 cm (0.6 - 1.1) IVS:LVPW ratio (2D) 1.07 ratio - LVIDd (2D) 4.47 cm (3.7 - 5.6) LVIDs (2D) 3.74 cm (2 - 3.8) LV FS (Teichholz) (2D) 16.3 % - LV FS (cube) (2D) 16.3 % - Ao root diameter (2D) 3.1 cm (2 - 3.7) LA dimension (AP) 2D 3.5 cm (1.9 - 4) LA:Ao ratio (2D) 1.13 ratio - Volumes/Mass Name Value Normal Range LA ESV SP 4CH (MOD) 41 ml - LA ESV SP 2CH (MOD) 61 ml - LA ESV BP (MOD) 51 ml - LA ESV BP (MOD) index 20.3 ml/m2 - LV EDV SP 4CH (MOD) 88 ml - LV ESV SP 4CH (MOD) 47 ml - EF SP 4CH (MOD) 47 % - LV EDV SP 2CH (MOD) 62 ml - LV ESV SP 2CH (MOD) 37 ml - EF SP 2CH (MOD) 40 % - LV EDV BP 79 ml - LV ESV BP 41 ml - BP EF (MOD) 48 % - Diastolic/Systolic Function Name Value Normal Range MV E-wave Vmax 0.58 m/sec - MV deceleration time 208 msec - MV A-wave Vmax 0.6 m/sec - MV E:A ratio 1 ratio - LV septal e' Vmax 0.04 m/sec - LV lateral e' Vmax 0.03 m/sec - LV E:e' septal ratio 13.3 ratio - LV E:e' lateral ratio 18.1 ratio - Aortic Valve Name Value Normal Range AV VTI 19.2 cm - AV mean gradient 5 mmHg - LVOT diameter 2.4 cm - LVOT VTI 18 cm - LVOT mean gradient 5 mmHg - SV LVOT 81 ml - CL (continuity VTI) 4.24 cm2 - Pulmonic Valve/Qp:Qs Name Value Normal Range PV Vmax 1.01 m/sec - PV peak gradient 4 mmHg - PV acceleration time 102 msec - Gomez/IV: Voiding Method Indwelling Catheter IV Catheter Type [Left Forearm Peripheral IV ] IV Catheter Type [Right Triple Lumen Cath Internal Jugular] IV Catheter Type [Right Hand] INT / Saline Lock Active Medications - Current Medications Current Medications: Generic Name Dose Route Start Last Admin Trade Name Freq PRN Reason Stop Dose Admin Acetaminophen 650 mg 01/10/20 08:00 01/16/20 13:59 Tylenol PO 650 mg Q4H PRN Administration Pain MILD(1-3)/Fever >100.5/CHRISTINA Lipase/Protease/Amylase 1 each 01/10/20 08:00 Pancrelety Gomez 10,500 Unit FEEDTUBE PRN PRN For Clogged Feeding Tube Famotidine 20 mg 01/12/20 10:00 01/17/20 10:38 Pepcid PO 20 mg DAILY KANIKA Administration Norepinephrine 8 mg/ Sodium 250 mls @ 3.75 mls/hr 01/14/20 10:00 01/18/20 04:34 Chloride IV 22 mcg/min TITR KANIKA 41.25 mls/hr Titration Protocol 2 MCG/MIN Cefepime HCl 2 gm in 100 mls @ 200 mls/hr 01/17/20 22:00 01/17/20 22:13 Cefepime/Ns 2 Gm/100 Ml IV 200 mls/hr Q24H KANIKA Administration Protocol Metoclopramide HCl 10 mg 01/10/20 08:00 Reglan IV Q6H PRN Nausea And Vomiting Ondansetron HCl 4 mg 01/10/20 08:00 Zofran IV Q8H PRN Nausea And Vomiting Senna/Docusate Sodium 2 tab 01/15/20 10:00 01/17/20 22:12 Senokot S PO 2 tab BID KANIKA Administration Simple Syrup 15 ml 01/10/20 08:00 Simple Syrup FEEDTUBE PRN PRN Hypoglycemia Simple Syrup 30 ml 01/10/20 08:00 Simple Syrup FEEDTUBE PRN PRN Hypoglycemia Sodium Bicarbonate 325 mg 01/10/20 08:00 Sodium Bicarbonate FEEDTUBE PRN PRN For Clogged Feeding Tube Sodium Chloride 10 ml 01/10/20 10:00 01/17/20 22:14 Sodium Chloride Flush Syringe 10 Ml IV 10 ml BID KANIKA Administration Sodium Chloride 10 ml 01/10/20 08:00 Sodium Chloride Flush Syringe 10 Ml IV PRN PRN LINE FLUSH Nutrition/Malnutrition Assess - Dietary Evaluation Nutrition/Malnutrition Findings: Nutrition Notes Start: 01/10/20 08:12 Freq: Status: Active Protocol: Document 01/17/20 12:50 LAURI (Rec: 01/17/20 14:14 LAURI [id number]) Co-Sign 01/17/20 12:50 NHALL Nutrition Notes Initial or Follow up Reassessment Current Diagnosis Acute Kidney Injury,COPD, Sepsis,Hypertension,Heart Failure Other Pertinent Diagnosis Acute PE, hypokalemia Current Diet Vital AF 1.2 at 60 ml/hr Labs/Tests Na 151 BUN 39 Cr 4.7 Pertinent Medications Norepinephrine Height 5 ft 6 in Weight 161 kg [place] Body Weight (kg) 59.09 BMI 57.2 Weight change and time frame Wt change noted. Pt has edema. Subjective/Other Information F/U for TF tolerance. TF not running at time of visit. Per MD, TF was turned off d/t instability and pressors. Possible transfer to LTAC. Percent of energy/protein needs met: 0%/0% Burn Absent Trauma Absent Current % PO Negligible Minimum of two criteria No Fluid Accumulation Moderate to Severe (severe) #1 Nutrition Diagnosis Inadequate oral intake Diagnosis Progress(for reassessment Continues documentation) Is patient on ventilator? Yes Is Patient Ambulatory and/or Out of Bed No REE-([facility]-confined to bed) 2746.200 Kcal/Kg value to use for calculation 11 Approximate Energy Requirements Using 1771 kcal/Kg Calculation Used for Recommendations Kcal/kg Additional Notes Pro: 147 g (up to 2.5 g/kg IBW ) Fluid: 1.5-1.9 L Nutrition Intervention Change Diet Order: TF when medically feasible Nutrition Support: Vital AF 1.2 at 60 ml/hr Flush 60 ml q4h Kcal 1,728 Protein (gm) 108 Fluid (mL) 1,167 Goal #1 TF start/tolerance Follow-Up By: 01/21/20 Additional Comments F/U for plan of care
--- NOTE | 2020-01-18 09:26 | Progress Note ---
Assessment and Plan 44 y/o female with acute respiratory failure, hypothermia and encephalopathic. 1. Pulm-intubated, not sedated. Remains unresponsive. Oxygen requirement increasing. Not able to diurese 2. CV-echo read and shows systolic heart failure. EF of 45%. Remains on pressors. Renal function worsening. Still could be poor forward flow. Consider cards consult and ask about intropic therapy if patient doesn't respond to repeat fluid boluses which she hasn't. Cards evaluated, no mention of inotropic support. 3. Neuro-completely unresponsive. Neurology note reviewed. Per them, clinical picture is too clouded and not enough definitive information to diagnosis, brain vs severe hypoxic injury. They are performing tele exams. No new recs from them. Not sure if they have spoken with the mother and sons. 4. Renal-worsening renal function. Renal following. Hold on boluses today. 5. GI-WIll restart feeds today 6. Prophylaxis-stopping heparin given drop in platelets 7. Prognosis remains very very guarded to poor. Per nursing family came up and visited last night. No changes made. IMS to update family today. 01/13/2020: Spoke with mother this am. I have tried to explain that the patient's comatose state is not good given that she has not required any sedation since admission. Hemodynamically she remains unstable and requires too much PEEP for transfer to CT scanner. I explained the current plan and she expressed understanding but I am not sure that she gets it. Per her, the son's were on the phone but they had no questions. May need to offer her to come see her daughter, maybe this will help her to understand whats going on. 01/11/2020: Spoke with mother on speaker phone with patients' two boys who are 18 and 21. Explained to them the patient's mental state (comatose) and oxygen dependence and renal failure. Per the mother, patient was obtunded when EMS came to pick her up. She feel at home and had been complaining of nausea and had emesis. She denied any sick contacts. She does not know if the patient complained of headache or blurred vision. No head CT done in ED and currently patient is bit to unstable for transfer at this moment. Head CT is definitely needed and will order EEG to be done as well. Explained to the family how sick patient is. Unsure if they completely understand. Mother mentioned about transfer. I expla ined to her it would be up to the accepting physician if they would accept her. I feel it is unsafe to transport her right now and I am not sure what another hospital would provide. Once head CT obtained, this maybe different. CCT 31 Subjective Date of service: 01/18/20 Principal diagnosis: PNA; resp failure Interval history: Remains unresponsive. Clinical status is worsening. Levophed is increasing, and Oxygen requirement is increasing. Objective Vital Signs - 12hr 01/17/20 01/17/20 01/17/20 21:30 21:45 22:00 Temperature 92.6 F L Pulse Rate 78 77 78 Pulse Rate [ From Monitor] Respiratory 24 24 24 Rate Blood Pressure 94/53 90/53 100/64 O2 Sat by Pulse 97 95 97 Oximetry 01/17/20 01/17/20 01/17/20 22:15 22:30 22:43 Temperature Pulse Rate 78 79 79 Pulse Rate [ From Monitor] Respiratory 25 H 24 24 Rate Blood Pressure 92/55 100/63 100/63 O2 Sat by Pulse 96 96 96 Oximetry 01/17/20 01/17/20 01/17/20 22:46 22:54 23:00 Temperature Pulse Rate 80 80 80 Pulse Rate [ From Monitor] Respiratory 24 19 18 Rate Blood Pressure 100/63 91/53 O2 Sat by Pulse 96 97 96 Oximetry 01/17/20 01/17/20 01/17/20 23:01 23:15 23:30 Temperature Pulse Rate 79 80 81 Pulse Rate [ From Monitor] Respiratory 25 H 23 23 Rate Blood Pressure 91/53 81/51 77/41 O2 Sat by Pulse 96 95 96 Oximetry 01/17/20 01/18/20 01/18/20 23:45 00:00 00:02 Temperature 94.1 F L Pulse Rate 84 85 85 Pulse Rate [ 85 From Monitor] Respiratory 24 24 Rate Blood Pressure 116/77 95/55 95/55 O2 Sat by Pulse 96 95 94 Oximetry 01/18/20 01/18/20 01/18/20 00:15 00:30 00:45 Temperature Pulse Rate 86 87 86 Pulse Rate [ From Monitor] Respiratory 24 23 24 Rate Blood Pressure 86/49 90/51 88/50 O2 Sat by Pulse 92 91 91 Oximetry 01/18/20 01/18/20 01/18/20 01:00 01:15 01:30 Temperature Pulse Rate 90 90 90 Pulse Rate [ From Monitor] Respiratory 24 24 25 H Rate Blood Pressure 89/50 85/48 77/40 O2 Sat by Pulse 91 91 92 Oximetry 01/18/20 01/18/20 01/18/20 01:45 02:00 02:15 Temperature Pulse Rate 92 H 91 H 93 H Pulse Rate [ From Monitor] Respiratory 24 20 23 Rate Blood Pressure 78/42 90/57 80/48 O2 Sat by Pulse 92 93 92 Oximetry 01/18/20 01/18/20 01/18/20 02:30 02:45 02:58 Temperature 96.2 F L Pulse Rate 93 H 94 H Pulse Rate [ From Monitor] Respiratory 21 24 Rate Blood Pressure 80/42 79/45 O2 Sat by Pulse 91 91 Oximetry 01/18/20 01/18/20 01/18/20 03:00 03:15 03:22 Temperature 97.6 F Pulse Rate 96 H 97 H Pulse Rate [ From Monitor] Respiratory 21 16 Rate Blood Pressure 94/60 79/44 O2 Sat by Pulse 92 91 Oximetry 01/18/20 01/18/20 01/18/20 03:31 03:45 04:00 Temperature Pulse Rate 97 H 100 H 102 H Pulse Rate [ From Monitor] Respiratory 16 13 9 L Rate Blood Pressure 122/81 121/72 100/64 O2 Sat by Pulse 92 95 94 Oximetry 01/18/20 01/18/20 01/18/20 04:08 04:15 04:30 Temperature Pulse Rate 102 H 102 H 104 H Pulse Rate [ From Monitor] Respiratory 13 24 Rate Blood Pressure 100/64 101/57 100/57 O2 Sat by Pulse 93 93 93 Oximetry 01/18/20 01/18/20 01/18/20 04:45 05:00 05:15 Temperature Pulse Rate 104 H 103 H 103 H Pulse Rate [ From Monitor] Respiratory 24 24 15 Rate Blood Pressure 88/43 90/53 89/54 O2 Sat by Pulse 91 92 92 Oximetry 01/18/20 01/18/20 01/18/20 05:30 05:45 06:00 Temperature Pulse Rate 104 H 104 H 103 H Pulse Rate [ From Monitor] Respiratory 12 24 22 Rate Blood Pressure 92/55 90/47 89/48 O2 Sat by Pulse 92 91 91 Oximetry 01/18/20 08:12 Temperature Pulse Rate 114 H Pulse Rate [ From Monitor] Respiratory Rate Blood Pressure 61/26 O2 Sat by Pulse 91 Oximetry Constitutional: no acute distress, comatose (Per nursing, no cough, no gag) Eyes: non-icteric ENT: other (orally intubated, not on sedation) Neck: supple, other (large in circumference) Cardiovascular: regular rate and rhythm Gastrointestinal: normoactive bowel sounds CBC and BMP: 01/18/20 04:00 01/18/20 04:00 ABG, PT/INR, D-dimer: ABG ABG pH 7.348 pH Units (7.350-7.450) L 01/18/20 04:48 POC ABG pCO2 59.1 mmHg (32.0-48.0) H 01/15/20 04:20 ABG pCO2 46.2 mm Hg 01/18/20 04:48 POC ABG pO2 49.3 mmHg (83-108) L 01/15/20 04:20 ABG pO2 63.1 mm Hg (80.0-90.0) L 01/18/20 04:48 POC ABG HCO3 27.5 01/15/20 04:20 ABG O2 Saturation 91.6 % (95.0-99.0) L 01/18/20 04:48 PT/INR, D-dimer PT 13.9 Sec. (12.2-14.9) 01/09/20 19:03 INR 1.05 (0.87-1.13) 01/09/20 19:03 Abnormal lab findings: Abnormal Labs 01/09/20 01/09/20 01/09/20 18:37 18:47 19:03 WBC 14.0 H RBC 5.18 H Hgb MCV 76 L MCH 22 L MCHC 29 L RDW 22.0 H Plt Count Lymph % (Auto) [place] % (Auto) Baso % (Auto) Lymph # (Auto) [place] # (Auto) Baso # (Auto) Seg Neutrophils % Seg Neuts % (Manual) 76.0 H Lymphocytes % (Manual) Monocytes % (Manual) Nucleated RBC % Seg Neutrophils # Seg Neutrophils # Man 10.6 H Lymphocytes # (Manual) Monocytes # (Manual) ABG pH 7.252 L POC ABG pCO2 POC ABG pO2 ABG pO2 172.4 H ABG HCO3 34.3 H ABG O2 Saturation ABG Base Excess 4.9 H ABG Hemoglobin 11.8 L ABG Sodium ABG Potassium ABG Chloride ABG Glucose VBG pH 7.252 L Oxyhemoglobin Sodium Potassium Chloride BUN Creatinine Glucose POC Glucose 177 H Phosphorus Magnesium NT-Pro-B Natriuret Pep Total Protein Albumin Arterial Blood Glucose Urine WBC (Auto) Urine Creatinine 01/09/20 01/09/20 01/09/20 19:03 19:03 21:55 WBC RBC Hgb MCV MCH MCHC RDW Plt Count Lymph % (Auto) [place] % (Auto) Baso % (Auto) Lymph # (Auto) [place] # (Auto) Baso # (Auto) Seg Neutrophils % Seg Neuts % (Manual) Lymphocytes % (Manual) Monocytes % (Manual) Nucleated RBC % Seg Neutrophils # Seg Neutrophils # Man Lymphocytes # (Manual) Monocytes # (Manual) ABG pH 7.310 L POC ABG pCO2 POC ABG pO2 ABG pO2 61.8 L ABG HCO3 31.2 H ABG O2 Saturation 90.3 L ABG Base Excess 3.8 H ABG Hemoglobin 10.0 L ABG Sodium ABG Potassium ABG Chloride ABG Glucose VBG pH Oxyhemoglobin 87.8 L Sodium Potassium 3.1 L Chloride 95.2 L BUN Creatinine Glucose 197 H POC Glucose Phosphorus Magnesium NT-Pro-B Natriuret Pep 1345 H Total Protein 8.3 H Albumin Arterial Blood Glucose Urine WBC (Auto) Urine Creatinine 01/10/20 01/10/20 01/10/20 03:35 04:12 10:40 WBC RBC Hgb MCV 76 L MCH 22 L MCHC 29 L RDW 21.4 H Plt Count Lymph % (Auto) 6.0 L [place] % (Auto) Baso % (Auto) Lymph # (Auto) 0.5 L [place] # (Auto) Baso # (Auto) Seg Neutrophils % 87.3 H Seg Neuts % (Manual) Lymphocytes % (Manual) Monocytes % (Manual) Nucleated RBC % Seg Neutrophils # Seg Neutrophils # Man Lymphocytes # (Manual) Monocytes # (Manual) ABG pH POC ABG pCO2 POC ABG pO2 ABG pO2 63.8 L ABG HCO3 28.7 H ABG O2 Saturation ABG Base Excess 4.0 H ABG Hemoglobin 10.9 L ABG Sodium ABG Potassium ABG Chloride ABG Glucose VBG pH Oxyhemoglobin 92.8 L Sodium Potassium Chloride BUN Creatinine Glucose POC Glucose Phosphorus Magnesium NT-Pro-B Natriuret Pep Total Protein Albumin Arterial Blood Glucose Urine WBC (Auto) 50.0 H Urine Creatinine 01/10/20 01/11/20 01/11/20 10:40 03:34 09:53 WBC RBC Hgb MCV MCH MCHC RDW Plt Count Lymph % (Auto) [place] % (Auto) Baso % (Auto) Lymph # (Auto) [place] # (Auto) Baso # (Auto) Seg Neutrophils % Seg Neuts % (Manual) Lymphocytes % (Manual) Monocytes % (Manual) Nucleated RBC % Seg Neutrophils # Seg Neutrophils # Man Lymphocytes # (Manual) Monocytes # (Manual) ABG pH 7.334 L POC ABG pCO2 POC ABG pO2 ABG pO2 45.9 L ABG HCO3 29.0 H ABG O2 Saturation 76.5 L ABG Base Excess ABG Hemoglobin 9.8 L ABG Sodium ABG Potassium ABG Chloride ABG Glucose VBG pH Oxyhemoglobin 74.7 L Sodium 146 H 147 H Potassium Chloride BUN 23 H Creatinine 1.6 H D 3.0 H D Glucose POC Glucose Phosphorus 2.40 L Magnesium 1.50 L NT-Pro-B Natriuret Pep Total Protein 5.9 L D Albumin 3.2 L Arterial Blood Glucose Urine WBC (Auto) Urine Creatinine 01/11/20 01/11/20 01/12/20 12:25 15:30 00:27 WBC RBC Hgb MCV MCH MCHC RDW Plt Count Lymph % (Auto) [place] % (Auto) Baso % (Auto) Lymph # (Auto) [place] # (Auto) Baso # (Auto) Seg Neutrophils % Seg Neuts % (Manual) Lymphocytes % (Manual) Monocytes % (Manual) Nucleated RBC % Seg Neutrophils # Seg Neutrophils # Man Lymphocytes # (Manual) Monocytes # (Manual) ABG pH 7.273 L POC ABG pCO2 58.8 H POC ABG pO2 67.0 L ABG pO2 ABG HCO3 ABG O2 Saturation ABG Base Excess ABG Hemoglobin 10.4 L ABG Sodium ABG Potassium ABG Chloride 108.0 H ABG Glucose VBG pH Oxyhemoglobin Sodium Potassium Chloride BUN Creatinine Glucose POC Glucose 109 H Phosphorus Magnesium NT-Pro-B Natriuret Pep Total Protein Albumin Arterial Blood Glucose Urine WBC (Auto) Urine Creatinine 79.8 H 01/12/20 01/12/20 01/12/20 05:51 09:50 09:50 WBC 13.7 H RBC Hgb 9.5 L MCV 76 L MCH 22 L MCHC 29 L RDW 22.0 H Plt Count Lymph % (Auto) [place] % (Auto) Baso % (Auto) Lymph # (Auto) [place] # (Auto) Baso # (Auto) Seg Neutrophils % Seg Neuts % (Manual) Lymphocytes % (Manual) Monocytes % (Manual) Nucleated RBC % Seg Neutrophils # Seg Neutrophils # Man Lymphocytes # (Manual) Monocytes # (Manual) ABG pH 7.311 L POC ABG pCO2 49.5 H POC ABG pO2 81.8 L ABG pO2 ABG HCO3 ABG O2 Saturation ABG Base Excess ABG Hemoglobin 10.8 L ABG Sodium ABG Potassium ABG Chloride 112.0 H ABG Glucose 99 H VBG pH Oxyhemoglobin Sodium 148 H Potassium Chloride 110.7 H BUN 26 H Creatinine 3.0 H Glucose 102 H POC Glucose Phosphorus Magnesium NT-Pro-B Natriuret Pep Total Protein 5.8 L Albumin 2.4 L Arterial Blood Glucose 99 H Urine WBC (Auto) Urine Creatinine 01/13/20 01/13/20 01/13/20 04:11 06:28 06:28 WBC RBC Hgb 9.3 L MCV 77 L MCH 22 L MCHC 29 L RDW 22.2 H Plt Count Lymph % (Auto) 13.1 L [place] % (Auto) 9.3 H Baso % (Auto) Lymph # (Auto) [place] # (Auto) 0.9 H Baso # (Auto) Seg Neutrophils % 75.6 H Seg Neuts % (Manual) Lymphocytes % (Manual) Monocytes % (Manual) Nucleated RBC % Seg Neutrophils # Seg Neutrophils # Man Lymphocytes # (Manual) Monocytes # (Manual) ABG pH 7.289 L POC ABG pCO2 54.9 H POC ABG pO2 ABG pO2 ABG HCO3 ABG O2 Saturation ABG Base Excess ABG Hemoglobin ABG Sodium ABG Potassium ABG Chloride ABG Glucose VBG pH Oxyhemoglobin Sodium 152 H Potassium Chloride 115.5 H BUN 25 H Creatinine 3.9 H Glucose 132 H POC Glucose Phosphorus Magnesium NT-Pro-B Natriuret Pep Total Protein Albumin Arterial Blood Glucose Urine WBC (Auto) Urine Creatinine 01/13/20 01/13/20 01/14/20 12:07 17:44 04:00 WBC RBC Hgb MCV MCH MCHC RDW Plt Count Lymph % (Auto) [place] % (Auto) Baso % (Auto) Lymph # (Auto) [place] # (Auto) Baso # (Auto) Seg Neutrophils % Seg Neuts % (Manual) Lymphocytes % (Manual) Monocytes % (Manual) Nucleated RBC % Seg Neutrophils # Seg Neutrophils # Man Lymphocytes # (Manual) Monocytes # (Manual) ABG pH 7.269 L POC ABG pCO2 56.4 H POC ABG pO2 75.2 L ABG pO2 ABG HCO3 ABG O2 Saturation ABG Base Excess ABG Hemoglobin 10.9 L ABG Sodium 152.1 H ABG Potassium ABG Chloride 119.0 H ABG Glucose 113 H VBG pH Oxyhemoglobin Sodium Potassium Chloride BUN Creatinine Glucose POC Glucose 106 H 133 H Phosphorus Magnesium NT-Pro-B Natriuret Pep Total Protein Albumin Arterial Blood Glucose 113 H Urine WBC (Auto) Urine Creatinine 01/14/20 01/14/20 01/14/20 05:11 05:11 09:05 WBC RBC Hgb 9.3 L MCV 77 L MCH 22 L MCHC 29 L RDW 22.1 H Plt Count 126 L Lymph % (Auto) 7.8 L [place] % (Auto) 9.9 H Baso % (Auto) Lymph # (Auto) 0.7 L [place] # (Auto) Baso # (Auto) Seg Neutrophils % 79.2 H Seg Neuts % (Manual) Lymphocytes % (Manual) Monocytes % (Manual) Nucleated RBC % Seg Neutrophils # Seg Neutrophils # Man Lymphocytes # (Manual) Monocytes # (Manual) ABG pH 7.309 L POC ABG pCO2 POC ABG pO2 ABG pO2 94.6 H ABG HCO3 ABG O2 Saturation ABG Base Excess ABG Hemoglobin 10.3 L ABG Sodium ABG Potassium ABG Chloride ABG Glucose VBG pH Oxyhemoglobin 94.4 L Sodium 157 H Potassium 3.5 L D Chloride 118.5 H BUN 25 H Creatinine 4.0 H Glucose 111 H POC Glucose Phosphorus Magnesium NT-Pro-B Natriuret Pep Total Protein Albumin Arterial Blood Glucose Urine WBC (Auto) Urine Creatinine 01/14/20 01/14/20 01/15/20 12:20 16:32 04:00 WBC RBC Hgb MCV MCH MCHC RDW Plt Count Lymph % (Auto) [place] % (Auto) Baso % (Auto) Lymph # (Auto) [place] # (Auto) Baso # (Auto) Seg Neutrophils % Seg Neuts % (Manual) Lymphocytes % (Manual) Monocytes % (Manual) Nucleated RBC % Seg Neutrophils # Seg Neutrophils # Man Lymphocytes # (Manual) Monocytes # (Manual) ABG pH POC ABG pCO2 POC ABG pO2 ABG pO2 ABG HCO3 ABG O2 Saturation ABG Base Excess ABG Hemoglobin ABG Sodium ABG Potassium ABG Chloride ABG Glucose VBG pH Oxyhemoglobin Sodium 154 H Potassium 3.1 L Chloride 116.5 H BUN 27 H Creatinine 3.8 H Glucose 138 H POC Glucose 123 H 142 H Phosphorus Magnesium NT-Pro-B Natriuret Pep Total Protein Albumin Arterial Blood Glucose Urine WBC (Auto) Urine Creatinine 01/15/20 01/15/20 01/15/20 04:00 04:20 04:25 WBC RBC Hgb 9.2 L MCV 77 L MCH 22 L MCHC 29 L RDW 22.4 H Plt Count 95 L Lymph % (Auto) [place] % (Auto) 9.4 H Baso % (Auto) Lymph # (Auto) 0.8 L [place] # (Auto) Baso # (Auto) Seg Neutrophils % 73.2 H Seg Neuts % (Manual) Lymphocytes % (Manual) Monocytes % (Manual) Nucleated RBC % Seg Neutrophils # Seg Neutrophils # Man Lymphocytes # (Manual) Monocytes # (Manual) ABG pH 7.285 L POC ABG pCO2 59.1 H POC ABG pO2 49.3 L ABG pO2 ABG HCO3 ABG O2 Saturation ABG Base Excess ABG Hemoglobin 10.7 L ABG Sodium 152.8 H ABG Potassium 3.1 L ABG Chloride 121.0 H ABG Glucose 138 H VBG pH Oxyhemoglobin Sodium Potassium Chloride BUN Creatinine Glucose POC Glucose Phosphorus Magnesium 1.60 L NT-Pro-B Natriuret Pep Total Protein Albumin Arterial Blood Glucose 138 H Urine WBC (Auto) Urine Creatinine 01/16/20 01/16/20 01/16/20 00:20 04:19 04:19 WBC RBC Hgb 9.4 L MCV 77 L MCH 22 L MCHC 29 L RDW 22.8 H Plt Count 99 L Lymph % (Auto) [place] % (Auto) Baso % (Auto) Lymph # (Auto) [place] # (Auto) Baso # (Auto) Seg Neutrophils % Seg Neuts % (Manual) 73.0 H Lymphocytes % (Manual) 12.0 L Monocytes % (Manual) 12.0 H Nucleated RBC % 4.0 H Seg Neutrophils # Seg Neutrophils # Man Lymphocytes # (Manual) 0.9 L Monocytes # (Manual) 0.9 H ABG pH POC ABG pCO2 POC ABG pO2 ABG pO2 ABG HCO3 ABG O2 Saturation ABG Base Excess ABG Hemoglobin ABG Sodium ABG Potassium ABG Chloride ABG Glucose VBG pH Oxyhemoglobin Sodium 154 H Potassium Chloride 115.8 H BUN 28 H Creatinine 4.0 H Glucose 130 H POC Glucose 149 H Phosphorus Magnesium NT-Pro-B Natriuret Pep Total Protein Albumin Arterial Blood Glucose Urine WBC (Auto) Urine Creatinine 01/16/20 01/16/20 01/16/20 05:31 11:59 18:09 WBC RBC Hgb MCV MCH MCHC RDW Plt Count Lymph % (Auto) [place] % (Auto) Baso % (Auto) Lymph # (Auto) [place] # (Auto) Baso # (Auto) Seg Neutrophils % Seg Neuts % (Manual) Lymphocytes % (Manual) Monocytes % (Manual) Nucleated RBC % Seg Neutrophils # Seg Neutrophils # Man Lymphocytes # (Manual) Monocytes # (Manual) ABG pH POC ABG pCO2 POC ABG pO2 ABG pO2 ABG HCO3 ABG O2 Saturation ABG Base Excess ABG Hemoglobin ABG Sodium ABG Potassium ABG Chloride ABG Glucose VBG pH Oxyhemoglobin Sodium Potassium Chloride BUN Creatinine Glucose POC Glucose 138 H 135 H 135 H Phosphorus Magnesium NT-Pro-B Natriuret Pep Total Protein Albumin Arterial Blood Glucose Urine WBC (Auto) Urine Creatinine 01/16/20 01/17/20 01/17/20 Unknown 00:03 03:50 WBC RBC Hgb MCV MCH MCHC RDW Plt Count Lymph % (Auto) [place] % (Auto) Baso % (Auto) Lymph # (Auto) [place] # (Auto) Baso # (Auto) Seg Neutrophils % Seg Neuts % (Manual) Lymphocytes % (Manual) Monocytes % (Manual) Nucleated RBC % Seg Neutrophils # Seg Neutrophils # Man Lymphocytes # (Manual) Monocytes # (Manual) ABG pH 7.334 L 7.344 L POC ABG pCO2 POC ABG pO2 ABG pO2 123.5 H 76.8 L ABG HCO3 27.4 H ABG O2 Saturation ABG Base Excess ABG Hemoglobin 9.4 L ABG Sodium ABG Potassium ABG Chloride ABG Glucose VBG pH Oxyhemoglobin 93.8 L Sodium Potassium Chloride BUN Creatinine Glucose POC Glucose 128 H Phosphorus Magnesium NT-Pro-B Natriuret Pep Total Protein Albumin Arterial Blood Glucose Urine WBC (Auto) Urine Creatinine 01/17/20 01/17/20 01/17/20 04:00 04:00 05:57 WBC RBC Hgb 9.1 L MCV 76 L MCH 22 L MCHC 29 L RDW 22.8 H Plt Count 72 L Lymph % (Auto) 12.7 L [place] % (Auto) Baso % (Auto) 1.9 H Lymph # (Auto) [place] # (Auto) Baso # (Auto) 0.2 H Seg Neutrophils % 76.4 H Seg Neuts % (Manual) Lymphocytes % (Manual) Monocytes % (Manual) Nucleated RBC % Seg Neutrophils # 8.4 H Seg Neutrophils # Man Lymphocytes # (Manual) Monocytes # (Manual) ABG pH POC ABG pCO2 POC ABG pO2 ABG pO2 ABG HCO3 ABG O2 Saturation ABG Base Excess ABG Hemoglobin ABG Sodium ABG Potassium ABG Chloride ABG Glucose VBG pH Oxyhemoglobin Sodium 151 H Potassium Chloride 113.3 H BUN 39 H Creatinine 4.7 H Glucose 110 H POC Glucose 107 H Phosphorus Magnesium NT-Pro-B Natriuret Pep Total Protein Albumin Arterial Blood Glucose Urine WBC (Auto) Urine Creatinine 01/17/20 01/18/20 01/18/20 12:23 04:00 04:00 WBC 11.4 H RBC Hgb 9.5 L MCV 75 L MCH 22 L MCHC 29 L RDW 23.4 H Plt Count 60 L Lymph % (Auto) [place] % (Auto) Baso % (Auto) Lymph # (Auto) [place] # (Auto) Baso # (Auto) Seg Neutrophils % 73.6 H Seg Neuts % (Manual) Lymphocytes % (Manual) Monocytes % (Manual) Nucleated RBC % Seg Neutrophils # 8.4 H Seg Neutrophils # Man Lymphocytes # (Manual) Monocytes # (Manual) ABG pH POC ABG pCO2 POC ABG pO2 ABG pO2 ABG HCO3 ABG O2 Saturation ABG Base Excess ABG Hemoglobin ABG Sodium ABG Potassium ABG Chloride ABG Glucose VBG pH Oxyhemoglobin Sodium 153 H Potassium Chloride 115.2 H BUN 47 H Creatinine 5.0 H Glucose POC Glucose 109 H Phosphorus Magnesium NT-Pro-B Natriuret Pep Total Protein Albumin Arterial Blood Glucose Urine WBC (Auto) Urine Creatinine 01/18/20 04:48 WBC RBC Hgb MCV MCH MCHC RDW Plt Count Lymph % (Auto) [place] % (Auto) Baso % (Auto) Lymph # (Auto) [place] # (Auto) Baso # (Auto) Seg Neutrophils % Seg Neuts % (Manual) Lymphocytes % (Manual) Monocytes % (Manual) Nucleated RBC % Seg Neutrophils # Seg Neutrophils # Man Lymphocytes # (Manual) Monocytes # (Manual) ABG pH 7.348 L POC ABG pCO2 POC ABG pO2 ABG pO2 63.1 L ABG HCO3 ABG O2 Saturation 91.6 L ABG Base Excess ABG Hemoglobin 9.9 L ABG Sodium ABG Potassium ABG Chloride ABG Glucose VBG pH Oxyhemoglobin 89.1 L Sodium Potassium Chloride BUN Creatinine Glucose POC Glucose Phosphorus Magnesium NT-Pro-B Natriuret Pep Total Protein Albumin Arterial Blood Glucose Urine WBC (Auto) Urine Creatinine
[2020-01-18] MEDS: FAMOTIDINE 20 MG TAB PO SCH (09:38)
[2020-01-18] MEDS: SENNOSIDES/DOCUSATE SODIUM 8.6/50 MG TAB PO SCH (09:39)
[2020-01-18] MEDS: VASOPRESSIN 20 UNIT in SODIUM CHLORIDE 0.9% 100 ML IV SCH ×2 (10:58→23:29)
--- NOTE | 2020-01-18 19:27 | Progress Note ---
Assessment and Plan Impression: * Nonoliguric acute kidney injury secondary to ATN * Acute on chronic hypoxic respiratory on mechanical ventilation secondary to ?pulmonary edema vs infectious etiology * Urinary tract infection * Anoxia vs brain * Accelerated hypertension - resolved * Anemia * Hypernatremia * Hypokalemia Plan: * Na noted, added free H20 and D5w and follow up lytes * follow up mag and k levels, replete prn * Renal u/s ordered - pending * Serologic work up pending - anticipate low yield * Continue gentle IVF; for now, prn diuresis * Na noted today, continue free H20 * Abx per primary team * Pressors prn to maintain MAP>60 * Vent management per pulmonary/critical care * Dose medications for renal function * Avoid potential nephrotoxins * 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, not a candidate for hide 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 with anoxia Subjective Date of service: 01/18/20 Principal diagnosis: PNA; resp failure Interval history: resting in bed today Objective - Exam Narrative Exam: General appearance: well-developed, well-nourished, obese, intubated EENT: ATNC, other (ETT in place) Respiratory: Present: Decreased Breath Sounds Cardiology: regular, S1S2 Gastrointestinal: no tenderness, no distended, obese Integumentary: no rash, warm and dry - Vital Signs Vital signs: Vital Signs - 12hr 01/18/20 01/18/20 01/18/20 07:30 07:45 08:00 Temperature 98.8 F Pulse Rate 107 H 108 H 113 H Pulse Rate [ 113 H From Monitor] Respiratory 24 24 21 Rate Blood Pressure 93/50 91/44 90/48 O2 Sat by Pulse 91 91 91 Oximetry 01/18/20 01/18/20 01/18/20 08:12 08:15 08:30 Temperature Pulse Rate 114 H 114 H 117 H Pulse Rate [ From Monitor] Respiratory 20 24 Rate Blood Pressure 61/26 90/48 65/27 O2 Sat by Pulse 91 92 89 Oximetry 01/18/20 01/18/20 01/18/20 08:45 09:00 09:15 Temperature Pulse Rate 121 H 118 H 118 H Pulse Rate [ From Monitor] Respiratory 18 24 24 Rate Blood Pressure 97/53 97/53 84/40 O2 Sat by Pulse 91 89 89 Oximetry 01/18/20 01/18/20 01/18/20 09:30 09:45 10:00 Temperature Pulse Rate 116 H 117 H 118 H Pulse Rate [ From Monitor] Respiratory 20 23 24 Rate Blood Pressure 86/42 100/55 104/54 O2 Sat by Pulse 90 91 90 Oximetry 01/18/20 01/18/20 01/18/20 10:15 10:30 10:45 Temperature Pulse Rate 118 H 118 H 118 H Pulse Rate [ From Monitor] Respiratory 20 24 24 Rate Blood Pressure 100/53 99/53 99/49 O2 Sat by Pulse 89 89 88 Oximetry 01/18/20 01/18/20 01/18/20 11:00 11:15 11:30 Temperature Pulse Rate 119 H 119 H 118 H Pulse Rate [ From Monitor] Respiratory 14 21 21 Rate Blood Pressure 95/51 114/68 115/68 O2 Sat by Pulse 87 88 87 Oximetry 01/18/20 01/18/20 01/18/20 11:45 12:00 12:15 Temperature 99.0 F Pulse Rate 118 H 119 H 118 H Pulse Rate [ 119 H From Monitor] Respiratory 20 24 18 Rate Blood Pressure 107/61 103/60 103/60 O2 Sat by Pulse 86 86 86 Oximetry 01/18/20 01/18/20 01/18/20 12:26 12:30 12:45 Temperature Pulse Rate 119 H 119 H 119 H Pulse Rate [ From Monitor] Respiratory 20 24 Rate Blood Pressure 103/60 101/63 105/56 O2 Sat by Pulse 90 89 89 Oximetry 01/18/20 01/18/20 01/18/20 13:00 13:15 13:30 Temperature Pulse Rate 120 H 121 H 121 H Pulse Rate [ From Monitor] Respiratory 21 24 20 Rate Blood Pressure 103/61 106/54 109/56 O2 Sat by Pulse 89 89 88 Oximetry 01/18/20 01/18/20 01/18/20 13:45 14:00 14:15 Temperature Pulse Rate 121 H 120 H 121 H Pulse Rate [ From Monitor] Respiratory 18 24 24 Rate Blood Pressure 100/57 97/57 94/53 O2 Sat by Pulse 88 89 89 Oximetry 01/18/20 01/18/20 01/18/20 14:30 14:45 15:00 Temperature Pulse Rate 123 H 123 H 123 H Pulse Rate [ From Monitor] Respiratory 24 24 24 Rate Blood Pressure 110/66 113/59 101/57 O2 Sat by Pulse 88 88 88 Oximetry 01/18/20 01/18/20 01/18/20 15:15 15:30 15:45 Temperature Pulse Rate 123 H 124 H 125 H Pulse Rate [ From Monitor] Respiratory 24 25 H 24 Rate Blood Pressure 107/52 110/52 110/56 O2 Sat by Pulse 89 88 89 Oximetry 01/18/20 01/18/20 01/18/20 16:00 16:15 16:30 Temperature 102.6 F H Pulse Rate 126 H 125 H 124 H Pulse Rate [ 126 H From Monitor] Respiratory 24 22 24 Rate Blood Pressure 108/58 114/63 111/61 O2 Sat by Pulse 88 88 89 Oximetry 01/18/20 01/18/20 01/18/20 16:45 17:01 17:15 Temperature Pulse Rate 124 H 125 H 124 H Pulse Rate [ From Monitor] Respiratory 26 H 25 H 25 H Rate Blood Pressure 116/64 73/35 89/37 O2 Sat by Pulse 87 89 89 Oximetry 01/18/20 01/18/20 01/18/20 17:22 17:30 17:45 Temperature Pulse Rate 128 H 125 H Pulse Rate [ From Monitor] Respiratory 21 24 Rate Blood Pressure 113/59 126/73 108/63 O2 Sat by Pulse 89 89 89 Oximetry 01/18/20 01/18/20 01/18/20 18:00 18:15 18:30 Temperature Pulse Rate 123 H 120 H 119 H Pulse Rate [ From Monitor] Respiratory 24 24 25 H Rate Blood Pressure 109/60 101/60 107/58 O2 Sat by Pulse 90 92 91 Oximetry - Lab 01/18/20 04:00 01/18/20 04:00 Most recent lab results ABG pH 7.348 pH Units (7.350-7.450) L 01/18/20 04:48 ABG pCO2 46.2 mm Hg 01/18/20 04:48 ABG pO2 63.1 mm Hg (80.0-90.0) L 01/18/20 04:48 ABG HCO3 24.8 mmol/L (20.0-26.0) 01/18/20 04:48 ABG O2 Saturation 91.6 % (95.0-99.0) L 01/18/20 04:48 Calcium 9.5 mg/dL (8.4-10.2) 01/18/20 04:00 Phosphorus 3.20 mg/dL (2.5-4.5) D 01/11/20 09:53 Magnesium 1.60 mg/dL (1.7-2.3) L 01/15/20 04:00 Urine Creatinine 79.8 mg/dL (0.1-20.0) H 01/11/20 12:25 Urine Sodium 50 mmol/L 01/11/20 12:25 Medications & Allergies - Medications Allergies/Adverse Reactions: Allergies lisinopril Allergy (Verified 01/11/20 11:30) Swelling Home Medications: Home Medications Medication Instructions Recorded Confirmed Last Taken Type Unobtainable 01/10/20 01/10/20 Unknown History Active Medications: Generic Name Dose Route Start Last Admin Trade Name Freq PRN Reason Stop Dose Admin Acetaminophen 650 mg 01/10/20 08:00 01/16/20 13:59 Tylenol PO 650 mg Q4H PRN Administration Pain MILD(1-3)/Fever >100.5/CHRISTINA Lipase/Protease/Amylase 1 each 01/10/20 08:00 Pancreaze 10,500 Unit FEEDTUBE PRN PRN For Clogged Feeding Tube Famotidine 20 mg 01/12/20 10:00 01/18/20 09:38 Pepcid PO 20 mg DAILY KANIKA Administration Norepinephrine 8 mg/ Sodium 250 mls @ 3.75 mls/hr 01/14/20 10:00 01/18/20 18:58 Chloride IV 28 mcg/min TITR KANIKA 52.5 mls/hr Administration Protocol 2 MCG/MIN Cefepime HCl 2 gm in 100 mls @ 200 mls/hr 01/17/20 22:00 01/17/20 22:13 Cefepime/Ns 2 Gm/100 Ml IV 200 mls/hr Q24H KANIKA Administration Protocol Vasopressin 20 unit/ Sodium 101 mls @ 9.09 mls/hr 01/18/20 10:00 01/18/20 10:58 Chloride IV 0.03 units/min TITR KANIKA 9.09 mls/hr Administration Protocol 0.03 UNITS/MIN Metoclopramide HCl 10 mg 01/10/20 08:00 Reglan IV Q6H PRN Nausea And Vomiting Ondansetron HCl 4 mg 01/10/20 08:00 Zofran IV Q8H PRN Nausea And Vomiting Senna/Docusate Sodium 2 tab 01/15/20 10:00 01/18/20 09:39 Senokot S PO 2 tab BID KANIKA Administration Simple Syrup 15 ml 01/10/20 08:00 Simple Syrup FEEDTUBE PRN PRN Hypoglycemia Simple Syrup 30 ml 01/10/20 08:00 Simple Syrup FEEDTUBE PRN PRN Hypoglycemia Sodium Bicarbonate 325 mg 01/10/20 08:00 Sodium Bicarbonate FEEDTUBE PRN PRN For Clogged Feeding Tube Sodium Chloride 10 ml 01/10/20 10:00 01/18/20 09:32 Sodium Chloride Flush Syringe 10 Ml IV 10 ml BID KANIKA Administration Sodium Chloride 10 ml 01/10/20 08:00 Sodium Chloride Flush Syringe 10 Ml IV PRN PRN LINE FLUSH
[2020-01-18] MEDS: ACETAMINOPHEN 325 MG TAB PO PRN (20:44)
[2020-01-19 06:10] LABS: Mean Corpuscular HGB Conc 28 % (30-34); Mean Corpuscular Volume 77 fl (79-97); Platelet Count 119 K/mm3 (140-440); Red Blood Count 4.02 M/mm3 (3.65-5.03)
[2020-01-19 06:13] LABS: Hemoglobin 8.8 gm/dl (10.1-14.3)
[2020-01-19 06:14] LABS: Red Cell Distribution Width 23.5 % (13.2-15.2)
[2020-01-19 06:17] LABS: Calcium 9.2 mg/dL (8.4-10.2)
[2020-01-19] MEDS ORDERED: DEXTROSE 50% IN WATER (25GM) 50 ML SYRINGE IV ONE ×2 (07:00→10:30)
[2020-01-19] MEDS ORDERED: SODIUM BICARB 8.4% 50 MEQ/50 ML SYRINGE IV ONE ×2 (07:00→10:27)
[2020-01-19] MEDS ORDERED: ALBUTEROL 2.5 MG/3 ML NEBU IH ONE (07:00)
[2020-01-19] MEDS ORDERED: SODIUM POLYSTYRENE 15 GM/60 ML ORAL LIQD PO ONE ×2 (07:00→12:13)
[2020-01-19] MEDS ORDERED: CALCIUM GLUCONATE 1,000 MG in SODIUM CHLORIDE 0.9% 100 ML IV ONE (07:00)
[2020-01-19] MEDS ORDERED: INSULIN REGULAR, HUMAN 100 UNIT/ML 3ML VIAL IV ONE (07:00)
[2020-01-19] MEDS: NORepinephrine 8 MG in SODIUM CHLORIDE 0.9% 250ML 242 ML IV SCH ×5 (07:04→23:36)
[2020-01-19 07:15] LABS: Anisocytosis 2+; Band Neutrophils # (Manual) 0.7 K/mm3; Basophils % (Manual) 0 % (0.0-1.8); Hypochromasia 1+; Total Cells Counted 100
[2020-01-19 07:16] LABS: Platelet Estimate Consistent w Auto; Target Cells Few
--- NOTE | 2020-01-19 08:25 | Progress Note ---
Assessment and Plan Assessment and plan: 44-year-old morbidly obese -Vietnamese female patient with history of chronic hypercapnic hypoxic respiratory failure, sleep apnea, morbid obesity, on home oxygen, home BiPAP follows with [facility] was admitted through emergency room with altered level of consciousness, unresponsiveness, acute hypoxic respiratory failure requiring intubation, admitted to ICU noted to have shock, pressor dependent, acute renal failure, fever, severe metabolic versus hypoxic encephalopathy. Patient continued to deteriorate. Critically ill very unstable, unable to get neuro work-up like CT head, MRI/MRA. Pulmonary critical, cardiology, nephrology and neurology are following the patient. All the healthcare providers including me have periodically discussed extensively with patient's mother Ms. Juliet Purcell of patient's critical condition Poor prognosis . Patient's mother continued to be in denial with unrealistic expectations wants everything to be done. --Perry PCR negative, 01/10/2020 --Metabolic encephalopathy versus hypoxic encephalopathy; present on admission Patient remains unresponsive since admission Intubated on vent, hypotensive on Levophed Unable to get CT scan as patient is unstable and morbidly obese Neurology evaluation and recommendations noted and appreciated. EEG requested ,continue current supportive care --Acute hypoxic respiratory failure; intubated on mechanical ventilation We will continue supportive care and Wean as tolerated and extubate Pulmonary critical following --History of obstructive sleep apnea /possible OHS Intubated on mechanical ventilation --Hypotension/shock; Continues to be on vasopressor Levophed Gentle hydration --Acute on chronic systolic congestive heart failure; Echo;EF 45 to 50%, Management per cardiology --Acute kidney injury-worsening renal function cr today 4.7 secondary to vasomotor nephropathy, prerenal, hypotension Gentle hydration, avoid nephrotoxins, nephrology following --Morbid obesity; BMI 55.1 Patient needs weight reduction when medically stable --Moderate-malnutrition/hypoalbuminemia Supportive care, nutrition consult --PUI/high suspicion for COVID-19; Perry PCR negative --DVT prophylaxis;Lovenox --Full CODE STATUS We will closely monitor the patient and adjust management , . Patient is critically ill, with very 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. Family aware Plan of care reviewed with the patient's nurse. Health caregivers discussed periodically with the mother and updated patient's condition Poor prognosis, goals of treatment, CODE STATUS, she wants everything to be done at this point 01/14/20; I called and discussed with patient's mother Ms. Juliet Purcell, patient's condition Poor prognosis, treatment plan and consultants recommendations 01/16/20; family visited last night[01/14], patient's mother is in denial and has unrealistic expectations She wants full CODE STATUS and complete treatment and believes that her daughter will come out of this. Communication with [place] physicians; 01/13/[address] [place] physician [address] Mcginnis and updated patient's condition with 01/15/2020; discussed with [place] physician , updated patient's condition 01/16/2020: Discussed with [place] physician , answered all her questions 01/17/2020; discussed with [place] physician and discussed about patient's condition 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 and treatment plan The high probability of a clinically significant, sudden or life threatening deterioration of the [Respiratory, ID, CVs] system(s) required my full and direct attention, intervention and personal management. The aggregate critical care time was [33] minutes. This time is in addition to time spent performing reported procedures but includes the following: [x] Data Review and interpretation [x] Patient assessment and monitoring of vital signs [x] Documentation [x] Medication orders and management 01/10; patient remains hypotensive on Levophed, added IV fluids, follow echocardiogram for LV function 01/11; patient remains intubated on vent, unable to get CT head as patient is unstable and morbidly obese 01/12; patient remains hypotensive on Levophed, on ventilatory support, worsenin g renal function nephrology evaluation appreciated Hypernatremia, free water flushes via [place], monitor electrolytes/discussed with [place] physician 01/13; multiple electrolyte abnormalities,remains hypotensive, worsening renal function, I discussed with patient's mother over the phone. Neurology consulted, discussed with Dr. Shankar Sevilla 01/14; neurology evaluated the patient today, absent reflexes, 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, pending CT head, EEG 01/15; discussed with [place] physician and updated patient's condition, 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 01/16; patient remains unresponsive, remains hypotensive on Levophed, remains intubated on vent, worsening renal function, 01/17: Pending CT Head, remains unstable, EEG - Diffused encephalopathy compatible with hypoxemic/ischemic encephalopathy, there is epileptiform abnormality emanating from the left posterior temporal region. The prognosisunless the patient has received some IV barbiturates or long-acting benzos would be very poor. Patient still with persistent hypernatremia bunch breaker is following. She remains unstable for transfer remains on norepinephrine for blood pressure maintenance. We will also discussed with neurologist and a further option and management. Multi-organ failure- Discussed with family 01/18; patient is deeply comatose. Pupils are fixed and dilated. Patient maxed out Levophed and added vasopressin. Patient is deteriorating. Disposition; follow clinically, follow neurology recommendations Per Dr Gonzalez on 01/17 Extensive discussion with family later this evening that actually came by the 2 sons the grandmother and the cousin they decided to make the patient a DNR. History Interval history: Patient was seen and evaluated this morning Patient is comatose Hospitalist Physical - Physical exam Narrative exam: Intubated The patient appeared well nourished and normally developed. Vital signs as documented. Head exam is unremarkable. No scleral icterus . Neck is without jugular venous distension, thyromegaly, or carotid bruits. Lungs are clear to auscultation. Cardiac exam reveals regular rate and Rhythm. Abdominal exam reveals normal bowel sounds, nontender, no organomegaly. Extremities are nonedematous and both femoral and pedal pulses are normal. LAUNDRY TUB MAKER: Patient is comatose - Constitutional Vitals: Temp Pulse Resp BP Pulse Ox 101.8 F H 117 H 24 111/70 90 01/19/20 07:58 01/19/20 08:06 01/19/20 07:45 01/19/20 08:06 01/19/20 08:06 General appearance: Present: well-nourished, obese (Morbidly obese), other (Intubated on vent, unresponsive) HEART Score - HEART Score Age: < 45 Risk factors: 1-2 risk factors Troponin: Troponin T 0.013 ng/mL (0.00-0.029) 01/09/20 22:19 - Critical Actions Critical Actions: 4-6 pts:12-16.6% risk of adverse cardiac event. Should be admitted Results - Labs CBC & Chem 7: 01/19/20 04:00 01/19/20 08:36 Labs: Laboratory Last Values WBC 16.3 K/mm3 (4.5-11.0) H 01/19/20 04:00 RBC 4.02 M/mm3 (3.65-5.03) 01/19/20 04:00 Hgb 8.8 gm/dl (10.1-14.3) L 01/19/20 04:00 Hct 31.0 % (30.3-42.9) 01/19/20 04:00 MCV 77 fl (79-97) L 01/19/20 04:00 MCH 22 pg (28-32) L 01/19/20 04:00 MCHC 28 % (30-34) L 01/19/20 04:00 RDW 23.5 % (13.2-15.2) H 01/19/20 04:00 Plt Count 119 K/mm3 (140-440) L 01/19/20 04:00 Lymph % (Auto) 15.4 % (13.4-35.0) 01/18/20 04:00 [facility] % (Auto) 7.1 % (0.0-7.3) 01/18/20 04:00 Eos % (Auto) 3.1 % (0.0-4.3) 01/18/20 04:00 Baso % (Auto) 0.8 % (0.0-1.8) 01/18/20 04:00 Lymph # (Auto) 1.8 K/mm3 (1.2-5.4) 01/18/20 04:00 [facility] # (Auto) 0.8 K/mm3 (0.0-0.8) 01/18/20 04:00 Eos # (Auto) 0.4 K/mm3 (0.0-0.4) 01/18/20 04:00 Baso # (Auto) 0.1 K/mm3 (0.0-0.1) 01/18/20 04:00 Add Manual Diff Complete 01/19/20 04:00 Total Counted 100 01/19/20 04:00 Seg Neutrophils % 73.6 % (40.0-70.0) H 01/18/20 04:00 Seg Neuts % (Manual) 63.0 % (40.0-70.0) 01/19/20 04:00 Band Neutrophils % 4.0 % 01/19/20 04:00 Lymphocytes % (Manual) 22.0 % (13.4-35.0) 01/19/20 04:00 Reactive Lymphs % (Man) 0 % 01/19/20 04:00 Monocytes % (Manual) 9.0 % (0.0-7.3) H 01/19/20 04:00 Eosinophils % (Manual) 2.0 % (0.0-4.3) 01/19/20 04:00 Basophils % (Manual) 0 % (0.0-1.8) 01/19/20 04:00 Metamyelocytes % 0 % 01/19/20 04:00 Myelocytes % 0 % 01/19/20 04:00 Promyelocytes % 0 % 01/19/20 04:00 Blast Cells % 0 % 01/19/20 04:00 Nucleated RBC % 2.0 % (0.0-0.9) H 01/19/20 04:00 Seg Neutrophils # 8.4 K/mm3 (1.8-7.7) H 01/18/20 04:00 Seg Neutrophils # Man 10.3 K/mm3 (1.8-7.7) H 01/19/20 04:00 Band Neutrophils # 0.7 K/mm3 01/19/20 04:00 Lymphocytes # (Manual) 3.6 K/mm3 (1.2-5.4) 01/19/20 04:00 Abs React Lymphs (Man) 0.0 K/mm3 01/19/20 04:00 Monocytes # (Manual) 1.5 K/mm3 (0.0-0.8) H 01/19/20 04:00 Eosinophils # (Manual) 0.3 K/mm3 (0.0-0.4) 01/19/20 04:00 Basophils # (Manual) 0.0 K/mm3 (0.0-0.1) 01/19/20 04:00 Metamyelocytes # 0.0 K/mm3 01/19/20 04:00 Myelocytes # 0.0 K/mm3 01/19/20 04:00 Promyelocytes # 0.0 K/mm3 01/19/20 04:00 Blast Cells # 0.0 K/mm3 01/19/20 04:00 WBC Morphology Not Reportable 01/19/20 04:00 Hypersegmented Neuts Not Reportable 01/19/20 04:00 Hyposegmented Neuts Not Reportable 01/19/20 04:00 Hypogranular Neuts Not Reportable 01/19/20 04:00 Smudge Cells Not Reportable 01/19/20 04:00 Toxic Granulation Not Reportable 01/19/20 04:00 Toxic Vacuolation Not Reportable 01/19/20 04:00 Dohle Bodies Not Reportable 01/19/20 04:00 Pelger-Huet Anomaly Not Reportable 01/19/20 04:00 Dominique Rods Not Reportable 01/19/20 04:00 Platelet Estimate Consistent w auto 01/19/20 04:00 Clumped Platelets Not Reportable 01/19/20 04:00 Plt Clumps, EDTA Not Reportable 01/19/20 04:00 Large Platelets Not Reportable 01/19/20 04:00 Giant Platelets Not Reportable 01/19/20 04:00 Platelet Satelliting Not Reportable 01/19/20 04:00 Plt Morphology Comment Not Reportable 01/19/20 04:00 RBC Morphology Not Reportable 01/19/20 04:00 Dimorphic RBCs Not Reportable 01/19/20 04:00 Polychromasia Not Reportable 01/19/20 04:00 Hypochromasia 1+ 01/19/20 04:00 Poikilocytosis Not Reportable 01/19/20 04:00 Anisocytosis 2+ 01/19/20 04:00 Microcytosis Few 01/19/20 04:00 Macrocytosis Not Reportable 01/19/20 04:00 Spherocytes Not Reportable 01/19/20 04:00 Pappenheimer Bodies Not Reportable 01/19/20 04:00 Sickle Cells Not Reportable 01/19/20 04:00 Target Cells Few 01/19/20 04:00 Tear Drop Cells Not Reportable 01/19/20 04:00 Ovalocytes Not Reportable 01/19/20 04:00 Helmet Cells Not Reportable 01/19/20 04:00 [place] Bodies Not Reportable 01/19/20 04:00 Wright Rings Not Reportable 01/19/20 04:00 Gregory Cells Not Reportable 01/19/20 04:00 Bite Cells Not Reportable 01/19/20 04:00 Crenated Cell Not Reportable 01/19/20 04:00 Elliptocytes Not Reportable 01/19/20 04:00 Acanthocytes (Spur) Not Reportable 01/19/20 04:00 Rouleaux Not Reportable 01/19/20 04:00 Hemoglobin C Crystals Not Reportable 01/19/20 04:00 Schistocytes Not Reportable 01/19/20 04:00 Malaria parasites Not Reportable 01/19/20 04:00 Beka Bodies Not Reportable 01/19/20 04:00 Hem Pathologist Commnt No 01/19/20 04:00 PT 13.9 Sec. (12.2-14.9) 01/09/20 19:03 INR 1.05 (0.87-1.13) 01/09/20 19:03 ABG pH 7.237 (7.320-7.450) L 01/19/20 04:20 POC ABG pCO2 56.6 mmHg (32.0-48.0) H 01/19/20 04:20 ABG pCO2 46.2 mm Hg 01/18/20 04:48 POC ABG pO2 57.7 mmHg (83-108) L 01/19/20 04:20 ABG pO2 63.1 mm Hg (80.0-90.0) L 01/18/20 04:48 POC ABG HCO3 23.5 01/19/20 04:20 ABG HCO3 24.8 mmol/L (20.0-26.0) 01/18/20 04:48 ABG O2 Saturation 91.6 % (95.0-99.0) L 01/18/20 04:48 ABG O2 Content 12.5 (0.0-44) 01/18/20 04:48 POC ABG Base Excess -4.2 01/19/20 04:20 ABG Base Excess -0.9 mmol/L (-2.0-3.0) 01/18/20 04:48 ABG Hemoglobin 10.0 (12.0-17.5) L 01/19/20 04:20 ABG Carboxyhemoglobin 2.2 % (0.0-5.0) 01/18/20 04:48 ABG Methemoglobin 0.6 % (0.0-1.5) 01/18/20 04:48 ABG Sodium 148.5 mmol/L (136.0-145.0) H 01/19/20 04:20 ABG Potassium 6.1 mmol/L (3.40-4.50) H 01/19/20 04:20 ABG Chloride 119.0 mmol/L (98-107) H 01/19/20 04:20 ABG Glucose 93 mg/dL (65-95) 01/19/20 04:20 VBG pH 7.252 (7.320-7.420) L 01/09/20 18:37 Oxyhemoglobin 89.1 % (95.0-99.0) L 01/18/20 04:48 FiO2 90.0 01/19/20 04:20 Sodium 153 mmol/L (137-145) H 01/19/20 04:00 Potassium 6.7 mmol/L (3.6-5.0) H* D 01/19/20 04:00 Chloride 114.9 mmol/L (98-107) H 01/19/20 04:00 Carbon Dioxide 24 mmol/L (22-30) 01/19/20 04:00 Anion Gap 21 mmol/L 01/19/20 04:00 BUN 59 mg/dL (7-17) H 01/19/20 04:00 Creatinine 6.3 mg/dL (0.6-1.2) H 01/19/20 04:00 Estimated GFR 9 ml/min 01/19/20 04:00 BUN/Creatinine Ratio 9 % 01/19/20 04:00 Glucose 88 mg/dL (65-100) 01/19/20 04:00 POC Glucose 101 (70-105) 01/19/20 05:36 Hemoglobin A1c 5.9 % (4-6) 01/10/20 07:36 Lactic Acid 1.20 mmol/L (0.7-2.0) 01/09/20 22:19 Calcium 9.2 mg/dL (8.4-10.2) 01/19/20 04:00 Phosphorus 3.20 mg/dL (2.5-4.5) D 01/11/20 09:53 Magnesium 1.60 mg/dL (1.7-2.3) L 01/15/20 04:00 Total Bilirubin 0.70 mg/dL (0.1-1.2) 01/12/20 09:50 AST 17 units/L (5-40) 01/12/20 09:50 ALT 10 units/L (7-56) 01/12/20 09:50 Alkaline Phosphatase 100 units/L (35-129) 01/12/20 09:50 Troponin T 0.013 ng/mL (0.00-0.029) 01/09/20 22:19 NT-Pro-B Natriuret Pep 1345 pg/mL (0-450) H 01/09/20 19:03 Total Protein 5.8 g/dL (6.3-8.2) L 01/12/20 09:50 Albumin 2.4 g/dL (3.9-5) L 01/12/20 09:50 Albumin/Globulin Ratio 0.7 % 01/12/20 09:50 HCG, Qual Negative (Negative) 01/09/20 19:03 Arterial Blood Glucose 93 mg/dL (65-95) 01/19/20 04:20 Arterial Blood Ionized Calcium 5.1 mg/dL (4.6-5.3) 01/19/20 04:20 Urine Color Yellow (Yellow) 01/10/20 04:12 Urine Turbidity Cloudy (Clear) 01/10/20 04:12 Urine pH 7.0 (5.0-7.0) 01/10/20 04:12 Ur Specific Topmost 1.007 (1.003-1.030) 01/10/20 04:12 Urine Protein >500 mg/dL (Negative) 01/10/20 04:12 Urine Glucose (UA) 50 mg/dL (Negative) 01/10/20 04:12 Urine Ketones Neg mg/dL (Negative) 01/10/20 04:12 Urine Blood Mod (Negative) 01/10/20 04:12 Urine Nitrite Neg (Negative) 01/10/20 04:12 Urine Bilirubin Neg (Negative) 01/10/20 04:12 Urine Urobilinogen < 2.0 mg/dL (<2.0) 01/10/20 04:12 Ur Leukocyte Esterase Neg (Negative) 01/10/20 04:12 Urine WBC (Auto) 50.0 /HPF (0.0-6.0) H 01/10/20 04:12 Urine RBC (Auto) 17.0 /HPF (0.0-6.0) 01/10/20 04:12 U Epithel Cells (Auto) 1.0 /HPF (0-13.0) 01/10/20 04:12 Urine Bacteria (Auto) 2+ /HPF (Negative) 01/10/20 04:12 Urine Mucus Few /HPF 01/10/20 04:12 Urine Yeast (Budding) 3+ /HPF 01/10/20 04:12 Urine Creatinine 79.8 mg/dL (0.1-20.0) H 01/11/20 12:25 Urine Sodium 50 mmol/L 01/11/20 12:25 Urine Urea Nitrogen 83 01/11/20 12:25 Immunofix Electrophor see below 01/12/20 17:23 SERAFIN Screen Negative (Negative) 01/12/20 17:23 Proteinase 3 (PR3) Ab <1.0 AI (<1.0) 01/12/20 17: Myeloperoxidase Ab <1.0 AI (<1.0) 01/12/20 17:23 Complement C3 150 mg/dL (83-193) 01/12/20 17:23 Complement C4 45 mg/dL (15-57) 01/12/20 17:23 Coronavirus (PCR) Negative (Negative) 01/10/20 10:27 Microbiology: Microbiology 01/16/20 00:50 Peripheral/Venous Blood Culture - Preliminary NO GROWTH AFTER 72 HOURS 01/16/20 00:55 Peripheral/Venous Blood Culture - Preliminary Coag Negative Staphylococcus - Diagnostic Impressions Diagnostic Impressions: Echocardiogram 01/10/20 07:42 Transthoracic Echocardiogram Indication: Dyspnea BP: 102/54 HR: 100 Conclusions *The study quality is technically difficult. *Severe concentric left ventricular hypertrophy is observed. *The estimated ejection fraction is 45-50%. *The right ventricular global systolic function is mildly reduced. Findings Procedure Info: The study quality is technically difficult. Left Ventricle: The left ventricular chamber size is normal. Severe concentric left ventricular hypertrophy is observed. Global left ventricular systolic function is at the lower limits of normal. The estimated ejection fraction is 45-50%. Abnormal left ventricular diastolic filling is observed, consistent with impaired relaxation. Left Atrium: The left atrial chamber size is normal. Right Ventricle: The right ventricular global systolic function is mildly reduced. Aortic Valve: Mild aortic leaflet calcification is visualized. There is no evidence of aortic regurgitation. Mitral Valve: The mitral valve leaflets are mildly thickened. There is no evidence of mitral regurgitation. Tricuspid Valve: The tricuspid valve leaflets are normal. There is no evidence of tricuspid valve regurgitation. Pulmonic Valve: The pulmonic valve is not well visualized. There is no evidence of pulmonic regurgitation. Pericardium: A trivial pericardial effusion is visualized. Aorta: The aorta appears normal. Measurements Chambers 2D Name Value Normal Range IVSd (2D) 1.86 cm (0.6 - 1.1) LVPWd (2D) 1.74 cm (0.6 - 1.1) IVS:LVPW ratio (2D) 1.07 ratio - LVIDd (2D) 4.47 cm (3.7 - 5.6) LVIDs (2D) 3.74 cm (2 - 3.8) LV FS (Teichholz) (2D) 16.3 % - LV FS (cube) (2D) 16.3 % - Ao root diameter (2D) 3.1 cm (2 - 3.7) LA dimension (AP) 2D 3.5 cm (1.9 - 4) LA:Ao ratio (2D) 1.13 ratio - Volumes/Mass Name Value Normal Range LA ESV SP 4CH (MOD) 41 ml - LA ESV SP 2CH (MOD) 61 ml - LA ESV BP (MOD) 51 ml - LA ESV BP (MOD) index 20.3 ml/m2 - LV EDV SP 4CH (MOD) 88 ml - LV ESV SP 4CH (MOD) 47 ml - EF SP 4CH (MOD) 47 % - LV EDV SP 2CH (MOD) 62 ml - LV ESV SP 2CH (MOD) 37 ml - EF SP 2CH (MOD) 40 % - LV EDV BP 79 ml - LV ESV BP 41 ml - BP EF (MOD) 48 % - Diastolic/Systolic Function Name Value Normal Range MV E-wave Vmax 0.58 m/sec - MV deceleration time 208 msec - MV A-wave Vmax 0.6 m/sec - MV E:A ratio 1 ratio - LV septal e' Vmax 0.04 m/sec - LV lateral e' Vmax 0.03 m/sec - LV E:e' septal ratio 13.3 ratio - LV E:e' lateral ratio 18.1 ratio - Aortic Valve Name Value Normal Range AV VTI 19.2 cm - AV mean gradient 5 mmHg - LVOT diameter 2.4 cm - LVOT VTI 18 cm - LVOT mean gradient 5 mmHg - SV LVOT 81 ml - CL (continuity VTI) 4.24 cm2 - Pulmonic Valve/Qp:Qs Name Value Normal Range PV Vmax 1.01 m/sec - PV peak gradient 4 mmHg - PV acceleration time 102 msec - Gomez/IV: Voiding Method Indwelling Catheter IV Catheter Type [Left Forearm Peripheral IV ] IV Catheter Type [Right Triple Lumen Cath Internal Jugular] IV Catheter Type [Right Hand] INT / Saline Lock Active Medications - Current Medications Current Medications: Generic Name Dose Route Start Last Admin Trade Name Freq PRN Reason Stop Dose Admin Acetaminophen 650 mg 01/10/20 08:00 01/18/20 20:44 Tylenol PO 650 mg Q4H PRN Administration Pain MILD(1-3)/Fever >100.5/CHRISTINA Lipase/Protease/Amylase 1 each 01/10/20 08:00 Pancrelety Gomez 10,500 Unit FEEDTUBE PRN PRN For Clogged Feeding Tube Famotidine 20 mg 01/12/20 10:00 01/18/20 09:38 Pepcid PO 20 mg DAILY KANIKA Administration Norepinephrine 8 mg/ Sodium 250 mls @ 3.75 mls/hr 01/14/20 10:00 01/19/20 07:04 Chloride IV 28 mcg/min TITR KANIKA 52.5 mls/hr Administration Protocol 2 MCG/MIN Cefepime HCl 2 gm in 100 mls @ 200 mls/hr 01/17/20 22:00 01/17/20 22:13 Cefepime/Ns 2 Gm/100 Ml IV 200 mls/hr Q24H KANIKA Administration Protocol Vasopressin 20 unit/ Sodium 101 mls @ 9.09 mls/hr 01/18/20 10:00 01/18/20 23:29 Chloride IV 0.03 units/min TITR KANIKA 9.09 mls/hr Administration Protocol 0.03 UNITS/MIN Metoclopramide HCl 10 mg 01/10/20 08:00 Reglan IV Q6H PRN Nausea And Vomiting Ondansetron HCl 4 mg 01/10/20 08:00 Zofran IV Q8H PRN Nausea And Vomiting Senna/Docusate Sodium 2 tab 01/15/20 10:00 01/18/20 09:39 Senokot S PO 2 tab BID KANIKA Administration Simple Syrup 15 ml 01/10/20 08:00 Simple Syrup FEEDTUBE PRN PRN Hypoglycemia Simple Syrup 30 ml 01/10/20 08:00 Simple Syrup FEEDTUBE PRN PRN Hypoglycemia Sodium Bicarbonate 325 mg 01/10/20 08:00 Sodium Bicarbonate FEEDTUBE PRN PRN For Clogged Feeding Tube Sodium Chloride 10 ml 01/10/20 10:00 01/18/20 09:32 Sodium Chloride Flush Syringe 10 Ml IV 10 ml BID KANIKA Administration Sodium Chloride 10 ml 01/10/20 08:00 Sodium Chloride Flush Syringe 10 Ml IV PRN PRN LINE FLUSH Nutrition/Malnutrition Assess - Dietary Evaluation Nutrition/Malnutrition Findings: Nutrition Notes Start: 01/10/20 08:12 Freq: Status: Active Protocol: Document 01/17/20 12:50 LAURI (Rec: 01/17/20 14:14 LAURI [id number]) Co-Sign 01/17/20 12:50 NHALL Nutrition Notes Initial or Follow up Reassessment Current Diagnosis Acute Kidney Injury,COPD, Sepsis,Hypertension,Heart Failure Other Pertinent Diagnosis Acute PE, hypokalemia Current Diet Vital AF 1.2 at 60 ml/hr Labs/Tests Na 151 BUN 39 Cr 4.7 Pertinent Medications Norepinephrine Height 5 ft 6 in Weight 161 kg [place] Body Weight (kg) 59.09 BMI 57.2 Weight change and time frame Wt change noted. Pt has edema. Subjective/Other Information F/U for TF tolerance. TF not running at time of visit. Per MD, TF was turned off d/t instability and pressors. Possible transfer to LTAC. Percent of energy/protein needs met: 0%/0% Burn Absent Trauma Absent Current % PO Negligible Minimum of two criteria No Fluid Accumulation Moderate to Severe (severe) #1 Nutrition Diagnosis Inadequate oral intake Diagnosis Progress(for reassessment Continues documentation) Is patient on ventilator? Yes Is Patient Ambulatory and/or Out of Bed No REE-([facility]-confined to bed) 2746.200 Kcal/Kg value to use for calculation 11 Approximate Energy Requirements Using 1771 kcal/Kg Calculation Used for Recommendations Kcal/kg Additional Notes Pro: 147 g (up to 2.5 g/kg IBW ) Fluid: 1.5-1.9 L Nutrition Intervention Change Diet Order: TF when medically feasible Nutrition Support: Vital AF 1.2 at 60 ml/hr Flush 60 ml q4h Kcal 1,728 Protein (gm) 108 Fluid (mL) 1,167 Goal #1 TF start/tolerance Follow-Up By: 01/21/20 Additional Comments F/U for plan of care
[2020-01-19] MEDS: SENNOSIDES/DOCUSATE SODIUM 8.6/50 MG TAB PO SCH ×3 (10:24→23:18)
[2020-01-19] MEDS: FAMOTIDINE 20 MG TAB PO SCH (10:24)
[2020-01-19] MEDS: VASOPRESSIN 20 UNIT in SODIUM CHLORIDE 0.9% 100 ML IV SCH ×2 (10:24→21:41)
[2020-01-19] MEDS ORDERED: CALCIUM CHLORIDE 1,000 MG/10 ML SYRINGE IV ONE (10:28)
--- NOTE | 2020-01-19 12:14 | Progress Note ---
Assessment and Plan Impression: * Nonoliguric acute kidney injury secondary to ATN * Acute on chronic hypoxic respiratory on mechanical ventilation secondary to ?pulmonary edema vs infectious etiology * Urinary tract infection * Anoxia vs brain * Accelerated hypertension - resolved * Anemia * Hypernatremia * Hyperkalemia Plan: * Na noted, added free H20 and D5w and follow up lytes * follow up mag and k levels, replete prn * stop tube feeds, give kayexalate * Renal u/s ordered - pending * Serologic work up pending - anticipate low yield * Na noted today, continue free H20 * Abx per primary team * Pressors prn to maintain MAP>60 * Vent management per pulmonary/critical care * Dose medications for renal function * Avoid potential nephrotoxins * 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, 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 Subjective Date of service: 01/19/20 Principal diagnosis: PNA; resp failure Interval history: resting in bed today Objective - Exam Narrative Exam: General appearance: well-developed, well-nourished, obese, intubated EENT: ATNC, other (ETT in place) Respiratory: Present: Decreased Breath Sounds Cardiology: regular, S1S2 Gastrointestinal: no tenderness, no distended, obese Integumentary: no rash, warm and dry - Vital Signs Vital signs: Vital Signs - 12hr 01/19/20 01/19/20 01/19/20 00:15 00:31 00:45 Temperature Pulse Rate 111 H 114 H 116 H Pulse Rate [ From Monitor] Respiratory 24 20 24 Rate Blood Pressure 110/61 73/29 113/61 O2 Sat by Pulse 91 91 85 Oximetry 01/19/20 01/19/20 01/19/20 01:00 01:15 01:30 Temperature Pulse Rate 113 H 112 H 109 H Pulse Rate [ From Monitor] Respiratory 24 22 24 Rate Blood Pressure 69/37 182/106 73/46 O2 Sat by Pulse 92 88 90 Oximetry 01/19/20 01/19/20 01/19/20 01:45 02:00 02:15 Temperature Pulse Rate 106 H 104 H 106 H Pulse Rate [ From Monitor] Respiratory 24 24 24 Rate Blood Pressure 78/46 88/41 88/41 O2 Sat by Pulse 91 92 91 Oximetry 01/19/20 01/19/20 01/19/20 02:30 02:45 03:00 Temperature Pulse Rate 113 H 113 H 113 H Pulse Rate [ From Monitor] Respiratory 20 21 25 H Rate Blood Pressure 133/81 109/64 106/59 O2 Sat by Pulse 92 91 91 Oximetry 01/19/20 01/19/20 01/19/20 03:15 03:30 03:41 Temperature 99.9 F H Pulse Rate 115 H 115 H Pulse Rate [ From Monitor] Respiratory 24 24 Rate Blood Pressure 104/61 105/61 O2 Sat by Pulse 91 90 Oximetry 01/19/20 01/19/20 01/19/20 03:45 04:00 04:05 Temperature Pulse Rate 115 H 116 H 116 H Pulse Rate [ 116 H From Monitor] Respiratory 24 22 Rate Blood Pressure 108/60 108/60 114/60 O2 Sat by Pulse 88 90 89 Oximetry 01/19/20 01/19/20 01/19/20 04:15 04:30 04:46 Temperature Pulse Rate 116 H 116 H 115 H Pulse Rate [ From Monitor] Respiratory 24 24 23 Rate Blood Pressure 111/64 106/60 88/33 O2 Sat by Pulse 89 88 92 Oximetry 01/19/20 01/19/20 01/19/20 05:00 05:15 05:30 Temperature Pulse Rate 118 H 117 H 116 H Pulse Rate [ From Monitor] Respiratory 12 18 24 Rate Blood Pressure 103/53 107/58 107/60 O2 Sat by Pulse 86 88 89 Oximetry 01/19/20 01/19/20 01/19/20 05:45 06:00 06:15 Temperature Pulse Rate 115 H 114 H 115 H Pulse Rate [ From Monitor] Respiratory 23 24 24 Rate Blood Pressure 111/61 109/64 113/63 O2 Sat by Pulse 89 91 89 Oximetry 01/19/20 01/19/20 01/19/20 06:30 06:46 07:00 Temperature Pulse Rate 115 H 112 H 118 H Pulse Rate [ From Monitor] Respiratory 24 23 24 Rate Blood Pressure 115/65 68/34 67/28 O2 Sat by Pulse 90 90 86 Oximetry 01/19/20 01/19/20 01/19/20 07:15 07:30 07:45 Temperature Pulse Rate 117 H 117 H 117 H Pulse Rate [ From Monitor] Respiratory 24 22 24 Rate Blood Pressure 107/62 114/67 113/70 O2 Sat by Pulse 87 88 89 Oximetry 01/19/20 01/19/20 01/19/20 07:58 08:00 08:06 Temperature 101.8 F H Pulse Rate 116 H 117 H Pulse Rate [ 117 H From Monitor] Respiratory 24 Rate Blood Pressure 111/70 111/70 O2 Sat by Pulse 90 90 Oximetry 01/19/20 01/19/20 01/19/20 08:15 08:30 08:45 Temperature Pulse Rate 117 H 117 H 118 H Pulse Rate [ From Monitor] Respiratory 24 24 24 Rate Blood Pressure 120/70 115/74 123/72 O2 Sat by Pulse 90 89 89 Oximetry 01/19/20 01/19/20 01/19/20 09:00 09:15 09:30 Temperature Pulse Rate 118 H 118 H 119 H Pulse Rate [ From Monitor] Respiratory 24 24 24 Rate Blood Pressure 122/75 115/76 122/75 O2 Sat by Pulse 88 88 89 Oximetry 01/19/20 01/19/20 01/19/20 09:45 10:00 10:15 Temperature Pulse Rate 119 H 120 H 121 H Pulse Rate [ From Monitor] Respiratory 24 24 24 Rate Blood Pressure 123/79 123/76 129/76 O2 Sat by Pulse 88 87 88 Oximetry 01/19/20 12:04 Temperature Pulse Rate 134 H Pulse Rate [ From Monitor] Respiratory Rate Blood Pressure 83/36 O2 Sat by Pulse 84 Oximetry - Lab 01/19/20 04:00 01/19/20 08:36 Most recent lab results ABG pH 7.237 (7.320-7.450) L 01/19/20 04:20 ABG pCO2 46.2 mm Hg 01/18/20 04:48 ABG pO2 63.1 mm Hg (80.0-90.0) L 01/18/20 04:48 ABG HCO3 24.8 mmol/L (20.0-26.0) 01/18/20 04:48 ABG O2 Saturation 91.6 % (95.0-99.0) L 01/18/20 04:48 Calcium 9.2 mg/dL (8.4-10.2) 01/19/20 04:00 Phosphorus 3.20 mg/dL (2.5-4.5) D 01/11/20 09:53 Magnesium 1.60 mg/dL (1.7-2.3) L 01/15/20 04:00 Urine Creatinine 79.8 mg/dL (0.1-20.0) H 01/11/20 12:25 Urine Sodium 50 mmol/L 01/11/20 12:25 Medications & Allergies - Medications Allergies/Adverse Reactions: Allergies lisinopril Allergy (Verified 01/11/20 11:30) Swelling Home Medications: Home Medications Medication Instructions Recorded Confirmed Last Taken Type Unobtainable 01/10/20 01/10/20 Unknown History Active Medications: Generic Name Dose Route Start Last Admin Trade Name Freq PRN Reason Stop Dose Admin Acetaminophen 650 mg 01/10/20 08:00 01/18/20 20:44 Tylenol PO 650 mg Q4H PRN Administration Pain MILD(1-3)/Fever >100.5/CHRISTINA Lipase/Protease/Amylase 1 each 01/10/20 08:00 Pancrelety Gomez 10,500 Unit FEEDTUBE PRN PRN For Clogged Feeding Tube Famotidine 20 mg 01/12/20 10:00 01/19/20 10:24 Pepcid PO 20 mg DAILY KANIKA Administration Norepinephrine 8 mg/ Sodium 250 mls @ 3.75 mls/hr 01/14/20 10:00 01/19/20 07:04 Chloride IV 28 mcg/min TITR KANIKA 52.5 mls/hr Administration Protocol 2 MCG/MIN Cefepime HCl 2 gm in 100 mls @ 200 mls/hr 01/17/20 22:00 01/17/20 22:13 Cefepime/Ns 2 Gm/100 Ml IV 200 mls/hr Q24H KANIKA Administration Protocol Vasopressin 20 unit/ Sodium 101 mls @ 9.09 mls/hr 01/18/20 10:00 01/19/20 10:24 Chloride IV 0.03 units/min TITR KANIKA 9.09 mls/hr Administration Protocol 0.03 UNITS/MIN Metoclopramide HCl 10 mg 01/10/20 08:00 Reglan IV Q6H PRN Nausea And Vomiting Ondansetron HCl 4 mg 01/10/20 08:00 Zofran IV Q8H PRN Nausea And Vomiting Senna/Docusate Sodium 2 tab 01/15/20 10:00 01/19/20 10:24 Senokot S PO 2 tab BID KANIKA Administration Simple Syrup 15 ml 01/10/20 08:00 Simple Syrup FEEDTUBE PRN PRN Hypoglycemia Simple Syrup 30 ml 01/10/20 08:00 Simple Syrup FEEDTUBE PRN PRN Hypoglycemia Sodium Bicarbonate 325 mg 01/10/20 08:00 Sodium Bicarbonate FEEDTUBE PRN PRN For Clogged Feeding Tube Sodium Chloride 10 ml 01/10/20 10:00 01/19/20 10:23 Sodium Chloride Flush Syringe 10 Ml IV 10 ml BID KANIKA Administration Sodium Chloride 10 ml 01/10/20 08:00 Sodium Chloride Flush Syringe 10 Ml IV PRN PRN LINE FLUSH
[2020-01-19] MEDS ORDERED: DEXTROSE 5% IN WATER 1,000 ML with SODIUM BICARBONATE 75 MEQ IV SCH (13:00)
--- NOTE | 2020-01-19 13:13 | XRay Report ---
CHEST 1 VIEW INDICATION: change in resp status COMPARISON: 01/15/2020 FINDINGS: SUPPORT DEVICES: Endotracheal tubes in good position. Central venous line has tip in superior vena ca va. Nasogastric tube has tip below diaphragm HEART / MEDIASTINUM: No significant abnormality. LUNGS / PLEURA: Airspace changes present both lower lobes with bilateral pleural effusions. No pneumo thorax. ADDITIONAL FINDINGS: IMPRESSION: 1. No interval change as compared to previous exam, airspace changes both lower lobes with bilateral pleural effusions Signer Name: Alonso Baldwin MD Signed: 01/19/2020 1:08 PM Workstation Name: [id number]
--- NOTE | 2020-01-19 18:54 | Progress Note ---
Assessment and Plan Imp: 1. S/p CP arrest 2. Anoxic encephalopathy 3. Acute/chronic diastolic and systolic CHF 4. MELIDA 5. Hyperkalemia 6. Morbid obesity Rec: 1. No sedation 2. Reason for hypoxia appears to be volume overload but poor candidate for dialysis due to severe anoxia and hypotension on multiple pressors; holding off on increasing the PEEP due to her hypotension and the dismal prognosis 3. Wean pressors to keep MAP > 65 4. Defer hyperkalemia to renal 5. Cont. empiric Cefipime for now 6. TFs, DVT and GI PPx 7. Again patient has dismal prognosis and will not survive this; she is hospice appropriate; DNR status noted; no family present will attempt to update sons if I can locate phone numbers CCt 31 minutes Subjective Date of service: 01/19/20 Principal diagnosis: PNA; resp failure Interval history: Hypoxic on 100% FiO2. Maxed out on Levophed and Vasopressin. Patient remains unresponsive. Active Medications Acetaminophen (Tylenol) 650 mg PO Q4H PRN PRN Reason: Pain MILD(1-3)/Fever >100.5/CHRISTINA Last Admin: 01/18/20 20:44 Dose: 650 mg Documented by: Lipase/Protease/Amylase (Pancrelety Gomez 10,500 Unit) 1 each FEEDTUBE PRN PRN PRN Reason: For Clogged Feeding Tube Famotidine (Pepcid) 20 mg PO DAILY KANIKA Last Admin: 01/19/20 10:24 Dose: 20 mg Documented by: Norepinephrine 8 mg/ Sodium (Chloride) 250 mls @ 3.75 mls/hr IV TITR KANIKA; Protocol Last Admin: 01/19/20 12:00 Dose: 28 mcg/min, 52.5 mls/hr Documented by: Cefepime HCl (Cefepime/Ns 2 Gm/100 Ml) 2 gm in 100 mls @ 200 mls/hr IV Q24H KANIKA; Protocol Last Admin: 01/17/20 22:13 Dose: 200 mls/hr Documented by: Vasopressin 20 unit/ Sodium (Chloride) 101 mls @ 9.09 mls/hr IV TITR KANIKA; Protocol Last Admin: 01/19/20 10:24 Dose: 0.03 units/min, 9.09 mls/hr Documented by: Sodium Bicarbonate 75 meq/ (Dextrose) 1,075 mls @ 75 mls/hr IV DIRECT KANIKA Metoclopramide HCl (Reglan) 10 mg IV Q6H PRN PRN Reason: Nausea And Vomiting Ondansetron HCl (Zofran) 4 mg IV Q8H PRN PRN Reason: Nausea And Vomiting Senna/Docusate Sodium (Senokot S) 2 tab PO BID [facility] Last Admin: 01/19/20 10:24 Dose: 2 tab Documented by: Simple Syrup (Simple Syrup) 15 ml FEEDTUBE PRN PRN PRN Reason: Hypoglycemia Simple Syrup (Simple Syrup) 30 ml FEEDTUBE PRN PRN PRN Reason: Hypoglycemia Sodium Bicarbonate (Sodium Bicarbonate) 325 mg FEEDTUBE PRN PRN PRN Reason: For Clogged Feeding Tube Sodium Chloride (Sodium Chloride Flush Syringe 10 Ml) 10 ml IV BID [facility] Last Admin: 01/19/20 10:23 Dose: 10 ml Documented by: Sodium Chloride (Sodium Chloride Flush Syringe 10 Ml) 10 ml IV PRN PRN PRN Reason: LINE FLUSH Objective Vital Signs - 12hr 01/19/20 01/19/20 01/19/20 07:00 07:15 07:30 Temperature Pulse Rate 118 H 117 H 117 H Pulse Rate [ From Monitor] Respiratory 24 24 22 Rate Blood Pressure 67/28 107/62 114/67 O2 Sat by Pulse 86 87 88 Oximetry 01/19/20 01/19/20 01/19/20 07:45 07:58 08:00 Temperature 101.8 F H Pulse Rate 117 H 116 H Pulse Rate [ 117 H From Monitor] Respiratory 24 24 Rate Blood Pressure 113/70 111/70 O2 Sat by Pulse 89 90 Oximetry 01/19/20 01/19/20 01/19/20 08:06 08:15 08:30 Temperature Pulse Rate 117 H 117 H 117 H Pulse Rate [ From Monitor] Respiratory 24 24 Rate Blood Pressure 111/70 120/70 115/74 O2 Sat by Pulse 90 90 89 Oximetry 01/19/20 01/19/20 01/19/20 08:45 09:00 09:15 Temperature Pulse Rate 118 H 118 H 118 H Pulse Rate [ From Monitor] Respiratory 24 24 24 Rate Blood Pressure 123/72 122/75 115/76 O2 Sat by Pulse 89 88 88 Oximetry 01/19/20 01/19/20 01/19/20 09:30 09:45 10:00 Temperature Pulse Rate 119 H 119 H 120 H Pulse Rate [ From Monitor] Respiratory 24 24 24 Rate Blood Pressure 122/75 123/79 123/76 O2 Sat by Pulse 89 88 87 Oximetry 01/19/20 01/19/20 01/19/20 10:15 10:30 10:45 Temperature Pulse Rate 121 H 121 H 121 H Pulse Rate [ From Monitor] Respiratory 24 24 24 Rate Blood Pressure 129/76 123/75 118/73 O2 Sat by Pulse 88 88 87 Oximetry 01/19/20 01/19/20 01/19/20 11:00 11:15 11:30 Temperature Pulse Rate 122 H 126 H 129 H Pulse Rate [ From Monitor] Respiratory 24 23 24 Rate Blood Pressure 129/72 105/57 121/55 O2 Sat by Pulse 88 85 86 Oximetry 01/19/20 01/19/20 01/19/20 11:46 12:00 12:04 Temperature 102.1 F H Pulse Rate 129 H 128 H 134 H Pulse Rate [ 124 H From Monitor] Respiratory 24 24 Rate Blood Pressure 87/44 104/49 83/36 O2 Sat by Pulse 83 L 82 L 84 Oximetry 01/19/20 01/19/20 01/19/20 12:15 12:30 12:45 Temperature Pulse Rate 126 H 123 H 125 H Pulse Rate [ From Monitor] Respiratory 24 25 H 24 Rate Blood Pressure 108/51 102/52 105/57 O2 Sat by Pulse 85 86 85 Oximetry 01/19/20 01/19/20 01/19/20 13:00 13:15 13:30 Temperature Pulse Rate 122 H 121 H 121 H Pulse Rate [ From Monitor] Respiratory 24 22 23 Rate Blood Pressure 104/55 104/63 108/61 O2 Sat by Pulse 86 87 87 Oximetry 01/19/20 01/19/20 01/19/20 13:45 14:00 14:15 Temperature Pulse Rate 121 H 121 H 122 H Pulse Rate [ From Monitor] Respiratory 24 23 24 Rate Blood Pressure 116/63 113/62 125/78 O2 Sat by Pulse 87 87 88 Oximetry 01/19/20 01/19/20 01/19/20 14:30 14:45 15:00 Temperature Pulse Rate 122 H 122 H 122 H Pulse Rate [ From Monitor] Respiratory 24 24 24 Rate Blood Pressure 111/66 119/61 108/60 O2 Sat by Pulse 86 86 86 Oximetry 01/19/20 01/19/20 01/19/20 15:15 15:30 15:45 Temperature Pulse Rate 124 H 123 H 123 H Pulse Rate [ From Monitor] Respiratory 24 23 23 Rate Blood Pressure 122/78 118/67 112/67 O2 Sat by Pulse 87 86 86 Oximetry 01/19/20 01/19/20 01/19/20 15:59 16:00 16:15 Temperature 102.5 F H Pulse Rate 124 H 123 H 124 H Pulse Rate [ 124 H From Monitor] Respiratory 24 24 Rate Blood Pressure 108/68 108/68 121/73 O2 Sat by Pulse 86 86 86 Oximetry 01/19/20 01/19/20 01/19/20 16:30 16:45 17:00 Temperature Pulse Rate 123 H 123 H 125 H Pulse Rate [ From Monitor] Respiratory 25 H 24 22 Rate Blood Pressure 118/59 119/62 122/61 O2 Sat by Pulse 85 85 85 Oximetry 01/19/20 01/19/20 01/19/20 17:15 17:30 17:45 Temperature Pulse Rate 124 H 124 H 125 H Pulse Rate [ From Monitor] Respiratory 28 H 24 24 Rate Blood Pressure 112/60 112/64 119/62 O2 Sat by Pulse 85 83 L 84 Oximetry 01/19/20 01/19/20 01/19/20 18:00 18:15 18:30 Temperature Pulse Rate 122 H 125 H 125 H Pulse Rate [ From Monitor] Respiratory 24 28 H 24 Rate Blood Pressure 114/66 113/65 114/67 O2 Sat by Pulse 84 84 84 Oximetry Constitutional: no acute distress, comatose (Per nursing, no cough, no gag) Eyes: non-icteric ENT: other (orally intubated, not on sedation) Neck: supple, other (large in circumference) Ascultation: Bilateral: diminished breath sounds Cardiovascular: regular rate and rhythm (no mrg) Gastrointestinal: normoactive bowel sounds, soft, non-tender, non-distended Integumentary: normal Extremities: no cyanosis, no edema, edema Neurologic: other (unresponsive and comatose) Psychiatric: other (unable to assess) CBC and BMP: 01/19/20 04:00 01/19/20 14:54 ABG, PT/INR, D-dimer: ABG ABG pH 7.237 (7.320-7.450) L 01/19/20 04:20 POC ABG pCO2 56.6 mmHg (32.0-48.0) H 01/19/20 04:20 ABG pCO2 46.2 mm Hg 01/18/20 04:48 POC ABG pO2 57.7 mmHg (83-108) L 01/19/20 04:20 ABG pO2 63.1 mm Hg (80.0-90.0) L 01/18/20 04:48 POC ABG HCO3 23.5 01/19/20 04:20 ABG O2 Saturation 91.6 % (95.0-99.0) L 01/18/20 04:48 PT/INR, D-dimer PT 13.9 Sec. (12.2-14.9) 01/09/20 19:03 INR 1.05 (0.87-1.13) 01/09/20 19:03 Abnormal lab findings: Abnormal Labs 01/09/20 01/09/20 01/09/20 18:37 18:47 19:03 WBC 14.0 H RBC 5.18 H Hgb MCV 76 L MCH 22 L MCHC 29 L RDW 22.0 H Plt Count Lymph % (Auto) [place] % (Auto) Baso % (Auto) Lymph # (Auto) [place] # (Auto) Baso # (Auto) Seg Neutrophils % Seg Neuts % (Manual) 76.0 H Lymphocytes % (Manual) Monocytes % (Manual) Nucleated RBC % Seg Neutrophils # Seg Neutrophils # Man 10.6 H Lymphocytes # (Manual) Monocytes # (Manual) ABG pH 7.252 L POC ABG pCO2 POC ABG pO2 ABG pO2 172.4 H ABG HCO3 34.3 H ABG O2 Saturation ABG Base Excess 4.9 H ABG Hemoglobin 11.8 L ABG Sodium ABG Potassium ABG Chloride ABG Glucose VBG pH 7.252 L Oxyhemoglobin Sodium Potassium Chloride BUN Creatinine Glucose POC Glucose 177 H Phosphorus Magnesium NT-Pro-B Natriuret Pep Total Protein Albumin Arterial Blood Glucose Urine WBC (Auto) Urine Creatinine 01/09/20 01/09/20 01/09/20 19:03 19:03 21:55 WBC RBC Hgb MCV MCH MCHC RDW Plt Count Lymph % (Auto) [place] % (Auto) Baso % (Auto) Lymph # (Auto) [place] # (Auto) Baso # (Auto) Seg Neutrophils % Seg Neuts % (Manual) Lymphocytes % (Manual) Monocytes % (Manual) Nucleated RBC % Seg Neutrophils # Seg Neutrophils # Man Lymphocytes # (Manual) Monocytes # (Manual) ABG pH 7.310 L POC ABG pCO2 POC ABG pO2 ABG pO2 61.8 L ABG HCO3 31.2 H ABG O2 Saturation 90.3 L ABG Base Excess 3.8 H ABG Hemoglobin 10.0 L ABG Sodium ABG Potassium ABG Chloride ABG Glucose VBG pH Oxyhemoglobin 87.8 L Sodium Potassium 3.1 L Chloride 95.2 L BUN Creatinine Glucose 197 H POC Glucose Phosphorus Magnesium NT-Pro-B Natriuret Pep 1345 H Total Protein 8.3 H Albumin Arterial Blood Glucose Urine WBC (Auto) Urine Creatinine 01/10/20 01/10/20 01/10/20 03:35 04:12 10:40 WBC RBC Hgb MCV 76 L MCH 22 L MCHC 29 L RDW 21.4 H Plt Count Lymph % (Auto) 6.0 L [place] % (Auto) Baso % (Auto) Lymph # (Auto) 0.5 L [place] # (Auto) Baso # (Auto) Seg Neutrophils % 87.3 H Seg Neuts % (Manual) Lymphocytes % (Manual) Monocytes % (Manual) Nucleated RBC % Seg Neutrophils # Seg Neutrophils # Man Lymphocytes # (Manual) Monocytes # (Manual) ABG pH POC ABG pCO2 POC ABG pO2 ABG pO2 63.8 L ABG HCO3 28.7 H ABG O2 Saturation ABG Base Excess 4.0 H ABG Hemoglobin 10.9 L ABG Sodium ABG Potassium ABG Chloride ABG Glucose VBG pH Oxyhemoglobin 92.8 L Sodium Potassium Chloride BUN Creatinine Glucose POC Glucose Phosphorus Magnesium NT-Pro-B Natriuret Pep Total Protein Albumin Arterial Blood Glucose Urine WBC (Auto) 50.0 H Urine Creatinine 01/10/20 01/11/20 01/11/20 10:40 03:34 09:53 WBC RBC Hgb MCV MCH MCHC RDW Plt Count Lymph % (Auto) [place] % (Auto) Baso % (Auto) Lymph # (Auto) [place] # (Auto) Baso # (Auto) Seg Neutrophils % Seg Neuts % (Manual) Lymphocytes % (Manual) Monocytes % (Manual) Nucleated RBC % Seg Neutrophils # Seg Neutrophils # Man Lymphocytes # (Manual) Monocytes # (Manual) ABG pH 7.334 L POC ABG pCO2 POC ABG pO2 ABG pO2 45.9 L ABG HCO3 29.0 H ABG O2 Saturation 76.5 L ABG Base Excess ABG Hemoglobin 9.8 L ABG Sodium ABG Potassium ABG Chloride ABG Glucose VBG pH Oxyhemoglobin 74.7 L Sodium 146 H 147 H Potassium Chloride BUN 23 H Creatinine 1.6 H D 3.0 H D Glucose POC Glucose Phosphorus 2.40 L Magnesium 1.50 L NT-Pro-B Natriuret Pep Total Protein 5.9 L D Albumin 3.2 L Arterial Blood Glucose Urine WBC (Auto) Urine Creatinine 01/11/20 01/11/20 01/12/20 12:25 15:30 00:27 WBC RBC Hgb MCV MCH MCHC RDW Plt Count Lymph % (Auto) [place] % (Auto) Baso % (Auto) Lymph # (Auto) [place] # (Auto) Baso # (Auto) Seg Neutrophils % Seg Neuts % (Manual) Lymphocytes % (Manual) Monocytes % (Manual) Nucleated RBC % Seg Neutrophils # Seg Neutrophils # Man Lymphocytes # (Manual) Monocytes # (Manual) ABG pH 7.273 L POC ABG pCO2 58.8 H POC ABG pO2 67.0 L ABG pO2 ABG HCO3 ABG O2 Saturation ABG Base Excess ABG Hemoglobin 10.4 L ABG Sodium ABG Potassium ABG Chloride 108.0 H ABG Glucose VBG pH Oxyhemoglobin Sodium Potassium Chloride BUN Creatinine Glucose POC Glucose 109 H Phosphorus Magnesium NT-Pro-B Natriuret Pep Total Protein Albumin Arterial Blood Glucose Urine WBC (Auto) Urine Creatinine 79.8 H 01/12/20 01/12/20 01/12/20 05:51 09:50 09:50 WBC 13.7 H RBC Hgb 9.5 L MCV 76 L MCH 22 L MCHC 29 L RDW 22.0 H Plt Count Lymph % (Auto) [place] % (Auto) Baso % (Auto) Lymph # (Auto) [place] # (Auto) Baso # (Auto) Seg Neutrophils % Seg Neuts % (Manual) Lymphocytes % (Manual) Monocytes % (Manual) Nucleated RBC % Seg Neutrophils # Seg Neutrophils # Man Lymphocytes # (Manual) Monocytes # (Manual) ABG pH 7.311 L POC ABG pCO2 49.5 H POC ABG pO2 81.8 L ABG pO2 ABG HCO3 ABG O2 Saturation ABG Base Excess ABG Hemoglobin 10.8 L ABG Sodium ABG Potassium ABG Chloride 112.0 H ABG Glucose 99 H VBG pH Oxyhemoglobin Sodium 148 H Potassium Chloride 110.7 H BUN 26 H Creatinine 3.0 H Glucose 102 H POC Glucose Phosphorus Magnesium NT-Pro-B Natriuret Pep Total Protein 5.8 L Albumin 2.4 L Arterial Blood Glucose 99 H Urine WBC (Auto) Urine Creatinine 01/13/20 01/13/20 01/13/20 04:11 06:28 06:28 WBC RBC Hgb 9.3 L MCV 77 L MCH 22 L MCHC 29 L RDW 22.2 H Plt Count Lymph % (Auto) 13.1 L [place] % (Auto) 9.3 H Baso % (Auto) Lymph # (Auto) [place] # (Auto) 0.9 H Baso # (Auto) Seg Neutrophils % 75.6 H Seg Neuts % (Manual) Lymphocytes % (Manual) Monocytes % (Manual) Nucleated RBC % Seg Neutrophils # Seg Neutrophils # Man Lymphocytes # (Manual) Monocytes # (Manual) ABG pH 7.289 L POC ABG pCO2 54.9 H POC ABG pO2 ABG pO2 ABG HCO3 ABG O2 Saturation ABG Base Excess ABG Hemoglobin ABG Sodium ABG Potassium ABG Chloride ABG Glucose VBG pH Oxyhemoglobin Sodium 152 H Potassium Chloride 115.5 H BUN 25 H Creatinine 3.9 H Glucose 132 H POC Glucose Phosphorus Magnesium NT-Pro-B Natriuret Pep Total Protein Albumin Arterial Blood Glucose Urine WBC (Auto) Urine Creatinine 01/13/20 01/13/20 01/14/20 12:07 17:44 04:00 WBC RBC Hgb MCV MCH MCHC RDW Plt Count Lymph % (Auto) [place] % (Auto) Baso % (Auto) Lymph # (Auto) [place] # (Auto) Baso # (Auto) Seg Neutrophils % Seg Neuts % (Manual) Lymphocytes % (Manual) Monocytes % (Manual) Nucleated RBC % Seg Neutrophils # Seg Neutrophils # Man Lymphocytes # (Manual) Monocytes # (Manual) ABG pH 7.269 L POC ABG pCO2 56.4 H POC ABG pO2 75.2 L ABG pO2 ABG HCO3 ABG O2 Saturation ABG Base Excess ABG Hemoglobin 10.9 L ABG Sodium 152.1 H ABG Potassium ABG Chloride 119.0 H ABG Glucose 113 H VBG pH Oxyhemoglobin Sodium Potassium Chloride BUN Creatinine Glucose POC Glucose 106 H 133 H Phosphorus Magnesium NT-Pro-B Natriuret Pep Total Protein Albumin Arterial Blood Glucose 113 H Urine WBC (Auto) Urine Creatinine 01/14/20 01/14/20 01/14/20 05:11 05:11 09:05 WBC RBC Hgb 9.3 L MCV 77 L MCH 22 L MCHC 29 L RDW 22.1 H Plt Count 126 L Lymph % (Auto) 7.8 L [place] % (Auto) 9.9 H Baso % (Auto) Lymph # (Auto) 0.7 L [place] # (Auto) Baso # (Auto) Seg Neutrophils % 79.2 H Seg Neuts % (Manual) Lymphocytes % (Manual) Monocytes % (Manual) Nucleated RBC % Seg Neutrophils # Seg Neutrophils # Man Lymphocytes # (Manual) Monocytes # (Manual) ABG pH 7.309 L POC ABG pCO2 POC ABG pO2 ABG pO2 94.6 H ABG HCO3 ABG O2 Saturation ABG Base Excess ABG Hemoglobin 10.3 L ABG Sodium ABG Potassium ABG Chloride ABG Glucose VBG pH Oxyhemoglobin 94.4 L Sodium 157 H Potassium 3.5 L D Chloride 118.5 H BUN 25 H Creatinine 4.0 H Glucose 111 H POC Glucose Phosphorus Magnesium NT-Pro-B Natriuret Pep Total Protein Albumin Arterial Blood Glucose Urine WBC (Auto) Urine Creatinine 01/14/20 01/14/20 01/15/20 12:20 16:32 04:00 WBC RBC Hgb MCV MCH MCHC RDW Plt Count Lymph % (Auto) [place] % (Auto) Baso % (Auto) Lymph # (Auto) [place] # (Auto) Baso # (Auto) Seg Neutrophils % Seg Neuts % (Manual) Lymphocytes % (Manual) Monocytes % (Manual) Nucleated RBC % Seg Neutrophils # Seg Neutrophils # Man Lymphocytes # (Manual) Monocytes # (Manual) ABG pH POC ABG pCO2 POC ABG pO2 ABG pO2 ABG HCO3 ABG O2 Saturation ABG Base Excess ABG Hemoglobin ABG Sodium ABG Potassium ABG Chloride ABG Glucose VBG pH Oxyhemoglobin Sodium 154 H Potassium 3.1 L Chloride 116.5 H BUN 27 H Creatinine 3.8 H Glucose 138 H POC Glucose 123 H 142 H Phosphorus Magnesium NT-Pro-B Natriuret Pep Total Protein Albumin Arterial Blood Glucose Urine WBC (Auto) Urine Creatinine 01/15/20 01/15/20 01/15/20 04:00 04:20 04:25 WBC RBC Hgb 9.2 L MCV 77 L MCH 22 L MCHC 29 L RDW 22.4 H Plt Count 95 L Lymph % (Auto) [place] % (Auto) 9.4 H Baso % (Auto) Lymph # (Auto) 0.8 L [place] # (Auto) Baso # (Auto) Seg Neutrophils % 73.2 H Seg Neuts % (Manual) Lymphocytes % (Manual) Monocytes % (Manual) Nucleated RBC % Seg Neutrophils # Seg Neutrophils # Man Lymphocytes # (Manual) Monocytes # (Manual) ABG pH 7.285 L POC ABG pCO2 59.1 H POC ABG pO2 49.3 L ABG pO2 ABG HCO3 ABG O2 Saturation ABG Base Excess ABG Hemoglobin 10.7 L ABG Sodium 152.8 H ABG Potassium 3.1 L ABG Chloride 121.0 H ABG Glucose 138 H VBG pH Oxyhemoglobin Sodium Potassium Chloride BUN Creatinine Glucose POC Glucose Phosphorus Magnesium 1.60 L NT-Pro-B Natriuret Pep Total Protein Albumin Arterial Blood Glucose 138 H Urine WBC (Auto) Urine Creatinine 01/16/20 01/16/20 01/16/20 00:20 04:19 04:19 WBC RBC Hgb 9.4 L MCV 77 L MCH 22 L MCHC 29 L RDW 22.8 H Plt Count 99 L Lymph % (Auto) [place] % (Auto) Baso % (Auto) Lymph # (Auto) [place] # (Auto) Baso # (Auto) Seg Neutrophils % Seg Neuts % (Manual) 73.0 H Lymphocytes % (Manual) 12.0 L Monocytes % (Manual) 12.0 H Nucleated RBC % 4.0 H Seg Neutrophils # Seg Neutrophils # Man Lymphocytes # (Manual) 0.9 L Monocytes # (Manual) 0.9 H ABG pH POC ABG pCO2 POC ABG pO2 ABG pO2 ABG HCO3 ABG O2 Saturation ABG Base Excess ABG Hemoglobin ABG Sodium ABG Potassium ABG Chloride ABG Glucose VBG pH Oxyhemoglobin Sodium 154 H Potassium Chloride 115.8 H BUN 28 H Creatinine 4.0 H Glucose 130 H POC Glucose 149 H Phosphorus Magnesium NT-Pro-B Natriuret Pep Total Protein Albumin Arterial Blood Glucose Urine WBC (Auto) Urine Creatinine 01/16/20 01/16/20 01/16/20 05:31 11:59 18:09 WBC RBC Hgb MCV MCH MCHC RDW Plt Count Lymph % (Auto) [place] % (Auto) Baso % (Auto) Lymph # (Auto) [place] # (Auto) Baso # (Auto) Seg Neutrophils % Seg Neuts % (Manual) Lymphocytes % (Manual) Monocytes % (Manual) Nucleated RBC % Seg Neutrophils # Seg Neutrophils # Man Lymphocytes # (Manual) Monocytes # (Manual) ABG pH POC ABG pCO2 POC ABG pO2 ABG pO2 ABG HCO3 ABG O2 Saturation ABG Base Excess ABG Hemoglobin ABG Sodium ABG Potassium ABG Chloride ABG Glucose VBG pH Oxyhemoglobin Sodium Potassium Chloride BUN Creatinine Glucose POC Glucose 138 H 135 H 135 H Phosphorus Magnesium NT-Pro-B Natriuret Pep Total Protein Albumin Arterial Blood Glucose Urine WBC (Auto) Urine Creatinine 01/16/20 01/17/20 01/17/20 Unknown 00:03 03:50 WBC RBC Hgb MCV MCH MCHC RDW Plt Count Lymph % (Auto) [place] % (Auto) Baso % (Auto) Lymph # (Auto) [place] # (Auto) Baso # (Auto) Seg Neutrophils % Seg Neuts % (Manual) Lymphocytes % (Manual) Monocytes % (Manual) Nucleated RBC % Seg Neutrophils # Seg Neutrophils # Man Lymphocytes # (Manual) Monocytes # (Manual) ABG pH 7.334 L 7.344 L POC ABG pCO2 POC ABG pO2 ABG pO2 123.5 H 76.8 L ABG HCO3 27.4 H ABG O2 Saturation ABG Base Excess ABG Hemoglobin 9.4 L ABG Sodium ABG Potassium ABG Chloride ABG Glucose VBG pH Oxyhemoglobin 93.8 L Sodium Potassium Chloride BUN Creatinine Glucose POC Glucose 128 H Phosphorus Magnesium NT-Pro-B Natriuret Pep Total Protein Albumin Arterial Blood Glucose Urine WBC (Auto) Urine Creatinine 01/17/20 01/17/20 01/17/20 04:00 04:00 05:57 WBC RBC Hgb 9.1 L MCV 76 L MCH 22 L MCHC 29 L RDW 22.8 H Plt Count 72 L Lymph % (Auto) 12.7 L [place] % (Auto) Baso % (Auto) 1.9 H Lymph # (Auto) [place] # (Auto) Baso # (Auto) 0.2 H Seg Neutrophils % 76.4 H Seg Neuts % (Manual) Lymphocytes % (Manual) Monocytes % (Manual) Nucleated RBC % Seg Neutrophils # 8.4 H Seg Neutrophils # Man Lymphocytes # (Manual) Monocytes # (Manual) ABG pH POC ABG pCO2 POC ABG pO2 ABG pO2 ABG HCO3 ABG O2 Saturation ABG Base Excess ABG Hemoglobin ABG Sodium ABG Potassium ABG Chloride ABG Glucose VBG pH Oxyhemoglobin Sodium 151 H Potassium Chloride 113.3 H BUN 39 H Creatinine 4.7 H Glucose 110 H POC Glucose 107 H Phosphorus Magnesium NT-Pro-B Natriuret Pep Total Protein Albumin Arterial Blood Glucose Urine WBC (Auto) Urine Creatinine 01/17/20 01/18/20 01/18/20 12:23 04:00 04:00 WBC 11.4 H RBC Hgb 9.5 L MCV 75 L MCH 22 L MCHC 29 L RDW 23.4 H Plt Count 60 L Lymph % (Auto) [place] % (Auto) Baso % (Auto) Lymph # (Auto) [place] # (Auto) Baso # (Auto) Seg Neutrophils % 73.6 H Seg Neuts % (Manual) Lymphocytes % (Manual) Monocytes % (Manual) Nucleated RBC % Seg Neutrophils # 8.4 H Seg Neutrophils # Man Lymphocytes # (Manual) Monocytes # (Manual) ABG pH POC ABG pCO2 POC ABG pO2 ABG pO2 ABG HCO3 ABG O2 Saturation ABG Base Excess ABG Hemoglobin ABG Sodium ABG Potassium ABG Chloride ABG Glucose VBG pH Oxyhemoglobin Sodium 153 H Potassium Chloride 115.2 H BUN 47 H Creatinine 5.0 H Glucose POC Glucose 109 H Phosphorus Magnesium NT-Pro-B Natriuret Pep Total Protein Albumin Arterial Blood Glucose Urine WBC (Auto) Urine Creatinine 01/18/20 01/19/20 01/19/20 04:48 04:00 04:00 WBC 16.3 H RBC Hgb 8.8 L MCV 77 L MCH 22 L MCHC 28 L RDW 23.5 H Plt Count 119 L Lymph % (Auto) [place] % (Auto) Baso % (Auto) Lymph # (Auto) [place] # (Auto) Baso # (Auto) Seg Neutrophils % Seg Neuts % (Manual) Lymphocytes % (Manual) Monocytes % (Manual) 9.0 H Nucleated RBC % 2.0 H Seg Neutrophils # Seg Neutrophils # Man 10.3 H Lymphocytes # (Manual) Monocytes # (Manual) 1.5 H ABG pH 7.348 L POC ABG pCO2 POC ABG pO2 ABG pO2 63.1 L ABG HCO3 ABG O2 Saturation 91.6 L ABG Base Excess ABG Hemoglobin 9.9 L ABG Sodium ABG Potassium ABG Chloride ABG Glucose VBG pH Oxyhemoglobin 89.1 L Sodium 153 H Potassium 6.7 H* D Chloride 114.9 H BUN 59 H Creatinine 6.3 H Glucose POC Glucose Phosphorus Magnesium NT-Pro-B Natriuret Pep Total Protein Albumin Arterial Blood Glucose Urine WBC (Auto) Urine Creatinine 01/19/20 01/19/20 01/19/20 04:20 08:36 12:35 WBC RBC Hgb MCV MCH MCHC RDW Plt Count Lymph % (Auto) [place] % (Auto) Baso % (Auto) Lymph # (Auto) [place] # (Auto) Baso # (Auto) Seg Neutrophils % Seg Neuts % (Manual) Lymphocytes % (Manual) Monocytes % (Manual) Nucleated RBC % Seg Neutrophils # Seg Neutrophils # Man Lymphocytes # (Manual) Monocytes # (Manual) ABG pH 7.237 L POC ABG pCO2 56.6 H POC ABG pO2 57.7 L ABG pO2 ABG HCO3 ABG O2 Saturation ABG Base Excess ABG Hemoglobin 10.0 L ABG Sodium 148.5 H ABG Potassium 6.1 H ABG Chloride 119.0 H ABG Glucose VBG pH Oxyhemoglobin Sodium Potassium 7.3 H* Chloride BUN Creatinine Glucose POC Glucose 124 H Phosphorus Magnesium NT-Pro-B Natriuret Pep Total Protein Albumin Arterial Blood Glucose Urine WBC (Auto) Urine Creatinine 01/19/20 01/19/20 14:54 17:43 WBC RBC Hgb MCV MCH MCHC RDW Plt Count Lymph % (Auto) [place] % (Auto) Baso % (Auto) Lymph # (Auto) [place] # (Auto) Baso # (Auto) Seg Neutrophils % Seg Neuts % (Manual) Lymphocytes % (Manual) Monocytes % (Manual) Nucleated RBC % Seg Neutrophils # Seg Neutrophils # Man Lymphocytes # (Manual) Monocytes # (Manual) ABG pH POC ABG pCO2 POC ABG pO2 ABG pO2 ABG HCO3 ABG O2 Saturation ABG Base Excess ABG Hemoglobin ABG Sodium ABG Potassium ABG Chloride ABG Glucose VBG pH Oxyhemoglobin Sodium Potassium 8.1 H* Chloride BUN Creatinine Glucose POC Glucose 122 H Phosphorus Magnesium NT-Pro-B Natriuret Pep Total Protein Albumin Arterial Blood Glucose Urine WBC (Auto) Urine Creatinine Chest x-ray: report reviewed, image reviewed (volume overload)
[2020-01-19] MEDS: CEFEPIME/NS 2 GM/100 ML 2 GM/100 ML BAG IV SCH ×2 (22:12→22:13)
[2020-01-19] MEDS: ACETAMINOPHEN 325 MG TAB PO PRN (22:14)
[2020-01-20] MEDS: NORepinephrine 8 MG in SODIUM CHLORIDE 0.9% 250ML 242 ML IV SCH (04:12)
[2020-01-20] MEDS: ACETAMINOPHEN 325 MG TAB PO PRN (04:19)
[2020-01-20 04:59] LABS: Mean Corpuscular HGB Conc 28 % (30-34); Mean Corpuscular Volume 79 fl (79-97); Platelet Count 151 K/mm3 (140-440); Red Blood Count 3.74 M/mm3 (3.65-5.03)
[2020-01-20 05:10] LABS: Hematocrit 29.6 % (30.3-42.9); Hemoglobin 8.2 gm/dl (10.1-14.3); Red Cell Distribution Width 23.7 % (13.2-15.2)
[2020-01-20] MEDS ORDERED: SODIUM BICARB 8.4% 50 MEQ/50 ML SYRINGE IV ONE (05:25)
[2020-01-20] MEDS ORDERED: DEXTROSE 50% IN WATER (25GM) 50 ML SYRINGE IV ONE (05:26)
[2020-01-20] MEDS ORDERED: INSULIN REGULAR, HUMAN 100 UNIT/ML 3ML VIAL IV ONE (05:26)
[2020-01-20] MEDS ORDERED: CALCIUM GLUCONATE 1,000 MG in SODIUM CHLORIDE 0.9% 100 ML IV ONE (05:27)
[2020-01-20 05:39] LABS: ABG Base Excess -9.3 mmol/L (-2.0-3.0); ABG HCO3 19.7 mmol/L (20.0-26.0); ABG PCO2 55.4 mm Hg; ABG PO2 75.5 mm Hg (80.0-90.0)
[2020-01-20 05:41] LABS: ABG Methemoglobin 0.5 % (0.0-1.5); ABG Oxygen Saturation 88.6 % (95.0-99.0)
[2020-01-20 05:50] LABS: ABG PH 7.145 pH Units (7.350-7.450)
[2020-01-20] MEDS ORDERED: SODIUM POLYSTYRENE 15 GM/60 ML ORAL LIQD PO ONE (06:00)
[2020-01-20 07:00] LABS: Eosinophils % (Manual) 0 % (0.0-4.3); Total Cells Counted 100
[2020-01-20 07:01] LABS: Anisocytosis 1+; Hypochromasia 1+; Platelet Estimate Consistent w Auto
--- NOTE | 2020-01-20 07:06 | Death Summary ---
Summary - Providers Date of service: 01/20/20 Consults: 01/10/20 07:34 Consult to Physician [CONS] Routine Comment: Consulting Provider: FREYA HAYNES Physician Instructions: Reason For Exam: CHF exacerbation 01/10/20 07:42 Consult to Dietitian/Nutrition [CONS] Routine Physician Instructions: Assess nutrtn needs, initiate, modify, manage TF Reason For Exam: Patient is intubated and needs tube feeding Reason for Consult: Write/Manage Tube Feeding Reason for Consult: Write/Manage Tube Feeding 01/10/20 08:59 Consult to Physician [CONS] Routine Comment: Consulting Provider: LINNEA SANTAMARIA Physician Instructions: Reason For Exam: Ac.hypoxic resp failure/intubated/pulm/cr/consult 01/12/20 08:48 Consult to Physician [CONS] Routine Comment: Consulting Provider: ROSITA LEE Physician Instructions: Reason For Exam: Acute Kidney Injury 01/14/20 14:39 Consult to Physician [CONS] Routine Comment: Consulting Provider: MELISSA SEVILLA Physician Instructions: Reason For Exam: Unresponsive/severe encephalopathy Attending: AWAIS BLAND MD - summary Date of admission: 01/09/20 23:08 Date of : 01/20/20 Reason for admission: Metabolic encephalopathy, acute hypoxic and hypercapnic respiratory failure Significant findings: 44-year-old morbidly obese -[place] female patient with history of chronic hypercapnic hypoxic respiratory failure, sleep apnea, morbid obesity, on home oxygen, home BiPAP follows with [facility] was admitted through emergency room with altered level of consciousness, unresponsiveness, acute hypoxic respiratory failure requiring intubation, admitted to ICU noted to have shock, pressor dependent, acute renal failure, fever, severe metabolic versus hypoxic encephalopathy. Patient continued to deteriorate. Critically ill very unstable, unable to get neuro work-up like CT head, MRI/MRA. Pulmonary critical, cardiology, nephrology and neurology are following the patient. All the healthcare providers including me have periodically discussed extensively with patient's mother Ms. Juliet Purcell of patient's critical condition Poor prognosis . Patient's mother continued to be in denial with unrealistic expectations wants everything to be done. --Perry PCR negative, 01/10/2020 --Metabolic encephalopathy versus hypoxic encephalopathy; present on admission Patient remains unresponsive since admission Intubated on vent, hypotensive on Levophed Unable to get CT scan as patient is unstable and morbidly obese Neurology evaluation and recommendations noted and appreciated. EEG requested ,continue current supportive care --Acute hypoxic respiratory failure; intubated on mechanical ventilation We will continue supportive care and Wean as tolerated and extubate Pulmonary critical following --History of obstructive sleep apnea /possible OHS Intubated on mechanical ventilation --Hypotension/shock; Continues to be on vasopressor Levophed Gentle hydration --Acute on chronic systolic congestive heart failure; Echo;EF 45 to 50%, Management per cardiology --Acute kidney injury-worsening renal function cr today 4.7 secondary to vasomotor nephropathy, prerenal, hypotension Gentle hydration, avoid nephrotoxins, nephrology following --Morbid obesity; BMI 55.1 Patient needs weight reduction when medically stable --Moderate-malnutrition/hypoalbuminemia Supportive care, nutrition consult --PUI/high suspicion for COVID-19; Perry PCR negative --DVT prophylaxis;Lovenox --Full CODE STATUS We will closely monitor the patient and adjust management , . Patient is critically ill, with very 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. Family aware Plan of care reviewed with the patient's nurse. Health caregivers discussed periodically with the mother and updated patient's condition Poor prognosis, goals of treatment, CODE STATUS, she wants everything to be done at this point 01/14/20; I called and discussed with patient's mother Ms. Juliet Purcell, patient's condition Poor prognosis, treatment plan and consultants recommendations 01/16/20; family visited last night[01/14], patient's mother is in denial and has unrealistic expectations She wants full CODE STATUS and complete treatment and believes that her daughter will come out of this. Communication with [facility]; 01/13/[address] [facility] physician [address] Mcginnis and updated patient's condition with 01/15/2020; discussed with [facility] physician , updated patient's condition 01/16/2020: Discussed with [facility] physician , answered all her questions 01/17/2020; discussed with [facility] physician and discussed about patient's condition 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 and treatment plan The high probability of a clinically significant, sudden or life threatening deterioration of the [Respiratory, ID, CVs] system(s) required my full and direct attention, intervention and personal management. The aggregate critical care time was [33] minutes. This time is in addition to time spent performing reported procedures but includes the following: [x] Data Review and interpretation [x] Patient assessment and monitoring of vital signs [x] Documentation [x] Medication orders and management 01/10; patient remains hypotensive on Levophed, added IV fluids, follow echocardiogram for LV function 01/11; patient remains intubated on vent, unable to get CT head as patient is unstable and morbidly obese 01/12; patient remains hypotensive on Levophed, on ventilatory support, worsening renal function nephrology evaluation appreciated Hypernatremia, free water flushes via [place], monitor electrolytes/discussed with [facility] physician 01/13; multiple electrolyte abnormalities,remains hypotensive, worsening renal function, I discussed with patient's mother over the phone. Neurology consulted, discussed with Dr. Melissa Sevilla 01/14; neurology evaluated the patient today, absent reflexes, 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, pending CT head, EEG 01/15; discussed with [facility] physician and updated patient's condition, 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 01/16; patient remains unresponsive, remains hypotensive on Levophed, remains intubated on vent, worsening renal function, 01/17: Pending CT Head, remains unstable, EEG - Diffused encephalopathy compatible with hypoxemic/ischemic encephalopathy, there is epileptiform abn ormality emanating from the left posterior temporal region. The prognosisunless the patient has received some IV barbiturates or long-acting benzos would be very poor. Patient still with persistent hypernatremia community artist is following. She remains unstable for transfer remains on norepinephrine for blood pressure maintenance. We will also discussed with neurologist and a further option and management. Multi-organ failure- Discussed with family 01/18; patient is deeply comatose. Pupils are fixed and dilated. Patient maxed out Levophed and added vasopressin. Patient is deteriorating. 01/19 ; earlier this morning patient's blood pressure was dropped, despite on Levophed and vasopressin and patient at 6:53. Patient was DNR. Procedures/treatments rendered: As stated above - Final diagnosis (1) Acute metabolic encephalopathy Note: Final diagnosis: (2) Shock Note: Final diagnosis: (3) MELIDA (acute kidney injury) Note: Final diagnosis: (4) AMS (altered mental status) Note: Final diagnosis: (5) Acute exacerbation of congestive heart failure Qualifiers: Heart failure type: combined systolic and diastolic Qualified Code(s): I50.43 - Acute on chronic combined systolic (congestive) and diastolic (congestive) heart failure Note: Final diagnosis: (6) Acute heart failure with preserved ejection fraction (HFpEF) Note: Final diagnosis: (7) Acute respiratory failure with hypoxia Note: Final diagnosis: (8) Hypernatremia Note: Final diagnosis: (9) Hypokalemia Note: Final diagnosis: (10) Hypotension Note: Final diagnosis: (11) Pneumonia Note: Final diagnosis: (12) Pulmonary edema Note: Final diagnosis: (13) Respiratory failure Note: Final diagnosis:
--- NOTE | 2020-01-20 07:11 | Event Note ---
Date: 01/20/20 I was called by the patient's nurse earlier this morning around 7 AM to pronounce the patient. Patient has flatline at 6:53. No pulse, no respiratory movement, no heartbeat, no reflexes. Patient pronounced at at 702 AM.
[2020-01-20 09:39] VITALS: BP 74/29
== END 2020-01-20 07:20 | DRG 207 ==
LOC: ED 18:21 → CC1 23:08
PROVIDERS: ADMIT Internal Medicine; ATTEND Internal Medicine
PROC: 5A1955Z Respiratory Ventilation, Greater than 96 Consecutive Hours (ICD-10-PCS; principal; 2020-01-09)
PROC: 0BH17EZ Insertion of Endotracheal Airway into Trachea, Via Natural or Artificial Opening (ICD-10-PCS; 2020-01-09)
PROC: 4A033R1 Measurement of Arterial Saturation, Peripheral, Percutaneous Approach (ICD-10-PCS; 2020-01-09)
PROC: 5A09357 Assistance with Respiratory Ventilation, Less than 24 Consecutive Hours, Continuous Positive Airway Pressure (ICD-10-PCS; 2020-01-09)
DX: J96.21 Acute and chronic respiratory failure with hypoxia (principal); J81.0 Acute pulmonary edema; G93.41 Metabolic encephalopathy; N17.0 Acute kidney failure with tubular necrosis; I50.43 Acute on chronic combined systolic (congestive) and diastolic (congestive) heart failure; J18.9 Pneumonia, unspecified organism; J81.1 Chronic pulmonary edema; E44.0 Moderate protein-calorie malnutrition; Z68.43 Body mass index [BMI] 50.0-59.9, adult; E87.0 Hyperosmolality and hypernatremia; R57.9 Shock, unspecified; E66.01 Morbid (severe) obesity due to excess calories; Z20.828 Contact with and (suspected) exposure to other viral communicable diseases; Z88.8 Allergy status to other drugs, medicaments and biological substances; I11.0 Hypertensive heart disease with heart failure; E87.6 Hypokalemia; E83.42 Hypomagnesemia; D64.9 Anemia, unspecified; Z91.19 Patient's noncompliance with other medical treatment and regimen; D69.6 Thrombocytopenia, unspecified; I46.9 Cardiac arrest, cause unspecified; E87.5 Hyperkalemia
CPT/HCPCS: 36415; 36600; 71045; 74018; 80048; 80053; 81001; 82140; 82570; 82803; 82805; 82962; 83036; 83735; 83880; 84100; 84132; 84300; 84484; 84520; 84703; 85007; 85025; 85027; 85610; 86021; 86038; 86160; 86334; 87040; 87070; 87086; 87205; 93005; 93306; 94002; 94003; 95819; 96365; 96367; 96375; G0378; J0330; J0610; J0692; J0696; J1644; J1815; J1940; J3370; J3475; J3480; J7030; J7040; J7050; J7070; J7120; U0003-CS